=== PATIENT | female | born 1970 | race Caucasian/White ===

== ENCOUNTER 2016-12-03 19:06 | Emergency (ER) | payer OTHER ==
[~2016-12-03] VITALS: Ht 152.4 cm; Wt 83.5 kg
[~2016-12-03 19:06] MED LIST: ASPI-664 PO; CIPR750T3 PO; FAMO-18 PO; FER325 PO; FURO-109 PO; IBUP800T25 PO; KEN1O TOP; LANT3I SC; LEVO137T3 PO; METO-448 PO; MICO1KIT18 VAGINAL; NITR-58 PO; ONDA4TAB8 PO; SITA1TAB7 PO; UDMOM PO
[2016-12-03 19:21] VITALS: Ht 152.4 cm; Wt 83.5 kg
--- NOTE | 2016-12-03 19:51 | ERA ---
ER Documentation Chief Complaint Date/Time DATE: 12/03/16 TIME: 19:51 Chief Complaint left arm pain x 1 month, denies injury HPI The patient is a 46-year-old female, presenting to the ER because of right arm pain for more than a month, 5-10, worse with movement. She denies any trauma, denies fever, neck pain, chest pain, dyspnea, abdominal pain, vomiting. He does not smoke or drink; she has been cleaning the house a lot Past medical history: Diabetes mellitus, hypothyroidism, gastritis Past surgical history: ROS All systems reviewed and are negative except as per history of present illness. Medications Home Meds Active Scripts Ibuprofen* (Motrin*) 600 Mg Tab, 600 MG PO Q6H Y for PAIN AND OR ELEVATED TEMP, #20 TAB Prov:NEFTALY RUSSELL MD 12/03/16 Nitrofurantoin Monohyd Macrocr* (Macrobid*) 100 Mg Capsr, 100 MG PO BID for 7 Days, CAP Prov:SALVADOR GARCIA NP 08/29/16 Miconazole/Skin Cleanser No.17 (Monistat 7 Combination Pack) 1 Each Kit, 1 EACH VAGINAL QPM, #1 KIT Prov:SALVADOR GARCIA. WASH OIL COOLER OPERATOR 08/29/16 Ondansetron Hcl* (Zofran*) 4 Mg Tablet, 4 MG PO Q6H for NAUSEA AND/OR VOMITING, #30 TAB Prov:MONTY TENA 04/12/16 Famotidine* (Pepcid*) 20 Mg Tablet, 20 MG PO BID for 14 Days, TAB Prov:MONTY TENA 04/12/16 Ciprofloxacin Hcl* (Ciprofloxacin Hcl*) 750 Mg Tablet, 750 MG PO BID for 10 Days , #20 TAB Prov:ALPA JEAN-BAPTISTE S. 03/26/16 Furosemide* (Lasix*) 40 Mg Tablet, 40 MG PO DAILY for 30 Days, TAB 1 Refill Prov:ALPA JEAN-BAPTISTE S. 03/26/16 Triamcinolone Acetonide* (Kenalog*) 0.1%-15GM Oint, 1 APPLIC TOP BID for 30 Days , #45 GM Prov:LAUREN GUNN MD 03/25/16 Metoprolol Tartrate* (Lopressor*) 25 Mg Tab, 25 MG PO BID for 30 Days, #60 TAB Prov:LAUREN GUNN MD 03/25/16 Magnesium Hydroxide* (Acosta' MOM*) 30 Ml Susp, 30 ML PO DAILY Y for CONSTIPATION for 30 Days, #1 BOTTLE Prov:LAUREN GUNN MD 03/25/16 Ferrous Sulfate* (Ferrous Sulfate*) 325 Mg Tabec, 325 MG PO TID for 30 Days, # 90 TAB Prov:LAUREN GUNN MD 03/25/16 Aspirin* (Aspirin* EC) 81 Mg Tablet.dr, 81 MG PO DAILY for 30 Days, TAB Prov:LAUREN GUNN MD 03/25/16 Insulin Glargine* (Lantus*) 100 Unit/Ml Soln, 50 UNIT SC QHS for 30 Days, #1 VIAL Prov:LAUREN GUNN MD 03/25/16 Reported Medications Sitagliptin Phos-Metformin Hcl (Janumet) 50-1,000 Mg Tablet, 1 TAB PO WITH BREAKFAST DINNE, #60 TAB 03/22/16 Ibuprofen* (Motrin*) 800 Mg Tab, 800 MG PO TID Y for PAIN, TAB 03/22/16 Levothyroxine Sodium* (Levothyroxine Sodium*) 137 Mcg Tablet, 137 MCG PO BEFORE BREAKFAST, #30 TAB 03/22/16 Allergies Allergies: Coded Allergies: No Known Allergies (Verified Allergy, Mild, 04/12/16) PMhx/Soc History of Surgery: Yes ( X1 ) Anesthesia Reaction: No Hx Neurological Disorder: No Hx Respiratory Disorders: No Hx Cardiac Disorders: No Hx Psychiatric Problems: No Hx Miscellaneous Medical Probl: Yes (GASTRITIS) Hx Alcohol Use: No Hx Substance Use: No Hx Tobacco Use: No Physical Exam Vitals Vital Signs Date Time Temp Pulse Resp B/P Pulse Ox O2 Delivery O2 Flow Rate FiO2 12/03/16 19:21 97.8 93 20 135/61 100 Physical Exam Const: No acute distress. Head: Atraumatic. Eyes: Normal Conjunctiva. ENT: Normal External Ears, Nose and Mouth. Neck: Full range of motion. No meningismus. Resp: Clear to auscultation bilaterally. Cardio: Regular rate and rhythm, no murmurs. Abd: Soft, non distended, normal bowel sounds, non tender. Skin: No petechiae or rashes. Back: No midline or flank tenderness. Ext: No cyanosis, or edema. Left arm is without any erythema, edema, crepitus, vague tenderness Neur: Awake and alert. No focal deficit Psych: Normal Mood and Affect. Results 24 hrs Current Medications Medications (Trade) Dose Ordered Sig/Charley Route PRN Reason Start Time Stop Time Status Last Admin Dose Admin Ibuprofen (Motrin) 600 mg ONCE ONCE PO 12/03/16 20:00 12/03/16 20:01 DC 12/03/16 20:14 Procedures/MDM MEDICAL MAKING DECISION: The patient is a 46-year-old female, presenting with acute left arm myalgia of unclear etiology. The differential diagnoses considered include but are not limited to contusion, sprain, strain, fracture, cellulitis Departure Diagnosis: Primary Impression: Pain of left arm Condition: Good Comments She was discharged with Motrin I discussed the findings with the patient. I advised the patient to follow-up with the primary physician in about 1-2 days, sooner if needed and return if any concern. The patient's blood pressure was elevated (>120/80) but appears stable without evidence of hypertension emergency or urgency. The patient was counseled about the risks of hypertension and urged to pursue outpatient monitoring and therapy within a week with their primary care physician. NEFTALY RUSSELL MD Dec 03, 2016 19:51
[2016-12-03] MEDS ORDERED: IBUP-1542 PO (19:53)
[2016-12-03] MEDS ORDERED: IBUPROFEN 600 MG TAB PO ONE (20:00)
== END 2016-12-03 20:16 | disposition home or self-care (01) ==
LOC: FTE 19:06
DX: M79.602 Pain in left arm (principal); E03.9 Hypothyroidism, unspecified; E11.9 Type 2 diabetes mellitus without complications; Z79.4 Long term (current) use of insulin; Z79.84 Long term (current) use of oral hypoglycemic drugs; Z79.82 Long term (current) use of aspirin
CPT/HCPCS: 99283

== ENCOUNTER 2016-12-19 17:57 | Inpatient (IN) | payer OTHER ==
[~2016-12-19] VITALS: Ht 157.5 cm; Wt 80.8 kg
[~2016-12-19 17:57] MED LIST changes: +IBUP-1542 PO
[2016-12-19] MEDS ORDERED: ACETAMINOPHEN 500 MG TAB PO STA (18:57)
[2016-12-19 19:29] LABS: ADD UMIC YES; URINE BILIRUBIN (Dip) NEGATIVE (NEGATIVE); URINE BLOOD (Dip) TRACE (NEGATIVE); URINE COLOR LT. YELLOW (YELLOW); URINE GLUCOSE (Dip) >=1000 % (NEGATIVE); URINE KETONES (Dip) 15 (NEGATIVE); URINE LEUKOCYTE ESTERASE (Dip) NEGATIVE (NEGATIVE); URINE NITRITE (Dip) NEGATIVE (NEGATIVE); URINE TOTAL PROTEIN (Dip) 1+ (NEGATIVE); URINE UROBILINOGEN (Dip) 0.2 E.U./dL (0.1-1.0)
[2016-12-19] MEDS ORDERED: SOD CHLORIDE 0.9% 1,000 ML IV ONE (19:30)
[2016-12-19 19:49] LABS: BACTERIA,URINE RARE; SQUAMOUS EPITHELIAL CELL,UR MODERATE; URINE RBCS 0-2 /HPF (0)
[2016-12-19 20:05] LABS: ADD SCAN DIFF NO
[2016-12-19 20:20] LABS: CREATININE 0.74 mg/dl (0.44-1.00); POTASSIUM 4.6 mmol/L (3.5-5.1)
[2016-12-19 20:34] LABS: TROPONIN-I 13.3 ng/ml (0.00-0.12)
[2016-12-19] MEDS ORDERED: NITROGLYCERIN 2% 1 GM OINT PKT TD STA (20:37)
[2016-12-19] MEDS ORDERED: ASPIRIN 81 MG TAB PO STA (20:37)
[2016-12-19] MEDS ORDERED: NITROGLYCERIN (SL) 0.4 MG TAB SL PRN ×2 (21:00→23:30)
[2016-12-19 21:02] LABS: BASOPHILS % 0.2 % (0.0-2.0); EOSINOPHILS % 0.2 % (0.0-7.0); HEMATOCRIT 37.1 % (37.0-47.0); HEMOGLOBIN 12.3 g/dl (12.0-16.0); LYMPHOCYTES # 3.4 10^3/ul (0.8-2.9); LYMPHOCYTES % 28.2 % (15.0-51.0); MEAN CORPUSCULAR HEMOGLOBIN 27.1 pg (29.0-33.0); MEAN CORPUSCULAR HGB CONC 33.2 g/dl (32.0-37.0); MEAN CORPUSCULAR VOLUME 81.7 fl (82.0-101.0); MEAN PLATELET VOLUME 10.6 fl (7.4-10.4); MONOCYTES % 8.1 % (0.0-11.0); NEUTROPHIL # 7.6 10^3/ul (1.6-7.5); NEUTROPHILS % 62.6 % (39.0-77.0); PLATELET COUNT 402 10^3/UL (140-415); RED BLOOD COUNT 4.54 10^6/ul (4.20-5.40); RED CELL DISTRIBUTION WIDTH 12.9 % (11.5-14.5); WHITE BLOOD COUNT 12.2 10^3/ul (4.8-10.8)
[2016-12-19] MEDS ORDERED: LANT3I SC (21:07)
[2016-12-19] MEDS ORDERED: LISI1TAB8 PO (21:08)
[2016-12-19] MEDS ORDERED: METF1000 PO (21:11)
[2016-12-19] MEDS ORDERED: ATOR20TA38 PO (21:12)
[2016-12-19] MEDS ORDERED: CALC60OI3 TOP (21:13)
[2016-12-19] MEDS ORDERED: FLUO60OI5 TOP (21:15)
[2016-12-19] MEDS ORDERED: ACETAMINOPHEN 325 MG TAB PO PRN ×2 (21:30→23:30)
[2016-12-19] MEDS ORDERED: ONDANSETRON 4 MG INJ IV PRN ×2 (21:30→23:30)
[2016-12-19 22:00] VITALS: TEMP 98.2
[2016-12-19] MEDS ORDERED: ENOXAPARIN 80 MG/0.8 ML SYG SC SCH (22:00)
[2016-12-19] MEDS ORDERED: INSULIN LISPRO 100 UNIT/ML VIAL SC STA (22:01)
[2016-12-19 22:30] VITALS: BP 121/71; PULSE 86; RESP 20
[2016-12-19 22:41] VITALS: PULSE 82
[2016-12-19 22:53] VITALS: Ht 157.5 cm; Wt 80.8 kg
--- NOTE | 2016-12-19 22:53 | ERA ---
ER Documentation Chief Complaint Date/Time DATE: 12/19/16 TIME: 22:50 Chief Complaint cough, cwp w cough, fatigue, bodyaches, ibrahim, fever HPI Patient is a 46-year-old female with hypertension and diabetes who presents with chest pain. Her symptoms started yesterday. She felt like it started after she was drinking a soda. She tried aspirin yesterday and felt better. She has never had a cardiac catheterization. She is denying any pain currently. Upon review of old medical record she does have multiple visits to the ER for various complaints. ROS All systems reviewed and are negative except as per history of present illness. Medications Home Meds Reported Medications Fluocinonide* (Fluocinonide* Oint) 0.05%-60 Gm Oint..gm., 1 APPLIC TOP BID, EA 12/19/16 Calcipotriene* (Calcipotriene*) 0.005%-60 Gm Oint...g., 1 APPLIC TOP BID, TUB 12/19/16 Atorvastatin Calcium* (Atorvastatin Calcium*) 20 Mg Tablet, 20 MG PO QHS, #30 TAB 12/19/16 Metformin Hcl* (Metformin Hcl*) 1,000 Mg Tablet, 1000 MG PO WITH BREAKFAST DINNE , #60 TAB 12/19/16 Lisinopril/Hydrochlorothiazide (Lisinopril-Hctz 20-25 mg Tab) 1 Each Tablet, 1 EACH PO DAILY, TAB 12/19/16 Insulin Glargine* (Lantus*) 100 Unit/Ml Soln, 50 UNIT SC QHS, #1 VIAL 12/19/16 Discontinued Reported Medications Sitagliptin Phos-Metformin Hcl (Janumet) 50-1,000 Mg Tablet, 1 TAB PO WITH BREAKFAST DINNE, #60 TAB 03/22/16 Ibuprofen* (Motrin*) 800 Mg Tab, 800 MG PO TID Y for PAIN, TAB 03/22/16 Levothyroxine Sodium* (Levothyroxine Sodium*) 137 Mcg Tablet, 137 MCG PO BEFORE BREAKFAST, #30 TAB 03/22/16 Discontinued Scripts Ibuprofen* (Motrin*) 600 Mg Tab, 600 MG PO Q6H Y for PAIN AND OR ELEVATED TEMP, #20 TAB Prov:NEFTALY RUSSELL MD 12/03/16 Nitrofurantoin Monohyd Macrocr* (Macrobid*) 100 Mg Capsr, 100 MG PO BID for 7 Days, CAP Prov:RADHASALVADOR X. FLIPPING MACHINE OPERATOR 08/29/16 Miconazole/Skin Cleanser No.17 (Monistat 7 Combination Pack) 1 Each Kit, 1 EACH VAGINAL QPM, #1 KIT Prov:SALVADOR GARCIA Carmelita. FLIPPING MACHINE OPERATOR 08/29/16 Ondansetron Hcl* (Zofran*) 4 Mg Tablet, 4 MG PO Q6H for NAUSEA AND/OR VOMITING, #30 TAB Prov:SARAY TENANA C 04/12/16 Famotidine* (Pepcid*) 20 Mg Tablet, 20 MG PO BID for 14 Days, TAB Prov:DARINELMONTY C 04/12/16 Ciprofloxacin Hcl* (Ciprofloxacin Hcl*) 750 Mg Tablet, 750 MG PO BID for 10 Days , #20 TAB Prov:ALPA JEAN-BAPTISTE S. 03/26/16 Furosemide* (Lasix*) 40 Mg Tablet, 40 MG PO DAILY for 30 Days, TAB 1 Refill Prov:ALPA JEAN-BAPTISTE S. 03/26/16 Triamcinolone Acetonide* (Kenalog*) 0.1%-15GM Oint, 1 APPLIC TOP BID for 30 Days , #45 GM Prov:LAUREN GUNN MD 03/25/16 Metoprolol Tartrate* (Lopressor*) 25 Mg Tab, 25 MG PO BID for 30 Days, #60 TAB Prov:LAUREN GUNN MD 03/25/16 Magnesium Hydroxide* (Acosta' MOM*) 30 Ml Susp, 30 ML PO DAILY Y for CONSTIPATION for 30 Days, #1 BOTTLE Prov:LAUREN GUNN MD 03/25/16 Ferrous Sulfate* (Ferrous Sulfate*) 325 Mg Tabec, 325 MG PO TID for 30 Days, # 90 TAB Prov:LAUREN GUNN MD 03/25/16 Aspirin* (Aspirin* EC) 81 Mg Tablet.dr, 81 MG PO DAILY for 30 Days, TAB Prov:LAUREN GUNN MD 03/25/16 Insulin Glargine* (Lantus*) 100 Unit/Ml Soln, 50 UNIT SC QHS for 30 Days, #1 VIAL Prov:LAUREN GUNN MD 03/25/16 Allergies Allergies: Coded Allergies: No Known Allergies (Verified Allergy, Mild, 04/12/16) PMhx/Soc History of Surgery: Yes ( X1, appendectomy) Anesthesia Reaction: No Hx Neurological Disorder: No Hx Respiratory Disorders: No Hx Cardiac Disorders: Yes (HTN, DYSLIPIDEMIA) Hx Psychiatric Problems: No Hx Miscellaneous Medical Probl: Yes (GASTRITIS, DM, KIDNEY STONES) Hx Alcohol Use: No Hx Substance Use: No Hx Tobacco Use: No Smoking Status: Never smoker FmHx Family History: coronary disease Physical Exam Vitals Vital Signs Date Time Temp Pulse Resp B/P Pulse Ox O2 Delivery O2 Flow Rate FiO2 12/19/16 21:00 87 18 136/82 98 Room Air 12/19/16 18:10 99.1 101 20 138/88 98 Physical Exam Const: Mild distress Head: Atraumatic Eyes: Normal Conjunctiva ENT: Normal External Ears, Nose and Mouth. Neck: Full range of motion..~ No meningismus. Resp: Clear to auscultation bilaterally Cardio: Regular rate and rhythm, no murmurs Abd: Soft, non tender, non distended. Normal bowel sounds Skin: No petechiae or rashes Back: No midline or flank tenderness Ext: No cyanosis, or edema Neur: Awake and alert Psych: Normal Mood and Affect Result Diagram: 12/19/16192912/19/161929 Results 24 hrs Laboratory Tests Test 12/19/16 19:18 12/19/16 19:30 Urine Color LT. YELLOW Urine Clarity CLEAR Urine pH 6.0 Urine Specific [place] 1.010 Urine Ketones 15 Urine Nitrite NEGATIVE Urine Bilirubin NEGATIVE Urine Urobilinogen 0.2 E.U./dL Urine Leukocyte Esterase NEGATIVE Urine Microscopic RBC 0-2/HPF Urine Microscopic WBC 0-2/HPF Urine Squamous Epithelial Cells MODERATE Urine Bacteria RARE Urine Hemoglobin TRACE Urine Glucose >=1000% Urine Total Protein 1+ White Blood Count 12.210^3/ul Red Blood Count 4.5410^6/ul Hemoglobin 12.3g/dl Hematocrit 37.1% Mean Corpuscular Volume 81.7fl Mean Corpuscular Hemoglobin 27.1pg Mean Corpuscular Hemoglobin Concent 33.2g/dl Red Cell Distribution Width 12.9% Platelet Count 65590^3/UL Mean Platelet Volume 10.6fl Neutrophils % 62.6% Lymphocytes % 28.2% Monocytes % 8.1% Eosinophils % 0.2% Basophils % 0.2% Nucleated Red Blood Cells % 0.0/100WBC Neutrophils # 7.610^3/ul Lymphocytes # 3.410^3/ul Monocytes # 1.010^3/ul Eosinophils # 0.010^3/ul Basophils # 0.010^3/ul Nucleated Red Blood Cells # 0.010^3/ul Sodium Level 130mmol/L Potassium Level 4.6mmol/L Chloride Level 96mmol/L Carbon Dioxide Level 25mmol/L Anion Gap 14 Blood Urea Nitrogen 16mg/dl Creatinine 0.74mg/dl Glucose Level 407mg/dl Calcium Level 9.0mg/dl Troponin I 13.300ng/ml Current Medications Medications (Trade) Dose Ordered Sig/Charley Route PRN Reason Start Time Stop Time Status Last Admin Dose Admin Acetaminophen 1000 mg 1,000 mg ONCE STAT PO 12/19/16 18:57 12/19/16 19:00 DC 12/19/16 19:26 Sodium Chloride (NS) 1,000 ml @ 1,000 mls/hr Q1H ONCE IV 12/19/16 19:30 12/19/16 20:29 DC 12/19/16 19:27 Aspirin (Aspirin) 162 mg ONCE STAT PO 12/19/16 20:37 12/19/16 20:39 DC 12/19/16 21:04 Nitroglycerin (Nitroglycerin 2% Oint) 1 inch ONCE STAT TD 12/19/16 20:37 12/19/16 20:39 DC 12/19/16 21:04 Nitroglycerin (Nitroglycerin (Sl Tab) 0.4 Mg) 1 tab Q5M UP TO 3 DOSES PRN SL CHEST PAIN 12/19/16 21:00 Ondansetron HCl (Zofran Inj) 4 mg ER BRIDGE PRN IV NAUSEA AND/OR VOMITING 12/19/16 21:30 12/20/16 21:29 Acetaminophen (Tylenol Tab) 650 mg ER BRIDGE PRN PO MILD PAIN/FEVER 12/19/16 21:30 12/20/16 21:29 Procedures/MDM EKG #1 read by me: Rate/Rhythm: Regular rate and rhythm at a normal rate Intervals: Normal Impression: No evidence of ischemia or arrhythmia EKG #2 read by me: Rate/Rhythm: Regular rate and rhythm at a normal rate Intervals: Normal Impression: No evidence of ischemia or arrhythmia Chest x-ray pending radiology read at this time. Patient is a 46-year-old female with cardiac risk factors who presents with chest pain. She was found to have a significantly elevated troponin of 13 concerning for NSTEMI. It is also possible the patient has a myocarditis or pericarditis. The patient will need admission to the telemetry floor. I spoke with Dr. Bocanegra from the panel team for admission. I also spoke with Dr. Allison who is covering for Dr. Maxwell. The patient was given aspirin, nitroglycerin, and Lovenox. There is no sign of STEMI at this time. The patient denies chest pain at this time. Critical Care: Time: 35 minutes exlcuding all billable procedures. Treatments/Evaluations: Close monitoring and treatment of unstable vital signs, cardiorespiratory, and neurologic status, while maintaining tight balance of fluid, respiratory, and cardiac interventions. Departure Diagnosis: Primary Impression: NSTEMI (non-ST elevated myocardial infarction) Condition: Serious ZIYAD HIGUERA MD Dec 19, 2016 22:52
--- NOTE | 2016-12-19 23:23 | RADRPT ---
PROCEDURE: XR Chest. CLINICAL INDICATION: Chest pain TECHNIQUE: AP Portable chest. COMPARISON: No pertinent prior examinations were submitted for comparison. FINDINGS: The cardiomediastinal silhouette is normal. The lungs are clear. The osseous structures are unrema rkable. IMPRESSION: No acute findings. RPTAT: HIKT .Kennedy Gold MD, MD Date Time Electronically viewed and signed by .Kennedy Gold MD, MD on 12/19/2016 23:22 .T/
[2016-12-19] MEDS ORDERED: INSULIN ASPART [NOVOLOG] 3 ML PEN SC ONE (23:30)
[2016-12-19] MEDS ORDERED: INSULIN GLARGINE [LANtus] 3 ML PEN SC SCH (23:30)
[2016-12-19] MEDS ORDERED: ATORVASTATIN 40 MG TAB PO SCH (23:30)
[2016-12-19] MEDS ORDERED: morphine 4 MG/ML VIAL IV PRN (23:30)
[2016-12-19] MEDS ORDERED: GLUCOSE GEL 15 GRAM TUBE PO PRN ×2 (23:45)
[2016-12-19] MEDS ORDERED: DEXTROSE 50% 50 ML SYRINGE IV PRN ×2 (23:45)
[2016-12-19] MEDS ORDERED: GLUCOSE GEL 15 GRAM TUBE BUCCAL PRN (23:45)
[2016-12-19] MEDS ORDERED: GLUCAGON 1 MG INJ IM PRN (23:45)
[2016-12-20] VITALS (24 sets, daily range): BP systolic 103–136; BP diastolic 58–114; PULSE 70–98; RESP 15–32
[2016-12-20] MEDS: METOPROLOL 25 MG TAB PO SCH ×2 (00:01→08:37)
[2016-12-20] MEDS: ACCU-CHEK XX SCH (02:00)
[2016-12-20 03:06] LABS: CK-MB 5.14 ng/ml (0.0-2.4)
[2016-12-20 03:09] LABS: TROPONIN-I 12.2 ng/ml (0.00-0.12)
--- NOTE | 2016-12-20 07:16 | HP ---
Date/Time of Note Date/Time of Note DATE: 12/20/16 TIME: 07:07 Assessment/Plan VTE Prophylaxis VTE Prophylaxis Intervention: heparin Lines/Catheters IV Catheter Type (from Nrs): Saline Lock Urinary Cath still in place: No Assessment/Plan Assessment/Plan 1. NSTEMI - Heparin gtt, oxygen, BB, statin and as needed Nitro and morphine - 2D-echo - Dr. Novoa, microsoft dynamics manager architect was consulted by ER 2. HTN - cont meds 3. Diabetes with Hypergycemia - Insulin with adjustment as needed - will check A1c 4. Dyslipidemia - statin - check fasting lipids 5.Psoriasis - cont home med HPI/ROS Admit Date/Time Admit Date/Time Dec 19, 2016 at 21:32 Hx of Present Illness Patient is a 46-year-old female with hypertension, diabetes, decreased systolic dysfunction with EF of 45-50% who presents with chest pain since yesterday. Described as sharp with no radiation. Took aspirin yesterday, which helped pain. In ER, first trop was 13, EKG no ischemic changes. She was given treatment dose Lovenox. She was admitted here in March of last year for sepsis/pyelo. At that time trop was mildly elevated around 0.5, thought to be 2/2 sepsis. . PMH/Family/Social Social History Smoking Status: Never smoker Exam/Review of Systems Vital Signs Vitals Vital Signs Date Time Temp Pulse Resp B/P Pulse Ox O2 Delivery O2 Flow Rate FiO2 12/20/16 04:39 90 12/20/16 03:54 97.9 20 105/58 99 12/19/16 22:42 Nasal Cannula 2.0 Intake and Output 12/19/16 12/19/16 12/20/16 15:00 23:00 07:00 Intake Total 300 ml Balance 300 ml Exam Constitutional: other (no acute distreaa. Over weight) Head: atraumatic, normocephalic Respiratory: clear to auscultation, normal air movement Cardiovascular: nl pulses, regular rate and rhythm Gastrointestinal: non-tender, soft Extremities: normal pulses Labs Result Diagram: 12/19/16192912/19/161929 Medications Medications Current Medications Enoxaparin Sodium (Lovenox) 80 mg ONCE SC Last administered on 12/19/16t 22:06 ; Admin Dose 80 MG; Start 12/19/16 at 22:00 Metoprolol Tartrate (Lopressor) 25 mg BID PO Last administered on 12/20/16 00: 01; Admin Dose 25 MG; Start 12/19/16 at 23:30 Atorvastatin Calcium (Lipitor) 40 mg HS PO Last administered on 12/19/16 23:59 ; Admin Dose 40 MG; Start 12/19/16 at 23:30 Aspirin (Halfprin) 81 mg DAILY PO ; Start 12/20/16 at 09:00 Nitroglycerin (Nitroglycerin (Sl Tab) 0.4 Mg) 1 tab Q5M PRN SL ANGINA; Start at 23:30 Morphine Sulfate (morphine) 3 mg Q4H PRN IV PAIN LEVEL 7-10; Start 12/19/16 at 23:30 Ondansetron HCl (Zofran Inj) 4 mg Q6H PRN IV NAUSEA AND/OR VOMITING; Start 08/25 at 23:30 Acetaminophen (Tylenol Tab) 650 mg Q6H PRN PO PAIN AND OR ELEVATED TEMP; Start 12/19/16 at 23:30 Diagnostic Test (Pha) (Accu-Chek) 1 ea 02 XX ; Start 12/20/16 at 02:00 Miscellaneous Information 1 ea NOTE XX ; Start 12/19/16 at 23:45 Glucose (Glutose) 15 gm Q15M PRN PO DECREASED GLUCOSE; Start 12/19/16 at 23:45 Glucose (Glutose) 22.5 gm Q15M PRN PO DECREASED GLUCOSE; Start 12/19/16 at 23: 45 Dextrose (D50w Syringe) 25 ml Q15M PRN IV DECREASED GLUCOSE; Start 12/19/16 at 23:45 Dextrose (D50w Syringe) 50 ml Q15M PRN IV DECREASED GLUCOSE; Start 12/19/16 at 23:45 Glucagon (Glucagen) 1 mg Q15M PRN IM DECREASED GLUCOSE; Start 12/19/16 at 23:45 Glucose (Glutose) 15 gm Q15M PRN BUCCAL DECREASED GLUCOSE; Start 12/19/16 at 23 :45 Insulin Glargine (Lantus) 50 unit DAILY@20 SC ; Start 12/20/16 at 20:00; Status VIVI COE MD Dec 20, 2016 07:15
[2016-12-20] MEDS ORDERED: HEPARIN 1000 UNITS/ML 10 ML INJ IV PRN ×2 (07:30→10:30)
[2016-12-20] MEDS ORDERED: DEXTROSE 5%-0.45% NACL 1,000 ML IV SCH (08:30)
--- NOTE | 2016-12-20 08:35 | CONS ---
Date/Time of Note Date/Time of Note DATE: 12/20/16 TIME: 08:25 Assessment/Plan Assessment/Plan Chief Complaint/Hosp Course NSTEMI: Trop 13 and downtrending. No further symptoms. Cardiac cath to evaluate coronaries. Cardiomyopathy: EF previously ~45-50%, likely ischemic. Euvolemic by exam DM: uncontrolled HTN HL -cardiac cath at noon -continue ASA, heparin drip -lipitor -metoprolol -echo Problems: Consultation Date/Type/Reason Admit Date/Time Dec 19, 2016 at 21:32 Date of Consultation: Dec 20, 2016 Type of Consultation: Cardiology Reason for Consultation NSTEMI Referring Provider: VIVI CISNEROS MD Hx of Present Illness 46 yo F with a h/o DM (uncontrolled, 15+ yrs), HTN, HL, who presented with chest pain and was found to have an NSTMI (trop 13 and downtrended). Per the daughter, the pt had chest pain 2 nights ago which she describes as pressure like (gas like) which she thinks occurred after drinking soda. She took ASA and eventually felt better. She had recurrence of her pain last night while in the shower and decided to come in for evaluation. Currently asymptomatic. Of note she was hospitalized last year for UTI and was found to have trop of 0.5 at that time with EF 45-50% thought to be type II MO, medically treated. She is agreeable to cardiac cath for evaluation. per HPI Past Medical History per hPI Social History Smoking Status: Never smoker Exam/Review of Systems Vital Signs Vitals Vital Signs Date Time Temp Pulse Resp B/P Pulse Ox O2 Delivery O2 Flow Rate FiO2 12/20/16 08:08 85 12/20/16 07:49 99.5 18 107/67 100 12/19/16 22:42 Nasal Cannula 2.0 Intake and Output 12/19/16 12/19/16 12/20/16 15:00 23:00 07:00 Intake Total 300 ml Balance 300 ml Exam Constitutional: alert, oriented Psych: no complaints Head: atraumatic, normocephalic Neck: No jvd Respiratory: clear to auscultation, No crackles/rales Cardiovascular: regular rate and rhythm, No edema, No systolic murmur Gastrointestinal: non-tender, soft Extremities: normal pulses Neurological: nl mental status, nl speech Results EKGs: sinus, anterolateral q waves, inferior q waves Result Diagram: 12/19/16192912/19/161929 Results 24 hrs Laboratory Tests Test 12/19/16 19:18 12/19/16 19:30 12/19/16 22:04 12/19/16 22:37 Urine Color LT. YELLOW Urine Clarity CLEAR Urine pH 6.0 Urine Specific [place] 1.010 Urine Ketones 15 Urine Nitrite NEGATIVE Urine Bilirubin NEGATIVE Urine Urobilinogen 0.2 E.U./dL Urine Leukocyte Esterase NEGATIVE Urine Microscopic RBC 0-2 Urine Microscopic WBC 0-2 Urine Squamous Epithelial Cells MODERATE Urine Bacteria RARE Urine Hemoglobin TRACE Urine Glucose >=1000 Urine Total Protein 1+ H White Blood Count 12.2 #H Red Blood Count 4.54 Hemoglobin 12.3 Hematocrit 37.1 Mean Corpuscular Volume 81.7 L Mean Corpuscular Hemoglobin 27.1 L Mean Corpuscular Hemoglobin Concent 33.2 Red Cell Distribution Width 12.9 Platelet Count 402 Mean Platelet Volume 10.6 #H Neutrophils % 62.6 Lymphocytes % 28.2 Monocytes % 8.1 Eosinophils % 0.2 Basophils % 0.2 Nucleated Red Blood Cells % 0.0 Neutrophils # 7.6 H Lymphocytes # 3.4 H Monocytes # 1.0 H Eosinophils # 0.0 Basophils # 0.0 Nucleated Red Blood Cells # 0.0 Sodium Level 130 L Potassium Level 4.6 Chloride Level 96 L Carbon Dioxide Level 25 Anion Gap 14 Blood Urea Nitrogen 16 Creatinine 0.74 Glucose Level 407 *H Calcium Level 9.0 Troponin I 13.300 *H Bedside Glucose 308 H 322 H Test 12/20/16 02:20 12/20/16 03:12 12/20/16 08:06 Creatine Kinase 284 H Creatine Kinase Index 1.8 Creatinine Kinase MB (Mass) 5.14 H Troponin I 12.200 *H Bedside Glucose 282 H 304 H Medications Medications Current Medications Metoprolol Tartrate (Lopressor) 25 mg BID PO Last administered on 12/20/16 00: 01; Admin Dose 25 MG; Start 12/19/16 at 23:30 Atorvastatin Calcium (Lipitor) 40 mg HS PO Last administered on 12/19/16 23:59 ; Admin Dose 40 MG; Start 12/19/16 at 23:30 Aspirin (Halfprin) 81 mg DAILY PO ; Start 12/20/16 at 09:00 Nitroglycerin (Nitroglycerin (Sl Tab) 0.4 Mg) 1 tab Q5M PRN SL ANGINA; Start at 23:30 Morphine Sulfate (morphine) 3 mg Q4H PRN IV PAIN LEVEL 7-10; Start 12/19/16 at 23:30 Ondansetron HCl (Zofran Inj) 4 mg Q6H PRN IV NAUSEA AND/OR VOMITING; Start 08/25 at 23:30 Acetaminophen (Tylenol Tab) 650 mg Q6H PRN PO PAIN AND OR ELEVATED TEMP; Start 12/19/16 at 23:30 Diagnostic Test (Pha) (Accu-Chek) 1 ea 02 XX ; Start 12/20/16 at 02:00 Miscellaneous Information 1 ea NOTE XX ; Start 12/19/16 at 23:45 Glucose (Glutose) 15 gm Q15M PRN PO DECREASED GLUCOSE; Start 12/19/16 at 23:45 Glucose (Glutose) 22.5 gm Q15M PRN PO DECREASED GLUCOSE; Start 12/19/16 at 23: 45 Dextrose (D50w Syringe) 25 ml Q15M PRN IV DECREASED GLUCOSE; Start 12/19/16 at 23:45 Dextrose (D50w Syringe) 50 ml Q15M PRN IV DECREASED GLUCOSE; Start 12/19/16 at 23:45 Glucagon (Glucagen) 1 mg Q15M PRN IM DECREASED GLUCOSE; Start 12/19/16 at 23:45 Glucose (Glutose) 15 gm Q15M PRN BUCCAL DECREASED GLUCOSE; Start 12/19/16 at 23 :45 Insulin Glargine 50 unit 50 unit DAILY@20 SC ; Start 12/20/16 at 20:00 Dextrose/Sodium Chloride (D5-1/2ns) 1,000 ml @ 75 mls/hr [id number] IV ; Start at 08:30; Status JAKOB YUNG Dec 20, 2016 08:35
[2016-12-20] MEDS: ASPIRIN (EC) 81 MG TAB PO SCH (08:37)
[2016-12-20] MEDS: INSULIN ASPART [NOVOLOG] 3 ML PEN SC SCH ×4 (08:37→21:24)
[2016-12-20 09:51] LABS: INR 0.94; PROTIME 12.6 Sec (12.2-14.2)
[2016-12-20 09:52] LABS: PARTIAL THROMBOPLASTIN TIME 35.8 Sec (25.0-35.0)
[2016-12-20 10:01] LABS: CK-MB 3.32 ng/ml (0.0-2.4)
[2016-12-20 10:10] LABS: TROPONIN-I 11.1 ng/ml (0.00-0.12)
[2016-12-20 10:11] LABS: ADD SCAN DIFF NO
[2016-12-20 10:16] LABS: BASOPHILS % 0.2 % (0.0-2.0); EOSINOPHILS % 0.2 % (0.0-7.0); HEMATOCRIT 30.9 % (37.0-47.0); HEMOGLOBIN 10.2 g/dl (12.0-16.0); LYMPHOCYTES # 3.8 10^3/ul (0.8-2.9); LYMPHOCYTES % 31.6 % (15.0-51.0); MEAN CORPUSCULAR HEMOGLOBIN 27.1 pg (29.0-33.0); MEAN CORPUSCULAR VOLUME 82.2 fl (82.0-101.0); MEAN PLATELET VOLUME 10.6 fl (7.4-10.4); MONOCYTE # 1.1 10^3/ul (0.3-0.9); MONOCYTES % 8.9 % (0.0-11.0); NEUTROPHIL # 7.2 10^3/ul (1.6-7.5); NEUTROPHILS % 58.6 % (39.0-77.0); PLATELET COUNT 342 10^3/UL (140-415); RED BLOOD COUNT 3.76 10^6/ul (4.20-5.40); WHITE BLOOD COUNT 12.2 10^3/ul (4.8-10.8)
[2016-12-20] MEDS ORDERED: LIDOCAINE 1% (MDV) 20 ML INJ ONE (10:26)
[2016-12-20] MEDS ORDERED: HEPARIN 1000 UNITS/NS (A-LINE) 1,000 ML ONE (10:26)
[2016-12-20] MEDS ORDERED: HEPARIN 1000 UNITS/ML 10 ML INJ ONE (10:26)
[2016-12-20] MEDS ORDERED: HEPARIN 25000 UNITS/250 ML 250 ML IV SCH (10:30)
[2016-12-20] MEDS ORDERED: BIVALIRUDIN 250MG /NS 50 ML 50 ML IVPB ONE (11:25)
[2016-12-20] MEDS ORDERED: TICAGRELOR 90 MG TABLET ONE (11:30)
[2016-12-20] MEDS ORDERED: ASPIRIN 81 MG TAB ONE (11:31)
[2016-12-20] MEDS ORDERED: IODIXANOL LOCM 100 ML BTL ONE (11:49)
[2016-12-20] MEDS ORDERED: SOD CHLORIDE 0.9% 500 ML ONE (11:49)
[2016-12-20] MEDS ORDERED: IOHEXOL 350MG/ML 50 ML BTL ONE (11:49)
[2016-12-20] MEDS ORDERED: FENTAnyl 50 MCG/ML VIAL ONE (12:06)
[2016-12-20] MEDS ORDERED: NITROGLYCERIN (IC) 100 MCG/ML INJ ONE (12:10)
[2016-12-20] MEDS ORDERED: VERAPAMIL 5 MG INJ ONE (12:10)
[2016-12-20] MEDS ORDERED: SOD CHLORIDE 0.9% 1,000 ML IV SCH (12:19)
[2016-12-20] MEDS ORDERED: morphine 2 MG INJ IV PRN (12:30)
--- NOTE | 2016-12-20 12:36 | OPR ---
Date/Time of Note Date/Time of Note DATE: 12/20/16 TIME: 12:24 Operative Report Free Text/Dictation Procedure Date: 12/20/2016 Procedures Performed: 1)Left heart catheterization with selective left and right coronary angiography. 2)Balloon angioplasty and stenting of the mid LAD with a overlapping Synergy 2.25 x 16 and 2.25 x 8 stents. Pre-operative Diagnosis:NSTEMI Post-operative Diagnosis: NSTEMI s/p PCI of mid LAD Indications: 46 yo F with a h/o DM, HTN, HL, who was admitted for CP and was found to have an NSTEMI (trop 13). Cardiac cath was discussed with the pt and she was agreeable. She understood the importance of medical compliance and understood the risks including NV/ associated with non-compliance Description of Procedure: After informed consent, the patient was brought to the cardiac catheterization lab. The procedure site was prepped and draped in usual manner. The patient was premedicated with versed 1.5 mg and fentanyl 100 mcg. 2 mL lidocaine was injected into the right wrist. Next using the posterior wall technique, the 6/ 5 vincentian sheath was inserted into the right radial artery. Next using the JL3.0 and JR4, selective angiography of the left and right coronary arteries were obtained. Left ventricle angiography was not obtained. The decision was made to proceed with PCI of the mid LAD. A EBU 3.0 guide was advanced and engaged into the left coronary artery. After appropriate anticoagulation and antiplatelets were given, the PT2 LS angioplasty wire was advanced past the lesion. A BMW wire was placed in the diag. Next the 2.0 X 12 balloon was used to dilate the lesion times 2 at a maximum of 8 diana. There was a small non flow limiting dissection seen. Subsequently, the Synergy 2.25 x 16 stent was advanced to the lesion and deployed at 11 diana. The BMW wire was then removed from the diag (flow remained CANDICE 3). Next a Synergy 2.25 x 8 stent was placed overlapping with the previous stent to cover the proximal plaque and deployed at 11 diana . The stent balloon was used to post dilate the overlapping segment x 1 at 11 diana. Final angiography revealed CANDICE 3 flow, no edge dissection, and appropriate stent expansion. Next all equipment was removed and hemostasis was achieved by TR band. Of note there was significant radial artery spasm and NTG was used through the sheath and a BP cuff was inflated proximally to eventually allow safe removal of the arterial sheath. Findings: Anatomy/Hemodynamics: Left main:normal LAD: mid 99% at diag 2 Diagonal1 normal Diagonal 2 small artery with ostial-prox 50% Circumflex:luminal irregularities Obtuse marginal:small <2 mm vessel with prox to distal diffuse 80% disease RCA: luminal irregularities PDA:small vessel with prox 40% PLV:luminal irregularities LV angiography:not done LV-Ao no pullback gradient LVEDP: 20 mmHg. Contrast used:105 mL Fluoroscopy time: 13.9 min Medications used: Versed 1.5mg Fentanyl 100mcg ASA 81mg ticagrelor 180mg Angiomax bolus/drip Radial cocktail (heparin 5000 units, NTG 200, verapamil 2.5) NTG IC 200 x 2, through sheath 100 x 2 Equipment used: 6 vincentian EBU 3.0guide PT2 LS and BMW angioplasty wires 2 x 12 balloon Synergy 2.25 x 16 SONIDO Synergy 2.25 x 8 SONIDO Assessment: NSTEMI s/p PCI of mid LAD CAD: residual small vessel disease not amenable to PCI DM HTN Plan: -to PACU then ICU for overnight observation -ASA 81mg -ticgrelor 90mg BID -lipitor 80mg -coreg 6.25mg BID -if recurrent symptoms, add JAKOB Manning Dec 20, 2016 12:36
--- NOTE | 2016-12-20 13:26 | RADRPT ---
Echocardiogram Report Patient Name: LEXIE TONY Gender: Female Date: 1970 Study Date: 20-Dec-2016 Wrapper Stemmer Hand: WANDA Ahuja [facility] Location: [id number] Ref. Physician: VIVI CISNEROS Quality: Adequate Procedures: Transthoracic echocardiogram with complete 2D, M-Mode, and doppler examination. Indications: NSTEMI. 2D/M Mode Doppler Measurement Value Normal Ranges Measurement Value Normal Ranges LVIDd 2D 4.5 3.5 - 5.6 cm EROS Vmax 0.9 cm2 LVIDs 2D 3.2 2.1 - 4.1 cm AV Peak Kosta 1.9 m/sec FS 2D 28.4 % AV Peak PG 14.0 mmHg LVPWd 2D 0.9 0.6 - 1.1 cm LVOT Peak Kosta 0.8 m/sec IVSd 2D 0.8 0.6 - 1.1 cm LVOT Peak PG 3.0 mmHg IVS/LVPW 2D 0.9 MV E Peak Kosta 0.9 m/sec AoR Diam 2D 2.2 2.0 - 3.7 cm MV A Peak Kosta 1.0 m/sec LA/Ao 2D 1 0 - 1 MV E/A 0.9 EDV 2D 91.7 cm3 MV Decel Time 148 msec ESV 2D 33.7 cm3 MV E/A 0.9 LA Dimen 2D 2.8 2.3 - 4.0 cm TR Peak Kosta 2.5 m/sec LVOT Diam 1.6 cm TR Peak PG 25.0 mmHg LVOT Area 2.0 cm2 RVSP 33.0 mmHg Findings Left Ventricle: Normal left ventricular cavity size. Normal left ventricular wall thickness. Ejection fraction is visually estimated at 4550 %. Tissue Doppler/Mitral Doppler indices are consistent with impaired relaxation (Stage I diastolic dysfunction). Resting Segmental Wall Motion Analysis: Hypokinesis of the mid-distal septum, anterior wall and apex. Right Ventricle: Normal right ventricular size. Normal right ventricular systolic function. Left Atrium: There is mild enlargement of left atrium. Right Atrium: The right atrium is normal in size. Mitral Valve: Normal appearance and function of the mitral valve with trace physiologic regurgitation. Aortic Valve: Normal appearance of the aortic valve. No significant aortic stenosis or insufficiency. Tricuspid Valve: Normal appearance of the tricuspid valve. Estimated peak PA systolic pressure 33 mmHg. There is trace tricuspid regurgitation. Pulmonic Valve: Pulmonic valve not well visualized. Pericardium: Normal pericardium with no significant pericardial effusion. Aorta: Normal aortic root. IVC: Normal size and no respiratory collapse consistent with elevated right atrial pressure. Conclusions 1.Normal left ventricular cavity size. Normal left ventricular wall thickness. Ejection fraction is visually estimated at 45-50 %. Tissue Doppler/Mitral Doppler indices are consistent with impaired relaxation (Stage I diastolic dysfunction). 2.Hypokinesis of the mid-distal septum, anterior wall and apex. 3.No significant valvular stenosis or regurgitation seen. 4.Estimated peak PA systolic pressure 33 mmHg based on RA pressure of 8 mmHg. Electronically Signed By: Donell Maxwell 20-Dec-2016 13:25:37 -0700 Patient Name: LEXIE TONY Study Date: 20-Dec-2016 [id number]
[2016-12-20] MEDS ORDERED: ZOLPIDEM 5 MG TAB PO PRN (16:00)
[2016-12-20] MEDS ORDERED: INSULIN GLARGINE [LANtus] 3 ML PEN SC SCH (20:00)
[2016-12-20] MEDS ORDERED: ATORVASTATIN 80 MG TAB PO SCH (21:00)
[2016-12-20] MEDS: TICAGRELOR 90 MG TABLET PO SCH (21:23)
[2016-12-21] VITALS (15 sets, daily range): BP systolic 93–128; BP diastolic 64–86; PULSE 76–91; RESP 16–23
[2016-12-21] MEDS: ACCU-CHEK XX SCH (02:00)
[2016-12-21 05:01] LABS: ADD SCAN DIFF NO
[2016-12-21 05:12] LABS: BASOPHILS % 0.2 % (0.0-2.0); EOSINOPHILS # 0.1 10^3/ul (0.0-0.5); EOSINOPHILS % 0.5 % (0.0-7.0); HEMATOCRIT 29.5 % (37.0-47.0); HEMOGLOBIN 9.8 g/dl (12.0-16.0); LYMPHOCYTES # 3.6 10^3/ul (0.8-2.9); LYMPHOCYTES % 33.4 % (15.0-51.0); MEAN CORPUSCULAR HEMOGLOBIN 27.6 pg (29.0-33.0); MEAN CORPUSCULAR HGB CONC 33.2 g/dl (32.0-37.0); MEAN CORPUSCULAR VOLUME 83.1 fl (82.0-101.0); MONOCYTE # 0.9 10^3/ul (0.3-0.9); MONOCYTES % 8.8 % (0.0-11.0); NEUTROPHILS % 56.2 % (39.0-77.0); PLATELET COUNT 347 10^3/UL (140-415); RED BLOOD COUNT 3.55 10^6/ul (4.20-5.40); WHITE BLOOD COUNT 10.7 10^3/ul (4.8-10.8)
[2016-12-21 05:21] LABS: POTASSIUM 3.6 mmol/L (3.5-5.1)
[2016-12-21 05:24] LABS: CREATININE 0.61 mg/dl (0.44-1.00)
[2016-12-21 05:25] LABS: CALCIUM 8.3 mg/dl (8.4-10.2)
[2016-12-21] MEDS: ASPIRIN (EC) 81 MG TAB PO SCH (08:52)
[2016-12-21] MEDS: TICAGRELOR 90 MG TABLET PO SCH (08:57)
[2016-12-21] MEDS: INSULIN ASPART [NOVOLOG] 3 ML PEN SC SCH ×4 (08:57→11:30)
--- NOTE | 2016-12-21 09:47 | CONS ---
Date/Time of Note Date/Time of Note DATE: 12/21/16 TIME: 09:43 Assessment/Plan Assessment/Plan Chief Complaint/Hosp Course NSTEMI: Trop 13. S/p cath with 99% mid LAD s/p PCI with drug eluting stent. H CAD: has residual small vessel disease not amenable to PCI. Will be treated medically Cardiomyopathy: EF previously ~45-50%, ischemic. Same EF currently. Euvolemic by exam DM: uncontrolled HTN HL -ASA 81mg -ticgrelor 90mg BID -lipitor 80mg -coreg 6.25mg BID -add lisinopril 2.5mg for now, uptitrate as outpt -ok for d/c from my perspective Problems: Consultation Date/Type/Reason Admit Date/Time Dec 19, 2016 at 21:32 Initial Consult Date 12/20/16 Type of Consultation: Cardiology Referring Provider: VIVI CISNEROS MD 24 HR Interval Summary Free Text/Dictation No o/n events. No further chest pain. art educator at bedside. Exam/Review of Systems Vital Signs Vitals Vital Signs Date Time Temp Pulse Resp B/P Pulse Ox O2 Delivery O2 Flow Rate FiO2 12/21/16 09:00 85 17 128/86 98 Room Air 12/21/16 08:00 98.4 12/19/16 22:42 2.0 Intake and Output 12/20/16 12/20/16 12/21/16 15:00 23:00 07:00 Intake Total 200 ml 1420 ml 120 ml Output Total 250 ml 1350 ml 500 ml Balance -50 ml 70 ml -380 ml Exam Constitutional: alert, oriented Psych: no complaints Head: atraumatic, normocephalic Neck: No jvd Respiratory: clear to auscultation, No crackles/rales Cardiovascular: regular rate and rhythm, No edema Gastrointestinal: non-tender, soft Extremities: other (right wrist without hematoma, mild tenderness ) Results Result Diagram: 12/21/16 0445 12/21/16 0452 Results 24 hrs Laboratory Tests Test 12/20/16 17:23 12/20/16 19:57 12/20/16 21:17 12/21/16 03:25 Bedside Glucose 250 H 305 H 295 H 233 H Test 12/21/16 04:45 12/21/16 04:52 12/21/16 07:06 12/21/16 07:49 White Blood Count 10.7 Red Blood Count 3.55 L Hemoglobin 9.8 L Hematocrit 29.5 L Mean Corpuscular Volume 83.1 Mean Corpuscular Hemoglobin 27.6 L Mean Corpuscular Hemoglobin Concent 33.2 Red Cell Distribution Width 13.0 Platelet Count 347 Mean Platelet Volume 10.0 Neutrophils % 56.2 Lymphocytes % 33.4 Monocytes % 8.8 Eosinophils % 0.5 Basophils % 0.2 Nucleated Red Blood Cells % 0.0 Neutrophils # 6.0 Lymphocytes # 3.6 H Monocytes # 0.9 Eosinophils # 0.1 Basophils # 0.0 Nucleated Red Blood Cells # 0.0 Sodium Level 135 Potassium Level 3.6 Chloride Level 103 Carbon Dioxide Level 26 Anion Gap 10 Blood Urea Nitrogen 12 Creatinine 0.61 Glucose Level 227 #H Calcium Level 8.3 L Phosphorus Level 4.0 Magnesium Level 2.0 Bedside Glucose 233 H 208 Test 12/21/16 08:51 Bedside Glucose 197 Medications Medications Current Medications Aspirin (Halfprin) 81 mg DAILY PO Last administered on 12/21/16t 08:52; Admin Dose 81 MG; Start 12/20/16 at 09:00 Nitroglycerin (Nitroglycerin (Sl Tab) 0.4 Mg) 1 tab Q5M PRN SL ANGINA; Start at 23:30 Morphine Sulfate (morphine) 3 mg Q4H PRN IV PAIN LEVEL 7-10; Start 12/19/16 at 23:30 Ondansetron HCl (Zofran Inj) 4 mg Q6H PRN IV NAUSEA AND/OR VOMITING; Start 08/25 at 23:30 Acetaminophen (Tylenol Tab) 650 mg Q6H PRN PO PAIN AND OR ELEVATED TEMP; Start 12/19/16 at 23:30 Diagnostic Test (Pha) (Accu-Chek) 1 ea 02 XX ; Start 12/20/16 at 02:00 Miscellaneous Information 1 ea NOTE XX ; Start 12/19/16 at 23:45 Glucose (Glutose) 15 gm Q15M PRN PO DECREASED GLUCOSE; Start 12/19/16 at 23:45 Glucose (Glutose) 22.5 gm Q15M PRN PO DECREASED GLUCOSE; Start 12/19/16 at 23: 45 Dextrose (D50w Syringe) 25 ml Q15M PRN IV DECREASED GLUCOSE; Start 12/19/16 at 23:45 Dextrose (D50w Syringe) 50 ml Q15M PRN IV DECREASED GLUCOSE; Start 12/19/16 at 23:45 Glucagon (Glucagen) 1 mg Q15M PRN IM DECREASED GLUCOSE; Start 12/19/16 at 23:45 Glucose (Glutose) 15 gm Q15M PRN BUCCAL DECREASED GLUCOSE; Start 12/19/16 at 23 :45 Insulin Glargine (Lantus) 50 unit DAILY@20 SC Last administered on 12/20/16 19 :55; Admin Dose 50 UNIT; Start 12/20/16 at 20:00 Atorvastatin Calcium (Lipitor) 80 mg HS PO Last administered on 12/20/16 21:22 ; Admin Dose 80 MG; Start 12/20/16 at 21:00 Miscellaneous Information (* Miscellaneous Pharmacy Order) HOLD all METFORMIN ... ONCE XX Last administered on 12/20/16 15:21; Admin Dose 1 EA; Start at 12:30; Stop 12/22/16 at 12:29 Morphine Sulfate (morphine) 2 mg Q2H PRN IV FOR NON CARDIAC PAIN (4-10); Start 12/20/16 at 12:30 Ticagrelor (Brilinta) 90 mg BID PO Last administered on 12/21/16 08:57; Admin Dose 90 MG; Start 12/20/16 at 21:00 Carvedilol (Coreg) 6.25 mg BID PO Last administered on 12/21/16 08:54; Admin Dose 6.25 MG; Start 12/20/16 at 21:00 Zolpidem Tartrate (Ambien) 5 mg HS PRN PO INSOMNIA; Start 12/20/16 at 16:00 JAKOB WRIGHT Dec 21, 2016 09:47
[2016-12-21] MEDS ORDERED: LISINOPRIL 5 MG TAB PO SCH (10:00)
[2016-12-21] MEDS ORDERED: INSULIN ASPART [NOVOLOG] 3 ML PEN SC SCH ×2 (11:30→13:30)
[2016-12-21] MEDS ORDERED: ATOR80TA75 PO (14:04)
[2016-12-21] MEDS ORDERED: CARV6.2579 PO (14:04)
[2016-12-21] MEDS ORDERED: NIT4 SL (14:04)
[2016-12-21] MEDS ORDERED: NOVO3I SC (14:04)
[2016-12-21] MEDS ORDERED: ASPI-664 PO (14:04)
[2016-12-21] MEDS ORDERED: TICA90TA PO (14:04)
--- NOTE | 2016-12-21 14:05 | PDOCDIS ---
Discharge Instructions CONDITION Patient Condition: Good HOME CARE INSTRUCTIONS: Special Diet: Diabetic ACTIVITY: Activity Restrictions: No Restrictions FOLLOW UP/APPOINTMENTS Appointments F/U WITH YOUR PCP IN 1-2 WEEKS JARROD VELASCO Dec 21, 2016 14:05
--- NOTE | 2016-12-21 18:20 | DS ---
DATE OF ADMISSION: 12/19/2016 DATE OF DISCHARGE: 12/21/2016 DISCHARGE DIAGNOSES: 1. Non-STEMI with elevated troponins, status post cast, 99% mid LAD blockage, status post PCI drug- eluting stent. The patient does have residual small vessel disease, not amenable to PCI. We will t reat medically. 2. Cardiomyopathy with EF previously of 45% to 50%, this is ischemic cardiomyopathy. The patient h as the same ejection fraction currently. She is euvolemic. 3. Diabetes, uncontrolled. The patient was seen by conservation educator and regimen was changed. 4. Hypertension. Continue home regimen. 5. Dyslipidemia. Continue statin but dose increased. HOSPITAL COURSE: The patient is a 46-year-old female with history of morbid obesity, diabetes uncon trolled, hypertension, dyslipidemia, psoriasis. The patient presents with a non-STEMI. She did hav e chest pain on arrival. Troponins were elevated. She was taken to the bean sprout laborer where she was found to have significant disease in the LAD with 99% stenosis, she was status post percutaneous coronary intervention with drug-eluting stent placed. She did have some residual small vessel disease that was not amenable to PCI and was recommended to be treated medically. She did have a known EF of 45% to 50% and she has the same EF at this time, cardiomyopathy is ischemic in nature. She is euvolemi c. Her diabetes was uncontrolled and her A1c was 14. She was seen by conservation educator. The earlene elena was not taking any mealtime insulin. She was started on this and was told that she will be given NovoLog with meals upon discharge in addition to what she got here in the hospital. The patient was cleared for discharge by cardiology. Once again, she was also seen by conservation educator. On the d ay of discharge the patient's vitals and labs and physical exam were stable. She had no acute compl aints and questions were answered. CONDITION ON DISCHARGE: Stable. DISPOSITION: To home. MEDICATIONS: The patient was given prescriptions for: 1. Aspirin. 2. Atorvastatin. 3. Coreg. 4. NovoLog taken with meals. 5 . Nitroglycerin p.r.n. 6. Brilinta. 7. She was to continue with her home medications. 8. She should stop taking her Lipitor 20. FOLLOWUP: The patient is to follow up with PCP in 1 to 2 weeks and the residential plumber. Greater than 30 minutes was spent coordinating discharge of patient. Dictated By: JARROD VELASCO MD BS/NTS Conf#: [id number] DID#: [id number]
== END 2016-12-21 15:30 | disposition home or self-care (01) | DRG 247 ==
LOC: FTE 17:57 → TEL 21:32 → ICU 12-20 15:03
PROVIDERS: ADMIT Internal Medicine; ATTEND Internal Medicine
PROC: 027035Z Dilation of Coronary Artery, One Artery with Two Drug-eluting Intraluminal Devices, Percutaneous Approach (ICD-10-PCS; principal; 2016-12-20)
PROC: 4A023N7 Measurement of Cardiac Sampling and Pressure, Left Heart, Percutaneous Approach (ICD-10-PCS; 2016-12-20)
DX: I21.4 Non-ST elevation (NSTEMI) myocardial infarction (principal); I42.9 Cardiomyopathy, unspecified; I25.10 Atherosclerotic heart disease of native coronary artery without angina pectoris; I10 Essential (primary) hypertension; E78.5 Hyperlipidemia, unspecified; E11.9 Type 2 diabetes mellitus without complications; L40.9 Psoriasis, unspecified
CPT/HCPCS: 36415; 71010; 80048; 81001; 81003; 82550; 82553; 82962; 83036; 83735; 84100; 84484; 85025; 85610; 85730; 87400; 93005; 93306; 93458; 96372; C1725; C1769; C1874; C1887; C9600; J0583; J1644; J1815; J3010; J7030; J7040; Q9967

== ENCOUNTER 2017-02-16 06:57 | Emergency (ER) | payer OTHER ==
[~2017-02-16] VITALS: Ht 154.9 cm; Wt 88.5 kg
[~2017-02-16 06:57] MED LIST changes: +ATOR80TA75 PO; +CALC60OI3 TOP; +CARV6.2579 PO; -CIPR750T3 PO; -FAMO-18 PO; -FER325 PO; +FLUO60OI5 TOP; -FURO-109 PO; -IBUP-1542 PO; -IBUP800T25 PO; -KEN1O TOP; -LEVO137T3 PO; +LISI1TAB8 PO; +METF1000 PO; -METO-448 PO; -MICO1KIT18 VAGINAL; +NIT4 SL; -NITR-58 PO; +NOVO3I SC; -ONDA4TAB8 PO; -SITA1TAB7 PO; +TICA90TA PO; -UDMOM PO
[2017-02-16 06:58] VITALS: Ht 154.9 cm; Wt 88.5 kg
[2017-02-16 07:52] LABS: ADD SCAN DIFF NO
[2017-02-16 07:55] LABS: BASOPHILS % 0.2 % (0.0-2.0); EOSINOPHILS # 0.2 10^3/ul (0.0-0.5); EOSINOPHILS % 1.8 % (0.0-7.0); HEMATOCRIT 30.5 % (37.0-47.0); LYMPHOCYTES # 3.4 10^3/ul (0.8-2.9); LYMPHOCYTES % 34.2 % (15.0-51.0); MEAN CORPUSCULAR HEMOGLOBIN 28.2 pg (29.0-33.0); MEAN CORPUSCULAR HGB CONC 32.8 g/dl (32.0-37.0); MEAN CORPUSCULAR VOLUME 85.9 fl (82.0-101.0); MEAN PLATELET VOLUME 9.7 fl (7.4-10.4); MONOCYTE # 0.7 10^3/ul (0.3-0.9); MONOCYTES % 6.9 % (0.0-11.0); NEUTROPHIL # 5.5 10^3/ul (1.6-7.5); NEUTROPHILS % 56.4 % (39.0-77.0); PLATELET COUNT 327 10^3/UL (140-415); RED BLOOD COUNT 3.55 10^6/ul (4.20-5.40); RED CELL DISTRIBUTION WIDTH 14.3 % (11.5-14.5); WHITE BLOOD COUNT 9.8 10^3/ul (4.8-10.8)
[2017-02-16 08:13] LABS: ALANINE AMINOTRANSFERASE 28 IU/L (13-69); ALBUMIN 4.2 g/dl (3.3-4.9); ALKALINE PHOSPHATASE 65 IU/L (42-121); ANION GAP 13 (8-16); ASPARTATE AMINO TRANSFERASE 18 IU/L (15-46); BILIRUBIN,INDIRECT 0.2 mg/dl (0-1.1); BILIRUBIN,TOTAL 0.2 mg/dl (0.2-1.3); BLOOD UREA NITROGEN 27 mg/dl (7-20); CALCIUM 8.9 mg/dl (8.4-10.2); CARBON DIOXIDE 23 mmol/L (21-31); CHLORIDE 109 mmol/L (97-110); CREATININE 0.84 mg/dl (0.44-1.00); GLUCOSE 134 mg/dl (70-220); POTASSIUM 5.5 mmol/L (3.5-5.1); SODIUM 139 mmol/L (135-144)
[2017-02-16] MEDS ORDERED: PRED20TA PO (08:17)
[2017-02-16] MEDS ORDERED: ALBU8.5H3 INH (08:17)
[2017-02-16] MEDS ORDERED: AZIT250T94 PO (08:18)
[2017-02-16 08:25] LABS: TROPONIN-I < 0.012 ng/ml (0.00-0.12)
--- NOTE | 2017-02-16 08:46 | RADRPT ---
PROCEDURE: XR Chest. CLINICAL INDICATION: Cough TECHNIQUE: Single frontal view of the chest was obtained COMPARISON: 03/26/16 FINDINGS: The heart and mediastinum are within normal limits. The lungs are clear. There is no pleural effusion or pneumothorax. RPTAT: AA IMPRESSION: No acute disease. .Shawn Porter MD, MD Date Time Electronically viewed and signed by .Shawn Porter MD, MD on 02/16/2017 08:46 .S/
[2017-02-16] MEDS ORDERED: BENZ100C70 PO (09:16)
[2017-02-16] MEDS ORDERED: FER325 PO (09:26)
--- NOTE | 2017-02-16 09:26 | ERD ---
ER Documentation Chief Complaint Date/Time DATE: 02/16/17 TIME: 09:18 Chief Complaint cough x 3 days HPI Patient is a 46-year-old female with past medical history of an NSTEMI, DM, hypertension, who presents to the ED for concerns of an ongoing cough x 2 months. Patient states her last 3 days her cough has been worse. Patient states that her cough is dry in nature. Patient also reports throat pain and throat itching.. Patient denies any trismus, drooling or hyperextension of her neck. Patient denies any fevers or chills. Patient denies any chest pain, shortness of breath, nausea, vomiting, left upper extremity pain or loss of consciousness. Patient does report taking all medication as prescribed. ROS All systems reviewed and are negative except as per history of present illness. Medications Home Meds Active Scripts Ferrous Sulfate* (Ferrous Sulfate*) 325 Mg Tabec, 325 MG PO DAILY, #30 TAB Prov:JANICE LEE PA-C 02/16/17 Benzonatate* (Tessalon Perle*) 100 Mg Capsule, 100 MG PO Q8H Y for COUGH, #20 CAP Prov:JANICE LEE PA-C 02/16/17 Azithromycin* (Zithromax*) 250 Mg Tablet, 250 MG PO .ZPACK DIRECTED, #6 TAB TAKE 500 MG (2 TABS) THE FIRST DAY THEN 250 MG (1 TAB) DAYS 2-5 Prov:JANICE LEE PA-C 02/16/17 Insulin Aspart* (Novolog Insulin Pen*) 100 Unit/Ml Soln, 7 UNIT SC WITH MEALS, # 1 VIAL 1 Refill Prov:JARROD VELASCO 12/21/16 Aspirin* (Aspirin* EC) 81 Mg Tablet.dr, 81 MG PO DAILY for 90 Days, 3 Refills Prov:JARROD VELASCO 12/21/16 Nitroglycerin* (Nitrostat*) 0.4 Mg Tab.subl, 1 TAB SL Q5M Y for ANGINA, #90 Prov:JARROD VELASCO 12/21/16 Carvedilol* (Carvedilol*) 6.25 Mg Tablet, 6.25 MG PO BID for 60 Days, TAB 1 Refill Prov:JARROD VELASCO 12/21/16 Atorvastatin* (Atorvastatin*) 80 Mg Tablet, 80 MG PO HS for 60 Days, TAB 3 Refills Prov:JARROD VELASCO 12/21/16 Ticagrelor* (Brilinta*) 90 Mg Tablet, 90 MG PO BID for 60 Days, TAB 3 Refills Prov:JARROD VELASCO 12/21/16 Reported Medications Fluocinonide* (Fluocinonide* Oint) 0.05%-60 Gm Oint..gm., 1 APPLIC TOP BID, EA 12/19/16 Calcipotriene* (Calcipotriene*) 0.005%-60 Gm Oint...g., 1 APPLIC TOP BID, TUB 12/19/16 Metformin Hcl* (Metformin Hcl*) 1,000 Mg Tablet, 1000 MG PO WITH BREAKFAST DINNE , #60 TAB 12/19/16 Lisinopril/Hydrochlorothiazide (Lisinopril-Hctz 20-25 mg Tab) 1 Each Tablet, 1 EACH PO DAILY, TAB 12/19/16 Insulin Glargine* (Lantus*) 100 Unit/Ml Soln, 50 UNIT SC QHS, #1 VIAL 12/19/16 Discontinued Scripts Prednisone* (Prednisone*) 20 Mg Tab, 60 MG PO DAILY for 4 Days, TAB Prov:JANICE LEE PA-C 02/16/17 Albuterol Sulfate* (Proair HFA*) 8.5 Gm Hfa.aer.ad, 2 PUFF INH Q4, #1 INHALER Prov:JANICE LEE PA-C 02/16/17 Allergies Allergies: Coded Allergies: No Known Allergies (Verified Allergy, Mild, 02/16/17) PMhx/Soc History of Surgery: Yes (C SECTION) Anesthesia Reaction: No Hx Neurological Disorder: No Hx Respiratory Disorders: No Hx Cardiac Disorders: Yes (HTN, HYPELIPIDIMIA) Hx Psychiatric Problems: No Hx Miscellaneous Medical Probl: No Hx Alcohol Use: No Hx Substance Use: No Hx Tobacco Use: No Smoking Status: Never smoker Physical Exam Vitals Vital Signs Date Time Temp Pulse Resp B/P Pulse Ox O2 Delivery O2 Flow Rate FiO2 02/16/17 09:38 82 18 149/87 99 High Flow 02/16/17 06:58 97.9 89 18 132/79 99 Physical Exam GENERAL: Well-developed, well-nourished female. Appears in no acute distress. HEAD: Normocephalic, atraumatic. EYES: Pupils are equally reactive bilaterally. EOMs grossly intact. No conjunctival erythema. ENT: Moist mucous membranes. No uvula deviation. Oropharynx is pink. Bilateral tonsillar swelling noted. No tonsillar exudates are noted. No kissing tonsils. Uvula is midline. NECK: Supple. No meningismus. Normal range of motion of the neck. LUNG: Clear to auscultation bilaterally. No rhonchi, wheezing, rales or coarse breath sounds. HEART: Regular rate and rhythm. No murmurs, rubs or gallops. BACK: No midline tenderness. EXTREMITIES: Equal pulses bilaterally. No peripheral clubbing, cyanosis or edema. No unilateral leg swelling. NEUROLOGIC: Alert and oriented. Moving all four extremities without any difficulty. Normal speech. Steady gait. SKIN: Normal color. Warm and dry. No rashes or lesions. Result Diagram: 02/16/17 0735 02/16/17 0735 Results 24 hrs Laboratory Tests Test 02/16/17 07:35 White Blood Count 9.810^3/ul Red Blood Count 3.5510^6/ul Hemoglobin 10.0g/dl Hematocrit 30.5% Mean Corpuscular Volume 85.9fl Mean Corpuscular Hemoglobin 28.2pg Mean Corpuscular Hemoglobin Concent 32.8g/dl Red Cell Distribution Width 14.3% Platelet Count 26050^3/UL Mean Platelet Volume 9.7fl Neutrophils % 56.4% Lymphocytes % 34.2% Monocytes % 6.9% Eosinophils % 1.8% Basophils % 0.2% Nucleated Red Blood Cells % 0.0/100WBC Neutrophils # 5.510^3/ul Lymphocytes # 3.410^3/ul Monocytes # 0.710^3/ul Eosinophils # 0.210^3/ul Basophils # 0.010^3/ul Nucleated Red Blood Cells # 0.010^3/ul Sodium Level 139mmol/L Potassium Level 5.5mmol/L Chloride Level 109mmol/L Carbon Dioxide Level 23mmol/L Anion Gap 13 Blood Urea Nitrogen 27mg/dl Creatinine 0.84mg/dl Glucose Level 134mg/dl Calcium Level 8.9mg/dl Total Bilirubin 0.2mg/dl Direct Bilirubin 0.00mg/dl Indirect Bilirubin 0.2mg/dl Aspartate Amino Transf (AST/SGOT) 18IU/L Alanine Aminotransferase (ALT/SGPT) 28IU/L Alkaline Phosphatase 65IU/L Troponin I < 0.012ng/ml Total Protein 7.0g/dl Albumin 4.2g/dl Globulin 2.80g/dl Albumin/Globulin Ratio 1.50 Procedures/MDM ED COURSE: The patient was stable throughout ED course. I kept the patient and/or family informed of laboratory and diagnostic imaging results throughout the ED course. EKG: Read by Dr. Rudd, attending physician. EKG shows normal sinus rhythm at a rate of 85 bpm. No arrhythmias, acute ST elevations or T wave changes were noted. DIAGNOSTIC IMAGING: Read by radiologist. DIAGNOSTIC IMAGING REPORT Patient: JEFF COURTNEY : 05/07/1992 Age: 24 Sex: M MR #: [id number] DOS: 02/16/17 0615 Ordering MD: JANICE LEE PA-C Location: [facility] Room/Bed: PROCEDURE: XR Chest. CLINICAL INDICATION: chest pain, asthma TECHNIQUE: Single frontal view of the chest was obtained COMPARISON: 02/12/2017 FINDINGS: The heart and mediastinum are within normal limits. The lungs are clear. There is no pleural effusion or pneumothorax. RPTAT: AA IMPRESSION: No acute disease. .Shawn Porter MD, Date Time Electronically viewed and signed by .Shawn Porter MD, MD on 02/16/2017 08: 39 .S/ CC: JANICE LEE PA-C PROCEDURES: None. MEDICATIONS GIVEN: [None.] Patient tolerated medication well with no adverse reactions. Patient reported improvement in pain. MEDICAL DECISION MAKING: This is a 46-year-old female who presents with intermittent cough for the last month and a half. Patient also reports throat pain. Vital signs were reviewed. Patient was afebrile. Patient was not hypoxic. EKG was within normal limits. Chest x-ray was within normal limits. Troponin was negative. CBC showed no evidence of systemic infection. Hemoglobin level of 10 noted. Patient will be given a prescription for iron supplements. CMP showed no evidence of electrolyte abnormalities, severe acidosis, alkalosis, renal failure , or liver disease. Given these findings, the patient's presentation is most consistent with iron deficiency and acute bronchitis. I have a much lower clinical concern pleural effusion, pneumothorax, pneumonia, meningitis, sinusitis, otitis externa, acute otitis media, strep pharyngitis, epiglottitis or peritonsillar abscess. Given that patient has had a cough now for 2 months, treated patient with course of antibiotics. PRESCRIPTIONS: Azithromycin, Tessalon Perles, ferrous sulfate supplements DISCHARGE: At this time, patient is stable for discharge and outpatient management. Supportive therapies such as OTC throat lozenges, salt water gurgles, popsicles and jello discussed. I have instructed the patient to follow-up with his/her primary care physician in 1-2 days. I have instructed the patient to promptly return to the ER for any new or worsening symptoms including increased pain, swelling, fever, nausea, vomiting, weakness or difficulty breathing. The patient and/or family expressed understanding of and agreement with this plan. All questions were answered. Home care instructions were provided. Departure Diagnosis: Primary Impression: Acute bronchitis Bronchitis organism: unspecified organism Qualified Code: J20.9 - Acute bronchitis, unspecified organism Condition: Stable Patient Instructions: Bronchitis, Antiobiotic Treatment (Adult) Referrals: [facility] Additional Instructions: Call your primary care doctor TOMORROW for an appointment during the next 1-2 days.See the doctor sooner or return here if your condition worsens before your appointment time. JANICE LEE PA-C Feb 16, 2017 09:26
[2017-02-16 09:38] VITALS: BP 149/87; PULSE 82; RESP 18
== END 2017-02-16 09:40 | disposition home or self-care (01) ==
LOC: FTE 06:57
DX: J20.9 Acute bronchitis, unspecified (principal); I10 Essential (primary) hypertension; E11.9 Type 2 diabetes mellitus without complications; Z79.4 Long term (current) use of insulin; Z79.82 Long term (current) use of aspirin
CPT/HCPCS: 71010; 80053; 84484; 85025; 93005; Z7502

== ENCOUNTER 2017-03-16 21:33 | Emergency (ER) | payer OTHER ==
[~2017-03-16] VITALS: Wt 87.5 kg
[~2017-03-16 21:33] MED LIST changes: +AZIT250T94 PO; +BENZ100C70 PO; +FER325 PO
--- NOTE | 2017-03-16 22:54 | ERD ---
ER Documentation Chief Complaint Date/Time DATE: 03/16/17 TIME: 22:49 Chief Complaint NON-PRODUCTIVE COUGH [id number] HPI 41-year-old female presents to emergency department for complaints of cough for 2 months, patient was seen here 1 month ago for the same problem, had a chest x- ray done, was actually given antibiotics and cough medication, patient verbalizes that she did not get the medications and did not take them at home. Patient does not have any fever or chills. Patient does not any wheezing. Patient denies any dyspnea on exertion or dyspnea on lying down. Patient does not have any sick contacts. Patient has history of heart disease. ROS All systems reviewed and are negative except as per history of present illness. Medications Home Meds Active Scripts Ferrous Sulfate* (Ferrous Sulfate*) 325 Mg Tabec, 325 MG PO DAILY, #30 TAB Prov:JANICE LEE PA-C 02/16/17 Benzonatate* (Tessalon Perle*) 100 Mg Capsule, 100 MG PO Q8H Y for COUGH, #20 CAP Prov:JANICE LEE PA-C 02/16/17 Azithromycin* (Zithromax*) 250 Mg Tablet, 250 MG PO .ZPACK DIRECTED, #6 TAB TAKE 500 MG (2 TABS) THE FIRST DAY THEN 250 MG (1 TAB) DAYS 2-5 Prov:JANICE LEE PA-C 02/16/17 Insulin Aspart* (Novolog Insulin Pen*) 100 Unit/Ml Soln, 7 UNIT SC WITH MEALS, # 1 VIAL 1 Refill Prov:JARROD VELASCO 12/21/16 Aspirin* (Aspirin* EC) 81 Mg Tablet.dr, 81 MG PO DAILY for 90 Days, 3 Refills Prov:JARROD VELASCO 12/21/16 Nitroglycerin* (Nitrostat*) 0.4 Mg Tab.subl, 1 TAB SL Q5M Y for ANGINA, #90 Prov:JARROD VELASCO 12/21/16 Carvedilol* (Carvedilol*) 6.25 Mg Tablet, 6.25 MG PO BID for 60 Days, TAB 1 Refill Prov:JARROD VELASCO 12/21/16 Atorvastatin* (Atorvastatin*) 80 Mg Tablet, 80 MG PO HS for 60 Days, TAB 3 Refills Prov:JARROD VELASCO 12/21/16 Ticagrelor* (Brilinta*) 90 Mg Tablet, 90 MG PO BID for 60 Days, TAB 3 Refills Prov:JARROD VELASCO 12/21/16 Reported Medications Fluocinonide* (Fluocinonide* Oint) 0.05%-60 Gm Oint..gm., 1 APPLIC TOP BID, EA 12/19/16 Calcipotriene* (Calcipotriene*) 0.005%-60 Gm Oint...g., 1 APPLIC TOP BID, TUB 12/19/16 Metformin Hcl* (Metformin Hcl*) 1,000 Mg Tablet, 1000 MG PO WITH BREAKFAST DINNE , #60 TAB 12/19/16 Lisinopril/Hydrochlorothiazide (Lisinopril-Hctz 20-25 mg Tab) 1 Each Tablet, 1 EACH PO DAILY, TAB 12/19/16 Insulin Glargine* (Lantus*) 100 Unit/Ml Soln, 50 UNIT SC QHS, #1 VIAL 12/19/16 Allergies Allergies: Coded Allergies: No Known Allergies (Verified Allergy, Mild, 02/16/17) PMhx/Soc History of Surgery: Yes (C SECTION) Anesthesia Reaction: No Hx Neurological Disorder: No Hx Respiratory Disorders: No Hx Cardiac Disorders: Yes (HTN, HYPELIPIDIMIA) Hx Psychiatric Problems: No Hx Miscellaneous Medical Probl: No Hx Alcohol Use: No Hx Substance Use: No Hx Tobacco Use: No Smoking Status: Never smoker FmHx Family History: No coronary disease, No diabetes, No other Physical Exam Vitals Vital Signs Date Time Temp Pulse Resp B/P Pulse Ox O2 Delivery O2 Flow Rate FiO2 03/16/17 21:38 98.8 86 20 141/75 98 Physical Exam GENERAL: The patient is well developed and appropriate for usual state of health, in no apparent distress. CHEST: Clear to auscultation bilaterally. There are no rales, wheezes or rhonchi. HEART: Regular rate and rhythm. No murmurs, clicks, rubs or gallops. No S3 or S4. ABDOMEN: Soft, nontender and nondistended. Good bowel sounds. No rebound or guarding. No gross peritonitis. No gross organomegaly or masses. No Brooks sign or McBurney point tenderness. BACK: No midline or flank tenderness. EXTREMITIES: Equal pulses bilaterally. There is no peripheral clubbing, cyanosis or edema. No focal swelling or erythema. Full range of motion. Grossly neurovascularly intact. NEURO: Alert and oriented. Cranial nerves 2-12 intact. Motor strength in all 4 extremities with 5/5 strength. Sensation grossly intact. Normal speech and gait. SKIN: There is no apparent rash or petechia. The skin is warm and dry. HEMATOLOGIC AND LYMPHATIC: There is no evidence of excessive bruising or lymphedema. No gross cervical, axillary, or inguinal lymphadenopathy. Result Diagram: 03/16/17233403/16/172334 Results 24 hrs Laboratory Tests Test 03/16/17 23:35 White Blood Count 13.810^3/ul Red Blood Count 3.7810^6/ul Hemoglobin 10.7g/dl Hematocrit 31.7% Mean Corpuscular Volume 83.9fl Mean Corpuscular Hemoglobin 28.3pg Mean Corpuscular Hemoglobin Concent 33.8g/dl Red Cell Distribution Width 14.2% Platelet Count 15109^3/UL Mean Platelet Volume 9.7fl Neutrophils % 49.4% Lymphocytes % 42.2% Monocytes % 6.3% Eosinophils % 1.4% Basophils % 0.2% Nucleated Red Blood Cells % 0.0/100WBC Neutrophils # 6.810^3/ul Lymphocytes # 5.810^3/ul Monocytes # 0.910^3/ul Eosinophils # 0.210^3/ul Basophils # 0.010^3/ul Nucleated Red Blood Cells # 0.010^3/ul Sodium Level 138mmol/L Potassium Level 4.4mmol/L Chloride Level 100mmol/L Carbon Dioxide Level 23mmol/L Anion Gap 19 Blood Urea Nitrogen 28mg/dl Creatinine 0.95mg/dl Glucose Level 193mg/dl Calcium Level 9.8mg/dl Total Bilirubin 0.1mg/dl Direct Bilirubin 0.00mg/dl Indirect Bilirubin 0.1mg/dl Aspartate Amino Transf (AST/SGOT) 16IU/L Alanine Aminotransferase (ALT/SGPT) 26IU/L Alkaline Phosphatase 74IU/L Troponin I < 0.012ng/ml Total Protein 7.8g/dl Albumin 4.5g/dl Globulin 3.30g/dl Albumin/Globulin Ratio 1.36 EKG was done, read by me and is normal sinus rhythm at a rate of 85, normal axis , there is no ST changes or changes in the EKG that indicates any cardiac emergencies at this time. Patient's EKG was also reviewed by Dr. Eldridge. Impression: no acute findings on EKG PROCEDURE: XR Chest. CLINICAL INDICATION: Chest pain. TECHNIQUE: Portable AP upright view of the chest was obtained. COMPARISON: 03/26/2016 FINDINGS: The cardiomediastinal silhouette is within normal limits. The lungs are clear. There is no evidence for pleural effusion, pneumothorax or pulmonary vascular congestion. The osseous structures are intact with no evidence for acute abnormality. RPTAT:HJJR IMPRESSION: No evidence for acute intrathoracic pathology. Carlos Cotter Physician Date Time Electronically viewed and signed by Carlos Cotter Physician on 03/17/2017 01:00 JR/ CC: ROME DIA INSTRUCTIONAL SYSTEMS SPECIALIST Procedures/MDM Medical Decision Making: Patient symptoms are most likely consistent with acute bronchitis most every caused by atypical infection. There is low suspicion for Pneumonia at this time since patients lungs sounds are clear, patient O2 saturation is normal and patient doesnt show any respiratory distress. Patients chest xray doesnt show infiltrates or any other cardiopulmonary emergencies at this time. There is low suspicion for other cardiopulmonary emergencies at this time such as CHF, Pulmonary Embolism, Pneumothorax, or any other cardiopulmonary emergencies at this time. There is low suspicion for sepsis. Patient appears well and is hemodynamically stable. Fever is controlled with medicines. Disposition: Home. Condition: Stable Prescriptions: Azithromycin and Tessalon Perles. Albuterol Instructions: Patient is advised to take medications as prescribed. Patient is advised to rest. Patient advised to increase fluid intake, do humidifier at home and if possible, do salt water gargles. Patient is advised that if symptoms are worse, shortness of breath, uncontrolled fever, stridor, vomiting, worst signs and symptoms to return to emergency department immediately. Otherwise, patient is advised to follow up with primary doctor in 5-7 days. Departure Diagnosis: Primary Impression: Acute bronchitis Bronchitis organism: unspecified organism Qualified Code: J20.9 - Acute bronchitis, unspecified organism Condition: Stable Patient Instructions: Bronchitis, Antiobiotic Treatment (Adult) Additional Instructions: Patient is advised to take medications as prescribed. Patient is advised to rest. Patient advised to increase fluid intake, do humidifier at home and if possible, do salt water gargles. Patient is advised that if symptoms are worse, shortness of breath, uncontrolled fever, stridor, vomiting, worst signs and symptoms to return to emergency department immediately. Otherwise, patient is advised to follow up with primary doctor in 5-7 days. ROME DIA NP Mar 16, 2017 22:54
[2017-03-16 23:40] LABS: ADD SCAN DIFF NO
[2017-03-16 23:43] LABS: ABNORMAL IP MESSAGE 1; BASOPHILS % 0.2 % (0.0-2.0); EOSINOPHILS # 0.2 10^3/ul (0.0-0.5); EOSINOPHILS % 1.4 % (0.0-7.0); HEMATOCRIT 31.7 % (37.0-47.0); HEMOGLOBIN 10.7 g/dl (12.0-16.0); LYMPHOCYTES # 5.8 10^3/ul (0.8-2.9); LYMPHOCYTES % 42.2 % (15.0-51.0); MEAN CORPUSCULAR HEMOGLOBIN 28.3 pg (29.0-33.0); MEAN CORPUSCULAR HGB CONC 33.8 g/dl (32.0-37.0); MEAN CORPUSCULAR VOLUME 83.9 fl (82.0-101.0); MEAN PLATELET VOLUME 9.7 fl (7.4-10.4); MONOCYTE # 0.9 10^3/ul (0.3-0.9); MONOCYTES % 6.3 % (0.0-11.0); NEUTROPHIL # 6.8 10^3/ul (1.6-7.5); NEUTROPHILS % 49.4 % (39.0-77.0); PLATELET COUNT 335 10^3/UL (140-415); RED BLOOD COUNT 3.78 10^6/ul (4.20-5.40); RED CELL DISTRIBUTION WIDTH 14.2 % (11.5-14.5); WHITE BLOOD COUNT 13.8 10^3/ul (4.8-10.8)
[2017-03-17 00:11] LABS: ALANINE AMINOTRANSFERASE 26 IU/L (13-69); ALBUMIN 4.5 g/dl (3.3-4.9); ALBUMIN/GLOBULIN RATIO 1.36; ALKALINE PHOSPHATASE 74 IU/L (42-121); ANION GAP 19 (8-16); ASPARTATE AMINO TRANSFERASE 16 IU/L (15-46); BILIRUBIN,INDIRECT 0.1 mg/dl (0-1.1); BILIRUBIN,TOTAL 0.1 mg/dl (0.2-1.3); BLOOD UREA NITROGEN 28 mg/dl (7-20); CALCIUM 9.8 mg/dl (8.4-10.2); CARBON DIOXIDE 23 mmol/L (21-31); CHLORIDE 100 mmol/L (97-110); CREATININE 0.95 mg/dl (0.44-1.00); GLUCOSE 193 mg/dl (70-220); POTASSIUM 4.4 mmol/L (3.5-5.1); SODIUM 138 mmol/L (135-144); TOTAL PROTEIN 7.8 g/dl (6.1-8.1)
[2017-03-17 00:28] LABS: TROPONIN-I < 0.012 ng/ml (0.00-0.12)
--- NOTE | 2017-03-17 01:00 | RADRPT ---
PROCEDURE: XR Chest. CLINICAL INDICATION: Chest pain. TECHNIQUE: Portable AP upright view of the chest was obtained. COMPARISON: 03/26/2016 FINDINGS: The cardiomediastinal silhouette is within normal limits. The lungs are clear. There is no evidenc e for pleural effusion, pneumothorax or pulmonary vascular congestion. The osseous structures are i ntact with no evidence for acute abnormality. RPTAT:HJJR IMPRESSION: No evidence for acute intrathoracic pathology. Physician Ada Date Time Electronically viewed and signed by Carlos Cotter Physician on 03/17/2017 01:00 /
[2017-03-17] MEDS ORDERED: AZIT250T94 PO (01:10)
[2017-03-17] MEDS ORDERED: BENZ100C70 PO (01:10)
[2017-03-17] MEDS ORDERED: ALBU8.5H3 INH (01:10)
[2017-03-17 01:52] VITALS: BP 122/70; PULSE 81; RESP 18; TEMP 97.6
== END 2017-03-17 01:54 | disposition home or self-care (01) ==
LOC: FTE 21:33
DX: J20.9 Acute bronchitis, unspecified (principal); I10 Essential (primary) hypertension; E11.9 Type 2 diabetes mellitus without complications; Z79.4 Long term (current) use of insulin; Z79.82 Long term (current) use of aspirin; Z79.84 Long term (current) use of oral hypoglycemic drugs
CPT/HCPCS: 71010; 80053; 84484; 85025; 93005; Z7502

== ENCOUNTER 2017-04-07 14:49 | Emergency (ER) | payer OTHER ==
[~2017-04-07] VITALS: Ht 157.5 cm; Wt 89.0 kg
[~2017-04-07 14:49] MED LIST changes: +ALBU8.5H3 INH
[2017-04-07 14:58] VITALS: Ht 157.5 cm; Wt 89.0 kg
[2017-04-07] MEDS ORDERED: ONDANSETRON 4 MG INJ IV STA (15:28)
[2017-04-07] MEDS ORDERED: SOD CHLORIDE 0.9% 1,000 ML IV STA (15:28)
[2017-04-07] MEDS ORDERED: FAMOTIDINE 20 MG INJ IV STA (15:28)
[2017-04-07] MEDS ORDERED: morphine 2 MG INJ IV STA (15:28)
[2017-04-07 15:57] LABS: BASOPHILS % 0.3 % (0.0-2.0); EOSINOPHILS # 0.1 10^3/ul (0.0-0.5); EOSINOPHILS % 0.8 % (0.0-7.0); HEMATOCRIT 32.4 % (37.0-47.0); LYMPHOCYTES % 26.5 % (15.0-51.0); MEAN CORPUSCULAR HEMOGLOBIN 28.1 pg (29.0-33.0); MEAN CORPUSCULAR VOLUME 82.9 fl (82.0-101.0); MEAN PLATELET VOLUME 9.7 fl (7.4-10.4); MONOCYTE # 0.8 10^3/ul (0.3-0.9); MONOCYTES % 6.8 % (0.0-11.0); NEUTROPHIL # 7.4 10^3/ul (1.6-7.5); PLATELET COUNT 386 10^3/UL (140-415); RED BLOOD COUNT 3.91 10^6/ul (4.20-5.40); RED CELL DISTRIBUTION WIDTH 13.9 % (11.5-14.5); WHITE BLOOD COUNT 11.4 10^3/ul (4.8-10.8)
--- NOTE | 2017-04-07 16:05 | RADRPT ---
PROCEDURE: XR Chest. CLINICAL INDICATION: Shortness of breath. TECHNIQUE: A single portable view of the chest was obtained. COMPARISON: 03/16/2017 FINDINGS: The cardiomediastinal silhouette is within normal limits. The lungs and pleural spaces are clear. The soft tissues and osseous structures are unremarkable. IMPRESSION: No acute cardiopulmonary disease. RPTAT: HPNM Physician Sarah Date Time Electronically viewed and signed by Bart Lance Physician on 04/07/2017 16:05 /
[2017-04-07 16:07] LABS: ADD UMIC YES; UR ASCORBIC ACID NEGATIVE (NEGATIVE); UR BILIRUBIN (Dip) NEGATIVE (NEGATIVE); UR BLOOD (Dip) NEGATIVE (NEGATIVE); UR CLARITY SLIGHTLY CLOUDY (CLEAR); UR COLOR YELLOW (YELLOW); UR GLUCOSE (Dip) NEGATIVE (NEGATIVE); UR KETONES (Dip) NEGATIVE (NEGATIVE); UR LEUKOCYTE ESTERASE (Dip) NEGATIVE Leu/ul (NEGATIVE); UR MUCUS FEW /HPF (NONE SEEN); UR NITRITE (Dip) NEGATIVE (NEGATIVE); UR RBC 1 /HPF (0-5); UR SPECIFIC GRAVITY (Dip) 1.019 (1.003-1.030); UR SQUAMOUS EPITHELIAL CELL FEW /HPF (FEW); UR TOTAL PROTEIN (Dip) 2+ mg/dl (NEGATIVE); UR UROBILINOGEN (Dip) 1+ mg/dL (NEGATIVE)
[2017-04-07 16:11] LABS: INR 0.86; PROTIME 11.7 Sec (12.2-14.2); PT RATIO 0.9
[2017-04-07 16:12] LABS: PARTIAL THROMBOPLASTIN TIME 29.7 Sec (25.0-35.0)
[2017-04-07 16:16] LABS: ALANINE AMINOTRANSFERASE 22 IU/L (13-69); ALBUMIN 4.4 g/dl (3.3-4.9); ALBUMIN/GLOBULIN RATIO 1.29; ALKALINE PHOSPHATASE 76 IU/L (42-121); ANION GAP 22 (8-16); ASPARTATE AMINO TRANSFERASE 15 IU/L (15-46); BLOOD UREA NITROGEN 20 mg/dl (7-20); CALCIUM 9.4 mg/dl (8.4-10.2); CARBON DIOXIDE 22 mmol/L (21-31); CHLORIDE 102 mmol/L (97-110); CREATININE 1.39 mg/dl (0.44-1.00); GLUCOSE 141 mg/dl (70-220); POTASSIUM 5.6 mmol/L (3.5-5.1); SODIUM 140 mmol/L (135-144); TOTAL PROTEIN 7.8 g/dl (6.1-8.1)
[2017-04-07 16:31] LABS: TROPONIN-I < 0.012 ng/ml (0.00-0.12)
[2017-04-07] MEDS ORDERED: LEVO50TA74 PO (17:29)
[2017-04-07] MEDS ORDERED: CLOP75TA4 PO (17:29)
[2017-04-07] MEDS ORDERED: ERGO500037 PO (17:29)
[2017-04-07] MEDS ORDERED: SULF1TAB31 PO (17:30)
[2017-04-07] MEDS ORDERED: HYDR12.58 PO (17:30)
--- NOTE | 2017-04-07 18:59 | RADRPT ---
PROCEDURE: CT Abdomen and Pelvis without contrast. CLINICAL INDICATION: Epigastric abdominal pain. TECHNIQUE: CT scan of the abdomen and pelvis without contrast was performed on a multidetector hig h-resolution CT scanner. The patient was scanned without intravenous contrast. Coronal and sagittal reformatted images were obtained from the axial source images. Images were reviewed on a high-resol [employer] PACS workstation. One or more of the following dose reduction techniques were used: Automated exposure control, adjustment of the mA and/or kV according to patient size, use of iterative recon struction technique. The total exam CTDI equals 22.26 mGy and the total exam DLP equals 1255.09 mGy -cm. COMPARISON: CT from 03/22/2016. FINDINGS: CT abdomen: Minimal bilateral lower lobe dependent atelectatic changes are present. Otherwise, the lung bases are clear. The heart size is normal, without pericardial thickening or effusion. The liver is enlarged measuring 18.7 cm but demonstrates normal density without focal mass or intrah epatic biliary dilatation. The spleen is normal in size and homogeneous in density. The stomach is grossly unremarkable. The pancreas as visualized is normal. The gallbladder and biliary tree are unremarkable and there is no evidence for biliary dilatation. The adrenal glands are symmetric and normal. Calcifications are present within the bilateral renal nicolasa, likely vascular in nature. The re is no definite evidence of hydronephrosis or obstructing ureteral calculi. The aorta is of normal caliber. Heavy iliac and femoral artery atherosclerotic calcifications are p resent. There is no retroperitoneal lymphadenopathy. The jeanette hepatis region is clear. The small bowel and mesentery, as visualized, are unremarkable. There is a small fat-containing umbilical her malia. CT pelvis: The small bowel loops situated within the pelvis are unremarkable. The pelvic organs are normal. T he pelvic sidewalls and inguinal regions are clear. The sigmoid colon and rectum are unremarkable. No mass, lymphadenopathy, or free fluid is seen. No acute inflammation is seen. The surrounding osseous structures are unremarkable. No osteolytic or osteoblastic lesion is detec jean marie. IMPRESSION: 1. No abdominal or pelvic acute inflammatory process, mass, or lymphadenopathy. 2. Heavy iliac and femoral artery atherosclerosis. 3. Small fat-containing umbilical hernia. 4. Hepatomegaly. RPTAT: QQ .Bulmaro Rader MD, MD Date Time Electronically viewed and signed by .Bulmaro Rader MD, MD on 04/07/2017 18:58 .A/
--- NOTE | 2017-04-07 19:05 | ERD ---
ER Documentation Chief Complaint Date/Time DATE: 04/07/17 TIME: 19:02 Chief Complaint vomiting since yesterday, cough x 7 mos, chest pain when coughing HPI This is a 46-year-old female who presents to the emergency room for evaluation of 1 episode of vomiting, abdominal cramping, and a cough for 7 months. The patient states that she was diagnosed with bronchitis and has tried albuterol inhaler without relief. She came to the ER today for evaluation of her symptoms and is denying any aggravating or relieving factors for her symptoms at this time. Patient localizes abdominal cramping to the epigastric region and denies any radiation of the pain. ROS All systems reviewed and are negative except as per history of present illness. Medications Home Meds Active Scripts Benzonatate* (Tessalon Perle*) 100 Mg Capsule, 100 MG PO Q8H Y for COUGH, #20 CAP Prov:ROME DIA EDDY CURRENT INSPECTOR 03/17/17 Aspirin* (Aspirin* EC) 81 Mg Tablet.dr, 81 MG PO DAILY for 90 Days, 3 Refills Prov:JARROD VELASCO 12/21/16 Carvedilol* (Carvedilol*) 6.25 Mg Tablet, 6.25 MG PO BID for 60 Days, TAB 1 Refill Prov:JARROD VELASCO 12/21/16 Atorvastatin* (Atorvastatin*) 80 Mg Tablet, 80 MG PO HS for 60 Days, TAB 3 Refills Prov:JARROD VELASCO 12/21/16 Reported Medications Sulfamethoxazole/Trimethoprim* (Bactrim Ds* Tablet) 1 Each Tablet, 1 TAB PO BID , TAB 04/07/17 Hydrochlorothiazide* (Hydrochlorothiazide*) 12.5 Mg Tablet, 12.5 MG PO DAILY, # 30 TAB 04/07/17 Clopidogrel Bisulfate* (Clopidogrel Bisulfate*) 75 Mg Tablet, 75 MG PO DAILY, # 30 TAB 04/07/17 Ergocalciferol (Vitamin D2) (VITAMIN D2) 50,000 Unit Capsule, 08672 UNIT PO Q7D , CAP 04/07/17 Levothyroxine Sodium* (Levothyroxine Sodium*) 50 Mcg Tablet, 50 MCG PO BEFORE BREAKFAST, #30 TAB 04/07/17 Metformin Hcl* (Metformin Hcl*) 1,000 Mg Tablet, 1000 MG PO WITH BREAKFAST DINNE , #60 TAB 12/19/16 Lisinopril/Hydrochlorothiazide (Lisinopril-Hctz 20-25 mg Tab) 1 Each Tablet, 1 EACH PO DAILY, TAB 12/19/16 Insulin Glargine* (Lantus*) 100 Unit/Ml Soln, 30 UNIT SC QHS, #1 VIAL 12/19/16 Discontinued Reported Medications Fluocinonide* (Fluocinonide* Oint) 0.05%-60 Gm Oint..gm., 1 APPLIC TOP BID, EA 12/19/16 Calcipotriene* (Calcipotriene*) 0.005%-60 Gm Oint...g., 1 APPLIC TOP BID, TUB 12/19/16 Discontinued Scripts Albuterol Sulfate* (Proair HFA*) 8.5 Gm Hfa.aer.ad, 2 PUFF INH Q4H Y for WHEEZING AND SOB, #1 INHALER Prov:ROME DIA EDDY CURRENT INSPECTOR 03/17/17 Azithromycin* (Zithromax*) 250 Mg Tablet, 250 MG PO .ZPACK DIRECTED, #6 TAB TAKE 500 MG (2 TABS) THE FIRST DAY THEN 250 MG (1 TAB) DAYS 2-5 Prov:ROME DIA EDDY CURRENT INSPECTOR 03/17/17 Ferrous Sulfate* (Ferrous Sulfate*) 325 Mg Tabec, 325 MG PO DAILY, #30 TAB Prov:JANICE LEE PA-C 02/16/17 Benzonatate* (Tessalon Perle*) 100 Mg Capsule, 100 MG PO Q8H Y for COUGH, #20 CAP Prov:JANICE LEE PA-C 02/16/17 Azithromycin* (Zithromax*) 250 Mg Tablet, 250 MG PO .ZPACK DIRECTED, #6 TAB TAKE 500 MG (2 TABS) THE FIRST DAY THEN 250 MG (1 TAB) DAYS 2-5 Prov:JANICE LEE PA-C 02/16/17 Insulin Aspart* (Novolog Insulin Pen*) 100 Unit/Ml Soln, 7 UNIT SC WITH MEALS, # 1 VIAL 1 Refill Prov:JARROD VELASCO 12/21/16 Nitroglycerin* (Nitrostat*) 0.4 Mg Tab.subl, 1 TAB SL Q5M Y for ANGINA, #90 Prov:JARROD VELASCO 12/21/16 Ticagrelor* (Brilinta*) 90 Mg Tablet, 90 MG PO BID for 60 Days, TAB 3 Refills Prov:JARROD VELASCO 12/21/16 Allergies Allergies: Coded Allergies: No Known Allergies (Verified Allergy, Mild, 04/07/17) PMhx/Soc History of Surgery: Yes (C SECTION) Anesthesia Reaction: No Hx Neurological Disorder: No Hx Respiratory Disorders: No Hx Cardiac Disorders: Yes (HTN, HYPELIPIDIMIA) Hx Psychiatric Problems: No Hx Miscellaneous Medical Probl: No Hx Alcohol Use: No Hx Substance Use: No Hx Tobacco Use: No Smoking Status: Never smoker Physical Exam Vitals Vital Signs Date Time Temp Pulse Resp B/P Pulse Ox O2 Delivery O2 Flow Rate FiO2 04/07/17 18:10 76 17 126/84 100 Room Air 04/07/17 14:58 98.1 85 18 99 Physical Exam INITIAL VITAL SIGNS: Reviewed by me GENERAL: The patient is well developed and appropriate for usual state of health in no apparent distress HEENT: Pupils equal, round, and reactive to light. EOMI. There is no scleral icterus. NECK: C-spine is soft and supple, there is no meningismus. There is no cervical lymphadenopathy. LUNGS: Clear to auscultation bilaterally. There are no rales, wheezes or rhonchi. HEART: Regular rate and rhythm, no murmurs, clicks, rubs or gallops. ABDOMEN: Epigastric tenderness to palpation, otherwise soft, non-tender, non- distended. There are bowel sounds in all four quadrants. No rebound or guarding. EXTREMITIES: There is no peripheral cyanosis or edema. No focal swelling or erythema. NEUROLOGICAL: The patient moves all four extremities with 5/5 strength. Cranial nerves II - XII are intact. Normal gait. Alert and oriented SKIN: There is no apparent rash or petechiae. HEME/LYMPHATIC: There is no evidence of excessive bruising or lymphedema. PSYCHIATRIC: The patient does not appear anxious or depressed. Result Diagram: 04/07/17 1545 04/07/17 1545 Results 24 hrs Laboratory Tests Test 04/07/17 15:31 04/07/17 15:45 Urine Color YELLOW Urine Clarity SLIGHTLY CLOUDY Urine pH 5.0 Urine Specific Waite 1.019 Urine Ketones NEGATIVEmg/dL Urine Nitrite NEGATIVEmg/dL Urine Bilirubin NEGATIVEmg/dL Urine Urobilinogen 1+mg/dL Urine Leukocyte Esterase NEGATIVELeu/ul Urine Microscopic RBC 1/HPF Urine Microscopic WBC 1/HPF Urine Squamous Epithelial Cells FEW/HPF Urine Mucus FEW/HPF Urine Hemoglobin NEGATIVEmg/dL Urine Glucose NEGATIVEmg/dL Urine Total Protein 2+mg/dl White Blood Count 11.410^3/ul Red Blood Count 3.9110^6/ul Hemoglobin 11.0g/dl Hematocrit 32.4% Mean Corpuscular Volume 82.9fl Mean Corpuscular Hemoglobin 28.1pg Mean Corpuscular Hemoglobin Concent 34.0g/dl Red Cell Distribution Width 13.9% Platelet Count 65014^3/UL Mean Platelet Volume 9.7fl Neutrophils % 65.0% Lymphocytes % 26.5% Monocytes % 6.8% Eosinophils % 0.8% Basophils % 0.3% Nucleated Red Blood Cells % 0.0/100WBC Neutrophils # 7.410^3/ul Lymphocytes # 3.010^3/ul Monocytes # 0.810^3/ul Eosinophils # 0.110^3/ul Basophils # 0.010^3/ul Nucleated Red Blood Cells # 0.010^3/ul Prothrombin Time 11.7Sec Prothrombin Time Ratio 0.9 INR International Normalized Ratio 0.86 Activated Partial Thromboplast Time 29.7Sec Sodium Level 140mmol/L Potassium Level 5.6mmol/L Chloride Level 102mmol/L Carbon Dioxide Level 22mmol/L Anion Gap 22 Blood Urea Nitrogen 20mg/dl Creatinine 1.39mg/dl Glucose Level 141mg/dl Calcium Level 9.4mg/dl Total Bilirubin 0.0mg/dl Direct Bilirubin 0.00mg/dl Indirect Bilirubin 0.0mg/dl Aspartate Amino Transf (AST/SGOT) 15IU/L Alanine Aminotransferase (ALT/SGPT) 22IU/L Alkaline Phosphatase 76IU/L Troponin I < 0.012ng/ml Total Protein 7.8g/dl Albumin 4.4g/dl Globulin 3.40g/dl Albumin/Globulin Ratio 1.29 Lipase 139U/L Current Medications Medications (Trade) Dose Ordered Sig/Charley Route PRN Reason Start Time Stop Time Status Last Admin Dose Admin Sodium Chloride (NS) 1,000 ml @ 1,000 mls/hr Q1H STAT IV 04/07/17 15:28 04/07/17 16:27 DC 04/07/17 15:35 Morphine Sulfate (morphine) 2 mg ONCE STAT IV 04/07/17 15:28 04/07/17 15:30 DC 04/07/17 15:36 Ondansetron HCl (Zofran Inj) 4 mg ONCE STAT IV 04/07/17 15:28 04/07/17 15:30 DC 04/07/17 15:35 Famotidine (Pepcid Iv) 20 mg ONCE STAT IV 04/07/17 15:28 04/07/17 15:30 DC 04/07/17 15:35 Procedures/MDM EKG: Rate/Rhythm: [Normal Sinus Rhythm] QRS, ST, T-waves: [No changes consistent w/ acute ischemia] Impression: [No evidence of ischemia or arrhythmia] Chest X-ray 1V Interpreted by me: Soft Tissue: No acute abnormalities Bones: No acute abnormalities Mediastinum/Cardiac Silhouette/Lungs: [No acute abnormalities] CT abdomen pelvis without: 1. No abdominal or pelvic acute inflammatory process , mass, or lymphadenopathy. 2. Heavy iliac and femoral artery atherosclerosis. 3. Small fat-containing umbilical hernia. 4. Hepatomegaly. This is a 46-year-old female who presents to the emergency room for evaluation of abdominal cramping, one episode of vomiting, and chronic bronchitis. When I evaluated her she was not hypoxic, she was nontoxic-appearing and was hemodynamically stable. The patient did have tenderness to palpation in the epigastric region. I did obtain a CT of the abdomen pelvis to rule out any obstruction and a CT of the abdomen pelvis does not show any acute processes. The patient was given Pepcid and Zofran with mild relief. She will be discharged home at this time with a prescription for Zantac, and prednisone for chronic bronchitis. Differential diagnoses entertained was broad with potential high acuity. Patient has been evaluated for appendicitis, cholecystitis, and other high risk medical and surgical causes of abdominal pain. Ultimately the patient's evaluation is nondiagnostic. Based on the patient's lack of risk factors, as well as the patient's clinical, laboratory, and imaging data, the patient appears to be low risk for these high risk causes of abdominal pain. Departure Diagnosis: Primary Impression: Vomiting Additional Impression: Normocytic anemia Condition: Stable LACEY VILLANUEVA DO Apr 07, 2017 19:05
[2017-04-07] MEDS ORDERED: PRED20TA PO (19:06)
[2017-04-07] MEDS ORDERED: RANI150T9 PO (19:06)
[2017-04-07] MEDS ORDERED: UDROBDM PO (19:44)
[2017-04-07 19:46] VITALS: BP 132/84; PULSE 75; RESP 17
== END 2017-04-07 19:47 | disposition home or self-care (01) ==
LOC: E/R 14:49
DX: R11.10 Vomiting, unspecified (principal); D64.9 Anemia, unspecified; I10 Essential (primary) hypertension; E11.9 Type 2 diabetes mellitus without complications; Z79.4 Long term (current) use of insulin; Z79.01 Long term (current) use of anticoagulants; Z79.84 Long term (current) use of oral hypoglycemic drugs; Z79.82 Long term (current) use of aspirin
CPT/HCPCS: 36415; 71010; 74176; 80053; 81001; 83690; 84484; 85025; 85610; 85730; 93005; 96361; 96374; 96375; J2270; J2405; J7030; Z7502; Z7610

== ENCOUNTER 2017-04-08 21:38 | Emergency (ER) | payer OTHER ==
[~2017-04-08] VITALS: Ht 160 cm; Wt 86.5 kg
[~2017-04-08 21:38] MED LIST changes: -ALBU8.5H3 INH; -AZIT250T94 PO; -CALC60OI3 TOP; +CLOP75TA4 PO; +ERGO500037 PO; -FER325 PO; -FLUO60OI5 TOP; +HYDR12.58 PO; +LEVO50TA74 PO; -NIT4 SL; -NOVO3I SC; +PRED20TA PO; +RANI150T9 PO; +SULF1TAB31 PO; -TICA90TA PO; +UDROBDM PO
[2017-04-08 21:43] VITALS: Ht 160 cm; Wt 86.5 kg
[2017-04-09] MEDS ORDERED: IPRATROPIUM (NEB) 0.5 MG/2.5 ML AMP NEB STA (00:25)
[2017-04-09] MEDS ORDERED: ALBUTEROL 0.083% (NEB) 2.5 MG/3 ML AMP NEB STA (00:25)
[2017-04-09] MEDS ORDERED: GUAIFENESIN/CODEINE 5ML CUP PO ONE (00:30)
--- NOTE | 2017-04-09 01:27 | ERD ---
ER Documentation Chief Complaint Date/Time DATE: 04/09/17 TIME: 01:22 Chief Complaint Continuous cough, wants change of medication HPI 46-year-old female sent to emergency department for complains of cough for 7 months now, patient was seen here in emergency department yesterday, had radiology exams done and thorough laboratory testing done, patient was given cough medication at home, guaifenesin DM and prednisone, patient claims that her blood pressure has been elevated because of this, and wants change of her medications. Patient has been having dry cough, does not cough up any phlegm or blood. Patient complains also fatigability. Patient has been having wheezing at times. Patient has been using inhaler with mild relief. She does not have any fever or chills. ROS All systems reviewed and are negative except as per history of present illness. Medications Home Meds Active Scripts Guaifenesin-Codeine Phosphate* (Guaifenesin* AC Cough Syrup) 473 Ml Liquid, 10 ML PO Q4H Y for COUGH, #120 ML sugar-free Prov:ROME DIA NP 04/09/17 Guaifenesin-Dextromethorphan* (Robitussin* DM) 100MG/10MG/5ML Syrup, 10 ML PO Q4H Y for COUGH for 7 Days, ML Prov:LACEY VILLANUEVA DO 04/07/17 Prednisone* (Prednisone*) 20 Mg Tab, 20 MG PO DAILY for 5 Days, TAB Prov:LACEY VILLANUEVA DO 04/07/17 Ranitidine Hcl* (Zantac*) 150 Mg Tablet, 150 MG PO BID Y for EPIGASTRIC PAIN, # 30 TAB Prov:LACEY VILLANUEVA DO 04/07/17 Benzonatate* (Tessalon Perle*) 100 Mg Capsule, 100 MG PO Q8H Y for COUGH, #20 CAP Prov:ROME DIA NP 03/17/17 Aspirin* (Aspirin* EC) 81 Mg Tablet., 81 MG PO DAILY for 90 Days, 3 Refills Prov:JARROD VELASCO 12/21/16 Carvedilol* (Carvedilol*) 6.25 Mg Tablet, 6.25 MG PO BID for 60 Days, TAB 1 Refill Prov:JARROD VELASCO 12/21/16 Atorvastatin* (Atorvastatin*) 80 Mg Tablet, 80 MG PO HS for 60 Days, TAB 3 Refills Prov:JARROD VELASCO 12/21/16 Reported Medications Sulfamethoxazole/Trimethoprim* (Bactrim Ds* Tablet) 1 Each Tablet, 1 TAB PO BID , TAB 04/07/17 Hydrochlorothiazide* (Hydrochlorothiazide*) 12.5 Mg Tablet, 12.5 MG PO DAILY, # 30 TAB 04/07/17 Clopidogrel Bisulfate* (Clopidogrel Bisulfate*) 75 Mg Tablet, 75 MG PO DAILY, # 30 TAB 04/07/17 Ergocalciferol (Vitamin D2) (VITAMIN D2) 50,000 Unit Capsule, 53715 UNIT PO Q7D , CAP 04/07/17 Levothyroxine Sodium* (Levothyroxine Sodium*) 50 Mcg Tablet, 50 MCG PO BEFORE BREAKFAST, #30 TAB 04/07/17 Metformin Hcl* (Metformin Hcl*) 1,000 Mg Tablet, 1000 MG PO WITH BREAKFAST DINNE , #60 TAB 12/19/16 Lisinopril/Hydrochlorothiazide (Lisinopril-Hctz 20-25 mg Tab) 1 Each Tablet, 1 EACH PO DAILY, TAB 12/19/16 Insulin Glargine* (Lantus*) 100 Unit/Ml Soln, 30 UNIT SC QHS, #1 VIAL 12/19/16 Discontinued Reported Medications Fluocinonide* (Fluocinonide* Oint) 0.05%-60 Gm Oint..gm., 1 APPLIC TOP BID, EA 12/19/16 Calcipotriene* (Calcipotriene*) 0.005%-60 Gm Oint...g., 1 APPLIC TOP BID, TUB 12/19/16 Discontinued Scripts Albuterol Sulfate* (Proair HFA*) 8.5 Gm Hfa.aer.ad, 2 PUFF INH Q4H Y for WHEEZING AND SOB, #1 INHALER Prov:ROME DIA NP 03/17/17 Azithromycin* (Zithromax*) 250 Mg Tablet, 250 MG PO .FATOU DIRECTED, #6 TAB TAKE 500 MG (2 TABS) THE FIRST DAY THEN 250 MG (1 TAB) DAYS 2-5 Prov:ROME DIA NP 03/17/17 Ferrous Sulfate* (Ferrous Sulfate*) 325 Mg Tabec, 325 MG PO DAILY, #30 TAB Prov:YECENIA LEEHARVINDER WRIGHT 02/16/17 Benzonatate* (Tessalon Perle*) 100 Mg Capsule, 100 MG PO Q8H Y for COUGH, #20 CAP Prov:YECENIA LEEHARVINDER WRIGHT 02/16/17 Azithromycin* (Zithromax*) 250 Mg Tablet, 250 MG PO .ZPACK DIRECTED, #6 TAB TAKE 500 MG (2 TABS) THE FIRST DAY THEN 250 MG (1 TAB) DAYS 2-5 Prov:YECENIA LEEHARVINDER WRIGHT 02/16/17 Insulin Aspart* (Novolog Insulin Pen*) 100 Unit/Ml Soln, 7 UNIT SC WITH MEALS, # 1 VIAL 1 Refill Prov:KRISTAJARROD 12/21/16 Nitroglycerin* (Nitrostat*) 0.4 Mg Tab.subl, 1 TAB SL Q5M Y for ANGINA, #90 Prov:KRISTAJARROD 12/21/16 Ticagrelor* (Brilinta*) 90 Mg Tablet, 90 MG PO BID for 60 Days, TAB 3 Refills Prov:KRISTAJARROD 12/21/16 Allergies Allergies: Coded Allergies: No Known Allergies (Verified Allergy, Mild, 04/07/17) PMhx/Soc History of Surgery: Yes (C SECTION) Anesthesia Reaction: No Hx Neurological Disorder: No Hx Respiratory Disorders: No Hx Cardiac Disorders: Yes (HTN, HYPELIPIDIMIA) Hx Psychiatric Problems: No Hx Miscellaneous Medical Probl: Yes (diabetes) Hx Alcohol Use: No Hx Substance Use: No Hx Tobacco Use: No Smoking Status: Never smoker FmHx Family History: No coronary disease, No diabetes, No other Physical Exam Vitals Vital Signs Date Time Temp Pulse Resp B/P Pulse Ox O2 Delivery O2 Flow Rate FiO2 04/09/17 00:47 75 16 98 21 04/08/17 21:43 98.3 89 20 137/74 99 Physical Exam GENERAL: The patient is well developed and appropriate for usual state of health, in no apparent distress. CHEST: Diffuse wheezing bilaterally. There are no rales, crackles or rhonchi. HEART: Regular rate and rhythm. No murmurs, clicks, rubs or gallops. No S3 or S4. ABDOMEN: Soft, nontender and nondistended. Good bowel sounds. No rebound or guarding. No gross peritonitis. No gross organomegaly or masses. No Brooks sign or McBurney point tenderness. BACK: No midline or flank tenderness. EXTREMITIES: Equal pulses bilaterally. There is no peripheral clubbing, cyanosis or edema. No focal swelling or erythema. Full range of motion. Grossly neurovascularly intact. NEURO: Alert and oriented. Cranial nerves 2-12 intact. Motor strength in all 4 extremities with 5/5 strength. Sensation grossly intact. Normal speech and gait. SKIN: There is no apparent rash or petechia. The skin is warm and dry. HEMATOLOGIC AND LYMPHATIC: There is no evidence of excessive bruising or lymphedema. No gross cervical, axillary, or inguinal lymphadenopathy. Results 24 hrs Laboratory Tests Test 04/09/17 01:50 Bedside Glucose 240mg/dL Current Medications Medications (Trade) Dose Ordered Sig/Charley Route PRN Reason Start Time Stop Time Status Last Admin Dose Admin Guaifenesin/ Codeine Phosphate (Robitussin Ac Liquid Cup) 10 ml ONCE ONCE PO 04/09/17 00:30 04/09/17 00:31 DC 04/09/17 00:42 Albuterol (Proventil 0.083% (Neb)) 5 mg ONCE STAT NEB 04/09/17 00:25 04/09/17 00:28 DC 04/09/17 00:44 Ipratropium [place] (Atrovent 0.02% (Neb)) 0.5 mg ONCE STAT NEB 04/09/17 00:25 04/09/17 00:28 DC 04/09/17 00:44 Breathing treatment of albuterol and Atrovent was given here in emergency department, after treatment, patient's lungs sounds are clear and patient's oxygenation is better. Patient verbalized feeling much better. Guaifenasin w/ codeine was given here in emergency department. Verbalized feeling much better afterwards. PROCEDURE: XR Chest. CLINICAL INDICATION: Shortness of breath. TECHNIQUE: A single portable view of the chest was obtained. COMPARISON: 03/16/2017 FINDINGS: The cardiomediastinal silhouette is within normal limits. The lungs and pleural spaces are clear. The soft tissues and osseous structures are unremarkable. IMPRESSION: No acute cardiopulmonary disease. RPTAT: HPNM Bart Lance Physician Date Time Electronically viewed and signed by Bart Lance Physician on 04/07/2017 16 :05 / CC: LACEY VILLANUEVA DO Procedures/MDM Medical Decision Making: Patient symptoms are most likely consistent with chronic cough, unknown origin at this time, possible chronic bronchitis. There is low suspicion for Pneumonia at this time since patients lungs sounds are clear, patient O2 saturation is normal and patient doesnt show any respiratory distress. Patients chest xray doesnt show infiltrates or any other cardiopulmonary emergencies at this time. There is low suspicion for other cardiopulmonary emergencies at this time such as CHF, Pulmonary Embolism, Pneumothorax, Aortic Aneurysm or any other cardiopulmonary emergencies at this time. There is low suspicion for sepsis. Patient appears well and is hemodynamically stable. She does not have any fever. Disposition: Home. Condition: Stable Prescriptions: Continue albuterol, guaifenesin with codeine sugar-free, stop prednisone Instructions: Patient is advised to take medications as prescribed. Patient is advised to rest. Patient advised to increase fluid intake, do humidifier at home and if possible, do salt water gargles. Patient is advised that if symptoms are worse, shortness of breath, uncontrolled fever, stridor, vomiting, worst signs and symptoms to return to emergency department immediately. Otherwise, patient is advised to follow up with primary doctor in 5-7 days. Patient was advised to see system specialist or GI specialist for further evaluation of chronic cough Departure Diagnosis: Primary Impression: Chronic cough Condition: Stable Patient Instructions: Cough, Chronic, Uncertain Cause, (Adult) Additional Instructions: Patient is advised to take medications as prescribed. Patient is advised to rest. Patient advised to increase fluid intake, do humidifier at home and if possible, do salt water gargles. Patient is advised that if symptoms are worse, shortness of breath, uncontrolled fever, stridor, vomiting, worst signs and symptoms to return to emergency department immediately. Otherwise, patient is advised to follow up with primary doctor in 5-7 days. Patient was advised to see system specialist or GI specialist for further evaluation of chronic cough ROME DIA NP Apr 09, 2017 01:27
[2017-04-09] MEDS ORDERED: GUAI473L22 PO (01:28)
== END 2017-04-09 02:22 | disposition home or self-care (01) ==
LOC: FTE 21:38
DX: R05 Cough (principal); I10 Essential (primary) hypertension; E11.9 Type 2 diabetes mellitus without complications; Z79.4 Long term (current) use of insulin; Z79.82 Long term (current) use of aspirin; Z79.84 Long term (current) use of oral hypoglycemic drugs
CPT/HCPCS: 82962; 94664; Z7502; Z7610

== ENCOUNTER 2017-04-20 18:35 | Emergency (ER) | payer OTHER ==
[~2017-04-20] VITALS: Ht 162.6 cm; Wt 89.0 kg
[~2017-04-20 18:35] MED LIST changes: +GUAI473L22 PO
[2017-04-20 18:38] VITALS: Ht 162.6 cm; Wt 89.0 kg
[2017-04-20] MEDS ORDERED: HYD25 PO (19:26)
[2017-04-20 19:42] VITALS: BP 137/98; PULSE 91; RESP 19; TEMP 98.4
--- NOTE | 2017-04-20 20:37 | ERD ---
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 Daughter who is at the bedside states she has been to this ED about 7-8 times for this exact complaint. She has been variously diagnosed as bronchitis, asthma, gastritis and has been treated him as an outpatient without improvement. Patient states she has been trying to see her PMD but has been unsuccessful and is requesting a new primary care physician. Patient denies fevers or chills, no vomiting or diarrhea, no calf or leg swelling, no headache or blurry vision. Patient denies chest pain or shortness of breath. Patient has no history of asthma, COPD, or gastritis. ROS All systems reviewed and are negative except as per history of present illness. Medications Home Meds Active Scripts Hydrochlorothiazide* (Hydrochlorothiazide*) 25 Mg Tab, 50 MG PO BID, #60 TAB Prov:GUY RAMOS MD 04/20/17 Guaifenesin-Codeine Phosphate* (Guaifenesin* AC Cough Syrup) 473 Ml Liquid, 10 ML PO Q4H Y for COUGH, #120 ML sugar-free Prov:ROME DIA NP 04/09/17 Guaifenesin-Dextromethorphan* (Robitussin* DM) 100MG/10MG/5ML Syrup, 10 ML PO Q4H Y for COUGH for 7 Days, ML Prov:LACEY VILLANUEVA DO 04/07/17 Prednisone* (Prednisone*) 20 Mg Tab, 20 MG PO DAILY for 5 Days, TAB Prov:LACEY VILLANUEVA DO 04/07/17 Ranitidine Hcl* (Zantac*) 150 Mg Tablet, 150 MG PO BID Y for EPIGASTRIC PAIN, # 30 TAB Prov:LACEY VILLANUEVA DO 04/07/17 Benzonatate* (Tessalon Perle*) 100 Mg Capsule, 100 MG PO Q8H Y for COUGH, #20 CAP Prov:ROME DIA NP 03/17/17 Aspirin* (Aspirin* EC) 81 Mg Tablet.dr, 81 MG PO DAILY for 90 Days, 3 Refills Prov:JARROD VELASCO 12/21/16 Carvedilol* (Carvedilol*) 6.25 Mg Tablet, 6.25 MG PO BID for 60 Days, TAB 1 Refill Prov:JARROD VELASCO 12/21/16 Atorvastatin* (Atorvastatin*) 80 Mg Tablet, 80 MG PO HS for 60 Days, TAB 3 Refills Prov:JARROD VELASCO 12/21/16 Reported Medications Sulfamethoxazole/Trimethoprim* (Bactrim Ds* Tablet) 1 Each Tablet, 1 TAB PO BID , TAB 04/07/17 Hydrochlorothiazide* (Hydrochlorothiazide*) 12.5 Mg Tablet, 12.5 MG PO DAILY, # 30 TAB 04/07/17 Clopidogrel Bisulfate* (Clopidogrel Bisulfate*) 75 Mg Tablet, 75 MG PO DAILY, # 30 TAB 04/07/17 Ergocalciferol (Vitamin D2) (VITAMIN D2) 50,000 Unit Capsule, 99611 UNIT PO Q7D , CAP 04/07/17 Levothyroxine Sodium* (Levothyroxine Sodium*) 50 Mcg Tablet, 50 MCG PO BEFORE BREAKFAST, #30 TAB 04/07/17 Metformin Hcl* (Metformin Hcl*) 1,000 Mg Tablet, 1000 MG PO WITH BREAKFAST DINNE , #60 TAB 12/19/16 Lisinopril/Hydrochlorothiazide (Lisinopril-Hctz 20-25 mg Tab) 1 Each Tablet, 1 EACH PO DAILY, TAB 12/19/16 Insulin Glargine* (Lantus*) 100 Unit/Ml Soln, 30 UNIT SC QHS, #1 VIAL 12/19/16 Allergies Allergies: Coded Allergies: No Known Allergies (Verified Allergy, Mild, 04/07/17) PMhx/Soc Coronary artery disease status post LAD stent placement, hypertension, diabetes mellitus, hypothyroidism, obesity, anxiety, depression History of Surgery: Yes (C SECTION) Anesthesia Reaction: No Hx Neurological Disorder: No Hx Respiratory Disorders: No Hx Cardiac Disorders: Yes (HTN, HYPELIPIDIMIA) Hx Psychiatric Problems: No Hx Miscellaneous Medical Probl: Yes (diabetes) Hx Alcohol Use: No Hx Substance Use: No Hx Tobacco Use: No Smoking Status: Never smoker FmHx Family History: No diabetes Physical Exam Vitals Vital Signs Date Time Temp Pulse Resp B/P Pulse Ox O2 Delivery O2 Flow Rate FiO2 8/12/17 19:42 98.4 91 19 137/98 98 Room Air 04/20/17 18:38 99.6 95 18 172/79 99 Physical Exam GENERAL: Well-developed, well-nourished, well-hydrated, in no apparent distress , looks nontoxic in appearance HEENT: Moist mucous membranes, pink conjunctiva, no cervical spine tenderness or step-off deformities, no goiter, no jaundice or icterus, extraocular movements intact without pain. No submandibular induration, and no pharyngeal erythema NEURO: Alert and oriented 3, cranial nerves II through XII intact bilaterally, pupils equal round reactive to light, no focal deficits or facial asymmetry, sensation intact distally Strength 5/5 in upper and lower extremities bilaterally CARDIAC: Regular rate and rhythm, no murmurs rubs or gallops LUNGS: Clear bilaterally no wheezing crackles or stridor ABDOMEN: Soft nontender, no guarding, no rigidity, no rebound, no psoas sign no obturator sign. Normoactive bowel sounds SKIN: Warm and dry to touch, no abrasions, contusions, or hematomas, no lacerations, no ecchymosis, no target lesions, and without ulcers EXTREMITIES: No clubbing cyanosis or edema, calves are bilaterally symmetrical, no Homans sign, no popliteal cord sign. Distal pulses equal and bilateral PSYCH: Normal affect without agitation or irritability Procedures/MDM I reviewed patient's previous medical records and previous extensive workup and imaging studies. After reviewing her medication list it seems she is using lisinopril daily, this YANET inhibitor is well known to cause chronic unrelenting dry cough, which the patient has. Recommendation is to discontinue lisinopril and increase the dose of hydrochlorothiazide, which I prescribed. I also gave the patient the address and phone number to another physician to follow-up. I have no indication at this time for any further intervention, imaging, or admission. Differential diagnoses considered, included but not limited to acute coronary syndrome, pulmonary embolism, aortic dissection, abdominal aortic aneurysm, sepsis, stroke, meningitis, encephalitis, pneumonia, appendicitis, cholecystitis , bowel obstruction, pyelonephritis, nephrolithiasis, cystitis, as well as metabolic, hematologic, and electrolyte abnormalities. As well as abscess, cellulitis, fractures, and dislocations.\ Patient feels much better at this time, and vital signs are normal, symptoms have improved. I did give strict instructions to return to the ED if symptoms continue or worsen, patient will otherwise follow-up with primary care physician. Patient understood instructions and agreed to plan. Disclaimer: Inadvertent spelling and grammatical errors are likely due to EHR/ dictation software use and do not reflect on the overall quality of patient care. Also, please note that the electronic time recorded on this note does not necessarily reflect the actual time of the patient encounter. Departure Diagnosis: Primary Impression: Cough Additional Impression: Adverse reaction to YANET inhibitor drug Encounter type: initial encounter Qualified Code: T46.4X5A - Adverse reaction to YANET inhibitor drug, initial encounter Condition: Good Patient Instructions: Cough, Chronic, Uncertain Cause, (Adult) Referrals: PETER CORBIN MD (PCP) NIRMALA WALLS MD, DAVID MD Apr 20, 2017 20:37
== END 2017-04-20 19:42 | disposition home or self-care (01) ==
LOC: FTE 18:35
DX: R05 Cough (principal); T46.4X5A Adverse effect of angiotensin-converting-enzyme inhibitors, initial encounter; I25.10 Atherosclerotic heart disease of native coronary artery without angina pectoris; I10 Essential (primary) hypertension; E11.9 Type 2 diabetes mellitus without complications; E03.9 Hypothyroidism, unspecified; E66.9 Obesity, unspecified; Z79.4 Long term (current) use of insulin; Z79.82 Long term (current) use of aspirin; Z79.84 Long term (current) use of oral hypoglycemic drugs; Z98.61 Coronary angioplasty status
CPT/HCPCS: 99283

== ENCOUNTER 2017-05-09 08:32 | Emergency (ER) | payer OTHER ==
[~2017-05-09] VITALS: Ht 157.5 cm; Wt 86.5 kg
[~2017-05-09 08:32] MED LIST changes: +HYD25 PO
[2017-05-09 08:36] VITALS: Ht 157.5 cm; Wt 86.5 kg
[2017-05-09] MEDS ORDERED: HYDROCODONE/APAP (5/325) TAB PO ONE (09:30)
--- NOTE | 2017-05-09 09:35 | ERD ---
ER Documentation Chief Complaint Date/Time DATE: 05/09/17 TIME: 09:33 Chief Complaint Complains of abdominal and flank pain x 4 days Hx of kidney problems HPI 47-year-old female, history of diabetes, history of kidney stones presents with lower abdominal pain for the past 3 days with hematuria. Patient states that she has sharp pain in the suprapubic region that radiates diffusely to her lower abdomen. She also has been having a dry cough with, tickle in her throat , for 4 months. She denies fevers chills, nausea, vomiting. ROS All systems reviewed and are negative except as per history of present illness. Medications Home Meds Active Scripts Hydrochlorothiazide* (Hydrochlorothiazide*) 25 Mg Tab, 50 MG PO BID, #60 TAB Prov:GUY RAMOS MD 04/20/17 Guaifenesin-Codeine Phosphate* (Guaifenesin* AC Cough Syrup) 473 Ml Liquid, 10 ML PO Q4H Y for COUGH, #120 ML sugar-free Prov:ROME DIA NP 04/09/17 Guaifenesin-Dextromethorphan* (Robitussin* DM) 100MG/10MG/5ML Syrup, 10 ML PO Q4H Y for COUGH for 7 Days, ML Prov:LACEY VILLANUEVA DO 04/07/17 Prednisone* (Prednisone*) 20 Mg Tab, 20 MG PO DAILY for 5 Days, TAB Prov:LACEY VILLANUEVA DO 04/07/17 Ranitidine Hcl* (Zantac*) 150 Mg Tablet, 150 MG PO BID Y for EPIGASTRIC PAIN, # 30 TAB Prov:LACEY VILLANUEVA DO 04/07/17 Benzonatate* (Tessalon Perle*) 100 Mg Capsule, 100 MG PO Q8H Y for COUGH, #20 CAP Prov:ROME DIA NP 03/17/17 Aspirin* (Aspirin* EC) 81 Mg Tablet.dr, 81 MG PO DAILY for 90 Days, 3 Refills Prov:JARROD VELASCO 12/21/16 Carvedilol* (Carvedilol*) 6.25 Mg Tablet, 6.25 MG PO BID for 60 Days, TAB 1 Refill Prov:JARROD VELASCO 12/21/16 Atorvastatin* (Atorvastatin*) 80 Mg Tablet, 80 MG PO HS for 60 Days, TAB 3 Refills Prov:JARROD VELASCO 12/21/16 Reported Medications Sulfamethoxazole/Trimethoprim* (Bactrim Ds* Tablet) 1 Each Tablet, 1 TAB PO BID , TAB 04/07/17 Hydrochlorothiazide* (Hydrochlorothiazide*) 12.5 Mg Tablet, 12.5 MG PO DAILY, # 30 TAB 04/07/17 Clopidogrel Bisulfate* (Clopidogrel Bisulfate*) 75 Mg Tablet, 75 MG PO DAILY, # 30 TAB 04/07/17 Ergocalciferol (Vitamin D2) (VITAMIN D2) 50,000 Unit Capsule, 08605 UNIT PO Q7D , CAP 04/07/17 Levothyroxine Sodium* (Levothyroxine Sodium*) 50 Mcg Tablet, 50 MCG PO BEFORE BREAKFAST, #30 TAB 04/07/17 Metformin Hcl* (Metformin Hcl*) 1,000 Mg Tablet, 1000 MG PO WITH BREAKFAST DINNE , #60 TAB 12/19/16 Lisinopril/Hydrochlorothiazide (Lisinopril-Hctz 20-25 mg Tab) 1 Each Tablet, 1 EACH PO DAILY, TAB 12/19/16 Insulin Glargine* (Lantus*) 100 Unit/Ml Soln, 30 UNIT SC QHS, #1 VIAL 12/19/16 Allergies Allergies: Coded Allergies: No Known Allergies (Verified Allergy, Mild, 04/07/17) PMhx/Soc History of Surgery: Yes (C SECTION) Anesthesia Reaction: No Hx Neurological Disorder: No Hx Respiratory Disorders: No Hx Cardiac Disorders: Yes (HTN, HYPELIPIDIMIA) Hx Psychiatric Problems: No Hx Miscellaneous Medical Probl: Yes (diabetes) Hx Alcohol Use: No Hx Substance Use: No Hx Tobacco Use: No Smoking Status: Never smoker Physical Exam Vitals Vital Signs Date Time Temp Pulse Resp B/P Pulse Ox O2 Delivery O2 Flow Rate FiO2 05/09/17 08:36 98.1 100 20 148/86 96 Physical Exam General: Well-developed, well-nourished. The patient appears in no acute distress. HEENT: Head is normocephalic, atraumatic. No scleral icterus. Pupils are equal , round, and reactive. Oral mucous membranes are moist. No pharyngeal erythema. Neck: Supple. Nontender. Lungs: Clear to auscultation. Normal air movement. Heart: Regular rate and rhythm. S1 and S2 are normal. No murmurs, gallops, or rubs. Abdomen: Soft, suprapubic tenderness, nondistended. Bowel sounds are normoactive. Extremities: No clubbing or cyanosis. Normal pulses. Moving extremities x 4. No weakness. Neurologic: Alert and oriented 3. No focal deficits. Skin: Normal turgor. No rash or lesions. MDM: 47 yo female comes in with suprapubic pain and cough for 4 months Result Diagram: 05/09/1740 05/09/17 0918 Results 24 hrs Laboratory Tests Test 05/09/17 09:18 05/09/17 09:40 Sodium Level 138mmol/L Potassium Level 5.0mmol/L Chloride Level 103mmol/L Carbon Dioxide Level 21mmol/L Anion Gap 19 Blood Urea Nitrogen 19mg/dl Creatinine 0.78mg/dl Glucose Level 281mg/dl Calcium Level 9.0mg/dl Total Bilirubin 0.0mg/dl Direct Bilirubin 0.00mg/dl Indirect Bilirubin 0.0mg/dl Aspartate Amino Transf (AST/SGOT) 35IU/L Alanine Aminotransferase (ALT/SGPT) 33IU/L Alkaline Phosphatase 91IU/L Total Protein 7.5g/dl Albumin 3.8g/dl Globulin 3.70g/dl Albumin/Globulin Ratio 1.02 Lipase 109U/L White Blood Count 12.010^3/ul Red Blood Count 3.8910^6/ul Hemoglobin 11.0g/dl Hematocrit 32.4% Mean Corpuscular Volume 83.3fl Mean Corpuscular Hemoglobin 28.3pg Mean Corpuscular Hemoglobin Concent 34.0g/dl Red Cell Distribution Width 13.2% Platelet Count 11766^3/UL Mean Platelet Volume 10.0fl Neutrophils % 57.4% Lymphocytes % 34.1% Monocytes % 6.2% Eosinophils % 1.3% Basophils % 0.3% Nucleated Red Blood Cells % 0.0/100WBC Neutrophils # (Manual) 6.910^3/ul Lymphocytes # 4.110^3/ul Monocytes # 0.710^3/ul Eosinophils # 0.210^3/ul Basophils # 0.010^3/ul Nucleated Red Blood Cells # 0.010^3/ul Urine Color YELLOW Urine Clarity SLIGHTLY CLOUDY Urine pH 6.0 Urine Specific [place] 1.015 Urine Ketones NEGATIVEmg/dL Urine Nitrite NEGATIVEmg/dL Urine Bilirubin NEGATIVEmg/dL Urine Urobilinogen NEGATIVEmg/dL Urine Leukocyte Esterase NEGATIVELeu/ul Urine Microscopic RBC 1/HPF Urine Microscopic WBC 1/HPF Urine Squamous Epithelial Cells FEW/HPF Urine Bacteria FEW/HPF Urine Hemoglobin NEGATIVEmg/dL Urine Glucose 3+mg/dL Urine Total Protein 2+mg/dl Current Medications Medications (Trade) Dose Ordered Sig/Charley Route PRN Reason Start Time Stop Time Status Last Admin Dose Admin Acetaminophen/ Hydrocodone Bitart ([place] (5/325)) 1 tab ONCE ONCE PO 05/09/17 09:30 05/09/17 09:31 DC 05/09/17 09:35 Ceftriaxone Sodium (Rocephin) 1 gm ONCE ONCE IM 05/09/17 12:30 05/09/17 12:31 DC 05/09/17 12:44 Lidocaine (Xylocaine 1% (Mdv) 20 ml) 20 ml ONCE ONCE SC 05/09/17 12:30 05/09/17 12:31 DC 05/09/17 12:44 DIAGNOSTIC IMAGING REPORT Patient: LEXIE TONY : 1970 Age: 47 Sex: F MR #: [id number] DOS: 05/09/17917 Ordering MD: SUZI LEO PA-C Location: [facility] Room/Bed: PROCEDURE: CT Abdomen and Pelvis without contrast. CLINICAL INDICATION: Abdominal pain. TECHNIQUE: Routine tomographic images of the abdomen and pelvis were obtained from the domes of the diaphragm to the symphysis pubis. The patient was scanned withoutoral or intravenous contrast. Coronal and sagittal reformatted images were obtained from the axial source images. Images were reviewed on a high-resolution PACS workstation. The total exam CTDI equals 22.76 mGy and the total exam DLP equals 1368.53 mGy-cm. One or more of the following dose reduction techniques were used: Automated exposure control, adjustment of the mA and / or kV according to patient size, or use of iterative reconstruction technique. COMPARISON: CT abdomen and pelvis dated 04/07/2017 FINDINGS: The visualized portions of the lung bases are clear. Evaluation of the intra -abdominal solid organs is limited on this noncontrast examination. The liver appears normal in size. There is no intra or extrahepatic biliary dilatation. The gallbladder is unremarkable by CT criteria. The spleen, pancreas, and adrenal glands are unremarkable. The kidneys are symmetric in size. No renal, ureteral, or bladder calculi are identified. Mild nonspecific bilateral perinephric fat stranding is identified. The urinary bladder is grossly unremarkable. The bowel demonstrates normal course and caliber. There is no evidence of bowel obstruction. The appendix is normal in appearance. No intraperitoneal free fluid, free air or abscess is identified. The uterus and adnexa are unremarkable. The aorta is normal in caliber. The aorta and branching vessels demonstrate vascular calcifications. No retroperitoneal, mesenteric, or inguinal lymphadenopathy is identified. There is a small fat-containing umbilical hernia. The osseous structures are unremarkable. No significant subcutaneous soft tissue abnormalities are seen. IMPRESSION: 1. Limited, noncontrast CT the abdomen and pelvis. No acute intra-abdominal abnormality is appreciated. No significant interval change. 2. Arterial atherosclerosis. RPTAT: HH .Krista Galeana MD, Date Time Electronically viewed and signed by .Krista Galeana MD, on 05/09/2017 10 :34 .G/ CC: SUZI LEO PA-C DIAGNOSTIC IMAGING REPORT Patient: LEXIE TONY : 1970 Age: 47 Sex: F MR #: [id number] DOS: 05/09/17 0918 Ordering MD: SUZI LEO PA-C Location: [facility] Room/Bed: PROCEDURE: XR Chest. CLINICAL INDICATION: Cough TECHNIQUE: AP Portable chest. COMPARISON: 04/07/2017 FINDINGS: The cardiomediastinal silhouette is normal. The aortic arch is tortuous. Focal micronodular interstitial densities are seen in the right mid lung. No focal consolidation, pleural effusion or pneumothorax is seen. The osseous structures are intact. IMPRESSION: Probable mild interstitial infiltrate in the right lung. RPTAT: HCNS Estefani Russell Physician Date Time Electronically viewed and signed by Estefani Russell Physician on 05/09/2017 10: 13 CS/ CC: SUZI LEO PA-C Procedures/MDM patient was given rocephin 1gm IM. MDM: 47 year old female comes in with a cough for 1 4 months, abdominal pain for 1 week, Patient has an infiltrate in her right lung, will treat for pneumonia since she was coughing for [address] abdomen and pelvis is unremarkable for an acute intraabdominal process. Labs are normal, patient will be treated as outpatient community acquired pneumonia. She is nontoxic, well appearing, without signs of respiratory distress and stable for discharge. Departure Diagnosis: Primary Impression: Multiple complaints Additional Impressions: Pneumonia Abdominal pain Condition: Good SUZI LEO PA-C May 09, 2017 09:35
--- NOTE | 2017-05-09 10:13 | RADRPT ---
PROCEDURE: XR Chest. CLINICAL INDICATION: Cough TECHNIQUE: AP Portable chest. COMPARISON: 04/07/2017 FINDINGS: The cardiomediastinal silhouette is normal. The aortic arch is tortuous. Focal micronodular intersti tial densities are seen in the right mid lung. No focal consolidation, pleural effusion or pneumotho rax is seen. The osseous structures are intact. IMPRESSION: Probable mild interstitial infiltrate in the right lung. RPTAT: HCNS Physician Benedicto Date Time Electronically viewed and signed by Estefani Russlel Physician on 05/09/2017 10:13 CS/
--- NOTE | 2017-05-09 10:35 | RADRPT ---
PROCEDURE: CT Abdomen and Pelvis without contrast. CLINICAL INDICATION: Abdominal pain. TECHNIQUE: Routine tomographic images of the abdomen and pelvis were obtained from the domes of th e diaphragm to the symphysis pubis. The patient was scanned withoutoral or intravenous contrast. C oronal and sagittal reformatted images were obtained from the axial source images. Images were revie wed on a high-resolution PACS workstation. The total exam CTDI equals 22.76 mGy and the total exam D LP equals 1368.53 mGy-cm. One or more of the following dose reduction techniques were used: Automa jean marie exposure control, adjustment of the mA and / or kV according to patient size, or use of iterativ e reconstruction technique. COMPARISON: CT abdomen and pelvis dated 04/07/2017 FINDINGS: The visualized portions of the lung bases are clear. Evaluation of the intra-abdominal solid org ans is limited on this noncontrast examination. The liver appears normal in size. There is no intr a or extrahepatic biliary dilatation. The gallbladder is unremarkable by CT criteria. The spleen, pancreas, and adrenal glands are unremarkable. The kidneys are symmetric in size. No renal, ureteral, or bladder calculi are identified. Mild nons pecific bilateral perinephric fat stranding is identified. The urinary bladder is grossly unremarka ble. The bowel demonstrates normal course and caliber. There is no evidence of bowel obstruction. The appendix is normal in appearance. No intraperitoneal free fluid, free air or abscess is identified. The uterus and adnexa are unremarkable. The aorta is normal in caliber. The aorta and branching v essels demonstrate vascular calcifications. No retroperitoneal, mesenteric, or inguinal lymphadenop athy is identified. There is a small fat-containing umbilical hernia. The osseous structures are unremarkable. No significant subcutaneous soft tissue abnormalities are seen. IMPRESSION: 1. Limited, noncontrast CT the abdomen and pelvis. No acute intra-abdominal abnormality is appreci ated. No significant interval change. 2. Arterial atherosclerosis. RPTAT: HH .Krista Galeana MD, Date Time Electronically viewed and signed by .Krista Galeana MD, on 05/09/2017 10:34 .G/
[2017-05-09 10:52] LABS: ALBUMIN 3.8 g/dl (3.3-4.9); ALBUMIN/GLOBULIN RATIO 1.02; CREATININE 0.78 mg/dl (0.44-1.00); TOTAL PROTEIN 7.5 g/dl (6.1-8.1)
[2017-05-09 11:02] LABS: BASOPHILS % 0.3 % (0.0-2.0); EOSINOPHILS # 0.2 10^3/ul (0.0-0.5); EOSINOPHILS % 1.3 % (0.0-7.0); HEMATOCRIT 32.4 % (37.0-47.0); LYMPHOCYTES # 4.1 10^3/ul (0.8-2.9); LYMPHOCYTES % 34.1 % (15.0-51.0); MEAN CORPUSCULAR HEMOGLOBIN 28.3 pg (29.0-33.0); MEAN CORPUSCULAR VOLUME 83.3 fl (82.0-101.0); MONOCYTE # 0.7 10^3/ul (0.3-0.9); MONOCYTES % 6.2 % (0.0-11.0); NEUTROPHILS % 57.4 % (39.0-77.0); PLATELET COUNT 387 10^3/UL (140-415); RED BLOOD COUNT 3.89 10^6/ul (4.20-5.40); RED CELL DISTRIBUTION WIDTH 13.2 % (11.5-14.5)
[2017-05-09 11:59] LABS: ADD UMIC YES; UR ASCORBIC ACID NEGATIVE (NEGATIVE); UR BACTERIA FEW /HPF (NONE SEEN); UR BILIRUBIN (Dip) NEGATIVE (NEGATIVE); UR BLOOD (Dip) NEGATIVE (NEGATIVE); UR CLARITY SLIGHTLY CLOUDY (CLEAR); UR COLOR YELLOW (YELLOW); UR GLUCOSE (Dip) 3+ mg/dL (NEGATIVE); UR KETONES (Dip) NEGATIVE (NEGATIVE); UR LEUKOCYTE ESTERASE (Dip) NEGATIVE Leu/ul (NEGATIVE); UR NITRITE (Dip) NEGATIVE (NEGATIVE); UR RBC 1 /HPF (0-5); UR SPECIFIC GRAVITY (Dip) 1.015 (1.003-1.030); UR SQUAMOUS EPITHELIAL CELL FEW /HPF (FEW); UR TOTAL PROTEIN (Dip) 2+ mg/dl (NEGATIVE); UR UROBILINOGEN (Dip) NEGATIVE (NEGATIVE)
[2017-05-09] MEDS ORDERED: CEFTRIAXONE 1 GM INJ IM ONE (12:30)
[2017-05-09] MEDS ORDERED: LIDOCAINE 1% (MDV) 20 ML INJ SC ONE (12:30)
== END 2017-05-09 12:57 | disposition home or self-care (01) ==
LOC: FTE 08:32
DX: J18.9 Pneumonia, unspecified organism (principal); R31.9 Hematuria, unspecified; E11.9 Type 2 diabetes mellitus without complications; I10 Essential (primary) hypertension; Z79.4 Long term (current) use of insulin; Z79.82 Long term (current) use of aspirin; Z79.84 Long term (current) use of oral hypoglycemic drugs
CPT/HCPCS: 36415; 71010; 74176; 80053; 81001; 83690; 85025; 96372; J0696; Z7502; Z7610

== ENCOUNTER 2017-09-10 15:18 | Emergency (ER) | END 2017-09-10 18:15 | disposition home or self-care (01) ==

== ENCOUNTER 2017-12-16 12:21 | Inpatient (IN) | END 2017-12-20 19:35 | disposition home or self-care (01) | DRG 871 ==

== ENCOUNTER 2018-01-01 20:24 | Emergency (ER) | END 2018-01-01 21:45 | disposition home or self-care (01) ==

== ENCOUNTER 2018-01-08 12:22 | Emergency (ER) | END 2018-01-08 14:56 | disposition home or self-care (01) ==

== ENCOUNTER 2018-01-15 20:51 | Emergency (ER) | END 2018-01-15 22:30 | disposition left against medical advice (07) ==

== ENCOUNTER 2018-02-28 08:51 | Emergency (ER) | END 2018-02-28 12:33 | disposition home or self-care (01) ==

== ENCOUNTER 2018-09-19 07:59 | Inpatient (IN) | payer MEDICAID ==
[~2018-09-19] VITALS: Ht 134.6 cm; Wt 82.0 kg
[~2018-09-19 07:59] MED LIST changes: +AMOX1TAB10 PO; -ASPI-664 PO; +ASPI81TA52 PO; +ATOR40TA68 PO; -ATOR80TA75 PO; +BENZ-6 PO; -BENZ100C70 PO; -CARV6.2579 PO; +CLOP75TA19 PO; -CLOP75TA4 PO; -ERGO500037 PO; +FLUO20CA38 PO; +FURO-109 PO; +FURO40TA4 PO; -GUAI473L22 PO; -HYD25 PO; +HYDR-4011 PO; -HYDR12.58 PO; +LEVO50TA7 PO; -LEVO50TA74 PO; +LEVO750T25 PO; +LISI-313 PO; -LISI1TAB8 PO; +LORA10TA3 PO; +LOSA25TA12 PO; -METF1000 PO; +METF100010 PO; +METO-429 PO; +PANT40TA4 PO; -PRED20TA PO; -RANI150T9 PO; -SULF1TAB31 PO; +TRAZ-149 PO; +TRIA15CR55 TOP; -UDROBDM PO; +ZOF8 PO
[2018-09-19] MEDS ORDERED: morphine 4 MG/ML VIAL IV STA (08:08)
[2018-09-19] MEDS ORDERED: SOD CHLORIDE 0.9% 1,000 ML IV STA (08:08)
[2018-09-19] MEDS ORDERED: ONDANSETRON 4 MG INJ IV STA ×2 (08:08→09:35)
--- NOTE | 2018-09-19 08:22 | ERD ---
ER Documentation Chief Complaint Chief Complaint ABD PAIN X 4 DAYS WITH N/V HPI This is a 48-year-old female with a history of insulin-dependent diabetes mellitus and hypertension who presents to the emergency department complaining of 4 days of severe abdominal pain. The patient indicates the pain started in the suprapubic region and began to radiate to her left lower quadrant. She had multiple episodes of nonbloody nonbilious emesis with no diarrhea. She had no recent hospitalizations or travel. She had no fevers or shaking or chills. She indicates she is been unable to tolerate oral intake as this resulted in subsequent emesis. She also complains of frequency urgency and dysuria with no gross hematuria. The patient is currently menstruating. She took Naprosyn at home with no improvement of her symptoms. She indicates she is never had any similar symptoms in the past. Her past surgical history includes section ROS All systems reviewed and are negative except as per history of present illness. Medications Home Meds Active Scripts Hydrocodone/Acetaminophen ([place] 5-325 Tablet) 1 Each Tablet, 1 TAB PO Q12 PRN for PAIN, #10 TAB Prov:LEEANNE RIVERA MD 02/28/18 Furosemide* (Lasix*) 40 Mg Tablet, 40 MG PO DAILY, #30 TAB Prov:ZIYAD HIGUERA MD 01/01/18 Pantoprazole* (Pantoprazole*) 40 Mg Tablet.dr, 40 MG PO DAILY@06 for 30 Days, #30 Prov:PETER CORBIN MD 12/20/17 Trazodone Hcl* (Desyrel*) 50 Mg Tab, 50 MG PO HS for 30 Days, #30 TAB Prov:PETER CORBIN MD 12/20/17 Metoprolol Tartrate* (Lopressor*) 50 Mg Tab, 50 MG PO BID for 30 Days, #30 TAB Prov:PTEER CORBIN MD 12/20/17 Lisinopril* (Lisinopril*) 5 Mg Tablet, 5 MG PO DAILY for 30 Days, #30 TAB Prov:PETER CORBIN MD 12/20/17 Atorvastatin* (Atorvastatin*) 40 Mg Tablet, 40 MG PO HS for 30 Days, #30 TAB Prov:PETER CORBIN MD 12/20/17 Insulin Glargine* (Lantus*) 100 Unit/Ml Soln, 20 UNIT SC BID for 30 Days, #1 VIAL Prov:PETER CORBIN MD 12/20/17 Reported Medications Ondansetron Hcl* (Zofran*) 8 Mg Tab, 8 MG PO Q6H PRN for NAUSEA AND OR VOMITING, TAB 12/16/17 Aspirin (Low Dose Aspirin) 81 Mg Tablet.dr, 81 MG PO DAILY, #30 TAB 12/16/17 Loratadine* (Loratadine*) 10 Mg Tablet, 10 MG PO DAILY, #30 TAB 12/16/17 Fluoxetine Hcl* (Prozac*) 20 Mg Capsule, 20 MG PO DAILY, CAP 12/16/17 Losartan Potassium* (Losartan Potassium*) 25 Mg Tablet, 25 MG PO DAILY, TAB 12/16/17 Clopidogrel Bisulfate* (Clopidogrel Bisulfate*) 75 Mg Tablet, 75 MG PO DAILY, #30 TAB 04/07/17 Levothyroxine Sodium* (Levothyroxine Sodium*) 50 Mcg Tablet, 50 MCG PO BEFORE BREAKFAST, #30 TAB 04/07/17 Metformin Hcl* (Metformin Hcl*) 1,000 Mg Tablet, 1000 MG PO WITH BREAKFAST DINNE, #60 TAB 12/19/16 Discontinued Scripts Amoxicillin/Potassium Clav (Amox-Clav 875-125 mg Tablet) 875-125 mg Tab, 1 TAB PO BID for 10 Days, #20 TAB Prov:LEEANNE RIVERA MD 02/28/18 Benzonatate* (Tessalon Perle*) 100 Mg Capsule, 100 MG PO Q8H PRN for COUGH, #30 CAP Prov:ARPIT LAM MD 01/08/18 Furosemide* (Furosemide*) 40 Mg Tablet, 20 MG PO DAILY for 30 Days, #30 TAB Prov:PETER CORBIN MD 12/20/17 Triamcinolone Acetonide* (Kenalog*) 0.1%-15GM Cr, 1 APPLIC TOP BID for 30 Days, #30 GM Prov:PETER CORBIN MD 12/20/17 Levofloxacin* (Levaquin*) 750 Mg Tablet, 750 MG PO DAILY@06 for 6 Days, #6 TAB Prov:PETER CORBIN MD 12/20/17 Allergies Allergies: Coded Allergies: No Known Allergy (Unverified , 09/19/18) PMhx/Soc History of Surgery: No Anesthesia Reaction: No Hx Neurological Disorder: No Hx Respiratory Disorders: No Hx Cardiac Disorders: No Hx Psychiatric Problems: No Hx Miscellaneous Medical Probl: No Hx Alcohol Use: No Hx Substance Use: No Hx Tobacco Use: No Physical Exam Vitals Vital Signs Date Temp Pulse Resp B/P (MAP) Pulse Ox O2 O2 Flow FiO2 Time Delivery Rate 09/19/18 114 20 198/94 99 Room Air 11:32 (128) 09/19/18 98 20 143/78 99 Room Air 10:23 (99) 09/19/18 60 14 135/71 99 Room Air 09:15 (92) 09/19/18 89 18 137/87 99 Room Air 08:10 (104) 09/19/18 97.7 65 18 120/78 99 08:00 (92) Physical Exam Constitutional:Well-developed. Well-nourished. Patient was tearful and appeared to be in a significant amount of discomfort secondary to pain HEENT:Normocephalic. Atraumatic.Pupils were equal round reactive to light. Very dry mucous membranes.No tonsillar exudates. Neck: No nuchal rigidity. No lymphadenopathy. No posterior cervical spine tenderness or step-offs. Respiratory: Not using accessory muscles of respiration.Lungs were clear to auscultation bilaterally. No rhonchi. No rales. No wheezing. Cardiovascular: Regular rate regular rhythm.No murmurs. No rubs were appreciated.S1, S2 normal. Distal pulses are palpable 2+ bilaterally. GI: Abdomen was soft. Suprapubic tenderness and tenderness in the left lower quadrant. Non Distended. No pulsatile abdominal masses or bruits. No rebound. No guarding. Bowel sounds were present and normal. Muscle skeletal: Full range of motion of both the upper and lower extremities bilaterally.Normal muscle tone.No assymetrical calf tenderness or swelling. Skin: No petechia, no purpura. No lesions on the palms or the soles of the feet. No maculopapular rash. NEURO: Patient was alert, awake, orientated x3.No facial droop. Gait observed and normal with no ataxia.Speech had regular rate and rhythm. No focal neurological deficits. Result Diagram: 09/19/18 0830 09/19/18 0830 Results 24 hrs Laboratory Tests Test 09/19/18 08:30 09/19/18 08:35 09/19/18 09:50 09/19/18 09:55 White Blood Count 19.0 10^3/ul Red Blood Count 3.85 10^6/ul Hemoglobin 10.5 g/dl Hematocrit 31.8 % Mean Corpuscular 82.6 fl Volume Mean Corpuscular 27.3 pg Hemoglobin Mean Corpuscular 33.0 g/dl Hemoglobin Concent Red Cell 13.0 % Distribution Width Platelet Count 329 10^3/UL Mean Platelet 10.9 fl Volume Immature 0.800 % Granulocytes % Neutrophils % 83.7 % Lymphocytes % 7.5 % Monocytes % 7.6 % Eosinophils % 0.2 % Basophils % 0.2 % Nucleated Red 0.0 /100WBC Blood Cells % Immature 0.150 10^3/ul Granulocytes # Neutrophils # 15.9 10^3/ul Lymphocytes # 1.4 10^3/ul Monocytes # 1.4 10^3/ul Eosinophils # 0.0 10^3/ul Basophils # 0.0 10^3/ul Nucleated Red 0.0 10^3/ul Blood Cells # Prothrombin Time 12.0 Sec Prothrombin Time 0.9 Ratio INR International 0.88 Normalized Ratio Activated 31.[address] Time Urine Color YELLOW Urine Clarity TURBID Urine pH 5.0 Urine Specific 1.025 [place] Urine Ketones NEGATIVE mg/dL Urine Nitrite NEGATIVE mg/dL Urine Bilirubin NEGATIVE mg/dL Urine Urobilinogen 1+ mg/dL Urine Leukocyte 3+ Lucía/ul Esterase Urine Microscopic 32 /HPF RBC Urine Microscopic > 182 /HPF WBC Urine Squamous FEW /HPF Epithelial Cells Urine Bacteria MODERATE /HPF Urine Hemoglobin 3+ mg/dL Urine Glucose 3+ mg/dL Urine Total 3+ mg/dl Protein Sodium Level 131 mmol/L Potassium Level 5.2 mmol/L Chloride Level 98 mmol/L Carbon Dioxide 21 mmol/L Level Anion Gap 12 Blood Urea 25 mg/dl Nitrogen Creatinine 1.14 mg/dl Est Glomerular 51 mL/min Filtrat Rate mL/min Glucose Level 507 mg/dl Calcium Level 8.7 mg/dl Total Bilirubin 0.1 mg/dl Direct Bilirubin 0.00 mg/dl Indirect Bilirubin 0.1 mg/dl Aspartate Amino 13 IU/L Transf (AST/SGOT) Alanine < 6 IU/L Aminotransferase ( ALT/SGPT) Alkaline 105 IU/L Phosphatase Troponin I < 0.012 ng/ml Total Protein 7.0 g/dl Albumin 3.3 g/dl Globulin 3.70 g/dl Albumin/Globulin 0.89 Ratio Amylase Level 44 U/L Lipase 83 U/L Bedside Glucose 487 mg/dL Serum HCG, NEGATIVE Qualitative POC Venous Lactate 1.4 mmol/L Test 09/19/18 10:17 Bedside Glucose 422 mg/dL Current Medications Medications Dose Sig/Charley Start Time Status Last (Trade) Ordered Route PRN Stop Time Admin Dose Reason Admin Sodium 1,000 ml @ Q1H STAT 09/19/18 DC 09/19/18 Chloride 1,000 mls/hr IV 08:08 08:28 09/19/18 09:07 Morphine 4 mg ONCE STAT 09/19/18 DC 09/19/18 Sulfate IV 08:08 08:28 (morphine) 09/19/18 08:11 Ondansetron 4 mg ONCE STAT 09/19/18 DC 09/19/18 HCl (Zofran IV 08:08 08:27 Inj) 09/19/18 08:11 IV Flush 10 ml STK-MED 09/19/18 DC (NS 10 ml) ONCE .ROUTE 09:21 09/19/18 09:22 Sodium 100 ml @ ud STK-MED 09/19/18 DC Chloride ONCE .ROUTE 09:21 09/19/18 09:22 Iohexol 150 ml STK-MED 09/19/18 DC (Omnipaque ONCE .ROUTE 09:21 300mg/ ml) 09/19/18 09:22 Sodium 2,420 ml BOLUS OVER 2 09/19/18 DC 09/19/18 Chloride HOURS STAT 09:35 10:07 (NS) IV* 09/19/18 09:41 1 mg ONCE STAT 09/19/18 Cancel Hydromorphone IV 09:35 HCl 09/19/18 09:36 (Dilaudid) Ondansetron 4 mg ONCE STAT 09/19/18 DC 09/19/18 HCl (Zofran IV 09:35 10:07 Inj) 09/19/18 09:41 Ceftriaxone 50 ml @ ONCE STAT 09/19/18 DC 09/19/18 Sodium 100 mls/hr IVPB 09:35 10:08 09/19/18 10:05 Insulin 10 unit ONCE STAT 09/19/18 DC 09/19/18 Human SC 09:39 10:19 Lispro 09/19/18 10:03 (Humalog) Sodium 50 ml ONCE STAT 09/19/18 DC 09/19/18 Bicarbonate IV 09:39 10:08 (Na Bicarb 09/19/18 10:01 8.4% Syg) Calcium 1,000 mg ONCE STAT 09/19/18 DC 09/19/18 Chloride IV 09:39 10:09 (Ca Chloride 09/19/18 10:05 10% Syg) Morphine 4 mg ONCE STAT 09/19/18 DC 09/19/18 Sulfate IV 10:09 10:37 (morphine) 09/19/18 10:10 10 mg ONCE ONCE 09/19/18 09/19/18 Metoclopramid IV 12:30 12:08 e HCl 09/19/18 12:31 (Reglan) Procedures/MDM This patient presented to the emergency department with abdominal pain and was seen and evaluated by myself. My differential diagnosis included but was not limited to abdominal aortic aneurysm, appendicitis, pancreatitis, perforated peptic ulcer, perforated viscus, Boerhaaves syndrome or visceral pain such as diverticulitis, DKA, esophagitis, hepatitis or bowel obstruction. The patient was placed on a cardiac rehabilitation specialist, continuous pulse oximetry, and IV access was established by nursing staff. The patient was given intravenous morphine and Zofran. I obtained a 12-lead EKG tracing to rule out for atypical myocardial ischemia. 12 Lead EKG tracing ordered and reviewed by myself showed: Normal sinus rhythm of 87 bpm and no arrhythmia. [place] interval normal. QRS duration normal. No ST segment elevation No ST segment depression. No changes consistent with acute ischemia. The patient was hyperglycemic without ketosis. The patient states she had not taken her medications for several days due to the severity of pain. Therefore she received subcutaneous insulin in the emergency department and IV fluids. The patient had leukocytosis and therefore at this time met Sirs criteria. I obtained a lactic acid. Also obtain blood cultures and urine culture she had a significant urinary tract infection with pyuria. Due to the severity of the patient's symptoms and that her pain did not improve despite opiate analgesic medication intravenously I did feel she required admission for IV antibiotics. She was given a dose of IV ceftriaxone. The patient had an elevated BUN and creatinine of 25 and 1.14 respectively. I did feel this was more likely prerenal azotemia. The patient's potassium was 5.2. There is no evidence of peaked T waves seen on the EKG or signs of severe hyperkalemia. She was given an amp of bicarbonate amp of calcium chloride prophylactically to treat the hyperkalemia. She was also given IV fluids to treat the prerenal azotemia. I obtained a CT scan of the abdomen on reviewed by myself and indicated the followin. No evidence of bowel obstruction. Several fluid-filled loops of small bowel suggestive of gastroenteritis and mild ileus. Small hiatal hernia. 2. Nonspecific bilateral perinephric fat stranding and mild pounds of the renal collecting system. No gross renal/ureteric calculi. The bladder is distended. Findings may be secondary to underlying bladder outlet obstruction or neurogenic bladder. Recommend decompression of the bladder. 3. Diffuse atherosclerotic disease of the aorta. 4. No evidence of free fluid or free air. No gross focal fluid collections 5. Fat-containing umbilical hernia. 6. Distended gallbladder. If there is concern for gallstones, recommend follow- up ultrasound. Patient will be admitted to the hospitalist in serious condition to the telemetry service due to the hyperkalemia. Departure Diagnosis: Primary Impression: Hyperglycemia without ketosis Additional Impressions: Pyelonephritis Hyperkalemia Condition: Serious RED ANSARI MD Sep 19, 2018 08:22
[2018-09-19] MEDS ORDERED: IOHEXOL 300MG/ML 150 ML BTL ONE (09:21)
[2018-09-19] MEDS ORDERED: SOD CHLORIDE 0.9% 100 ML ONE (09:21)
[2018-09-19] MEDS ORDERED: SODIUM CHLORIDE 0.9% 1L BAG IV* STA (09:35)
[2018-09-19] MEDS ORDERED: CEFTRIAXONE 1 GM/50 ML (PMX) 50 ML IVPB STA (09:35)
[2018-09-19] MEDS ORDERED: HYDROmorphONE 1 MG/ML SYG IV STA (09:35)
[2018-09-19] MEDS ORDERED: CA CHLORIDE 10% 10 ML SYRINGE IV STA (09:39)
[2018-09-19] MEDS ORDERED: INSULIN LISPRO 100 UNIT/ML VIAL SC STA (09:39)
[2018-09-19] MEDS ORDERED: NA BICARBONATE 8.4% 50 ML SYG IV STA (09:39)
[2018-09-19] MEDS: morphine 4 MG/ML VIAL IV STA ×2 (10:31→10:37)
--- NOTE | 2018-09-19 10:36 | NUR ---
Procedure Ordered: CT ABD/PELV WITH IV CON Reason for Exam Today: ABD PAIN, LLQ PAIN Previous Exams: Allergies: NKA Current Medications Taken: Glucophage ( ) Metformin ( ) Previous reaction to contrast media: Yes ( ) No ( ) : Yes ( ) No ( ?) HCG NOT ORDERED. NOTIFIED ED. 09:32AM Asthma: Yes ( ) No ( X) Diabetes: Yes (X ) No ( ) Myeloma: Yes ( ) No ( X) Heart Disease: Yes ( X) No ( ) Cardiac Disease: Yes ( X) No ( ) Kidney Disease: Yes ( ) No (X ) Vascular Disease: Yes ( X) No ( ) Patient Teaching done: Yes ( ) No ( ) Legal Compliance Officer Used: Yes ( ) No ( ) Name of Legal Compliance Officer: Language Used: As part of the test requested by your doctor, contrast media may be injected into your vein while the x-rays are being taken. Occasionally, reactions from IV contrast may occur. The physician and staff of this hospital are trained to treat these reactions. Select the type of Contrast that will be given to patient: Isovue 300 ( ) Isovue 370 ( ) Visipaque ( ) Cystografin ( ) Gastrographin ( ) Redi-cat ( ) Volumen ( ) Amount of contrast to be given: [id number]: 100CC IV IV ( ) PO ( ) Date given: 09.19.18 Lab Values: BUN: 25 Creatinine: 1.14 Reason why contrast cannot be given: Location of patient pre-procedure: ED Location of patient post procedure: ED Addendum: 09/19/18 at 1101 by FADI MONTANEZ C/S PT REFUSED IV ELIA. MD CASTANEDA.
[2018-09-19] MEDS ORDERED: ACETAMINOPHEN 325 MG TAB PO PRN (12:30)
[2018-09-19] MEDS ORDERED: ONDANSETRON 4 MG INJ IV PRN ×2 (12:30→16:30)
[2018-09-19] MEDS ORDERED: METOCLOPRAMIDE 10 MG INJ IV ONE (12:30)
[2018-09-19] MEDS ORDERED: LABETALOL HCL 20MG INJ IV ONE (13:00)
[2018-09-19] MEDS ORDERED: VANCOMYCIN 1 GM (PMX) 250 ML IVPB ONE (14:30)
--- NOTE | 2018-09-19 15:57 | HP ---
Date/Time of Note Date/Time of Note DATE: 09/19/18 TIME: 15:57 Assessment/Plan VTE Prophylaxis Pharmacological prophylaxis: LMWH Lines/Catheters IV [facility]from [facility] Saline Lock Assessment/Plan Hospital Course 48-year-old female with comorbidities including diabetes mellitus type 2, essential hypertension, pulmonary hypertension, dyslipidemia, gastritis, hypothyroidism,CAD status post coronary artery stenting, and obesity who came to the emergency room with chief complaint of left lower quadrant abdominal pain that has been going on for the past 4 days. The patient was found to have evidence of sepsis with leukocytosis, lactic acidosis, and tachycardia, secondary to underlying complicated urinary tract infection and will be admitted to inpatient setting for further treatment and evaluation. 1. Sepsis with underlying leukocytosis, lactic acidosis, and tachycardia, present on admission secondary to underlying complicated urinary tract infection. -Obtain thomas cultures. -Continue empiric antimicrobials. -Judicious use of IV fluids provided the patient's history of CAD and elevated BNP. -Waller decompression of the urinary bladder. 2. Bilateral prominence of renal collecting systems with distended urinary bladder. -Waller decompression of urinary bladder. -Urology consult. 3. Diabetes mellitus type 2. Uncontrolled. -Continue sliding scale insulin along with pre-meal insulin and basal insulin. -Hold oral hypoglycemics. -Obtain hemoglobin A1c to evaluate the blood glucose control over the past few months. 4. Hypertension. -Continue antihypertensives. 5. CAD status post stent to mid LAD. -Continue aspirin. Discontinue Plavix (confirmed with the blending kettle tender who did the procedure). -Continue statins. 6. Hyperkalemia. -Most probably secondary to underlying MARIBEL. -Status post treatment. 7. Acute nonoliguric kidney injury. -Most probably secondary to underlying sepsis. -Use nephrotoxic drugs with caution. -Judicious use of IV fluids. 8. Normocytic anemia. -Most probably anemia of chronic disease. -Monitor H&H closely. 9. Hypothyroidism. -Resume Synthroid. 10. Dyslipidemia. -Continue statins. 11. Obesity. BMI 45 kg/m. -Advised weight reduction. Plan: The patient will be admitted to inpatient telemetry floor. The patient will be started on a carbohydrate controlled diet. The patient will be started on DVT prophylaxis and gastrointestinal prophylaxis. The patient will remain a full code. Activities will be as tolerated. The rest of the patient's management will be based on the clinical course, inputs from consultants, and the results of diagnostic studies. Based on the patient's clinical presentation, she most probably requires at least 2 midnights' stay for further management and evaluation of her clinical presentation. The patient was seen in collaboration with Dr. Patel. Result Diagram: 09/19/18 0830 09/19/18 0830 Results 24hrs Laboratory Tests Test 09/19/18 08:30 09/19/18 08:35 09/19/18 09:50 09/19/18 09:55 White Blood Count 19.0 H Red Blood Count 3.85 L Hemoglobin 10.5 L Hematocrit 31.8 L Mean Corpuscular 82.6 Volume Mean Corpuscular 27.3 L Hemoglobin Mean Corpuscular 33.0 Hemoglobin Concent Red Cell 13.0 Distribution Width Platelet Count 329 # Mean Platelet Volume 10.9 H Immature 0.800 H Granulocytes % Neutrophils % 83.7 H Lymphocytes % 7.5 L Monocytes % 7.6 Eosinophils % 0.2 Basophils % 0.2 Nucleated Red Blood 0.0 Cells % Immature 0.150 H Granulocytes # Neutrophils # 15.9 H Lymphocytes # 1.4 Monocytes # 1.4 H Eosinophils # 0.0 Basophils # 0.0 Nucleated Red Blood 0.0 Cells # Prothrombin Time 12.0 Prothrombin Time 0.9 Ratio INR International 0.88 Normalized Ratio Activated 31.8 Partial Thromboplast Time Urine Color YELLOW Urine Clarity TURBID A Urine pH 5.0 Urine Specific 1.025 [place] Urine Ketones NEGATIVE Urine Nitrite NEGATIVE Urine Bilirubin NEGATIVE Urine Urobilinogen 1+ H Urine Leukocyte 3+ H Esterase Urine Microscopic 32 H RBC Urine Microscopic > 182 H WBC Urine Squamous FEW Epithelial Cells Urine Bacteria MODERATE Urine Hemoglobin 3+ H Urine Glucose 3+ H Urine Total Protein 3+ H Sodium Level 131 L Potassium Level 5.2 H Chloride Level 98 Carbon Dioxide Level 21 Anion Gap 12 Blood Urea Nitrogen 25 H Creatinine 1.14 H Est Glomerular 51 L Filtrat Rate mL/min Glucose Level 507 *H Calcium Level 8.7 Total Bilirubin 0.1 L Direct Bilirubin 0.00 Indirect Bilirubin 0.1 Aspartate Amino 13 L Transf (AST/SGOT) Alanine < 6 L Aminotransferase (AL T/SGPT) Alkaline Phosphatase 105 Troponin I < 0.012 Total Protein 7.0 Albumin 3.3 Globulin 3.70 H Albumin/Globulin 0.89 Ratio Amylase Level 44 Lipase 83 Bedside Glucose 487 *H Serum HCG, NEGATIVE Qualitative POC Venous Lactate 1.4 Test 09/19/18 10:17 09/19/18 12:17 09/19/18 13:55 09/19/18 14:30 Bedside Glucose 422 *H 318 H 258 H POC Venous Lactate 2.2 *H HPI/ROS Admit Date/Time Admit Date/Time Hx of Present Illness Reason for admission: Abdominal pain times 4 days with nausea and vomiting. This is a 48-year-old female with comorbidities including diabetes mellitus type 2, essential hypertension, pulmonary hypertension, dyslipidemia, gastritis, hypothyroidism,CAD status post coronary artery stenting, and obesity who came to the emergency room with chief complaint of left lower quadrant abdominal pain that has been going on for the past 4 days. The patient tried taking Protonix with minimal improvement. The patient had multiple episodes of nonbloody, nonbilious vomiting. The patient denied any diarrhea. The patient denied any fevers although she verbalized shaking chills. She has been unable to tolerate adequate oral intake because of emesis. In the emergency room, the patient was noticed to be septic with a WBC of 19, along with lactic acidosis, and tachycardia. She was treated with IV Zosyn and Rocephin in the emergency room. The patient was also noticed to be hyperglycemic with a glucose of 507 and hyperkalemic with a potassium of 5.2. The patient was treated with glucose, calcium chloride, and sodium bicarbonate in the emergency room. The patient's urinalysis was showing positive leukocyte esterase 3+ with urine microscopic WBC more than 182. The patient underwent a CT scan of the abdomen and pelvis that was showing bilateral perinephric fat stranding and prominence of bilateral renal collecting systems with no gross renal/ureteral calculi along with a distended urinary bladder. ROS Constitutional: chills, nausea, poor po Eyes: no complaints ENT: no complaints Respiratory: no complaints Cardiovascular: no complaints Gastrointestinal: pain, nausea, vomiting Genitourinary: no complaints Musculoskeletal: no complaints Skin: no complaints Neurologic: headache Endocrine: no complaints Lymphatic: no complaints Psychological: no complaints Immunologic: no complaints PMH/Family/Social Past Medical History 1. Hypertension. 2. Diabetes mellitus type 2. 3. Hyperlipidemia. 4. CAD status post PCI to mid LAD on 12/20/2016. 5. Pulmonary hypertension. 6. Obesity. 7. Hypothyroidism. Medications Current Medications Ondansetron HCl (Zofran Inj) 4 mg ER BRIDGE PRN IV NAUSEA AND/OR VOMITING; Start 09/19/18 at 12:30; Stop 09/20/18 at 12:29 Acetaminophen (Tylenol Tab) 650 mg ER BRIDGE PRN PO MILD PAIN(1-3)OR ELEVATED TEMP; Start 09/19/18 at 12:30; Stop 09/20/18 at 12:29 Vancomycin HCl 250 ml @ 125 mls/hr ONCE ONCE IVPB Last administered on 09/19/18at 14:23; Admin Dose 125 MLS/HR; Start 09/19/18 at 14:30; Stop 09/19/18 at 16:29 Coded Allergies: acetaminophen (Verified Allergy, Intermediate, 09/19/18) hydrocodone (Verified Allergy, Intermediate, 09/19/18) Past Surgical History Tubal ligation. . Past Surgical Hx: angioplasty Family History Significant Family History: heart disease, diabetes Social History The patient lives at home with family. Alcohol Use: none Smoking Status: Never smoker Drug Use: none Exam/Review of Systems Vital Signs Vitals Vital Signs Date Temp Pulse Resp B/P (MAP) Pulse Ox O2 O2 Flow FiO2 Time Delivery Rate 09/19/18 113 20 155/88 99 Nasal 2.0 13:12 (110) Cannula 09/19/18 97.7 08:00 Exam Exam General: Morbidly obese 48 year-old female lying in bed in no apparent distress. HEENT: Normocephalic, atraumatic. Eyes: Anicteric sclerae, conjunctivae clear. E NT: Nasal septum midline, oral mucosa moist. Neck supple. Respiratory: Bilaterally clear breath sounds. No use of accessory muscles of respiration. No adventitious breath sounds. Cardiovascular: S1, S2 heard. Regular rate and rhythm. Abdomen: Soft, nontender, and nondistended. Bowel sounds positive in all 4 quadrants. Genitourinary: Deferred. Extremities: No cyanosis, no clubbing, no edema. Peripheral pulses palpable. Neurologic: Cranial nerves II through XII grossly intact. The patient is awake, alert, and oriented. Skin: Normal skin turgor. No skin rashes. ALISHA ABARCA NP Sep 19, 2018 15:57
[2018-09-19 16:00] VITALS: Ht 134.6 cm; Wt 82.0 kg
[2018-09-19 16:30] VITALS: PULSE 100
[2018-09-19] MEDS ORDERED: GLUCOSE GEL 15 GRAM TUBE BUCCAL PRN (16:30)
[2018-09-19] MEDS ORDERED: HYDROCODONE/APAP (5/325) TAB PO PRN (16:30)
[2018-09-19] MEDS ORDERED: BISACODYL (EC) 5 MG TAB PO PRN (16:30)
[2018-09-19] MEDS ORDERED: NACL 0.9% 3 ML SYG IV SCH (16:30)
[2018-09-19] MEDS ORDERED: GLUCOSE GEL 15 GRAM TUBE PO PRN ×2 (16:30)
[2018-09-19] MEDS ORDERED: GLUCAGON 1 MG INJ IM PRN (16:30)
[2018-09-19] MEDS ORDERED: DEXTROSE 50% 50 ML SYRINGE IV PRN ×2 (16:30)
[2018-09-19] MEDS ORDERED: hydrALAzine 20 MG INJ IV PRN (16:30)
[2018-09-19] MEDS: CEFTRIAXONE 1 GM/50 ML (PMX) 50 ML IVPB SCH (17:42)
[2018-09-19] MEDS: INSULIN ASPART [NOVOLOG] 3 ML PEN SC SCH ×3 (17:47→21:41)
--- NOTE | 2018-09-19 18:46 | NUR ---
SHIFT: Patient received from ER, alert oriented ambulatory. came in for abdominal pain, denies pain at this time. on bloos sugar checks with insulin coverages. On IV atb. Refused vieyra cath insertion since patient has her menstrual period. Informed A Jie MINING TEACHER. Oriented to room set up. Instructed to call for assist. Bed alarm on.
[2018-09-19 20:00] VITALS: PULSE 120
[2018-09-19] MEDS ORDERED: INSULIN GLARGINE [LANTus] (100 UNITS/ML) SYG SC SCH (20:00)
[2018-09-19 21:03] VITALS: BP 135/64; PULSE 114; RESP 19
--- NOTE | 2018-09-19 21:06 | CONS ---
Date/Time of Note Date/Time of Note DATE: 09/19/18 TIME: 20:51 Assessment/Plan Assessment/Plan Assessment/Plan 48-year-old female with comorbidities including diabetes mellitus type 2, essential hypertension, pulmonary hypertension, dyslipidemia, gastritis, hypothyroidism,CAD status post coronary artery stenting, and obesity came to the emergency room with chief complaint of left lower quadrant abdominal pain that has been going on for 4 days. The patient tried taking Protonix with minimal improvement. The patient had multiple episodes of nonbloody, nonbilious vomiting. Upon admission the patient underwent CT scan of the abdomen and pelvis and that showed a distended urinary bladder with bilateral hydronephrosis. Therefore a urological consultation was requested. Since the CT scan was suggesting urinary retention I inserted a Waller catheter for her to drain the bladder and that was done about half hour from her last voiding. The bladder appeared to be empty and only had about 50 mL in it. I did irrigate the catheter to make sure that it is not blocked and it did irrigate well. Since she has no urinary retention I went ahead and remove the Waller catheter. We did send urine for culture and sensitivity. Patient may well have urinary tract infection and bilateral pyelonephritis. Recommend is to continue her antibiotic. Result Diagram: 09/19/18 0830 09/19/18 0830 Results 24hrs Laboratory Tests Test 09/19/18 08:30 09/19/18 08:35 09/19/18 09:50 09/19/18 09:55 White Blood Count 19.0 H Red Blood Count 3.85 L Hemoglobin 10.5 L Hematocrit 31.8 L Mean Corpuscular 82.6 Volume Mean Corpuscular 27.3 L Hemoglobin Mean Corpuscular 33.0 Hemoglobin Concent Red Cell 13.0 Distribution Width Platelet Count 329 # Mean Platelet Volume 10.9 H Immature 0.800 H Granulocytes % Neutrophils % 83.7 H Lymphocytes % 7.5 L Monocytes % 7.6 Eosinophils % 0.2 Basophils % 0.2 Nucleated Red Blood 0.0 Cells % Immature 0.150 H Granulocytes # Neutrophils # 15.9 H Lymphocytes # 1.4 Monocytes # 1.4 H Eosinophils # 0.0 Basophils # 0.0 Nucleated Red Blood 0.0 Cells # Prothrombin Time 12.0 Prothrombin Time 0.9 Ratio INR International 0.88 Normalized Ratio Activated 31.8 Partial Thromboplast Time Urine Color YELLOW Urine Clarity TURBID A Urine pH 5.0 Urine Specific 1.025 Helen Urine Ketones NEGATIVE Urine Nitrite NEGATIVE Urine Bilirubin NEGATIVE Urine Urobilinogen 1+ H Urine Leukocyte 3+ H Esterase Urine Microscopic 32 H RBC Urine Microscopic > 182 H WBC Urine Squamous FEW Epithelial Cells Urine Bacteria MODERATE Urine Hemoglobin 3+ H Urine Glucose 3+ H Urine Total Protein 3+ H Sodium Level 131 L Potassium Level 5.2 H Chloride Level 98 Carbon Dioxide Level 21 Anion Gap 12 Blood Urea Nitrogen 25 H Creatinine 1.14 H Est Glomerular 51 L Filtrat Rate mL/min Glucose Level 507 *H Hemoglobin A1c 13.3 H Calcium Level 8.7 Total Bilirubin 0.1 L Direct Bilirubin 0.00 Indirect Bilirubin 0.1 Aspartate Amino 13 L Transf (AST/SGOT) Alanine < 6 L Aminotransferase (AL T/SGPT) Alkaline Phosphatase 105 Troponin I < 0.012 B-Type Natriuretic 1910 H Peptide Total Protein 7.0 Albumin 3.3 Globulin 3.70 H Albumin/Globulin 0.89 Ratio Amylase Level 44 Lipase 83 Thyroid Stimulating 7.860 H Hormone (TSH) Free Thyroxine 1.60 Bedside Glucose 487 *H Serum HCG, NEGATIVE Qualitative POC Venous Lactate 1.4 Test 09/19/18 10:17 09/19/18 12:17 09/19/18 13:55 09/19/18 14:30 Bedside Glucose 422 *H 318 H 258 H POC Venous Lactate 2.2 *H Test 09/19/18 16:17 09/19/18 17:31 Lactic Acid Level 1.0 Bedside Glucose 239 H Consultation Date/Type/Reason Admit Date/Time September 19, 2018 Date of Consultation: Sep 19, 2018 Type of Consult Urology Reason for Consultation Distended urinary bladder and bilateral hydronephrosis Requesting Provider: YESIKA MORENO MD Hx of Present Illness 48-year-old female with comorbidities including diabetes mellitus type 2, essential hypertension, pulmonary hypertension, dyslipidemia, gastritis, hypothyroidism,CAD status post coronary artery stenting, and obesity came to the emergency room with chief complaint of left lower quadrant abdominal pain that has been going on for 4 days. The patient tried taking Protonix with minimal improvement. The patient had multiple episodes of nonbloody, nonbilious vomiting. Upon admission the patient underwent CT scan of the abdomen and pelvis and that showed a distended urinary bladder with bilateral hydronephrosis. Therefore a urological consultation was requested. Constitutional: chills, poor po Eyes: no complaints ENT: no complaints Respiratory: No shortness of breath Cardiovascular: No chest pain Gastrointestinal: pain Genitourinary: flank pain (Bilateral), other (Urinary frequency, she voids every half hour, urinary stress incontinence. She denies any dysuria); No dysuria Musculoskeletal: back pain Skin: no complaints Neurologic: headache Endocrine: polyuria Lymphatic: no complaints Psychological: no complaints Immunologic: no complaints Past Medical History Medical History: coronary artery disease, diabetes, GERD, high cholesterol, hypertension, hypothyroid Medications Current Medications IV Flush (NS 3 ml) 3 ml PER PROTOCOL IV ; Start 09/19/18 at 16:30 Ondansetron HCl (Zofran Inj) 4 mg Q6H PRN IV NAUSEA AND/OR VOMITING; Start 09/19/18 at 16:30 Acetaminophen (Tylenol Tab) 650 mg Q6H PRN PO PAIN LEVEL 1-3 OR FEVER; Start 09/19/18 at 16:30 Pantoprazole (Protonix Tab) 40 mg DAILY@06 PO ; Start 09/20/18 at 06:00 Enoxaparin Sodium (Lovenox) 40 mg DAILY SC ; Start 09/20/18 at 09:00 Aspirin (Halfprin) 81 mg DAILY PO ; Start 09/20/18 at 09:00 Atorvastatin Calcium (Lipitor) 40 mg HS PO ; Start 09/19/18 at 21:00 Fluoxetine HCl (Prozac) 20 mg DAILY PO ; Start 09/20/18 at 09:00 Furosemide (Lasix) 40 mg DAILY PO ; Start 09/20/18 at 09:00 Levothyroxine Sodium (Synthroid) 50 mcg BEFORE BREAKFAST PO ; Start 09/20/18 at 07:00 Lisinopril (Zestril) 5 mg DAILY PO ; Start 09/20/18 at 09:00 Loratadine (Claritin) 10 mg DAILY PO ; Start 09/20/18 at 09:00 Losartan Potassium (Cozaar) 25 mg DAILY PO ; Start 09/20/18 at 09:00 Metoprolol Tartrate (Lopressor) 50 mg BID PO ; Start 09/19/18 at 21:00 Trazodone HCl (Desyrel) 50 mg HS PO ; Start 09/19/18 at 21:00 Ceftriaxone Sodium 50 ml @ 100 mls/hr Q24H IVPB Last administered on 09/19/18at 17:42; Admin Dose 100 MLS/HR; Start 09/19/18 at 16:30 Insulin Glargine (Lantus) 24 units DAILY@2000 SC ; Start 09/19/18 at 20:00 Insulin Aspart (Novolog Insulin Pen) 8 unit WITH MEALS SC Last administered on 09/19/18at 17:47; Admin Dose 8 UNIT; Start 09/19/18 at 18:00 Insulin Aspart (Novolog Insulin Pen) NOVOLOG *MODERATE* ALGORITHM WITH MEALS BEDTIME SC Last administered on 09/19/18at 17:50; Admin Dose 6 UNIT; Start 09/19/18 at 18:00 Miscellaneous Information 1 ea NOTE XX ; Start 09/19/18 at 16:30 Glucose (Glutose) 15 gm Q15M PRN PO DECREASED GLUCOSE; Start 09/19/18 at 16:30 Glucose (Glutose) 22.5 gm Q15M PRN PO DECREASED GLUCOSE; Start 09/19/18 at 16:30 Dextrose (D50w Syringe) 25 ml Q15M PRN IV DECREASED GLUCOSE; Start 09/19/18 at 16:30 Dextrose (D50w Syringe) 50 ml Q15M PRN IV DECREASED GLUCOSE; Start 09/19/18 at 16:30 Glucagon (Glucagen) 1 mg Q15M PRN IM DECREASED GLUCOSE; Start 09/19/18 at 16:30 Glucose (Glutose) 15 gm Q15M PRN BUCCAL DECREASED GLUCOSE; Start 09/19/18 at 16:30 Hydralazine HCl (Apresoline) 10 mg Q6H PRN IV SBP>160; Start 09/19/18 at 16:30 Polyethylene Glycol (Miralax) 17 gm BID PO ; Start 09/19/18 at 21:00 Bisacodyl (Dulcolax) 10 mg DAILY PRN PO CONSTIPATION; Start 09/19/18 at 16:30 Morphine Sulfate (morphine SULFATE (PF)) 1 mg Q4H PRN IV PAIN; Start 09/19/18 at 20:30 Allergies: Coded Allergies: acetaminophen (Verified Allergy, Intermediate, 09/19/18) hydrocodone (Verified Allergy, Intermediate, 09/19/18) Past Surgical History Past Surgical Hx: angioplasty, other (Tubal ligation and ) Social History Alcohol Use: none Smoking Status: Never smoker Drug Use: none Exam/Review of Systems Vital Signs Vitals Vital Signs Date Temp Pulse Resp B/P (MAP) Pulse Ox O2 O2 Flow FiO2 Time Delivery Rate 09/19/18 120 20:00 09/19/18 Nasal 2.0 16:00 Cannula 09/19/18 20 155/88 99 13:12 (110) 09/19/18 97.7 08:00 Exam Constitutional: alert, obese Psych: no complaints Head: normocephalic, other (Complains of headaches) Eyes: nl conjunctiva ENMT: nl external ears & nose Neck: supple, non-tender Respiratory: normal air movement; No wheezing Cardiovascular: No jugular venous distention (JVD) Gastrointestinal: soft, non-tender Genitourinary - Female: other (She has her periods now. Since that the CT scan showed distended urinary bladder up to the umbilicus and bilateral hydronephrosis she needs a indwelling catheter. She just voided about half hour earlier therefore I went ahead and inserted a 16 [place] Waller catheter and to my surprise she only had about 60 mL in her bladder. I did hand irrigate the catheter and there was no blockage of the catheter and the bladder indeed was empty. Therefore she did not need the Waller catheter and I removed it) Musculoskeletal: nl extremities to inspection Extremities: No calf tenderness Neurological: nl mental status Skin: nl turgor Medications Medications Current Medications IV Flush (NS 3 ml) 3 ml PER PROTOCOL IV ; Start 09/19/18 at 16:30 Ondansetron HCl (Zofran Inj) 4 mg Q6H PRN IV NAUSEA AND/OR VOMITING; Start 09/19/18 at 16:30 Acetaminophen (Tylenol Tab) 650 mg Q6H PRN PO PAIN LEVEL 1-3 OR FEVER; Start 09/19/18 at 16:30 Pantoprazole (Protonix Tab) 40 mg DAILY@06 PO ; Start 09/20/18 at 06:00 Enoxaparin Sodium (Lovenox) 40 mg DAILY SC ; Start 09/20/18 at 09:00 Aspirin (Halfprin) 81 mg DAILY PO ; Start 09/20/18 at 09:00 Atorvastatin Calcium (Lipitor) 40 mg HS PO ; Start 09/19/18 at 21:00 Fluoxetine HCl (Prozac) 20 mg DAILY PO ; Start 09/20/18 at 09:00 Furosemide (Lasix) 40 mg DAILY PO ; Start 09/20/18 at 09:00 Levothyroxine Sodium (Synthroid) 50 mcg BEFORE BREAKFAST PO ; Start 09/20/18 at 07:00 Lisinopril (Zestril) 5 mg DAILY PO ; Start 09/20/18 at 09:00 Loratadine (Claritin) 10 mg DAILY PO ; Start 09/20/18 at 09:00 Losartan Potassium (Cozaar) 25 mg DAILY PO ; Start 09/20/18 at 09:00 Metoprolol Tartrate (Lopressor) 50 mg BID PO ; Start 09/19/18 at 21:00 Trazodone HCl (Desyrel) 50 mg HS PO ; Start 09/19/18 at 21:00 Ceftriaxone Sodium 50 ml @ 100 mls/hr Q24H IVPB Last administered on 09/19/18at 17:42; Admin Dose 100 MLS/HR; Start 09/19/18 at 16:30 Insulin Glargine (Lantus) 24 units DAILY@2000 SC ; Start 09/19/18 at 20:00 Insulin Aspart (Novolog Insulin Pen) 8 unit WITH MEALS SC Last administered on 09/19/18at 17:47; Admin Dose 8 UNIT; Start 09/19/18 at 18:00 Insulin Aspart (Novolog Insulin Pen) NOVOLOG *MODERATE* ALGORITHM WITH MEALS BEDTIME SC Last administered on 09/19/18at 17:50; Admin Dose 6 UNIT; Start 09/19/18 at 18:00 Miscellaneous Information 1 ea NOTE XX ; Start 09/19/18 at 16:30 Glucose (Glutose) 15 gm Q15M PRN PO DECREASED GLUCOSE; Start 09/19/18 at 16:30 Glucose (Glutose) 22.5 gm Q15M PRN PO DECREASED GLUCOSE; Start 09/19/18 at 16:30 Dextrose (D50w Syringe) 25 ml Q15M PRN IV DECREASED GLUCOSE; Start 09/19/18 at 16:30 Dextrose (D50w Syringe) 50 ml Q15M PRN IV DECREASED GLUCOSE; Start 09/19/18 at 16:30 Glucagon (Glucagen) 1 mg Q15M PRN IM DECREASED GLUCOSE; Start 09/19/18 at 16:30 Glucose (Glutose) 15 gm Q15M PRN BUCCAL DECREASED GLUCOSE; Start 09/19/18 at 16:30 Hydralazine HCl (Apresoline) 10 mg Q6H PRN IV SBP>160; Start 09/19/18 at 16:30 Polyethylene Glycol (Miralax) 17 gm BID PO ; Start 09/19/18 at 21:00 Bisacodyl (Dulcolax) 10 mg DAILY PRN PO CONSTIPATION; Start 09/19/18 at 16:30 Morphine Sulfate (morphine SULFATE (PF)) 1 mg Q4H PRN IV PAIN; Start 09/19/18 at 20:[address] scan of the abdomen and pelvis: 1. No evidence of bowel obstruction. Several fluid-filled loops of small bowel suggestive of gastroenteritis and mild ileus. Small hiatal hernia. 2. Nonspecific bilateral perinephric fat stranding and mild pounds of the renal collecting system. No gross renal/ureteric calculi. The bladder is distended. Findings may be secondary to underlying bladder outlet obstruction or neurogenic bladder. Recommend decompression of the bladder. 3. Diffuse atherosclerotic disease of the aorta. 4. No evidence of free fluid or free air. No gross focal fluid collections 5. Fat-containing umbilical hernia. 6. Distended gallbladder. If there is concern for gallstones, recommend follow- up ultrasound. EMMANUEL HARDY MD Sep 19, 2018 21:02
[2018-09-19] MEDS: POLYETHYLENE GLYCOL 17 GM PACKET PO SCH (21:13)
[2018-09-19] MEDS: ACETAMINOPHEN 325 MG TAB PO PRN (21:14)
[2018-09-19] MEDS: traZODone 50 MG TAB PO SCH (21:14)
[2018-09-19] MEDS: ATORVASTATIN 40 MG TAB PO SCH (21:14)
[2018-09-19] MEDS: METOPROLOL 50 MG TAB PO SCH (21:14)
[2018-09-19] MEDS: morphine SULFATE/PF (2 MG/2 ML) SYG IV PRN (21:18)
[2018-09-19 23:39] VITALS: BP 95/54; PULSE 65; RESP 18
[2018-09-20] VITALS (11 sets, daily range): BP systolic 96–115; BP diastolic 52–62; PULSE 57–99; RESP 18–20
[2018-09-20] MEDS: PANTOPRAZOLE (EC) 40 MG TAB PO SCH (05:29)
[2018-09-20] MEDS: ACETAMINOPHEN 325 MG TAB PO PRN ×2 (05:32→14:03)
--- NOTE | 2018-09-20 07:26 | NUR ---
All needs attended and met. Complained if pain twice during the shift. Pain meds given as needed. Vomited a small amount towards end of shift. Zofran x 1 was given. Kept clean and comfortable. Daughter at bedside.
[2018-09-20] MEDS: FLUOXETINE 20 MG CAP PO SCH (08:15)
[2018-09-20] MEDS: LOSARTAN 25 MG TAB PO SCH (08:16)
[2018-09-20] MEDS: LEVOTHYROXINE 50 MCG TAB PO SCH (08:16)
[2018-09-20] MEDS: ASPIRIN (EC) 81 MG TAB PO SCH (08:16)
[2018-09-20] MEDS: LORATADINE 10 MG TAB PO SCH (08:16)
[2018-09-20] MEDS: METOPROLOL 50 MG TAB PO SCH ×2 (08:16→21:10)
[2018-09-20] MEDS: LISINOPRIL 5 MG TAB PO SCH (08:17)
[2018-09-20] MEDS: INSULIN ASPART [NOVOLOG] 3 ML PEN SC SCH ×7 (08:23→21:40)
[2018-09-20] MEDS ORDERED: ENOXAPARIN 40 MG/0.4 ML SYG SC SCH (09:00)
[2018-09-20] MEDS ORDERED: FUROSEMIDE 40 MG TAB PO SCH (09:00)
[2018-09-20] MEDS: POLYETHYLENE GLYCOL 17 GM PACKET PO SCH ×2 (09:03→21:09)
[2018-09-20] MEDS ORDERED: SOD CHLORIDE 0.9% 1,000 ML IV SCH (11:00)
--- NOTE | 2018-09-20 11:06 | PN ---
Date/Time of Note Date/Time of Note DATE: 09/20/18 TIME: 10:59 Assessment/Plan VTE Prophylaxis Risk score (from Ns)>0 risk: 3 SCD applied (from Ns): No SCD contraindicated: other Pharmacological prophylaxis: LMWH (Renal dose) Lines/Catheters IV [facility]from [facility] Saline Lock Urinary Cath still in place: No Assessment/Plan Hospital Course SUBJECTIVE: Denies any abdominal pain. Denies any nausea or vomiting. OBJECTIVE: Physical Exam General: Morbidly obese 48 year-old female lying in bed in no apparent distress. HEENT: Normocephalic, atraumatic. Eyes: Anicteric sclerae, conjunctivae clear. ENT: Nasal septum midline, oral mucosa moist. Neck supple. Respiratory: Bilaterally diminished breath sounds. No use of accessory muscles of respiration. Minimal right basilar rales. Cardiovascular: S1, S2 heard. Regular rate and rhythm. Abdomen: Soft, nontender, and nondistended. Bowel sounds positive in all 4 quadrants. Genitourinary: Deferred. Extremities: No cyanosis, no clubbing, no edema. Peripheral pulses palpable. Neurologic: Cranial nerves II through XII grossly intact. The patient is awake, alert, and oriented. Skin: Normal skin turgor. No skin rashes. Labs & Vitals per chart ASSESSMENT & PLAN 48-year-old female with comorbidities including diabetes mellitus type 2, essential hypertension, pulmonary hypertension, dyslipidemia, gastritis, hypothyroidism,CAD status post coronary artery stenting, and obesity who came to the emergency room with chief complaint of left lower quadrant abdominal pain that has been going on for the past 4 days. The patient was found to have evidence of sepsis with leukocytosis, lactic acidosis, and tachycardia, secondary to underlying complicated urinary tract infection and was admitted to inpatient setting for further treatment and evaluation. 1. Sepsis with underlying leukocytosis, lactic acidosis, and tachycardia, present on admission secondary to underlying complicated urinary tract infection. -Urine culture showing Gram-negative bacteria with colony count greater than 100,000 CFU per mL. -Judicious use of IV fluids provided the patient's history of CAD and elevated BNP. -Waller decompression of the urinary bladder. 2. Bilateral prominence of renal collecting systems with distended urinary bladder. -Status post Waller decompression of urinary bladder that did not suggest any urinary outlet obstruction. -Urology consult. 3. Diabetes mellitus type 2. Uncontrolled. -Continue sliding scale insulin along with pre-meal insulin and basal insulin. -Hemoglobin A1c 13.3. 4. Hypertension. -Continue antihypertensives. 5. CAD status post stent to mid LAD. -Continue aspirin. Discontinue Plavix (confirmed with the interventional car diologist who did the procedure). -Continue statins. 6. Hyperkalemia. -Most probably secondary to underlying MARIBEL. -Resolved, status post treatment. 7. Acute nonoliguric kidney injury. -Most probably secondary to underlying sepsis. -Use nephrotoxic drugs with caution. -Judicious use of IV fluids. 8. Metabolic acidosis. -Probably from underlying sepsis. -Continue judicious use of IVFs. 8. Normocytic anemia. -Most probably anemia of chronic disease. -Monitor H&H closely. 9. Hypothyroidism. -Continue Synthroid. 10. Dyslipidemia. -Continue statins. 11. Obesity. BMI 45 kg/m. -Advised weight reduction. 12. Fluids, electrolytes, and nutrition. -Carbohydrate controlled diet. 13. DVT prophylaxis. -SQ Lovenox (Renal dose). 14. Plan. -Await finalization of cultures. -Await clinical improvement. The patient was seen in collaboration with Dr. Patel. Result Diagram: 09/20/18 0601 09/20/18 0601 Results 24hrs Laboratory Tests Test 09/19/18 12:17 09/19/18 13:55 09/19/18 14:30 09/19/18 16:17 Bedside Glucose 318 H 258 H POC Venous Lactate 2.2 *H Lactic Acid Level 1.0 Test 09/19/18 17:31 09/19/18 21:12 09/20/18 06:01 09/20/18 08:14 Bedside Glucose 239 H 191 249 H White Blood Count 15.7 H Red Blood Count 3.35 L Hemoglobin 9.2 L Hematocrit 27.9 L Mean Corpuscular 83.3 Volume Mean Corpuscular 27.5 L Hemoglobin Mean Corpuscular 33.0 Hemoglobin Concent Red Cell 13.2 Distribution Width Platelet Count 296 Mean Platelet Volume 10.6 H Immature 1.300 H Granulocytes % Neutrophils % 74.7 Lymphocytes % 14.5 L Monocytes % 9.0 Eosinophils % 0.2 Basophils % 0.3 Nucleated Red Blood 0.0 Cells % Immature 0.200 H Granulocytes # Neutrophils # 11.7 H Lymphocytes # 2.3 Monocytes # 1.4 H Eosinophils # 0.0 Basophils # 0.1 Nucleated Red Blood 0.0 Cells # Sodium Level 135 Potassium Level 4.6 Chloride Level 102 Carbon Dioxide Level 19 L Anion Gap 14 H Blood Urea Nitrogen 21 H Creatinine 1.27 H Est Glomerular 45 L Filtrat Rate mL/min Glucose Level 218 # Lactic Acid Level 1.1 Calcium Level 8.2 L Phosphorus Level 3.7 Magnesium Level 1.7 Total Bilirubin 0.0 L Direct Bilirubin 0.00 Indirect Bilirubin 0.0 Aspartate Amino 21 Transf (AST/SGOT) Alanine 14 Aminotransferase (AL T/SGPT) Alkaline Phosphatase 82 Total Protein 5.6 #L Albumin 2.6 L Globulin 3.00 Albumin/Globulin 0.86 Ratio Triglycerides Level 183 H Cholesterol Level 194 LDL Cholesterol, 120 Calculated HDL Cholesterol 37 Cholesterol/HDL 5.2 Ratio Exam/Review of Systems Vital Signs Vitals Vital Signs Date Temp Pulse Resp B/P (MAP) Pulse Ox O2 O2 Flow FiO2 Time Delivery Rate 09/20/18 84 08:01 09/20/18 98.1 18 96/52 (67) 93 07:38 09/20/18 Nasal 2.0 07:30 Cannula Intake and Output 09/19/18 09/19/18 09/20/18 1515:00 23:00 07:00 IntakeIntake Total 2000 ml 240 ml 300 ml BalanceBalance 2000 ml 240 ml 300 ml Medications Medications Current Medications IV Flush (NS 3 ml) 3 ml PER PROTOCOL IV ; Start 09/19/18 at 16:30 Ondansetron HCl (Zofran Inj) 4 mg Q6H PRN IV NAUSEA AND/OR VOMITING Last administered on 09/20/18at 05:43; Admin Dose 4 MG; Start 09/19/18 at 16:30 Acetaminophen (Tylenol Tab) 650 mg Q6H PRN PO PAIN LEVEL 1-3 OR FEVER Last administered on 09/20/18at 05:32; Admin Dose 650 MG; Start 09/19/18 at 16:30 Pantoprazole (Protonix Tab) 40 mg DAILY@06 PO Last administered on 09/20/18at 05:29; Admin Dose 40 MG; Start 09/20/18 at 06:00 Enoxaparin Sodium (Lovenox) 40 mg DAILY SC Last administered on 09/20/18at 08:23; Admin Dose 40 MG; Start 09/20/18 at 09:00 Aspirin (Halfprin) 81 mg DAILY PO Last administered on 09/20/18 08:16; Admin Dose 81 MG; Start 09/20/18 at 09:00 Atorvastatin Calcium (Lipitor) 40 mg HS PO Last administered on 09/19/18 21:14; Admin Dose 40 MG; Start 09/19/18 at 21:00 Fluoxetine HCl (Prozac) 20 mg DAILY PO Last administered on 09/20/18 08:15; Admin Dose 20 MG; Start 09/20/18 at 09:00 Furosemide (Lasix) 40 mg DAILY PO Last administered on 09/20/18 08:16; Admin Dose 40 MG; Start 09/20/18 at 09:00 Levothyroxine Sodium (Synthroid) 50 mcg BEFORE BREAKFAST PO Last administered on 09/20/18 08:16; Admin Dose 50 MCG; Start 09/20/18 at 07:00 Lisinopril (Zestril) 5 mg DAILY PO Last administered on 09/20/18 08:17; Admin Dose 5 MG; Start 09/20/18 at 09:00 Loratadine (Claritin) 10 mg DAILY PO Last administered on 09/20/18 08:16; Admin Dose 10 MG; Start 09/20/18 at 09:00 Losartan Potassium (Cozaar) 25 mg DAILY PO Last administered on 09/20/18 08:16; Admin Dose 25 MG; Start 09/20/18 at 09:00 Metoprolol Tartrate (Lopressor) 50 mg BID PO Last administered on 09/20/18 08:16; Admin Dose 50 MG; Start 09/19/18 at 21:00 Trazodone HCl (Desyrel) 50 mg HS PO Last administered on 09/19/18 21:14; Admin Dose 50 MG; Start 09/19/18 at 21:00 Ceftriaxone Sodium 50 ml @ 100 mls/hr Q24H IVPB Last administered on 09/19/18 17:42; Admin Dose 100 MLS/HR; Start 09/19/18 at 16:30 Insulin Glargine (Lantus) 24 units DAILY@2000 SC Last administered on 09/19/18 21:41; Admin Dose 24 UNITS; Start 09/19/18 at 20:00 Insulin Aspart (Novolog Insulin Pen) 8 unit WITH MEALS SC Last administered on 09/20/18at 08:23; Admin Dose 8 UNIT; Start 09/19/18 at 18:00 Insulin Aspart (Novolog Insulin Pen) NOVOLOG *MODERATE* ALGORITHM WITH MEALS BEDTIME SC Last administered on 09/20/18at 08:23; Admin Dose 6 UNIT; Start 09/19/18 at 18:00 Miscellaneous Information 1 ea NOTE XX ; Start 09/19/18 at 16:30 Glucose (Glutose) 15 gm Q15M PRN PO DECREASED GLUCOSE; Start 09/19/18 at 16:30 Glucose (Glutose) 22.5 gm Q15M PRN PO DECREASED GLUCOSE; Start 09/19/18 at 16:30 Dextrose (D50w Syringe) 25 ml Q15M PRN IV DECREASED GLUCOSE; Start 09/19/18 at 16:30 Dextrose (D50w Syringe) 50 ml Q15M PRN IV DECREASED GLUCOSE; Start 09/19/18 at 16:30 Glucagon (Glucagen) 1 mg Q15M PRN IM DECREASED GLUCOSE; Start 09/19/18 at 16:30 Glucose (Glutose) 15 gm Q15M PRN BUCCAL DECREASED GLUCOSE; Start 09/19/18 at 16:30 Hydralazine HCl (Apresoline) 10 mg Q6H PRN IV SBP>160; Start 09/19/18 at 16:30 Polyethylene Glycol (Miralax) 17 gm BID PO Last administered on 09/20/18at 09:03; Admin Dose 17 GM; Start 09/19/18 at 21:00 Bisacodyl (Dulcolax) 10 mg DAILY PRN PO CONSTIPATION; Start 09/19/18 at 16:30 Morphine Sulfate (morphine SULFATE (PF)) 1 mg Q4H PRN IV PAIN Last administered on 09/19/18at 21:18; Admin Dose 1 MG; Start 09/19/18 at 20:30 ALISHA ABARCA NP Sep 20, 2018 11:06
[2018-09-20] MEDS: morphine SULFATE/PF (2 MG/2 ML) SYG IV PRN ×2 (15:53→21:09)
[2018-09-20] MEDS: CEFTRIAXONE 1 GM/50 ML (PMX) 50 ML IVPB SCH (17:23)
[2018-09-20] MEDS ORDERED: INSULIN GLARGINE [LANTus] (100 UNITS/ML) SYG SC SCH (20:00)
[2018-09-20] MEDS: ATORVASTATIN 40 MG TAB PO SCH (21:09)
[2018-09-20] MEDS: traZODone 50 MG TAB PO SCH (21:10)
[2018-09-21] VITALS (10 sets, daily range): BP systolic 93–130; BP diastolic 55–75; PULSE 75–95; RESP 18
--- NOTE | 2018-09-21 06:06 | NUR ---
All needs attended and met. Complained of headache one time during the shift and was given Morphine IV x1, pain was relived. Will have CT scan of brain today as ordered due to headache complains. Kept safe and comfortable, placed call light within reach.
[2018-09-21] MEDS: LEVOTHYROXINE 50 MCG TAB PO SCH (06:16)
[2018-09-21] MEDS: PANTOPRAZOLE (EC) 40 MG TAB PO SCH (06:16)
[2018-09-21] MEDS: LISINOPRIL 5 MG TAB PO SCH (08:40)
[2018-09-21] MEDS: FLUOXETINE 20 MG CAP PO SCH (08:40)
[2018-09-21] MEDS: ASPIRIN (EC) 81 MG TAB PO SCH (08:40)
[2018-09-21] MEDS: LOSARTAN 25 MG TAB PO SCH (08:40)
[2018-09-21] MEDS: LORATADINE 10 MG TAB PO SCH (08:40)
[2018-09-21] MEDS: POLYETHYLENE GLYCOL 17 GM PACKET PO SCH ×2 (08:42→20:56)
[2018-09-21] MEDS: METOPROLOL 50 MG TAB PO SCH ×2 (08:42→20:56)
[2018-09-21] MEDS: ENOXAPARIN 30 MG/0.3 ML SYG SC SCH (08:47)
[2018-09-21] MEDS: INSULIN ASPART [NOVOLOG] 3 ML PEN SC SCH ×8 (08:57→21:00)
[2018-09-21] MEDS: MEROPENEM 1 GM/50ML(PMX) 50 ML IVPB SCH ×2 (10:30→20:56)
--- NOTE | 2018-09-21 13:11 | CONS ---
Date/Time of Note Date/Time of Note DATE: 09/21/18 TIME: 13:10 Assessment/Plan Assessment/Plan Hospital Course Patient is alert looks comfortable denies pain no hematuria no dysuria. She had been afebrile for the last 48 hours. WBC today 10 no shift no bands BUN 19 creatinine 1 Microbiology: Blood and urine cultures since admission grew E. coli ESBL Antimicrobials: Meropenem Physical examination: This is a morbidly obese well-developed middle-aged woman who is alert in no distress. Head atraumatic normocephalic sclera nonicteric neck is supple chest rise symmetrical breath sounds clear heart S1-S2 abdomen soft bowel sounds present extremities without cyanosis. Assessment: 1. Sepsis 2. E. coli ESBL bacteremia secondary to UTI 3. Morbid obesity 4. Diabetes 5. History of psoriasis Plan: Patient is doing better, we will will repeat blood cultures, change antibiotics to Invanz and anticipate discharge on IV antibiotics to complete 2 weeks. Bladder scan to rule out retention with straight caths as needed Result Diagram: 09/21/18 0543 09/21/18 0543 Results 24hrs Laboratory Tests Test 09/20/18 17:21 09/20/18 21:07 09/21/18 05:43 09/21/18 08:24 Bedside Glucose 250 H 188 268 H White Blood Count 10.0 # Red Blood Count 3.16 L Hemoglobin 8.6 L Hematocrit 26.4 L Mean Corpuscular 83.5 Volume Mean Corpuscular 27.2 L Hemoglobin Mean Corpuscular 32.6 Hemoglobin Concent Red Cell 13.2 Distribution Width Platelet Count 298 Mean Platelet Volume 10.8 H Immature 0.900 H Granulocytes % Neutrophils % 61.0 Lymphocytes % 27.4 Monocytes % 9.2 Eosinophils % 1.3 Basophils % 0.2 Nucleated Red Blood 0.0 Cells % Immature 0.090 H Granulocytes # Neutrophils # 6.1 Lymphocytes # 2.8 Monocytes # 0.9 Eosinophils # 0.1 Basophils # 0.0 Nucleated Red Blood 0.0 Cells # Sodium Level 135 Potassium Level 4.5 Chloride Level 105 Carbon Dioxide Level 19 L Anion Gap 11 Blood Urea Nitrogen 19 Creatinine 1.00 Est Glomerular 59 L Filtrat Rate mL/min Glucose Level 252 H Calcium Level 8.4 Phosphorus Level 3.3 Magnesium Level 1.8 Test 09/21/18 12:07 Bedside Glucose 179 Consultation Date/Type/Reason Admit Date/Time Sep 19, 2018 at 12:18 Initial Consult Date 09/19/18 Type of Consult id Requesting Provider: YESIKA MORENO MD Exam/Review of Systems Vital Signs Vitals Vital Signs Date Temp Pulse Resp B/P (MAP) Pulse Ox O2 O2 Flow FiO2 Time Delivery Rate 09/21/18 97.6 75 18 101/55 94 Room Air 12:07 (70) 09/21/18 2.0 07:37 Intake and Output 09/20/18 09/20/18 09/21/18 1414:59 22:59 06:59 IntakeIntake Total 650 ml 400 ml BalanceBalance 650 ml 400 ml Medications Medications Current Medications IV Flush (NS 3 ml) 3 ml PER PROTOCOL IV ; Start 09/19/18 at 16:30 Ondansetron HCl (Zofran Inj) 4 mg Q6H PRN IV NAUSEA AND/OR VOMITING Last admin istered on 09/20/18at 05:43; Admin Dose 4 MG; Start 09/19/18 at 16:30 Acetaminophen (Tylenol Tab) 650 mg Q6H PRN PO PAIN LEVEL 1-3 OR FEVER Last administered on 09/20/18at 14:03; Admin Dose 650 MG; Start 09/19/18 at 16:30 Pantoprazole (Protonix Tab) 40 mg DAILY@06 PO Last administered on 09/21/18at 0 6:16; Admin Dose 40 MG; Start 09/20/18 at 06:00 Aspirin (Halfprin) 81 mg DAILY PO Last administered on 09/21/18at 08:40; Admin Dose 81 MG; Start 09/20/18 at 09:00 Atorvastatin Calcium (Lipitor) 40 mg HS PO Last administered on 09/20/18at 21:09; Admin Dose 40 MG; Start 09/19/18 at 21:00 Fluoxetine HCl (Prozac) 20 mg DAILY PO Last administered on 09/21/18 08:40; Admin Dose 20 MG; Start 09/20/18 at 09:00 Levothyroxine Sodium (Synthroid) 50 mcg BEFORE BREAKFAST PO Last administered on 09/21/18 06:16; Admin Dose 50 MCG; Start 09/20/18 at 07:00 Lisinopril (Zestril) 5 mg DAILY PO Last administered on 09/21/18at 08:40; Admin Dose 5 MG; Start 09/20/18 at 09:00 Loratadine (Claritin) 10 mg DAILY PO Last administered on 09/21/18at 08:40; Admin Dose 10 MG; Start 09/20/18 at 09:00 Losartan Potassium (Cozaar) 25 mg DAILY PO Last administered on 09/21/18at 08:40; Admin Dose 25 MG; Start 09/20/18 at 09:00 Metoprolol Tartrate (Lopressor) 50 mg BID PO Last administered on 09/21/18at 08:42; Admin Dose 50 MG; Start 09/19/18 at 21:00 Trazodone HCl (Desyrel) 50 mg HS PO Last administered on 09/20/18at 21:10; Admin Dose 50 MG; Start 09/19/18 at 21:00 Insulin Aspart (Novolog Insulin Pen) NOVOLOG *MODERATE* ALGORITHM WITH MEALS BEDTIME SC Last administered on 09/21/18at 12:14; Admin Dose 2 UNIT; Start 09/19/18 at 18:00 Miscellaneous Information 1 ea NOTE XX ; Start 09/19/18 at 16:30 Glucose (Glutose) 15 gm Q15M PRN PO DECREASED GLUCOSE; Start 09/19/18 at 16:30 Glucose (Glutose) 22.5 gm Q15M PRN PO DECREASED GLUCOSE; Start 09/19/18 at 16:30 Dextrose (D50w Syringe) 25 ml Q15M PRN IV DECREASED GLUCOSE; Start 09/19/18 at 16:30 Dextrose (D50w Syringe) 50 ml Q15M PRN IV DECREASED GLUCOSE; Start 09/19/18 at 16:30 Glucagon (Glucagen) 1 mg Q15M PRN IM DECREASED GLUCOSE; Start 09/19/18 at 16:30 Glucose (Glutose) 15 gm Q15M PRN BUCCAL DECREASED GLUCOSE; Start 09/19/18 at 16:30 Hydralazine HCl (Apresoline) 10 mg Q6H PRN IV SBP>160; Start 09/19/18 at 16:30 Polyethylene Glycol (Miralax) 17 gm BID PO Last administered on 09/21/18at 08:42; Admin Dose 17 GM; Start 09/19/18 at 21:00 Bisacodyl (Dulcolax) 10 mg DAILY PRN PO CONSTIPATION; Start 09/19/18 at 16:30 Morphine Sulfate (morphine SULFATE (PF)) 1 mg Q4H PRN IV PAIN Last administered on 09/20/18at 21:09; Admin Dose 1 MG; Start 09/19/18 at 20:30 Enoxaparin Sodium (Lovenox) 30 mg DAILY SC Last administered on 09/21/18at 08:47; Admin Dose 30 MG; Start 09/21/18 at 09:00 Insulin Aspart (Novolog Insulin Pen) 9 unit WITH MEALS SC Last administered on 09/21/18at 12:14; Admin Dose 9 UNIT; Start 09/20/18 at 11:50 Insulin Glargine (Lantus) 27 units DAILY@2000 SC Last administered on 09/20/18at 21:40; Admin Dose 27 UNITS; Start 09/20/18 at 20:00 Tramadol HCl (Ultram) 50 mg Q6H PRN PO MODERATE PAIN LEVEL 4-6; Start 09/20/18 at 22:00 Meropenem/Sodium Chloride 50 ml @ 100 mls/hr Q12 IVPB Last administered on 09/21/18at 10:30; Admin Dose 100 MLS/HR; Start 09/21/18 at 10:30 SAVANNAH JUAREZ NP Sep 21, 2018 13:11
--- NOTE | 2018-09-21 14:00 | NUR ---
Bladder scan - 66ml
--- NOTE | 2018-09-21 14:31 | CONS ---
Date/Time of Note Date/Time of Note DATE: 09/21/18 TIME: 14:05 Assessment/Plan Assessment/Plan Assessment/Plan Assessment: Chronic anemia Epigastric pain Chronic Nausea/Vomiting LLQ abd pain H/o gastritis Urosepsis Morbid obesity ND in 2017 s/p stents - on Plavix - held for 3 days CAD DM Plan: EGD/Colonoscopy on Saturday Needs cardiac clearance Continue holding Plavix Reglan contraindicated with Trazodone that the pt is on. Start Carafate QID Continue PPI daily Monitor H and H Transfuse for Hgb less then 7.5 Patient seen in collaboration with Dr. Ennis Result Diagram: 09/21/18 0543 09/21/18 0543 Results 24hrs Laboratory Tests Test 09/20/18 17:21 09/20/18 21:07 09/21/18 05:43 09/21/18 08:24 Bedside Glucose 250 H 188 268 H White Blood Count 10.0 # Red Blood Count 3.16 L Hemoglobin 8.6 L Hematocrit 26.4 L Mean Corpuscular 83.5 Volume Mean Corpuscular 27.2 L Hemoglobin Mean Corpuscular 32.6 Hemoglobin Concent Red Cell 13.2 Distribution Width Platelet Count 298 Mean Platelet Volume 10.8 H Immature 0.900 H Granulocytes % Neutrophils % 61.0 Lymphocytes % 27.4 Monocytes % 9.2 Eosinophils % 1.3 Basophils % 0.2 Nucleated Red Blood 0.0 Cells % Immature 0.090 H Granulocytes # Neutrophils # 6.1 Lymphocytes # 2.8 Monocytes # 0.9 Eosinophils # 0.1 Basophils # 0.0 Nucleated Red Blood 0.0 Cells # Sodium Level 135 Potassium Level 4.5 Chloride Level 105 Carbon Dioxide Level 19 L Anion Gap 11 Blood Urea Nitrogen 19 Creatinine 1.00 Est Glomerular 59 L Filtrat Rate mL/min Glucose Level 252 H Calcium Level 8.4 Phosphorus Level 3.3 Magnesium Level 1.8 Test 09/21/18 12:07 Bedside Glucose 179 CC: EH ENNIS MD ; Consultation Date/Type/Reason Admit Date/Time Sep 19, 2018 at 12:18 Date of Consultation: Sep 21, 2018 Type of Consult GI Reason for Consultation Nausea/vomiting/ Anemia Hx of Present Illness This is a 48-year-old female with h/o morbid obesity who was admitted for treatment of Sepsis secondary to UTI. GI was consulted for symptoms of nausea and vomiting and for evaluation of chronic anemia. PMH includes diabetes mellitus type 2, essential hypertension, pulmonary hypertension, dyslipidemia, gastritis, hypothyroidism,CAD , ND in 2017 status post coronary artery stenting, and obesity. She is c/o nausea, vomiting and epigastric pain x 4 times a week and left lower quadrant abdominal pain for the past 4 days. Patient denies reyes tochezia, hematemesis, melena, constipation or diarrhea. No hx of EGD or colonoscopy however patient has been diagnosed with gastritis in 2012 and has been treated with Pantoprazole and Ranitidine without relief of her symptoms. The plan is to do an EGD/Colonoscopy on Saturday if cleared by cardiology, continue holding Plavix. Risks and benefits of the procedure reviewed with the patient. She is agreeable to the procedure. Gastrointestinal: no complaints (See HPI) Past Medical History Medical History: coronary artery disease, diabetes, GERD, high cholesterol, hypertension, hypothyroid Medications Current Medications IV Flush (NS 3 ml) 3 ml PER PROTOCOL IV ; Start 09/19/18 at 16:30 Ondansetron HCl (Zofran Inj) 4 mg Q6H PRN IV NAUSEA AND/OR VOMITING Last administered on 09/20/18at 05:43; Admin Dose 4 MG; Start 09/19/18 at 16:30 Acetaminophen (Tylenol Tab) 650 mg Q6H PRN PO PAIN LEVEL 1-3 OR FEVER Last administered on 09/20/18at 14:03; Admin Dose 650 MG; Start 09/19/18 at 16:30 Pantoprazole (Protonix Tab) 40 mg DAILY@06 PO Last administered on 09/21/18at 06:16; Admin Dose 40 MG; Start 09/20/18 at 06:00 Aspirin (Halfprin) 81 mg DAILY PO Last administered on 09/21/18at 08:40; Admin Dose 81 MG; Start 09/20/18 at 09:00 Atorvastatin Calcium (Lipitor) 40 mg HS PO Last administered on 09/20/18at 21:09; Admin Dose 40 MG; Start 09/19/18 at 21:00 Fluoxetine HCl (Prozac) 20 mg DAILY PO Last administered on 09/21/18at 08:40; Admin Dose 20 MG; Start 09/20/18 at 09:00 Levothyroxine Sodium (Synthroid) 50 mcg BEFORE BREAKFAST PO Last administered on 09/21/18at 06:16; Admin Dose 50 MCG; Start 09/20/18 at 07:00 Lisinopril (Zestril) 5 mg DAILY PO Last administered on 09/21/18at 08:40; Admin Dose 5 MG; Start 09/20/18 at 09:00 Loratadine (Claritin) 10 mg DAILY PO Last administered on 09/21/18at 08:40; Admin Dose 10 MG; Start 09/20/18 at 09:00 Losartan Potassium (Cozaar) 25 mg DAILY PO Last administered on 09/21/18at 08:40; Admin Dose 25 MG; Start 09/20/18 at 09:00 Metoprolol Tartrate (Lopressor) 50 mg BID PO Last administered on 09/21/18at 08:42; Admin Dose 50 MG; Start 09/19/18 at 21:00 Trazodone HCl (Desyrel) 50 mg HS PO Last administered on 09/20/18at 21:10; Admin Dose 50 MG; Start 09/19/18 at 21:00 Insulin Aspart (Novolog Insulin Pen) NOVOLOG *MODERATE* ALGORITHM WITH MEALS BEDTIME SC Last administered on 09/21/18at 12:14; Admin Dose 2 UNIT; Start 09/19/18 at 18:00 Miscellaneous Information 1 ea NOTE XX ; Start 09/19/18 at 16:30 Glucose (Glutose) 15 gm Q15M PRN PO DECREASED GLUCOSE; Start 09/19/18 at 16:30 Glucose (Glutose) 22.5 gm Q15M PRN PO DECREASED GLUCOSE; Start 09/19/18 at 16:30 Dextrose (D50w Syringe) 25 ml Q15M PRN IV DECREASED GLUCOSE; Start 09/19/18 at 16:30 Dextrose (D50w Syringe) 50 ml Q15M PRN IV DECREASED GLUCOSE; Start 09/19/18 at 16:30 Glucagon (Glucagen) 1 mg Q15M PRN IM DECREASED GLUCOSE; Start 09/19/18 at 16:30 Glucose (Glutose) 15 gm Q15M PRN BUCCAL DECREASED GLUCOSE; Start 09/19/18 at 16:30 Hydralazine HCl (Apresoline) 10 mg Q6H PRN IV SBP>160; Start 09/19/18 at 16:30 Polyethylene Glycol (Miralax) 17 gm BID PO Last administered on 09/21/18at 08:42; Admin Dose 17 GM; Start 09/19/18 at 21:00 Bisacodyl (Dulcolax) 10 mg DAILY PRN PO CONSTIPATION; Start 09/19/18 at 16:30 Morphine Sulfate (morphine SULFATE (PF)) 1 mg Q4H PRN IV PAIN Last administered on 09/20/18at 21:09; Admin Dose 1 MG; Start 09/19/18 at 20:30 Enoxaparin Sodium (Lovenox) 30 mg DAILY SC Last administered on 09/21/18at 08:47; Admin Dose 30 MG; Start 09/21/18 at 09:00 Insulin Aspart (Novolog Insulin Pen) 9 unit WITH MEALS SC Last administered on 09/21/18at 12:14; Admin Dose 9 UNIT; Start 09/20/18 at 11:50 Insulin Glargine (Lantus) 27 units DAILY@2000 SC Last administered on 09/20/18at 21:40; Admin Dose 27 UNITS; Start 09/20/18 at 20:00 Tramadol HCl (Ultram) 50 mg Q6H PRN PO MODERATE PAIN LEVEL 4-6; Start 09/20/18 at 22:00 Meropenem/Sodium Chloride 50 ml @ 100 mls/hr Q12 IVPB Last administered on 09/21/18at 10:30; Admin Dose 100 MLS/HR; Start 09/21/18 at 10:30 Allergies: Coded Allergies: acetaminophen (Verified Allergy, Intermediate, 09/19/18) hydrocodone (Verified Allergy, Intermediate, 09/19/18) Past Surgical History Past Surgical Hx: angioplasty, other (Tubal ligation and ) Social History Alcohol Use: none Smoking Status: Never smoker Drug Use: none Exam/Review of Systems Vital Signs Vitals Vital Signs Date Temp Pulse Resp B/P (MAP) Pulse Ox O2 O2 Flow FiO2 Time Delivery Rate 09/21/18 97.6 75 18 101/55 94 Room Air 12:07 (70) 09/21/18 2.0 07:37 Intake and Output 09/20/18 09/20/18 09/21/18 1515:00 23:00 07:00 IntakeIntake Total 650 ml 400 ml BalanceBalance 650 ml 400 ml Exam General: Morbidly obese, Awake and oriented x3, in no apparent distress. HEENT: Normocephalic, atraumatic. Eyes: Anicteric sclerae, conjunctivae clear. ENT: Nasal septum midline, oral mucosa moist. Neck supple. Respiratory: Bilaterally clear breath sounds. No use of accessory muscles of respiration. No adventitious breath sounds. Cardiovascular: S1, S2 heard. Regular rate and rhythm. Abdomen: Soft, obese, epigastric and LLQ pain, and nondistended. Bowel sounds positive in all 4 quadrants. Genitourinary: Deferred. Extremities: No cyanosis, no clubbing, no edema. Peripheral pulses palpable. Skin: Normal skin turgor. No skin rashes. Medications Medications Current Medications IV Flush (NS 3 ml) 3 ml PER PROTOCOL IV ; Start 09/19/18 at 16:30 Ondansetron HCl (Zofran Inj) 4 mg Q6H PRN IV NAUSEA AND/OR VOMITING Last administered on 09/20/18 05:43; Admin Dose 4 MG; Start 09/19/18 at 16:30 Acetaminophen (Tylenol Tab) 650 mg Q6H PRN PO PAIN LEVEL 1-3 OR FEVER Last administered on 09/20/18 14:03; Admin Dose 650 MG; Start 09/19/18 at 16:30 Pantoprazole (Protonix Tab) 40 mg DAILY@06 PO Last administered on 09/21/18 06:16; Admin Dose 40 MG; Start 09/20/18 at 06:00 Aspirin (Halfprin) 81 mg DAILY PO Last administered on 09/21/18 08:40; Admin Dose 81 MG; Start 09/20/18 at 09:00 Atorvastatin Calcium (Lipitor) 40 mg HS PO Last administered on 09/20/18 21:09; Admin Dose 40 MG; Start 09/19/18 at 21:00 Fluoxetine HCl (Prozac) 20 mg DAILY PO Last administered on 09/21/18 08:40; Admin Dose 20 MG; Start 09/20/18 at 09:00 Levothyroxine Sodium (Synthroid) 50 mcg BEFORE BREAKFAST PO Last administered on 09/21/18 06:16; Admin Dose 50 MCG; Start 09/20/18 at 07:00 Lisinopril (Zestril) 5 mg DAILY PO Last administered on 09/21/18 08:40; Admin Dose 5 MG; Start 09/20/18 at 09:00 Loratadine (Claritin) 10 mg DAILY PO Last administered on 09/21/18at 08:40; Admin Dose 10 MG; Start 09/20/18 at 09:00 Losartan Potassium (Cozaar) 25 mg DAILY PO Last administered on 09/21/18at 08:40; Admin Dose 25 MG; Start 09/20/18 at 09:00 Metoprolol Tartrate (Lopressor) 50 mg BID PO Last administered on 09/21/18at 08:42; Admin Dose 50 MG; Start 09/19/18 at 21:00 Trazodone HCl (Desyrel) 50 mg HS PO Last administered on 09/20/18at 21:10; Admin Dose 50 MG; Start 09/19/18 at 21:00 Insulin Aspart (Novolog Insulin Pen) NOVOLOG *MODERATE* ALGORITHM WITH MEALS BEDTIME SC Last administered on 09/21/18at 12:14; Admin Dose 2 UNIT; Start 09/19/18 at 18:00 Miscellaneous Information 1 ea NOTE XX ; Start 09/19/18 at 16:30 Glucose (Glutose) 15 gm Q15M PRN PO DECREASED GLUCOSE; Start 09/19/18 at 16:30 Glucose (Glutose) 22.5 gm Q15M PRN PO DECREASED GLUCOSE; Start 09/19/18 at 16:30 Dextrose (D50w Syringe) 25 ml Q15M PRN IV DECREASED GLUCOSE; Start 09/19/18 at 16:30 Dextrose (D50w Syringe) 50 ml Q15M PRN IV DECREASED GLUCOSE; Start 09/19/18 at 16:30 Glucagon (Glucagen) 1 mg Q15M PRN IM DECREASED GLUCOSE; Start 09/19/18 at 16:30 Glucose (Glutose) 15 gm Q15M PRN BUCCAL DECREASED GLUCOSE; Start 09/19/18 at 16:30 Hydralazine HCl (Apresoline) 10 mg Q6H PRN IV SBP>160; Start 09/19/18 at 16:30 Polyethylene Glycol (Miralax) 17 gm BID PO Last administered on 09/21/18at 08:42; Admin Dose 17 GM; Start 09/19/18 at 21:00 Bisacodyl (Dulcolax) 10 mg DAILY PRN PO CONSTIPATION; Start 09/19/18 at 16:30 Morphine Sulfate (morphine SULFATE (PF)) 1 mg Q4H PRN IV PAIN Last administered on 09/20/18at 21:09; Admin Dose 1 MG; Start 09/19/18 at 20:30 Enoxaparin Sodium (Lovenox) 30 mg DAILY SC Last administered on 09/21/18at 08:47; Admin Dose 30 MG; Start 09/21/18 at 09:00 Insulin Aspart (Novolog Insulin Pen) 9 unit WITH MEALS SC Last administered on 09/21/18at 12:14; Admin Dose 9 UNIT; Start 09/20/18 at 11:50 Insulin Glargine (Lantus) 27 units DAILY@2000 SC Last administered on 09/20/18at 21:40; Admin Dose 27 UNITS; Start 09/20/18 at 20:00 Tramadol HCl (Ultram) 50 mg Q6H PRN PO MODERATE PAIN LEVEL 4-6; Start 09/20/18 at 22:00 Meropenem/Sodium Chloride 50 ml @ 100 mls/hr Q12 IVPB Last administered on 09/21/18at 10:30; Admin Dose 100 MLS/HR; Start 09/21/18 at 10:30 RITA LEUNG NP Sep 21, 2018 14:24
--- NOTE | 2018-09-21 14:36 | PN ---
Date/Time of Note Date/Time of Note DATE: 09/21/18 TIME: 14:36 Assessment/Plan VTE Prophylaxis Risk score (from Ns)>0 risk: 3 SCD applied (from Ns): No SCD contraindicated: other Pharmacological prophylaxis: LMWH Lines/Catheters IV Catheter Type ([facility]): Peripheral IV Urinary Cath still in place: No Assessment/Plan Hospital Course SUBJECTIVE: Denies any abdominal pain. Denies any nausea or vomiting. OBJECTIVE: Physical Exam General: Morbidly obese 48 year-old female lying in bed in no apparent distress. HEENT: Normocephalic, atraumatic. Eyes: Anicteric sclerae, conjunctivae clear. ENT: Nasal septum midline, oral mucosa moist. Neck supple. Respiratory: Bilaterally diminished breath sounds. No use of accessory muscles of respiration. Minimal right basilar rales. Cardiovascular: S1, S2 heard. Regular rate and rhythm. Abdomen: Soft, nontender, and nondistended. Bowel sounds positive in all 4 quadrants. Genitourinary: Deferred. Extremities: No cyanosis, no clubbing, no edema. Peripheral pulses palpable. Neurologic: Cranial nerves II through XII grossly intact. The patient is awake, alert, and oriented. Skin: Normal skin turgor. No skin rashes. Labs & Vitals per chart ASSESSMENT & PLAN 48-year-old female with comorbidities including diabetes mellitus type 2, essential hypertension, pulmonary hypertension, dyslipidemia, gastritis, hypothyroidism,CAD status post coronary artery stenting, and obesity who came to the emergency room with chief complaint of left lower quadrant abdominal pain that has been going on for the past 4 days. The patient was found to have evidence of sepsis with leukocytosis, lactic acidosis, and tachycardia, secondary to underlying complicated urinary tract infection and was admitted to inpatient setting for further treatment and evaluation. 1. Sepsis with underlying leukocytosis, lactic acidosis, and tachycardia, present on admission secondary to underlying complicated urinary tract infection and E.coli ESBL bacteremia. -Urine culture showing E.coli ESBL with colony count greater than 100,000 CFU per mL. -Continue antimicrobials as per ID. 2. Bilateral prominence of renal collecting systems with distended urinary bladder. -Status post Waller decompression of urinary bladder that did not suggest any urinary outlet obstruction. -Urology following. 3. Diabetes mellitus type 2. Uncontrolled. -Continue sliding scale insulin along with pre-meal insulin and basal insulin. -Hemoglobin A1c 13.3. 4. Hypertension. -Continue antihypertensives. 5. CAD status post stent to mid LAD. -Continue aspirin. Discontinued Plavix (confirmed with the tire vulcanizer who did the procedure). -Continue statins. 6. Hyperkalemia. -Most probably secondary to underlying MARIBEL. -Resolved, status post treatment. 7. Acute nonoliguric kidney injury. -Most probably secondary to underlying sepsis. -Use nephrotoxic drugs with caution. -Judicious use of IV fluids. -Resolved. 8. Normocytic anemia. -Most probably anemia of chronic disease. -Monitor H&H closely. -H&H dropping. -May need to hold Lovenox. -Gastroenterology consult obtained, provided the patient's long standing history of abdominal pain. -Stool for OB ordered. 9. Hypothyroidism. -Continue Synthroid. 10. Dyslipidemia. -Continue statins. 11. Obesity. BMI 45 kg/m. -Advised weight reduction. 12. Fluids, electrolytes, and nutrition. -Carbohydrate controlled diet. 13. DVT prophylaxis. -SQ Lovenox (Renal dose). May need to hold it if worsening H&H. 14. Plan. -Changed antimicrobials to carbapenems. -Stool for OB ordered. -Obtained gastroenterology consult. -Obtain cardiology consult for cardiac clearance for any gastroenterology procedure, given the patient's prior history of CAD status post coronary artery stenting. -Move the patient to Medr floor. The plan of care was explained to the patient's family, who was at the bedside The patient was seen in collaboration with Dr. Patel. Result Diagram: 09/21/18 0543 09/21/18 0543 Results 24hrs Laboratory Tests Test 09/20/18 17:21 09/20/18 21:07 09/21/18 05:43 09/21/18 08:24 Bedside Glucose 250 H 188 268 H White Blood Count 10.0 # Red Blood Count 3.16 L Hemoglobin 8.6 L Hematocrit 26.4 L Mean Corpuscular 83.5 Volume Mean Corpuscular 27.2 L Hemoglobin Mean Corpuscular 32.6 Hemoglobin Concent Red Cell 13.2 Distribution Width Platelet Count 298 Mean Platelet Volume 10.8 H Immature 0.900 H Granulocytes % Neutrophils % 61.0 Lymphocytes % 27.4 Monocytes % 9.2 Eosinophils % 1.3 Basophils % 0.2 Nucleated Red Blood 0.0 Cells % Immature 0.090 H Granulocytes # Neutrophils # 6.1 Lymphocytes # 2.8 Monocytes # 0.9 Eosinophils # 0.1 Basophils # 0.0 Nucleated Red Blood 0.0 Cells # Sodium Level 135 Potassium Level 4.5 Chloride Level 105 Carbon Dioxide Level 19 L Anion Gap 11 Blood Urea Nitrogen 19 Creatinine 1.00 Est Glomerular 59 L Filtrat Rate mL/min Glucose Level 252 H Calcium Level 8.4 Phosphorus Level 3.3 Magnesium Level 1.8 Test 09/21/18 12:07 Bedside Glucose 179 Exam/Review of Systems Vital Signs Vitals Vital Signs Date Temp Pulse Resp B/P (MAP) Pulse Ox O2 O2 Flow FiO2 Time Delivery Rate 09/21/18 97.6 75 18 101/55 94 Room Air 12:07 (70) 09/21/18 2.0 07:37 Intake and Output 09/20/18 09/20/18 09/21/18 1515:00 23:00 07:00 IntakeIntake Total 650 ml 400 ml BalanceBalance 650 ml 400 ml Medications Medications Current Medications IV Flush (NS 3 ml) 3 ml PER PROTOCOL IV ; Start 09/19/18 at 16:30 Ondansetron HCl (Zofran Inj) 4 mg Q6H PRN IV NAUSEA AND/OR VOMITING Last administered on 09/20/18at 05:43; Admin Dose 4 MG; Start 09/19/18 at 16:30 Acetaminophen (Tylenol Tab) 650 mg Q6H PRN PO PAIN LEVEL 1-3 OR FEVER Last administered on 09/20/18at 14:03; Admin Dose 650 MG; Start 09/19/18 at 16:30 Pantoprazole (Protonix Tab) 40 mg DAILY@06 PO Last administered on 09/21/18at 06:16; Admin Dose 40 MG; Start 09/20/18 at 06:00 Aspirin (Halfprin) 81 mg DAILY PO Last administered on 09/21/18at 08:40; Admin Dose 81 MG; Start 09/20/18 at 09:00 Atorvastatin Calcium (Lipitor) 40 mg HS PO Last administered on 09/20/18at 21: 09; Admin Dose 40 MG; Start 09/19/18 at 21:00 Fluoxetine HCl (Prozac) 20 mg DAILY PO Last administered on 09/21/18at 08:40; Admin Dose 20 MG; Start 09/20/18 at 09:00 Levothyroxine Sodium (Synthroid) 50 mcg BEFORE BREAKFAST PO Last administered on 09/21/18at 06:16; Admin Dose 50 MCG; Start 09/20/18 at 07:00 Lisinopril (Zestril) 5 mg DAILY PO Last administered on 09/21/18at 08:40; Admin Dose 5 MG; Start 09/20/18 at 09:00 Loratadine (Claritin) 10 mg DAILY PO Last administered on 09/21/18at 08:40; Admin Dose 10 MG; Start 09/20/18 at 09:00 Losartan Potassium (Cozaar) 25 mg DAILY PO Last administered on 09/21/18at 08:40; Admin Dose 25 MG; Start 09/20/18 at 09:00 Metoprolol Tartrate (Lopressor) 50 mg BID PO Last administered on 09/21/18at 08:42; Admin Dose 50 MG; Start 09/19/18 at 21:00 Trazodone HCl (Desyrel) 50 mg HS PO Last administered on 09/20/18at 21:10; Admin Dose 50 MG; Start 09/19/18 at 21:00 Insulin Aspart (Novolog Insulin Pen) NOVOLOG *MODERATE* ALGORITHM WITH MEALS BEDTIME SC Last administered on 09/21/18at 12:14; Admin Dose 2 UNIT; Start 09/19/18 at 18:00 Miscellaneous Information 1 ea NOTE XX ; Start 09/19/18 at 16:30 Glucose (Glutose) 15 gm Q15M PRN PO DECREASED GLUCOSE; Start 09/19/18 at 16:30 Glucose (Glutose) 22.5 gm Q15M PRN PO DECREASED GLUCOSE; Start 09/19/18 at 16:30 Dextrose (D50w Syringe) 25 ml Q15M PRN IV DECREASED GLUCOSE; Start 09/19/18 at 16:30 Dextrose (D50w Syringe) 50 ml Q15M PRN IV DECREASED GLUCOSE; Start 09/19/18 at 16:30 Glucagon (Glucagen) 1 mg Q15M PRN IM DECREASED GLUCOSE; Start 09/19/18 at 16:30 Glucose (Glutose) 15 gm Q15M PRN BUCCAL DECREASED GLUCOSE; Start 09/19/18 at 16:30 Hydralazine HCl (Apresoline) 10 mg Q6H PRN IV SBP>160; Start 09/19/18 at 16:30 Polyethylene Glycol (Miralax) 17 gm BID PO Last administered on 09/21/18at 0 8:42; Admin Dose 17 GM; Start 09/19/18 at 21:00 Bisacodyl (Dulcolax) 10 mg DAILY PRN PO CONSTIPATION; Start 09/19/18 at 16:30 Morphine Sulfate (morphine SULFATE (PF)) 1 mg Q4H PRN IV PAIN Last administered on 09/20/18at 21:09; Admin Dose 1 MG; Start 09/19/18 at 20:30 Enoxaparin Sodium (Lovenox) 30 mg DAILY SC Last administered on 09/21/18 08:47; Admin Dose 30 MG; Start 09/21/18 at 09:00 Insulin Aspart (Novolog Insulin Pen) 9 unit WITH MEALS SC Last administered on 09/21/18at 12:14; Admin Dose 9 UNIT; Start 09/20/18 at 11:50 Insulin Glargine (Lantus) 27 units DAILY@2000 SC Last administered on 09/20/18at 21:40; Admin Dose 27 UNITS; Start 09/20/18 at 20:00 Tramadol HCl (Ultram) 50 mg Q6H PRN PO MODERATE PAIN LEVEL 4-6; Start 09/20/18 at 22:00 Meropenem/Sodium Chloride 50 ml @ 100 mls/hr Q12 IVPB Last administered on 09/21/18at 10:30; Admin Dose 100 MLS/HR; Start 09/21/18 at 10:30 ALISHA ABARCA NP Sep 21, 2018 14:36
[2018-09-21] MEDS: SUCRALFATE (100 MG/ML) 10ML CUP PO SCH ×2 (17:17→20:56)
--- NOTE | 2018-09-21 17:30 | NUR ---
TRANSFER- Called and gave report to Pennie DOYLE. Pt going from room 510B to 2255. Pt on RA, no respiratory distress. Daughter bedside, awaiting transport to take pt to new room.
--- NOTE | 2018-09-21 17:45 | NUR ---
Received patient from [facility] via wheelchair able to transfer from chair to bed with one person assist. Daughter at bedside. Pt. is alert, awake and verbally responsive. Respiration are even and non labored. No acute distress or discomfort noted. Call light within reach. Will continue to monitor.
--- NOTE | 2018-09-21 18:22 | CONS ---
DATE OF ADMISSION: 09/19/2018 DATE OF CONSULTATION: 09/21/2018 TYPE OF CONSULTATION: Infectious disease. REASON FOR CONSULTATION: Antibiotic management. HISTORY OF PRESENT ILLNESS: Debbie Bustos is a 48-year-old female who comes in with abdom inal pain for 4 days associated with nausea and vomiting. Her past problems include: 1. Insulin-dependent diabetes mellitus. 2. Hypertension. She presents to the emergency room with 4 days of severe abdominal pain which started in the suprapub ic region, began to radiate to her left lower quadrant. She had multiple episodes of nausea and vomi ting without diarrhea. She has no recent hospitalization. She had no fevers or shaking chills, but has been unable to eat or drink for the last few days. She also has frequency and urgency and dysuri a with no gross hematuria. She is currently menstruating. She has never had similar symptoms in the past. PAST MEDICAL HISTORY: As outlined. PAST SURGICAL HISTORY: Status post . FAMILY HISTORY: Noncontributory. SOCIAL HISTORY: She does not smoke, drink or abuse drugs. ALLERGIES: NONE TO PENICILLIN, SULFA OR FOODS. MEDICATIONS: Per chart. REVIEW OF SYSTEMS: As per HPI. ANCILLARY LABORATORY DATA: Her white count is 19,000, H and H of 10.5 and 31.8, platelet count of 32 9,000. BUN and creatinine is 25/1.14. Her glucose was 507, so she is severely hyperglycemic. As no jean marie, her white count was 19,000 with 84% neutrophils. MICROBIOLOGY: Her urine culture grew out ESBL and her blood culture grew out Escherichia coli EBSL. The patient was initially on ceftriaxone and now is on meropenem [address] scan of the abdome n and pelvis showed no evidence for small-bowel obstruction, several fluid-filled loops of small amanda l suggestive of gastroenteritis and mild ileus, small hiatal hernia, nonspecific bilateral perinephri c fat stranding and mild involvement of the renal collecting system. No renal or ureteral calculi, d iffuse atherosclerotic disease of the aorta, no evidence of free fluid or free air, fat containing um bilical hernia, distended gallbladder DIAGNOSTIC DATA: CT scan of the brain showed no acute hemorrhage, transcortical infarction or mass e ffect, moderate foci of white matter hypoattenuation which are nonspecific, may reflect ischemia of v asculopathy, demyelinating disease or sequelae from prior trauma or inflammatory insults, mild intrac ranial atherosclerosis, mild generalized cerebral volume loss. PHYSICAL EXAMINATION: GENERAL: She is morbidly obese, well-developed, female who is in no acute distress. HEENT: Within normal limits. NECK: Supple. LYMPH NODES: None palpable. CHEST: Decreased breath sounds at the bases. HEART: Without murmur or gallop. ABDOMEN: Soft, nontender. She has some suprapubic tenderness and tenderness in the left lower quadr ant. EXTREMITIES: Without cyanosis, clubbing or edema. RECTAL AND GENITAL: Deferred. NEUROLOGIC: No focal neurological abnormality. IMPRESSION AND PLAN: The patient is a 48-year-old female with significant diabetes mellitus who come s in with urinary tract infection with sepsis with count and also evidence of pyelonephritis. The pardeep hughes also has a history of psoriasis. We will at this point continue her on meropenem though we coul d switch her to Invanz or ertapenem. Her white count today is down to 10.0, so we will continue her for the time being on meropenem. I will dictate my findings to the hospitalist. Dictated By: HONG BRADLEY MD, JD/JASON Conf#: [id number] DID#: [id number] CC: YESIKA MORENO MD;*EndCC*
--- NOTE | 2018-09-21 20:00 | NUR ---
CHARGE NURSE NOTE: Spoke with daughter regarding contact isolation precautions, daughter refuses to wear PPE in contact isolation room. Provided education about contact isolation, yet daughter refuses to wear gown, and gloves. Daughter demanded for the doctor to be called for discharge, and she will take her mother home. Advised daughter if doctor does not provide discharge order, then explained AMA. Daughter states on the other unit the was no isolation, and she will go to another hospital. Attempt to explain hospital policy, yet daughter refuses to listen.
--- NOTE | 2018-09-21 20:45 | NUR ---
CHARGE NURSE NOTE: Patient states she will stay in the hospital. Will follow chain of command, and notify Casing Wringer Operator Miko daughter refuses to wear PPE in contact isolation room. Contact isolation for ESBL/MDRO of blood, and urine.
[2018-09-21] MEDS: ATORVASTATIN 40 MG TAB PO SCH (20:56)
[2018-09-21] MEDS: traZODone 50 MG TAB PO SCH (20:56)
[2018-09-21] MEDS: INSULIN GLARGINE [LANTus] (100 UNITS/ML) SYG SC SCH (21:05)
--- NOTE | 2018-09-21 23:30 | NUR ---
CHARGE NURSE NOTE: Lithographic Platemaker Miko spoke to the daughter regarding donning PPE in contact isolation room. Daughter put on gown while in room.
[2018-09-22] MEDS: morphine SULFATE/PF (2 MG/2 ML) SYG IV PRN (01:57)
[2018-09-22 02:45] VITALS: BP 131/79; PULSE 78; RESP 20
[2018-09-22] MEDS ORDERED: ZOLPIDEM 5 MG TAB PO ONE ×2 (04:19→12:30)
--- NOTE | 2018-09-22 05:21 | NUR ---
End of Shift RN Note. No acute changes noted during my shift. Pts daughter was upset in beginning of shift, per pottery decorator, stating she was going to take mother AMA if mother was not discharged. Spoke with mother, mother was calm and stated she was to stay in the hospital for treatment. Pt requested sleeping medication, MD notified and received orders for ambien 5mg PO once. Vital signs for this pt remained stable through the night. Pt complained of pain x1 during my shift, administered medication with adequate relief. Will endosre plan of care to next shift for continuity of care.
[2018-09-22] MEDS: PANTOPRAZOLE (EC) 40 MG TAB PO SCH (06:51)
[2018-09-22] MEDS: LEVOTHYROXINE 50 MCG TAB PO SCH (06:51)
--- NOTE | 2018-09-22 08:00 | NUR ---
Assumed care of patient. Daughter at bedside, not wearing PPE. RN reinforced importance of wearing PPE and daughter explained that she wasn't forced to wear PPE in previous room. RN explained that results of cultures could take several days and that could have been reason for delay in initiating isolation precautions. Daughter still upset and wishes we stop talking about "infection" as it upsets her mother who has depression. Daughter also voicing upset that we are not allowing the patient to take a shower as the previous unit said she could when she arrived to her new room and it's now been several days since she has had a proper shower. RN again reinforced isolation precautions policy.
[2018-09-22] MEDS: INSULIN ASPART [NOVOLOG] 3 ML PEN SC SCH ×7 (08:31→21:00)
[2018-09-22 08:36] VITALS: BP 141/90; PULSE 75; RESP 18
[2018-09-22] MEDS: LISINOPRIL 5 MG TAB PO SCH (09:22)
[2018-09-22] MEDS: METOPROLOL 50 MG TAB PO SCH (09:23)
[2018-09-22] MEDS: ASPIRIN (EC) 81 MG TAB PO SCH (09:23)
[2018-09-22] MEDS: SUCRALFATE (100 MG/ML) 10ML CUP PO SCH ×4 (09:23→21:00)
[2018-09-22] MEDS: FLUOXETINE 20 MG CAP PO SCH (09:23)
[2018-09-22] MEDS: LORATADINE 10 MG TAB PO SCH (09:23)
[2018-09-22] MEDS: POLYETHYLENE GLYCOL 17 GM PACKET PO SCH ×2 (09:23→22:22)
[2018-09-22] MEDS: LOSARTAN 25 MG TAB PO SCH (09:23)
[2018-09-22] MEDS: MEROPENEM 1 GM/50ML(PMX) 50 ML IVPB SCH (09:24)
[2018-09-22] MEDS: ENOXAPARIN 30 MG/0.3 ML SYG SC SCH (09:24)
--- NOTE | 2018-09-22 10:52 | CONS ---
Date/Time of Note Date/Time of Note DATE: 09/22/18 TIME: 10:42 Assessment/Plan Assessment/Plan Hospital Course Pre-procedural evaluation: She is to undergo low risk procedures. She has very mild CHF on exam which can easily be controlled prior to procedures tomorrow. No active ischemia or chest pain. She is at intermediate risk. No further testing is necessary Acute on chronic CHF: mild and likely due to IVF for sepsis. No symptoms but mild crackles and elevated JVP h/o CAD/NSTEMI: s/p PCI of mid LAD 12/2016. No chest pain Ischemic cardiomyopathy: EF previously ~45-50% Sepsis due to ESBL UTI Anemia DM HTN HL -ok to proceed with EGD/colo tomorrow -lasix 20mg IV x 1 today -ASA 81mg -plavix d/c-ed appropriately. No need to restart -lipitor 40mg -switch MTP to coreg 6.25mg BID -d/c lisinopril as already on losartan Result Diagram: 09/22/18 0515 09/22/18 0515 Results 24hrs Laboratory Tests Test 09/21/18 12:07 09/21/18 17:15 09/21/18 21:02 09/22/18 02:00 Bedside Glucose 179 169 154 Stool Occult Blood NEGATIVE Test 09/22/18 05:15 09/22/18 08:11 White Blood Count 10.0 Red Blood Count 3.02 L Hemoglobin 8.2 L Hematocrit 24.9 L Mean Corpuscular 82.5 Volume Mean Corpuscular 27.2 L Hemoglobin Mean Corpuscular 32.9 Hemoglobin Concent Red Cell 13.4 Distribution Width Platelet Count 306 Mean Platelet Volume 10.9 H Immature 0.700 H Granulocytes % Neutrophils % 48.6 Lymphocytes % 39.2 Monocytes % 9.7 Eosinophils % 1.6 Basophils % 0.2 Nucleated Red Blood 0.0 Cells % Immature 0.070 H Granulocytes # Neutrophils # 4.9 Lymphocytes # 3.9 H Monocytes # 1.0 H Eosinophils # 0.2 Basophils # 0.0 Nucleated Red Blood 0.0 Cells # Sodium Level 137 Potassium Level 4.5 Chloride Level 106 Carbon Dioxide Level 21 Anion Gap 10 Blood Urea Nitrogen 18 Creatinine 0.96 Est Glomerular > 60 Filtrat Rate mL/min Glucose Level 153 Calcium Level 8.4 Phosphorus Level 3.9 Magnesium Level 2.0 Bedside Glucose 152 Consultation Date/Type/Reason Admit Date/Time Sep 19, 2018 at 12:18 Date of Consultation: Sep 22, 2018 Type of Consult Cardiology Reason for Consultation Pre procedural eval Requesting Provider: ALISHA ABARCA NP Hx of Present Illness 48 yo F with a h/o CAD s/p NSTEMI and PCI of mid LAD with me 12/2016, ischemic cardiomyopathy with EF 45%, chronic systolic CHF, DM, HTN, HL, who presented with abdominal pain. She was found to have ESBL E coli UTI with sepsis and bacte remia. This has all been treated. She was noted to have chronic anemia without overt bleeding and has had gastritis in the past. She is planned to have EGD/colo tomorrow. Daughter assisted with interpretation. She denies chest pain. Sometimes she has mild dyspnea when she lays flat but none at this time. She actually wants to leave today and not have the EGD/colo done but she is still deciding. per HPI Past Medical History per hPI Medical History: coronary artery disease, diabetes, GERD, high cholesterol, hypertension, hypothyroid Medications Current Medications IV Flush (NS 3 ml) 3 ml PER PROTOCOL IV ; Start 09/19/18 at 16:30 Ondansetron HCl (Zofran Inj) 4 mg Q6H PRN IV NAUSEA AND/OR VOMITING Last ad ministered on 09/20/18at 05:43; Admin Dose 4 MG; Start 09/19/18 at 16:30 Acetaminophen (Tylenol Tab) 650 mg Q6H PRN PO PAIN LEVEL 1-3 OR FEVER Last administered on 09/20/18at 14:03; Admin Dose 650 MG; Start 09/19/18 at 16:30 Pantoprazole (Protonix Tab) 40 mg DAILY@06 PO Last administered on 09/22/18at 06:51; Admin Dose 40 MG; Start 09/20/18 at 06:00 Aspirin (Halfprin) 81 mg DAILY PO Last administered on 09/22/18 09:23; Admin Dose 81 MG; Start 09/20/18 at 09:00 Atorvastatin Calcium (Lipitor) 40 mg HS PO Last administered on 09/21/18at 20:56; Admin Dose 40 MG; Start 09/19/18 at 21:00 Fluoxetine HCl (Prozac) 20 mg DAILY PO Last administered on 1/14/19at 09:23; Admin Dose 20 MG; Start 09/20/18 at 09:00 Levothyroxine Sodium (Synthroid) 50 mcg BEFORE BREAKFAST PO Last administered on 09/22/18 06:51; Admin Dose 50 MCG; Start 09/20/18 at 07:00 Lisinopril (Zestril) 5 mg DAILY PO Last administered on 09/22/18 09:22; Admin Dose 5 MG; Start 09/20/18 at 09:00 Loratadine (Claritin) 10 mg DAILY PO Last administered on 09/22/18 09:23; Admin Dose 10 MG; Start 09/20/18 at 09:00 Losartan Potassium (Cozaar) 25 mg DAILY PO Last administered on 09/22/18 09:23; Admin Dose 25 MG; Start 09/20/18 at 09:00 Metoprolol Tartrate (Lopressor) 50 mg BID PO Last administered on 09/22/18 09:23; Admin Dose 50 MG; Start 09/19/18 at 21:00 Trazodone HCl (Desyrel) 50 mg HS PO Last administered on 09/21/18at 20:56; Admin Dose 50 MG; Start 09/19/18 at 21:00 Insulin Aspart (Novolog Insulin Pen) NOVOLOG *MODERATE* ALGORITHM WITH MEALS BEDTIME SC Last administered on 09/22/18 08:32; Admin Dose 2 UNIT; Start 09/19/18 at 18:00 Miscellaneous Information 1 ea NOTE XX ; Start 09/19/18 at 16:30 Glucose (Glutose) 15 gm Q15M PRN PO DECREASED GLUCOSE; Start 09/19/18 at 16:30 Glucose (Glutose) 22.5 gm Q15M PRN PO DECREASED GLUCOSE; Start 09/19/18 at 16:30 Dextrose (D50w Syringe) 25 ml Q15M PRN IV DECREASED GLUCOSE; Start 09/19/18 at 16:30 Dextrose (D50w Syringe) 50 ml Q15M PRN IV DECREASED GLUCOSE; Start 09/19/18 at 16:30 Glucagon (Glucagen) 1 mg Q15M PRN IM DECREASED GLUCOSE; Start 09/19/18 at 16:30 Glucose (Glutose) 15 gm Q15M PRN BUCCAL DECREASED GLUCOSE; Start 09/19/18 at 16:30 Hydralazine HCl (Apresoline) 10 mg Q6H PRN IV SBP>160; Start 09/19/18 at 16:30 Polyethylene Glycol (Miralax) 17 gm BID PO Last administered on 09/22/18 09:23; Admin Dose 17 GM; Start 09/19/18 at 21:00 Bisacodyl (Dulcolax) 10 mg DAILY PRN PO CONSTIPATION; Start 09/19/18 at 16:30 Morphine Sulfate (morphine SULFATE (PF)) 1 mg Q4H PRN IV PAIN Last administered on 09/22/18 01:57; Admin Dose 1 MG; Start 09/19/18 at 20:30 Enoxaparin Sodium (Lovenox) 30 mg DAILY SC Last administered on 09/22/18 09:24; Admin Dose 30 MG; Start 09/21/18 at 09:00 Tramadol HCl (Ultram) 50 mg Q6H PRN PO MODERATE PAIN LEVEL 4-6; Start 09/20/18 at 22:00 Meropenem/Sodium Chloride 50 ml @ 100 mls/hr Q12 IVPB Last administered on 09/22/18 09:24; Admin Dose 100 MLS/HR; Start 09/21/18 at 10:30 Insulin Aspart (Novolog Insulin Pen) 10 unit WITH MEALS SC Last administered on 09/22/18 08:31; Admin Dose 10 UNIT; Start 09/21/18 at 17:47 Insulin Glargine (Lantus) 28 units DAILY@2000 SC Last administered on 09/21/18 21:05; Admin Dose 28 UNITS; Start 09/21/18 at 20:00 Sucralfate (Carafate Susp) 1 gm QID PO Last administered on 09/22/18 09:23; Admin Dose 1 GM; Start 09/21/18 at 17:00 Allergies: Coded Allergies: acetaminophen (Verified Allergy, Intermediate, 09/19/18) hydrocodone (Verified Allergy, Intermediate, 09/19/18) Past Surgical History Past Surgical Hx: angioplasty, other (Tubal ligation and ) Social History Alcohol Use: none Smoking Status: Never smoker Drug Use: none Exam/Review of Systems Vital Signs Vitals Vital Signs Date Temp Pulse Resp B/P (MAP) Pulse Ox O2 O2 Flow FiO2 Time Delivery Rate 09/22/18 98.0 75 18 141/90 94 08:36 (107) 09/21/18 Room Air 20:00 09/21/18 07:37 Intake and Output 09/21/18 09/21/18 09/22/18 1515:00 23:00 07:00 IntakeIntake Total 100 ml 300 ml BalanceBalance 100 ml 300 ml Exam Constitutional: alert, oriented Psych: no complaints, nl mood/affect Head: normocephalic, atraumatic Neck: supple, jvd (8-9cm) Respiratory: crackles/rales (bibasilar ); No clear to auscultation Cardiovascular: regular rate and rhythm; No edema, No systolic murmur Gastrointestinal: soft, non-tender; No distended Extremities: normal pulses Neurological: nl mental status, nl speech Medications Medications Current Medications IV Flush (NS 3 ml) 3 ml PER PROTOCOL IV ; Start 09/19/18 at 16:30 Ondansetron HCl (Zofran Inj) 4 mg Q6H PRN IV NAUSEA AND/OR VOMITING Last administered on 09/20/18at 05:43; Admin Dose 4 MG; Start 09/19/18 at 16:30 Acetaminophen (Tylenol Tab) 650 mg Q6H PRN PO PAIN LEVEL 1-3 OR FEVER Last administered on 09/20/18 14:03; Admin Dose 650 MG; Start 09/19/18 at 16:30 Pantoprazole (Protonix Tab) 40 mg DAILY@06 PO Last administered on 09/22/18 06:51; Admin Dose 40 MG; Start 09/20/18 at 06:00 Aspirin (Halfprin) 81 mg DAILY PO Last administered on 09/22/18 09:23; Admin Dose 81 MG; Start 09/20/18 at 09:00 Atorvastatin Calcium (Lipitor) 40 mg HS PO Last administered on 09/21/18at 20:56; Admin Dose 40 MG; Start 09/19/18 at 21:00 Fluoxetine HCl (Prozac) 20 mg DAILY PO Last administered on 09/22/18 09:23; Admin Dose 20 MG; Start 09/20/18 at 09:00 Levothyroxine Sodium (Synthroid) 50 mcg BEFORE BREAKFAST PO Last administered on 09/22/18 06:51; Admin Dose 50 MCG; Start 09/20/18 at 07:00 Lisinopril (Zestril) 5 mg DAILY PO Last administered on 09/22/18 09:22; Admin Dose 5 MG; Start 09/20/18 at 09:00 Loratadine (Claritin) 10 mg DAILY PO Last administered on 09/22/18 09:23; Admin Dose 10 MG; Start 09/20/18 at 09:00 Losartan Potassium (Cozaar) 25 mg DAILY PO Last administered on 09/22/18 09:23; Admin Dose 25 MG; Start 09/20/18 at 09:00 Metoprolol Tartrate (Lopressor) 50 mg BID PO Last administered on 09/22/18 09:23; Admin Dose 50 MG; Start 09/19/18 at 21:00 Trazodone HCl (Desyrel) 50 mg HS PO Last administered on 09/21/18 20:56; Admin Dose 50 MG; Start 09/19/18 at 21:00 Insulin Aspart (Novolog Insulin Pen) NOVOLOG *MODERATE* ALGORITHM WITH MEALS BEDTIME SC Last administered on 09/22/18 08:32; Admin Dose 2 UNIT; Start 09/19/18 at 18:00 Miscellaneous Information 1 ea NOTE XX ; Start 09/19/18 at 16:30 Glucose (Glutose) 15 gm Q15M PRN PO DECREASED GLUCOSE; Start 09/19/18 at 16:30 Glucose (Glutose) 22.5 gm Q15M PRN PO DECREASED GLUCOSE; Start 09/19/18 at 16:30 Dextrose (D50w Syringe) 25 ml Q15M PRN IV DECREASED GLUCOSE; Start 09/19/18 at 16:30 Dextrose (D50w Syringe) 50 ml Q15M PRN IV DECREASED GLUCOSE; Start 09/19/18 at 16:30 Glucagon (Glucagen) 1 mg Q15M PRN IM DECREASED GLUCOSE; Start 09/19/18 at 16:30 Glucose (Glutose) 15 gm Q15M PRN BUCCAL DECREASED GLUCOSE; Start 09/19/18 at 16:30 Hydralazine HCl (Apresoline) 10 mg Q6H PRN IV SBP>160; Start 09/19/18 at 16:30 Polyethylene Glycol (Miralax) 17 gm BID PO Last administered on 09/22/18 09:23; Admin Dose 17 GM; Start 09/19/18 at 21:00 Bisacodyl (Dulcolax) 10 mg DAILY PRN PO CONSTIPATION; Start 09/19/18 at 16:30 Morphine Sulfate (morphine SULFATE (PF)) 1 mg Q4H PRN IV PAIN Last administered on 09/22/18at 01:57; Admin Dose 1 MG; Start 09/19/18 at 20:30 Enoxaparin Sodium (Lovenox) 30 mg DAILY SC Last administered on 09/22/18 09:24; Admin Dose 30 MG; Start 09/21/18 at 09:00 Tramadol HCl (Ultram) 50 mg Q6H PRN PO MODERATE PAIN LEVEL 4-6; Start 09/20/18 at 22:00 Meropenem/Sodium Chloride 50 ml @ 100 mls/hr Q12 IVPB Last administered on 09/22/18 09:24; Admin Dose 100 MLS/HR; Start 09/21/18 at 10:30 Insulin Aspart (Novolog Insulin Pen) 10 unit WITH MEALS SC Last administered on 09/22/18 08:31; Admin Dose 10 UNIT; Start 09/21/18 at 17:47 Insulin Glargine (Lantus) 28 units DAILY@2000 SC Last administered on 09/21/18 21:05; Admin Dose 28 UNITS; Start 09/21/18 at 20:00 Sucralfate (Carafate Susp) 1 gm QID PO Last administered on 09/22/18 09:23; Admin Dose 1 GM; Start 09/21/18 at 17:00 JAKOB WRIGHT Sep 22, 2018 10:52
[2018-09-22] MEDS ORDERED: FUROSEMIDE 20 MG INJ IV ONE (11:00)
--- NOTE | 2018-09-22 14:00 | NUR ---
Patient and daughter still sharing displeasure with being in hospital and wanting to leave either by D/C or AMA and mostly due to not being able to shower. RN and meteorologist in charge spoke with pt and family and told them that usually do to isolation status we cannot have pt using shower but will make exception. Family seemed pleased. RN made [employer] aware of need for pt to have shower before end of shift.
--- NOTE | 2018-09-22 14:10 | PN ---
Date/Time of Note Date/Time of Note DATE: 09/22/18 TIME: 14:06 Assessment/Plan VTE Prophylaxis Risk score (from Ns)>0 risk: 5 SCD applied (from Ns): No SCD contraindicated: other (scds) Pharmacological prophylaxis: other (scds) Lines/Catheters IV Catheter Type (from [facility]): Peripheral IV Urinary Cath still in place: No Assessment/Plan Hospital Course Assessment/Plan Assessment: Chronic anemia Epigastric pain- improved Chronic Nausea/Vomiting- improved LLQ abd pain H/o gastritis Urosepsis Obesity GA in 2017 s/p stents - previously on Plavix CAD DM Plan: EGD/Colonoscopy tomorrow Hold lovenox in am Cardiac cleared patient for procedures tomorrow 'ok to proceed with EGD/colo tomorrow" Plavix- d/c'd no need to restart per cardio Carafate/PPI Monitor labs Transfuse for Hgb less then 7.5 Patient seen in collaboration with Dr. Ennis/Vijaya Subjective: Course reviewed with nursing staff Patient interviewed and examined All labs, imaging and other results reviewed The patient resting in bed, agrees to stay and agrees to proceed with EGD/colonoscopy Discussed procedures risk/benefits/alternatives with both patient and patient's daughter who helped translate both verbalized understanding are agreeable to procedure tomorrow Currently no complaints of abdominal pain nausea or vomiting. She denies overt signs of GI bleed General: obese, Awake and oriented x3, in no apparent distress. HEENT: Normocephalic, atraumatic. Respiratory: Bilaterally clear breath sounds. Cardiovascular: S1, S2 heard. Regular rate and rhythm. Abdomen: Soft, obese, epigastric and LLQ pain- improved, and nondistended. Bowel sounds positive in all 4 quadrants. Genitourinary: Deferred. Extremities: No cyanosis, no clubbing, no edema. Peripheral pulses palpable. Skin: Normal skin turgor. No skin rashes. Result Diagram: 09/22/18 0515 09/22/18 0515 Results 24hrs Laboratory Tests Test 09/21/18 17:15 09/21/18 21:02 09/22/18 02:00 09/22/18 05:15 Bedside Glucose 169 154 Stool Occult Blood NEGATIVE White Blood Count 10.0 Red Blood Count 3.02 L Hemoglobin 8.2 L Hematocrit 24.9 L Mean Corpuscular 82.5 Volume Mean Corpuscular 27.2 L Hemoglobin Mean Corpuscular 32.9 Hemoglobin Concent Red Cell 13.4 Distribution Width Platelet Count 306 Mean Platelet Volume 10.9 H Immature 0.700 H Granulocytes % Neutrophils % 48.6 Lymphocytes % 39.2 Monocytes % 9.7 Eosinophils % 1.6 Basophils % 0.2 Nucleated Red Blood 0.0 Cells % Immature 0.070 H Granulocytes # Neutrophils # 4.9 Lymphocytes # 3.9 H Monocytes # 1.0 H Eosinophils # 0.2 Basophils # 0.0 Nucleated Red Blood 0.0 Cells # Sodium Level 137 Potassium Level 4.5 Chloride Level 106 Carbon Dioxide Level 21 Anion Gap 10 Blood Urea Nitrogen 18 Creatinine 0.96 Est Glomerular > 60 Filtrat Rate mL/min Glucose Level 153 Calcium Level 8.4 Phosphorus Level 3.9 Magnesium Level 2.0 Test 09/22/18 08:11 09/22/18 12:40 Bedside Glucose 152 194 Exam/Review of Systems Vital Signs Vitals Vital Signs Date Temp Pulse Resp B/P (MAP) Pulse Ox O2 O2 Flow FiO2 Time Delivery Rate 09/22/18 98.0 75 18 141/90 94 08:36 (107) 09/21/18 Room Air 20:00 09/21/18 07:37 Intake and Output 09/21/18 09/21/18 09/22/18 1414:59 22:59 06:59 IntakeIntake Total 100 ml 300 ml BalanceBalance 100 ml 300 ml Medications Medications Current Medications IV Flush (NS 3 ml) 3 ml PER PROTOCOL IV ; Start 09/19/18 at 16:30 Ondansetron HCl (Zofran Inj) 4 mg Q6H PRN IV NAUSEA AND/OR VOMITING Last administered on 09/20/18at 05:43; Admin Dose 4 MG; Start 09/19/18 at 16:30 Acetaminophen (Tylenol Tab) 650 mg Q6H PRN PO PAIN LEVEL 1-3 OR FEVER Last administered on 09/20/18at 14:03; Admin Dose 650 MG; Start 09/19/18 at 16:30 Pantoprazole (Protonix Tab) 40 mg DAILY@06 PO Last administered on 09/22/18at 06:51; Admin Dose 40 MG; Start 09/20/18 at 06:00 Aspirin (Halfprin) 81 mg DAILY PO Last administered on 09/22/18 09:23; Admin Dose 81 MG; Start 09/20/18 at 09:00 Atorvastatin Calcium (Lipitor) 40 mg HS PO Last administered on 09/21/18 20:56; Admin Dose 40 MG; Start 09/19/18 at 21:00 Fluoxetine HCl (Prozac) 20 mg DAILY PO Last administered on 09/22/18 09:23; A dmin Dose 20 MG; Start 09/20/18 at 09:00 Levothyroxine Sodium (Synthroid) 50 mcg BEFORE BREAKFAST PO Last administered on 09/22/18 06:51; Admin Dose 50 MCG; Start 09/20/18 at 07:00 Loratadine (Claritin) 10 mg DAILY PO Last administered on 09/22/18 09:23; Admin Dose 10 MG; Start 09/20/18 at 09:00 Losartan Potassium (Cozaar) 25 mg DAILY PO Last administered on 09/22/18 09:23; Admin Dose 25 MG; Start 09/20/18 at 09:00 Trazodone HCl (Desyrel) 50 mg HS PO Last administered on 09/21/18 20:56; Admin Dose 50 MG; Start 09/19/18 at 21:00 Insulin Aspart (Novolog Insulin Pen) NOVOLOG *MODERATE* ALGORITHM WITH MEALS BEDTIME SC Last administered on 09/22/18 12:48; Admin Dose 4 UNIT; Start 09/09 09/27 at 18:00 Miscellaneous Information 1 ea NOTE XX ; Start 09/19/18 at 16:30 Glucose (Glutose) 15 gm Q15M PRN PO DECREASED GLUCOSE; Start 09/19/18 at 16:30 Glucose (Glutose) 22.5 gm Q15M PRN PO DECREASED GLUCOSE; Start 09/19/18 at 16:30 Dextrose (D50w Syringe) 25 ml Q15M PRN IV DECREASED GLUCOSE; Start 09/19/18 at 16:30 Dextrose (D50w Syringe) 50 ml Q15M PRN IV DECREASED GLUCOSE; Start 09/19/18 at 16:30 Glucagon (Glucagen) 1 mg Q15M PRN IM DECREASED GLUCOSE; Start 09/19/18 at 16:30 Glucose (Glutose) 15 gm Q15M PRN BUCCAL DECREASED GLUCOSE; Start 09/19/18 at 16:30 Hydralazine HCl (Apresoline) 10 mg Q6H PRN IV SBP>160; Start 09/19/18 at 16:30 Polyethylene Glycol (Miralax) 17 gm BID PO Last administered on 09/22/18at 09:23; Admin Dose 17 GM; Start 09/19/18 at 21:00 Bisacodyl (Dulcolax) 10 mg DAILY PRN PO CONSTIPATION; Start 09/19/18 at 16:30 Morphine Sulfate (morphine SULFATE (PF)) 1 mg Q4H PRN IV PAIN Last administered on 09/22/18at 01:57; Admin Dose 1 MG; Start 09/19/18 at 20:30 Enoxaparin Sodium (Lovenox) 30 mg DAILY SC Last administered on 09/22/18at 09:24; Admin Dose 30 MG; Start 09/21/18 at 09:00 Tramadol HCl (Ultram) 50 mg Q6H PRN PO MODERATE PAIN LEVEL 4-6; Start 09/20/18 at 22:00 Insulin Aspart (Novolog Insulin Pen) 10 unit WITH MEALS SC Last administered on 09/22/18at 12:41; Admin Dose 10 UNIT; Start 09/21/18 at 17:47 Insulin Glargine (Lantus) 28 units DAILY@2000 SC Last administered on 09/21/18at 21:05; Admin Dose 28 UNITS; Start 09/21/18 at 20:00 Sucralfate (Carafate Susp) 1 gm QID PO Last administered on 09/22/18 09:23; Admin Dose 1 GM; Start 09/21/18 at 17:00 Carvedilol (Coreg) 6.25 mg BID PO ; Start 09/22/18 at 21:00 Ertapenem 1 gm/ Sodium Chloride 100 ml @ 200 mls/hr Q24H IVPB ; Start 09/22/18 at 13:00 HARSHA OKEEFE Sep 22, 2018 14:10
[2018-09-22] MEDS ORDERED: BISACODYL (EC) 5 MG TAB PO ONE (14:30)
--- NOTE | 2018-09-22 14:47 | CONS ---
Date/Time of Note Date/Time of Note DATE: 09/22/18 TIME: 14:46 Assessment/Plan Assessment/Plan Hospital Course All noted, no acute events, patient looks comfortable Microbiology: Blood and urine cultures since admission grew E. coli ESBL, repeat blood cultures negative Antimicrobials: Invanz Physical examination: This is a morbidly obese well-developed middle-aged woman who is alert in no distress. Head atraumatic normocephalic sclera nonicteric neck is supple chest rise symmetrical breath sounds clear heart S1-S2 abdomen soft bowel sounds present extremities without cyanosis. Assessment: 1. Sepsis, resolving 2. E. coli ESBL bacteremia secondary to UTI 3. Morbid obesity 4. Diabetes 5. History of psoriasis Plan: Remains stable, repeat blood cultures negative, continue present care, anticipate complete 2 weeks of Invanz Result Diagram: 09/22/18 0515 09/22/18 0515 Results 24hrs Laboratory Tests Test 09/21/18 17:15 09/21/18 21:02 09/22/18 02:00 09/22/18 05:15 Bedside Glucose 169 154 Stool Occult Blood NEGATIVE White Blood Count 10.0 Red Blood Count 3.02 L Hemoglobin 8.2 L Hematocrit 24.9 L Mean Corpuscular 82.5 Volume Mean Corpuscular 27.2 L Hemoglobin Mean Corpuscular 32.9 Hemoglobin Concent Red Cell 13.4 Distribution Width Platelet Count 306 Mean Platelet Volume 10.9 H Immature 0.700 H Granulocytes % Neutrophils % 48.6 Lymphocytes % 39.2 Monocytes % 9.7 Eosinophils % 1.6 Basophils % 0.2 Nucleated Red Blood 0.0 Cells % Immature 0.070 H Granulocytes # Neutrophils # 4.9 Lymphocytes # 3.9 H Monocytes # 1.0 H Eosinophils # 0.2 Basophils # 0.0 Nucleated Red Blood 0.0 Cells # Sodium Level 137 Potassium Level 4.5 Chloride Level 106 Carbon Dioxide Level 21 Anion Gap 10 Blood Urea Nitrogen 18 Creatinine 0.96 Est Glomerular > 60 Filtrat Rate mL/min Glucose Level 153 Calcium Level 8.4 Phosphorus Level 3.9 Magnesium Level 2.0 Test 09/22/18 08:11 09/22/18 12:40 Bedside Glucose 152 194 Consultation Date/Type/Reason Admit Date/Time Sep 19, 2018 at 12:18 Initial Consult Date 09/19/18 Type of Consult id Requesting Provider: MACIDO,ALISHA MOVE COORDINATOR Exam/Review of Systems Vital Signs Vitals Vital Signs Date Temp Pulse Resp B/P (MAP) Pulse Ox O2 O2 Flow FiO2 Time Delivery Rate 09/22/18 98.0 75 18 141/90 94 08:36 (107) 09/21/18 Room Air 20:00 09/21/18 07:37 Intake and Output 09/21/18 09/21/18 09/22/18 1515:00 23:00 07:00 IntakeIntake Total 100 ml 300 ml BalanceBalance 100 ml 300 ml Medications Medications Current Medications IV Flush (NS 3 ml) 3 ml PER PROTOCOL IV ; Start 09/19/18 at 16:30 Ondansetron HCl (Zofran Inj) 4 mg Q6H PRN IV NAUSEA AND/OR VOMITING Last administered on 09/20/18 05:43; Admin Dose 4 MG; Start 09/19/18 at 16:30 Acetaminophen (Tylenol Tab) 650 mg Q6H PRN PO PAIN LEVEL 1-3 OR FEVER Last administered on 09/20/18 14:03; Admin Dose 650 MG; Start 09/19/18 at 16:30 Pantoprazole (Protonix Tab) 40 mg DAILY@06 PO Last administered on 09/22/18 06:51; Admin Dose 40 MG; Start 09/20/18 at 06:00 Aspirin (Halfprin) 81 mg DAILY PO Last administered on 09/22/18 09:23; Admin Dose 81 MG; Start 09/20/18 at 09:00 Atorvastatin Calcium (Lipitor) 40 mg HS PO Last administered on 09/21/18 20:56; Admin Dose 40 MG; Start 09/19/18 at 21:00 Fluoxetine HCl (Prozac) 20 mg DAILY PO Last administered on 09/22/18 09:23; Admin Dose 20 MG; Start 09/20/18 at 09:00 Levothyroxine Sodium (Synthroid) 50 mcg BEFORE BREAKFAST PO Last administered on 09/22/18 06:51; Admin Dose 50 MCG; Start 09/20/18 at 07:00 Loratadine (Claritin) 10 mg DAILY PO Last administered on 09/22/18 09:23; Admin Dose 10 MG; Start 09/20/18 at 09:00 Losartan Potassium (Cozaar) 25 mg DAILY PO Last administered on 1/14/19at 09:23; Admin Dose 25 MG; Start 09/20/18 at 09:00 Trazodone HCl (Desyrel) 50 mg HS PO Last administered on 09/21/18at 20:56; Admin Dose 50 MG; Start 09/19/18 at 21:00 Insulin Aspart (Novolog Insulin Pen) NOVOLOG *MODERATE* ALGORITHM WITH MEALS BEDTIME SC Last administered on 09/22/18at 12:48; Admin Dose 4 UNIT; Start 09/19/18 at 18:00 Miscellaneous Information 1 ea NOTE XX ; Start 09/19/18 at 16:30 Glucose (Glutose) 15 gm Q15M PRN PO DECREASED GLUCOSE; Start 09/19/18 at 16:30 Glucose (Glutose) 22.5 gm Q15M PRN PO DECREASED GLUCOSE; Start 09/19/18 at 16:30 Dextrose (D50w Syringe) 25 ml Q15M PRN IV DECREASED GLUCOSE; Start 09/19/18 at 16:30 Dextrose (D50w Syringe) 50 ml Q15M PRN IV DECREASED GLUCOSE; Start 09/19/18 at 16:30 Glucagon (Glucagen) 1 mg Q15M PRN IM DECREASED GLUCOSE; Start 09/19/18 at 16:30 Glucose (Glutose) 15 gm Q15M PRN BUCCAL DECREASED GLUCOSE; Start 09/19/18 at 16:30 Hydralazine HCl (Apresoline) 10 mg Q6H PRN IV SBP>160; Start 09/19/18 at 16:30 Polyethylene Glycol (Miralax) 17 gm BID PO Last administered on 09/22/18at 09:23; Admin Dose 17 GM; Start 09/19/18 at 21:00 Bisacodyl (Dulcolax) 10 mg DAILY PRN PO CONSTIPATION; Start 09/19/18 at 16:30 Morphine Sulfate (morphine SULFATE (PF)) 1 mg Q4H PRN IV PAIN Last administered on 09/22/18at 01:57; Admin Dose 1 MG; Start 09/19/18 at 20:30 Enoxaparin Sodium (Lovenox) 30 mg DAILY SC Last administered on 09/22/18at 09:24; Admin Dose 30 MG; Start 09/21/18 at 09:00; Status Future hold Tramadol HCl (Ultram) 50 mg Q6H PRN PO MODERATE PAIN LEVEL 4-6; Start 09/20/18 at 22:00 Insulin Aspart (Novolog Insulin Pen) 10 unit WITH MEALS SC Last administered on 09/22/18at 12:41; Admin Dose 10 UNIT; Start 09/21/18 at 17:47 Insulin Glargine (Lantus) 28 units DAILY@2000 SC Last administered on 09/21/18at 21:05; Admin Dose 28 UNITS; Start 09/21/18 at 20:00 Sucralfate (Carafate Susp) 1 gm QID PO Last administered on 09/22/18at 09:23; Admin Dose 1 GM; Start 09/21/18 at 17:00 Carvedilol (Coreg) 6.25 mg BID PO ; Start 09/22/18 at 21:00 Ertapenem 1 gm/ Sodium Chloride 100 ml @ 200 mls/hr Q24H IVPB ; Start 09/22/18 at 13:00 Bisacodyl (Dulcolax) 10 mg ONCE ONCE PO ; Start 09/22/18 at 14:30; Stop 09/22/18 at 14:31; Status UNV Magnesium Citrate (Citroma) 300 ml ONCE ONCE PO ; Start 09/22/18 at 17:30; Stop 09/22/18 at 17:31; Status UNV Polyethylene Glycol (Miralax) 119 gm ONCE ONCE PO ; Start 09/22/18 at 18:30; Stop 09/22/18 at 18:31; Status UNV Polyethylene Glycol (Miralax) 119 gm 2ND DOSE (GI PREP) ONCE PO ; Start 09/23/18 at 06:00; Stop 09/23/18 at 06:01; Status UNV Bisacodyl (Dulcolax) 10 mg 2ND DOSE (GI PREP) ONCE PO ; Start 09/23/18 at 08:00; Stop 09/23/18 at 08:01; Status UNV SAVANNAH JUAREZ NP Sep 22, 2018 14:47
[2018-09-22] MEDS: ERTAPENEM SODIUM 1 GM in SOD CHLORIDE 0.9% 100 ML IVPB SCH (14:50)
--- NOTE | 2018-09-22 14:55 | RADRPT ---
Echocardiogram Report Patient Name: LEXIE TONY Gender: Female Date: 1970 Study Date: 22-Sep-2018 [employer]: Quyen Longoria [facility] Location: 2255 Ref. Physician: ALISHA ABARCA Quality: Good Procedures: Transthoracic echocardiogram with complete 2D, M-Mode, and doppler examination. Indications: Evaluate Left Ventricular function. 2D/M Mode Doppler Measurement Value Normal Ranges Measurement Value Normal Ranges LVIDd 2D 4.7 3.5 - 5.6 cm AV Peak Kosta 1.4 m/sec LVIDs 2D 3.1 2.1 - 4.1 cm AV Peak PG 8.0 mmHg FS 2D 34.3 % LVOT Peak Kosta 1.1 m/sec LVPWd 2D 1.2 0.6 - 1.1 cm LVOT Peak PG 5.0 mmHg IVSd 2D 1.0 0.6 - 1.1 cm MV E Peak Kosta 0.7 m/sec IVS/LVPW 2D 0.9 MV A Peak Kosta 0.8 m/sec AoR Diam 2D 2.5 2.0 - 3.7 cm MV E/A 0.9 LA/Ao 2D 1 0 - 1 MV Decel Time 173 msec EDV 2D 101.0 cm3 MV E/A 0.9 ESV 2D 28.7 cm3 TR Peak Kosta 3.1 m/sec LA Dimen 2D 3.3 2.3 - 4.0 cm TR Peak PG 38.0 mmHg RVSP 53.0 mmHg RA Pressure 15.0 Findings Left Ventricle: Lower limits of normal systolic function. Normal left ventricular cavity size. Mild concentric left ventricular hypertrophy. Ejection fraction is visually estimated at 50 %. Tissue Doppler/Mitral Doppler indices are consistent with impaired relaxation (Stage I diastolic dysfunction). Right Ventricle: Normal right ventricular size. Normal right ventricular systolic function. Left Atrium: There is mild enlargement of left atrium. Right Atrium: The right atrium is normal in size. Mitral Valve: Mild mitral annular calcification. Trace mitral regurgitation. Aortic Valve: Normal appearance of the aortic valve. No significant aortic stenosis or insufficiency. Tricuspid Valve: Normal appearance of the tricuspid valve. Estimated peak PA systolic pressure 46 mmHg. There is mild to moderate tricuspid regurgitation. Pulmonic Valve: Normal pulmonic valve appearance. Pericardium: Normal pericardium with no significant pericardial effusion. Aorta: Normal aortic root. IVC: Normal size and no respiratory collapse consistent with elevated right atrial pressure. Conclusions Lower limits of normal systolic function. Normal left ventricular cavity size. Mild concentric left ventricular hypertrophy. Ejection fraction is visually estimated at 50 %. Tissue Doppler/Mitral Doppler indices are consistent with impaired relaxation (Stage I diastolic dysfunction). Mild to moderate tricuspid regurgitation. Estimated peak PA systolic pressure 46 mmHg based on RA pressure of 8 mmHg. Electronically Signed By: Donell Maxwell 22-Sep-2018 14:54:41 -0800 Patient Name: LEXIE TONY Study Date: 22-Sep-2018 [id number]
[2018-09-22 15:31] VITALS: BP 126/75; PULSE 75; RESP 18
--- NOTE | 2018-09-22 16:16 | NUR ---
Diabetes Education Referral: Thank you for the referral. HbA1c 13.3%; 82kg; BMI 45; Admitting serum glucose 507 mg/dl; Cr 0.96 Pt stated she has had T2DM for about 20 years. Pt stated she takes Lantus 20 unit BID and Humalog. Before further discussion could be had, pt requested I come at a later time. Spoke with pt's daughter Deysi ([phone]) regarding a meeting. She will be at the bedside tomorrow morning. Will follow up with pt and daughter tomorrow morning.
--- NOTE | 2018-09-22 17:28 | PN ---
Date/Time of Note Date/Time of Note DATE: 09/22/18 TIME: 17:20 Assessment/Plan VTE Prophylaxis Risk score (from Ns)>0 risk: 5 SCD applied (from Ns): Yes Pharmacological prophylaxis: LMWH Lines/Catheters IV Catheter Type (from Nrs): Peripheral IV Urinary Cath still in place: No Assessment/Plan Assessment/Plan 1. ESBL UTI, on invanz 2. E. coli ESBL bacteremia secondary to UTI, on invanz 3. Sepsis, resolved 4. Anemia, EGD/colonoscopy tomorrow 5. CAD status post stent to mid LAD, stable 6. Hyperkalemia, renal failure related, resolved 7. Acute nonoliguric kidney injury, sepsis related, resolved 8. Hypothyroidism.Continue Synthroid. 9. Dyslipidemia. Continue statins. 10. Obesity. BMI 45 kg/m.Advised weight reduction. 12. DVT prophylaxis.-SQ Lovenox Result Diagram: 09/22/18 0515 09/22/18 0515 Results 24hrs Laboratory Tests Test 09/21/18 21:02 09/22/18 02:00 09/22/18 05:15 09/22/18 08:11 Bedside Glucose 154 152 Stool Occult Blood NEGATIVE White Blood Count 10.0 Red Blood Count 3.02 L Hemoglobin 8.2 L Hematocrit 24.9 L Mean Corpuscular 82.5 Volume Mean Corpuscular 27.2 L Hemoglobin Mean Corpuscular 32.9 Hemoglobin Concent Red Cell 13.4 Distribution Width Platelet Count 306 Mean Platelet Volume 10.9 H Immature 0.700 H Granulocytes % Neutrophils % 48.6 Lymphocytes % 39.2 Monocytes % 9.7 Eosinophils % 1.6 Basophils % 0.2 Nucleated Red Blood 0.0 Cells % Immature 0.070 H Granulocytes # Neutrophils # 4.9 Lymphocytes # 3.9 H Monocytes # 1.0 H Eosinophils # 0.2 Basophils # 0.0 Nucleated Red Blood 0.0 Cells # Sodium Level 137 Potassium Level 4.5 Chloride Level 106 Carbon Dioxide Level 21 Anion Gap 10 Blood Urea Nitrogen 18 Creatinine 0.96 Est Glomerular > 60 Filtrat Rate mL/min Glucose Level 153 Calcium Level 8.4 Phosphorus Level 3.9 Magnesium Level 2.0 Test 09/22/18 12:40 Bedside Glucose 194 Subjective 24 Hr Interval Summary Free Text/Dictation no chest pain, no abdominal pain. afebrile Exam/Review of Systems Vital Signs Vitals Vital Signs Date Temp Pulse Resp B/P (MAP) Pulse Ox O2 O2 Flow FiO2 Time Delivery Rate 09/22/18 97.8 75 18 126/75 98 15:31 (92) 09/21/18 Room Air 20:00 09/21/18 07:37 Intake and Output 09/21/18 09/21/18 09/22/18 1515:00 23:00 07:00 IntakeIntake Total 100 ml 300 ml BalanceBalance 100 ml 300 ml Exam Constitutional: alert, oriented, well developed Psych: no complaints, nl mood/affect Head: normocephalic, atraumatic Eyes: nl conjunctiva, EOMI, nl lids, PERRL ENMT: nl external ears & nose, nl lips & teeth, nl nasal mucosa & septum Neck: supple, non-tender Respiratory: clear to auscultation, normal air movement; No congested cough, No crackles/rales, No diminished breath sounds, No intercostal retraction, No labored breathing, No respirations, No tactile fremitus, No wheezing, No other Cardiovascular: regular rate and rhythm, nl pulses; No bruits, No diastolic murmur, No edema, No gallop, No irregular rhythm, No jugular venous distention (JVD), No murmurs/extra sounds, No rub, No systolic murmur, No S3, No S4, No other Gastrointestinal: soft, nl liver, spleen, non-tender Musculoskeletal: nl extremities to inspection Extremities: normal pulses; No calf tenderness, No cyanosis, No clubbing, No edema, No pitting pedal edema, No palpable cord, No tenderness, No other Neurological: FEEDER CATCHER TOBACCO II-XII intact, nl mental status, nl speech, nl strength Medications Medications Current Medications IV Flush (NS 3 ml) 3 ml PER PROTOCOL IV ; Start 09/19/18 at 16:30 Ondansetron HCl (Zofran Inj) 4 mg Q6H PRN IV NAUSEA AND/OR VOMITING Last administered on 09/20/18at 05:43; Admin Dose 4 MG; Start 09/19/18 at 16:30 Acetaminophen (Tylenol Tab) 650 mg Q6H PRN PO PAIN LEVEL 1-3 OR FEVER Last administered on 09/20/18at 14:03; Admin Dose 650 MG; Start 09/19/18 at 16:30 Pantoprazole (Protonix Tab) 40 mg DAILY@06 PO Last administered on 09/22/18 06:51; Admin Dose 40 MG; Start 09/20/18 at 06:00 Aspirin (Halfprin) 81 mg DAILY PO Last administered on 09/22/18 09:23; Admin Dose 81 MG; Start 09/20/18 at 09:00 Atorvastatin Calcium (Lipitor) 40 mg HS PO Last administered on 09/21/18 20:56; Admin Dose 40 MG; Start 09/19/18 at 21:00 Fluoxetine HCl (Prozac) 20 mg DAILY PO Last administered on 09/22/18 09:23; Admin Dose 20 MG; Start 09/20/18 at 09:00 Levothyroxine Sodium (Synthroid) 50 mcg BEFORE BREAKFAST PO Last administered on 09/22/18 06:51; Admin Dose 50 MCG; Start 09/20/18 at 07:00 Loratadine (Claritin) 10 mg DAILY PO Last administered on 09/22/18 09:23; Admin Dose 10 MG; Start 09/20/18 at 09:00 Losartan Potassium (Cozaar) 25 mg DAILY PO Last administered on 09/22/18 09:23; Admin Dose 25 MG; Start 09/20/18 at 09:00 Trazodone HCl (Desyrel) 50 mg HS PO Last administered on 09/21/18 20:56; Admin Dose 50 MG; Start 09/19/18 at 21:00 Insulin Aspart (Novolog Insulin Pen) NOVOLOG *MODERATE* ALGORITHM WITH MEALS BEDTIME SC Last administered on 09/22/18 12:48; Admin Dose 4 UNIT; Start 09/19/18 at 18:00 Miscellaneous Information 1 ea NOTE XX ; Start 09/19/18 at 16:30 Glucose (Glutose) 15 gm Q15M PRN PO DECREASED GLUCOSE; Start 09/19/18 at 16:30 Glucose (Glutose) 22.5 gm Q15M PRN PO DECREASED GLUCOSE; Start 09/19/18 at 16:30 Dextrose (D50w Syringe) 25 ml Q15M PRN IV DECREASED GLUCOSE; Start 09/19/18 at 16:30 Dextrose (D50w Syringe) 50 ml Q15M PRN IV DECREASED GLUCOSE; Start 09/19/18 at 16:30 Glucagon (Glucagen) 1 mg Q15M PRN IM DECREASED GLUCOSE; Start 09/19/18 at 16:30 Glucose (Glutose) 15 gm Q15M PRN BUCCAL DECREASED GLUCOSE; Start 09/19/18 at 16:30 Hydralazine HCl (Apresoline) 10 mg Q6H PRN IV SBP>160; Start 09/19/18 at 16:30 Polyethylene Glycol (Miralax) 17 gm BID PO Last administered on 09/22/18at 09:23; Admin Dose 17 GM; Start 09/19/18 at 21:00 Bisacodyl (Dulcolax) 10 mg DAILY PRN PO CONSTIPATION; Start 09/19/18 at 16:30 Morphine Sulfate (morphine SULFATE (PF)) 1 mg Q4H PRN IV PAIN Last administered on 09/22/18at 01:57; Admin Dose 1 MG; Start 09/19/18 at 20:30 Enoxaparin Sodium (Lovenox) 30 mg DAILY SC Last administered on 09/22/18at 09:24; Admin Dose 30 MG; Start 09/21/18 at 09:00; Status Future hold Tramadol HCl (Ultram) 50 mg Q6H PRN PO MODERATE PAIN LEVEL 4-6; Start 09/20/18 at 22:00 Insulin Aspart (Novolog Insulin Pen) 10 unit WITH MEALS SC Last administered on 09/22/18at 12:41; Admin Dose 10 UNIT; Start 09/21/18 at 17:47 Insulin Glargine (Lantus) 28 units DAILY@2000 SC Last administered on 09/21/18at 21:05; Admin Dose 28 UNITS; Start 09/21/18 at 20:00 Sucralfate (Carafate Susp) 1 gm QID PO Last administered on 09/22/18at 09:23; Admin Dose 1 GM; Start 09/21/18 at 17:00 Carvedilol (Coreg) 6.25 mg BID PO ; Start 09/22/18 at 21:00 Ertapenem 1 gm/ Sodium Chloride 100 ml @ 200 mls/hr Q24H IVPB ; Start 09/22/18 at 13:00 Magnesium Citrate (Citroma) 300 ml ONCE ONCE PO ; Start 09/22/18 at 17:30; Stop 09/22/18 at 17:31 Polyethylene Glycol (Miralax) 119 gm ONCE ONCE PO ; Start 09/22/18 at 18:30; Stop 09/22/18 at 18:31 Polyethylene Glycol (Miralax) 119 gm 2ND DOSE (GI PREP) ONCE PO ; Start 09/23/18 at 06:00; Stop 09/23/18 at 06:01 Bisacodyl (Dulcolax) 10 mg 2ND DOSE (GI PREP) ONCE PO ; Start 09/23/18 at 08:00; Stop 09/23/18 at 08:01 ROB HOLCOMB MD Sep 22, 2018 17:28
[2018-09-22] MEDS ORDERED: MAGNESIUM CITRATE 300 ML BTL PO ONE (17:30)
[2018-09-22] MEDS: ACETAMINOPHEN 325 MG TAB PO PRN (18:03)
--- NOTE | 2018-09-22 18:27 | NUR ---
Patient with stable vitals throughout shift. Tolerating current treatment regimen. To have colonoscopy tomorrow. Started on clear liquids and bowel prep. Will continue to monitor and endorse to next shift.
[2018-09-22] MEDS ORDERED: POLYETHYLENE GLYCOL 3350 119 GM POWDER PO ONE (18:30)
[2018-09-22 19:35] VITALS: BP 145/76; PULSE 75; RESP 18
[2018-09-22] MEDS: ATORVASTATIN 40 MG TAB PO SCH (22:22)
[2018-09-22] MEDS: traZODone 50 MG TAB PO SCH (22:23)
[2018-09-22] MEDS: INSULIN GLARGINE [LANTus] (100 UNITS/ML) SYG SC SCH (22:31)
[2018-09-23] VITALS (16 sets, daily range): BP systolic 131–192; BP diastolic 69–92; PULSE 67–89; RESP 18–25
[2018-09-23] MEDS ORDERED: POLYETHYLENE GLYCOL 3350 119 GM POWDER PO ONE (06:00)
[2018-09-23] MEDS: LEVOTHYROXINE 50 MCG TAB PO SCH (07:00)
[2018-09-23] MEDS: PANTOPRAZOLE (EC) 40 MG TAB PO SCH (07:02)
[2018-09-23] MEDS: INSULIN ASPART [NOVOLOG] 3 ML PEN SC SCH ×5 (07:35→21:24)
--- NOTE | 2018-09-23 07:46 | NUR ---
Pt is alert and oriented x4. Pt has been ambulation to the restroom. She is scheduled for colonoscopy today. Bowel prep still going on. IV site changed. Family educated about isolation, but still refusing to be compliant with it bc according to them pt did not have isolation on previous floor. Pt had a shower last night as well, and she denied any pain. Will continue monitoring pt.
[2018-09-23] MEDS ORDERED: BISACODYL (EC) 5 MG TAB PO ONE (08:00)
[2018-09-23] MEDS: ASPIRIN (EC) 81 MG TAB PO SCH (08:42)
[2018-09-23] MEDS: SUCRALFATE (100 MG/ML) 10ML CUP PO SCH ×4 (08:42→20:16)
[2018-09-23] MEDS: LOSARTAN 25 MG TAB PO SCH (08:42)
[2018-09-23] MEDS: POLYETHYLENE GLYCOL 17 GM PACKET PO SCH ×2 (08:42→20:16)
[2018-09-23] MEDS: LORATADINE 10 MG TAB PO SCH (08:42)
[2018-09-23] MEDS: FLUOXETINE 20 MG CAP PO SCH (08:42)
--- NOTE | 2018-09-23 09:15 | NUR ---
Diabetes Education: Attempted to follow up with pt and daughter Deysi at bedside as previously planned. Pt stated she did not want to see me at this time. Will attempt to follow up later. Outpatient follow up was also offered.
[2018-09-23] MEDS ORDERED: DEXTROSE 5%-0.45% NACL 1,000 ML IV SCH (11:30)
[2018-09-23] MEDS: Insulin NOVOLOG SS MODERATE Algorithm(NPO/TPN/ENTERAL FEEDS) SC SCH ×2 (12:48→17:00)
[2018-09-23] MEDS: ERTAPENEM SODIUM 1 GM in SOD CHLORIDE 0.9% 100 ML IVPB SCH (12:48)
[2018-09-23] MEDS ORDERED: INSULIN ASPART [NOVOLOG] 3 ML PEN SC SCH (13:00)
--- NOTE | 2018-09-23 13:38 | PN ---
Date/Time of Note Date/Time of Note DATE: 09/23/18 TIME: 13:37 Assessment/Plan VTE Prophylaxis Risk score (from Ns)>0 risk: 3 SCD applied (from Ns): Yes Pharmacological prophylaxis: LMWH Lines/Catheters IV Catheter Type (from Nrs): Saline Lock Urinary Cath still in place: No Assessment/Plan Assessment/Plan 1. ESBL UTI, on invanz 2. E. coli ESBL bacteremia secondary to UTI, on invanz 3. Sepsis, resolved 4. Anemia, EGD/colonoscopy today 5. CAD status post stent to mid LAD, stable 6. Hyperkalemia, renal failure related, resolved 7. Acute nonoliguric kidney injury, sepsis related, resolved 8. Hypothyroidism.Continue Synthroid. 9. Dyslipidemia. Continue statins. 10. Obesity. BMI 45 kg/m.Advised weight reduction. 12. DVT prophylaxis.-SQ Lovenox Result Diagram: 09/23/18 0446 09/23/18 0446 Results 24hrs Laboratory Tests Test 09/22/18 18:00 09/23/18 01:16 09/23/18 04:46 09/23/18 08:30 Bedside Glucose 107 126 104 White Blood Count 9.0 Red Blood Count 3.48 L Hemoglobin 9.5 L Hematocrit 28.9 L Mean Corpuscular 83.0 Volume Mean Corpuscular 27.3 L Hemoglobin Mean Corpuscular 32.9 Hemoglobin Concent Red Cell 13.2 Distribution Width Platelet Count 398 # Mean Platelet Volume 10.7 H Immature 1.300 H Granulocytes % Neutrophils % 44.7 Lymphocytes % 43.1 Monocytes % 8.7 Eosinophils % 1.9 Basophils % 0.3 Nucleated Red Blood 0.0 Cells % Immature 0.120 H Granulocytes # Neutrophils # 4.0 Lymphocytes # 3.9 H Monocytes # 0.8 Eosinophils # 0.2 Basophils # 0.0 Nucleated Red Blood 0.0 Cells # Sodium Level 138 Potassium Level 4.0 Chloride Level 109 Carbon Dioxide Level 22 Anion Gap 7 Blood Urea Nitrogen 16 Creatinine 0.84 Est Glomerular > 60 Filtrat Rate mL/min Glucose Level 121 Calcium Level 8.8 Test 09/23/18 12:47 Bedside Glucose 120 Subjective 24 Hr Interval Summary Free Text/Dictation no abdominal pain, afebrile Exam/Review of Systems Vital Signs Vitals Vital Signs Date Temp Pulse Resp B/P (MAP) Pulse Ox O2 O2 Flow FiO2 Time Delivery Rate 09/23/18 97.5 75 18 155/77 98 Room Air 08:02 (103) 09/21/18 07:37 Intake and Output 09/22/18 09/22/18 09/23/18 1515:00 23:00 07:00 IntakeIntake Total 290 ml 220 ml BalanceBalance 290 ml 220 ml Exam Constitutional: alert, oriented, well developed Psych: no complaints, nl mood/affect Head: normocephalic, atraumatic Eyes: nl conjunctiva, EOMI, nl lids, nl sclera, PERRL ENMT: nl external ears & nose, nl lips & teeth, nl nasal mucosa & septum Neck: supple, non-tender Respiratory: clear to auscultation, normal air movement; No congested cough, No crackles/rales, No diminished breath sounds, No intercostal retraction, No labored breathing, No respirations, No tactile fremitus, No wheezing, No other Cardiovascular: regular rate and rhythm, nl pulses; No bruits, No diastolic murmur, No edema, No gallop, No irregular rhythm, No jugular venous distention (JVD), No murmurs/extra sounds, No rub, No systolic murmur, No S3, No S4, No other Gastrointestinal: soft, nl liver, spleen, non-tender Musculoskeletal: nl extremities to inspection Extremities: normal pulses; No calf tenderness, No cyanosis, No clubbing, No edema, No pitting pedal edema, No palpable cord, No tenderness, No other Neurological: COMPUTER TYPESETTER KEYLINER II-XII intact, nl mental status, nl speech, nl strength Medications Medications Current Medications IV Flush (NS 3 ml) 3 ml PER PROTOCOL IV ; Start 09/19/18 at 16:30 Ondansetron HCl (Zofran Inj) 4 mg Q6H PRN IV NAUSEA AND/OR VOMITING Last administered on 09/20/18at 05:43; Admin Dose 4 MG; Start 09/19/18 at 16:30 Acetaminophen (Tylenol Tab) 650 mg Q6H PRN PO PAIN LEVEL 1-3 OR FEVER Last administered on 09/22/18at 18:03; Admin Dose 650 MG; Start 09/19/18 at 16:30 Pantoprazole (Protonix Tab) 40 mg DAILY@06 PO Last administered on 09/23/18at 07:02; Admin Dose 40 MG; Start 09/20/18 at 06:00 Aspirin (Halfprin) 81 mg DAILY PO Last administered on 09/22/18 09:23; Admin Dose 81 MG; Start 09/20/18 at 09:00 Atorvastatin Calcium (Lipitor) 40 mg HS PO Last administered on 09/22/18 22:22; Admin Dose 40 MG; Start 09/19/18 at 21:00 Fluoxetine HCl (Prozac) 20 mg DAILY PO Last administered on 09/22/18 09:23; Admin Dose 20 MG; Start 09/20/18 at 09:00 Levothyroxine Sodium (Synthroid) 50 mcg BEFORE BREAKFAST PO Last administered on 09/22/18 06:51; Admin Dose 50 MCG; Start 09/20/18 at 07:00 Loratadine (Claritin) 10 mg DAILY PO Last administered on 09/22/18 09:23; Admin Dose 10 MG; Start 09/20/18 at 09:00 Losartan Potassium (Cozaar) 25 mg DAILY PO Last administered on 09/22/18 09:23; Admin Dose 25 MG; Start 09/20/18 at 09:00 Trazodone HCl (Desyrel) 50 mg HS PO Last administered on 09/22/18 22:23; Admin Dose 50 MG; Start 09/19/18 at 21:00 Miscellaneous Information 1 ea NOTE XX ; Start 09/19/18 at 16:30 Glucose (Glutose) 15 gm Q15M PRN PO DECREASED GLUCOSE; Start 09/19/18 at 16:30 Glucose (Glutose) 22.5 gm Q15M PRN PO DECREASED GLUCOSE; Start 09/19/18 at 16:30 Dextrose (D50w Syringe) 25 ml Q15M PRN IV DECREASED GLUCOSE; Start 09/19/18 at 16:30 Dextrose (D50w Syringe) 50 ml Q15M PRN IV DECREASED GLUCOSE; Start 09/19/18 at 16:30 Glucagon (Glucagen) 1 mg Q15M PRN IM DECREASED GLUCOSE; Start 09/19/18 at 16:30 Glucose (Glutose) 15 gm Q15M PRN BUCCAL DECREASED GLUCOSE; Start 09/19/18 at 16:30 Hydralazine HCl (Apresoline) 10 mg Q6H PRN IV SBP>160; Start 09/19/18 at 16:30 Polyethylene Glycol (Miralax) 17 gm BID PO Last administered on 09/22/18at 22:22; Admin Dose 17 GM; Start 09/19/18 at 21:00 Bisacodyl (Dulcolax) 10 mg DAILY PRN PO CONSTIPATION; Start 09/19/18 at 16:30 Morphine Sulfate (morphine SULFATE (PF)) 1 mg Q4H PRN IV PAIN Last administered on 09/22/18at 01:57; Admin Dose 1 MG; Start 09/19/18 at 20:30 Enoxaparin Sodium (Lovenox) 30 mg DAILY SC Last administered on 09/22/18at 09 :24; Admin Dose 30 MG; Start 09/21/18 at 09:00; Status Hold Tramadol HCl (Ultram) 50 mg Q6H PRN PO MODERATE PAIN LEVEL 4-6; Start 09/20/18 at 22:00 Insulin Aspart (Novolog Insulin Pen) 10 unit WITH MEALS SC Last administered on 09/22/18at 18:01; Admin Dose 10 UNIT; Start 09/21/18 at 17:47 Insulin Glargine (Lantus) 28 units DAILY@2000 SC Last administered on 09/22/18at 22:31; Admin Dose 28 UNITS; Start 09/21/18 at 20:00 Sucralfate (Carafate Susp) 1 gm QID PO Last administered on 09/22/18at 09:23; Admin Dose 1 GM; Start 09/21/18 at 17:00 Carvedilol (Coreg) 6.25 mg BID PO Last administered on 09/23/18at 08:37; Admin Dose 6.25 MG; Start 09/22/18 at 21:00 Ertapenem 1 gm/ Sodium Chloride 100 ml @ 200 mls/hr Q24H IVPB Last administered on 09/23/18at 12:48; Admin Dose 200 MLS/HR; Start 09/22/18 at 13:00 Dextrose/Sodium Chloride 1,000 ml @ 50 mls/hr Q20H IV Last administered on 09/23/18at 11:26; Admin Dose 50 MLS/HR; Start 09/23/18 at 11:30 Insulin Aspart (Novolog Insulin Pen) (Adult SC Insulin - Moder... Q4 SC ; Start 1/15/19 at 13:00 ROB HOLCOMB MD Sep 23, 2018 13:38
--- NOTE | 2018-09-23 16:21 | CONS ---
Date/Time of Note Date/Time of Note DATE: 09/23/18 TIME: 16:21 Assessment/Plan Assessment/Plan Hospital Course Patient is alert feels good denies dysuria no hematuria, family at bedside she is afebrile and scheduled for colonoscopy today. Repeat blood cultures being negative Microbiology: Blood and urine cultures since admission grew E. coli ESBL, repeat blood cultures negative Antimicrobials: Invanz Physical examination: This is a morbidly obese well-developed middle-aged woman who is alert in no distress. Head atraumatic normocephalic sclera nonicteric neck is supple chest rise symmetrical breath sounds clear heart S1-S2 abdomen soft bowel sounds present extremities without cyanosis. Assessment: 1. Sepsis, resolving 2. E. coli ESBL bacteremia secondary to UTI 3. Morbid obesity 4. Diabetes 5. History of psoriasis Plan: Remains stable, anticipate complete 2 weeks of Invanz Discussed with patient and family at bedside Result Diagram: 09/23/18 0446 09/23/18 0446 Results 24hrs Laboratory Tests Test 09/22/18 18:00 09/23/18 01:16 09/23/18 04:46 09/23/18 08:30 Bedside Glucose 107 126 104 White Blood Count 9.0 Red Blood Count 3.48 L Hemoglobin 9.5 L Hematocrit 28.9 L Mean Corpuscular 83.0 Volume Mean Corpuscular 27.3 L Hemoglobin Mean Corpuscular 32.9 Hemoglobin Concent Red Cell 13.2 Distribution Width Platelet Count 398 # Mean Platelet Volume 10.7 H Immature 1.300 H Granulocytes % Neutrophils % 44.7 Lymphocytes % 43.1 Monocytes % 8.7 Eosinophils % 1.9 Basophils % 0.3 Nucleated Red Blood 0.0 Cells % Immature 0.120 H Granulocytes # Neutrophils # 4.0 Lymphocytes # 3.9 H Monocytes # 0.8 Eosinophils # 0.2 Basophils # 0.0 Nucleated Red Blood 0.0 Cells # Sodium Level 138 Potassium Level 4.0 Chloride Level 109 Carbon Dioxide Level 22 Anion Gap 7 Blood Urea Nitrogen 16 Creatinine 0.84 Est Glomerular > 60 Filtrat Rate mL/min Glucose Level 121 Calcium Level 8.8 Test 09/23/18 12:47 Bedside Glucose 120 Consultation Date/Type/Reason Admit Date/Time Sep 19, 2018 at 12:18 Initial Consult Date 09/19/18 Type of Consult id Requesting Provider: ALISHA ABARCA SNUFF CONTAINER INSPECTOR Exam/Review of Systems Vital Signs Vitals Vital Signs Date Temp Pulse Resp B/P (MAP) Pulse Ox O2 O2 Flow FiO2 Time Delivery Rate 09/23/18 98.8 72 20 166/78 98 Room Air 14:00 (107) 09/21/18 07:37 Intake and Output 09/22/18 09/22/18 09/23/18 1515:00 23:00 07:00 IntakeIntake Total 290 ml 220 ml BalanceBalance 290 ml 220 ml Medications Medications Current Medications IV Flush (NS 3 ml) 3 ml PER PROTOCOL IV ; Start 09/19/18 at 16:30 Ondansetron HCl (Zofran Inj) 4 mg Q6H PRN IV NAUSEA AND/OR VOMITING Last administered on 09/20/18 05:43; Admin Dose 4 MG; Start 09/19/18 at 16:30 Acetaminophen (Tylenol Tab) 650 mg Q6H PRN PO PAIN LEVEL 1-3 OR FEVER Last administered on 09/22/18 18:03; Admin Dose 650 MG; Start 09/19/18 at 16:30 Pantoprazole (Protonix Tab) 40 mg DAILY@06 PO Last administered on 09/23/18 07:02; Admin Dose 40 MG; Start 09/20/18 at 06:00 Aspirin (Halfprin) 81 mg DAILY PO Last administered on 09/22/18 09:23; Admin Dose 81 MG; Start 09/20/18 at 09:00 Atorvastatin Calcium (Lipitor) 40 mg HS PO Last administered on 09/22/18 22:22 ; Admin Dose 40 MG; Start 09/19/18 at 21:00 Fluoxetine HCl (Prozac) 20 mg DAILY PO Last administered on 09/22/18 09:23; Admin Dose 20 MG; Start 09/20/18 at 09:00 Levothyroxine Sodium (Synthroid) 50 mcg BEFORE BREAKFAST PO Last administered on 09/22/18 06:51; Admin Dose 50 MCG; Start 09/20/18 at 07:00 Loratadine (Claritin) 10 mg DAILY PO Last administered on 09/22/18 09:23; Admin Dose 10 MG; Start 09/20/18 at 09:00 Losartan Potassium (Cozaar) 25 mg DAILY PO Last administered on 09/22/18 09:23; Admin Dose 25 MG; Start 09/20/18 at 09:00 Trazodone HCl (Desyrel) 50 mg HS PO Last administered on 09/22/18at 22:23; Admin Dose 50 MG; Start 09/19/18 at 21:00 Miscellaneous Information 1 ea NOTE XX ; Start 09/19/18 at 16:30 Glucose (Glutose) 15 gm Q15M PRN PO DECREASED GLUCOSE; Start 09/19/18 at 16:30 Glucose (Glutose) 22.5 gm Q15M PRN PO DECREASED GLUCOSE; Start 09/19/18 at 16:30 Dextrose (D50w Syringe) 25 ml Q15M PRN IV DECREASED GLUCOSE; Start 09/19/18 at 16:30 Dextrose (D50w Syringe) 50 ml Q15M PRN IV DECREASED GLUCOSE; Start 09/19/18 at 16:30 Glucagon (Glucagen) 1 mg Q15M PRN IM DECREASED GLUCOSE; Start 09/19/18 at 16:30 Glucose (Glutose) 15 gm Q15M PRN BUCCAL DECREASED GLUCOSE; Start 09/19/18 at 16:30 Hydralazine HCl (Apresoline) 10 mg Q6H PRN IV SBP>160; Start 09/19/18 at 16:30 Polyethylene Glycol (Miralax) 17 gm BID PO Last administered on 09/22/18at 22:22; Admin Dose 17 GM; Start 09/19/18 at 21:00 Bisacodyl (Dulcolax) 10 mg DAILY PRN PO CONSTIPATION; Start 09/19/18 at 16:30 Morphine Sulfate (morphine SULFATE (PF)) 1 mg Q4H PRN IV PAIN Last administered on 09/22/18at 01:57; Admin Dose 1 MG; Start 09/19/18 at 20:30 Enoxaparin Sodium (Lovenox) 30 mg DAILY SC Last administered on 09/22/18at 09:24; Admin Dose 30 MG; Start 09/21/18 at 09:00; Status Hold Tramadol HCl (Ultram) 50 mg Q6H PRN PO MODERATE PAIN LEVEL 4-6; Start 09/20/18 at 22:00 Insulin Aspart (Novolog Insulin Pen) 10 unit WITH MEALS SC Last administered on 09/22/18at 18:01; Admin Dose 10 UNIT; Start 09/21/18 at 17:47 Insulin Glargine (Lantus) 28 units DAILY@2000 SC Last administered on 09/22/18at 22:31; Admin Dose 28 UNITS; Start 09/21/18 at 20:00 Sucralfate (Carafate Susp) 1 gm QID PO Last administered on 09/22/18at 09:23; Admin Dose 1 GM; Start 09/21/18 at 17:00 Carvedilol (Coreg) 6.25 mg BID PO Last administered on 09/23/18at 08:37; Admin Dose 6.25 MG; Start 09/22/18 at 21:00 Ertapenem 1 gm/ Sodium Chloride 100 ml @ 200 mls/hr Q24H IVPB Last administered on 09/23/18at 12:48; Admin Dose 200 MLS/HR; Start 09/22/18 at 13:00 Dextrose/Sodium Chloride 1,000 ml @ 50 mls/hr Q20H IV Last administered on 09/23/18at 11:26; Admin Dose 50 MLS/HR; Start 09/23/18 at 11:30 Insulin Aspart (Novolog Insulin Pen) (Adult SC Insulin - Moder... Q4 SC ; Start 09/23/18 at 13:00 SAVANNAH JUAREZ NP Sep 23, 2018 16:21
--- NOTE | 2018-09-23 16:53 | PREAC ---
Date/Time of Note Date/Time of Note DATE: 09/23/18 TIME: 16:51 Anesthesia Eval and Record Evaluation Time Pre-Procedure Interview DATE: 09/23/18 TIME: 16:51 Age 48 Sex female NPO: 8 hrs Preoperative diagnosis abd apin N/V, chronic anemia Planned procedure colonoscopy Past Medical History Past Medical History: Includes Cardio: HTN, CAD, PTCA/Stent, Other (pul HTN, EF 50%) Endo: Diabetes, Hypothyroid Surgery & Anesthesia Issues No known issue Meds Anticoagulation: No Beta David within 24 hr: No Reason Beta David not given: Pt. not on B-David Active Scripts Hydrocodone/Acetaminophen ([place] 5-325 Tablet) 1 Each Tablet, 1 TAB PO Q12 PRN for PAIN, #10 TAB Prov:LEEANNE RIVERA MD 02/28/18 Furosemide* (Lasix*) 40 Mg Tablet, 40 MG PO DAILY, #30 TAB Prov:ZIYAD HIGUERA MD 01/01/18 Pantoprazole* (Pantoprazole*) 40 Mg Tablet.dr, 40 MG PO DAILY@06 for 30 Days, #30 Prov:PETER CORBIN MD 12/20/17 Trazodone Hcl* (Desyrel*) 50 Mg Tab, 50 MG PO HS for 30 Days, #30 TAB Prov:PETER CORBIN MD 12/20/17 Metoprolol Tartrate* (Lopressor*) 50 Mg Tab, 50 MG PO BID for 30 Days, #30 TAB Prov:PETER CORBIN MD 12/20/17 Lisinopril* (Lisinopril*) 5 Mg Tablet, 5 MG PO DAILY for 30 Days, #30 TAB Prov:PETER CORBIN MD 12/20/17 Atorvastatin* (Atorvastatin*) 40 Mg Tablet, 40 MG PO HS for 30 Days, #30 TAB Prov:PETER CORBIN MD 12/20/17 Insulin Glargine* (Lantus*) 100 Unit/Ml Soln, 20 UNIT SC BID for 30 Days, #1 VIAL Prov:PETER CORBIN MD 12/20/17 Reported Medications Ondansetron Hcl* (Zofran*) 8 Mg Tab, 8 MG PO Q6H PRN for NAUSEA AND OR VOMITING, TAB 12/16/17 Aspirin (Low Dose Aspirin) 81 Mg Tablet.dr, 81 MG PO DAILY, #30 TAB 12/16/17 Loratadine* (Loratadine*) 10 Mg Tablet, 10 MG PO DAILY, #30 TAB 12/16/17 Fluoxetine Hcl* (Prozac*) 20 Mg Capsule, 20 MG PO DAILY, CAP 12/16/17 Losartan Potassium* (Losartan Potassium*) 25 Mg Tablet, 25 MG PO DAILY, TAB 12/16/17 Clopidogrel Bisulfate* (Clopidogrel Bisulfate*) 75 Mg Tablet, 75 MG PO DAILY, #30 TAB 04/07/17 Levothyroxine Sodium* (Levothyroxine Sodium*) 50 Mcg Tablet, 50 MCG PO BEFORE BREAKFAST, #30 TAB 04/07/17 Metformin Hcl* (Metformin Hcl*) 1,000 Mg Tablet, 1000 MG PO WITH BREAKFAST DINNE, #60 TAB 12/19/16 Discontinued Scripts Amoxicillin/Potassium Clav (Amox-Clav 875-125 mg Tablet) 875-125 mg Tab, 1 TAB PO BID for 10 Days, #20 TAB Prov:LEEANNE RIVERA MD 02/28/18 Benzonatate* (Tessalon Perle*) 100 Mg Capsule, 100 MG PO Q8H PRN for COUGH, #30 CAP Prov:ARPIT LAM MD 01/08/18 Furosemide* (Furosemide*) 40 Mg Tablet, 20 MG PO DAILY for 30 Days, #30 TAB Prov:PETER CORBIN MD 12/20/17 Triamcinolone Acetonide* (Kenalog*) 0.1%-15GM Cr, 1 APPLIC TOP BID for 30 Days, #30 GM Prov:PETER CORBIN MD 12/20/17 Levofloxacin* (Levaquin*) 750 Mg Tablet, 750 MG PO DAILY@06 for 6 Days, #6 TAB Prov:PETER CORBIN MD 12/20/17 Current Medications IV Flush (NS 3 ml) 3 ml PER PROTOCOL IV ; Start 09/19/18 at 16:30 Ondansetron HCl (Zofran Inj) 4 mg Q6H PRN IV NAUSEA AND/OR VOMITING Last admi nistered on 09/20/18at 05:43; Admin Dose 4 MG; Start 09/19/18 at 16:30 Acetaminophen (Tylenol Tab) 650 mg Q6H PRN PO PAIN LEVEL 1-3 OR FEVER Last administered on 09/22/18 18:03; Admin Dose 650 MG; Start 09/19/18 at 16:30 Pantoprazole (Protonix Tab) 40 mg DAILY@06 PO Last administered on 09/23/18 07:02; Admin Dose 40 MG; Start 09/20/18 at 06:00 Aspirin (Halfprin) 81 mg DAILY PO Last administered on 09/22/18 09:23; Admin Dose 81 MG; Start 09/20/18 at 09:00 Atorvastatin Calcium (Lipitor) 40 mg HS PO Last administered on 09/22/18 22:22; Admin Dose 40 MG; Start 09/19/18 at 21:00 Fluoxetine HCl (Prozac) 20 mg DAILY PO Last administered on 09/22/18 09:23; Admin Dose 20 MG; Start 09/20/18 at 09:00 Levothyroxine Sodium (Synthroid) 50 mcg BEFORE BREAKFAST PO Last administered on 09/22/18 06:51; Admin Dose 50 MCG; Start 09/20/18 at 07:00 Loratadine (Claritin) 10 mg DAILY PO Last administered on 09/22/18 09:23; Admin Dose 10 MG; Start 09/20/18 at 09:00 Losartan Potassium (Cozaar) 25 mg DAILY PO Last administered on 09/22/18 09:23; Admin Dose 25 MG; Start 09/20/18 at 09:00 Trazodone HCl (Desyrel) 50 mg HS PO Last administered on 09/22/18 22:23; Admin Dose 50 MG; Start 09/19/18 at 21:00 Miscellaneous Information 1 ea NOTE XX ; Start 09/19/18 at 16:30 Glucose (Glutose) 15 gm Q15M PRN PO DECREASED GLUCOSE; Start 09/19/18 at 16:30 Glucose (Glutose) 22.5 gm Q15M PRN PO DECREASED GLUCOSE; Start 09/19/18 at 16:30 Dextrose (D50w Syringe) 25 ml Q15M PRN IV DECREASED GLUCOSE; Start 09/19/18 at 16:30 Dextrose (D50w Syringe) 50 ml Q15M PRN IV DECREASED GLUCOSE; Start 09/19/18 at 16:30 Glucagon (Glucagen) 1 mg Q15M PRN IM DECREASED GLUCOSE; Start 09/19/18 at 16:30 Glucose (Glutose) 15 gm Q15M PRN BUCCAL DECREASED GLUCOSE; Start 09/19/18 at 16:30 Hydralazine HCl (Apresoline) 10 mg Q6H PRN IV SBP>160; Start 09/19/18 at 16:30 Polyethylene Glycol (Miralax) 17 gm BID PO Last administered on 09/22/18 22:22; Admin Dose 17 GM; Start 09/19/18 at 21:00 Bisacodyl (Dulcolax) 10 mg DAILY PRN PO CONSTIPATION; Start 09/19/18 at 16:30 Morphine Sulfate (morphine SULFATE (PF)) 1 mg Q4H PRN IV PAIN Last administered on 09/22/18 01:57; Admin Dose 1 MG; Start 09/19/18 at 20:30 Enoxaparin Sodium (Lovenox) 30 mg DAILY SC Last administered on 09/22/18 09:24; Admin Dose 30 MG; Start 09/21/18 at 09:00; Status Hold Tramadol HCl (Ultram) 50 mg Q6H PRN PO MODERATE PAIN LEVEL 4-6; Start 09/20/18 at 22:00 Insulin Aspart (Novolog Insulin Pen) 10 unit WITH MEALS SC Last administered on 09/22/18 18:01; Admin Dose 10 UNIT; Start 09/21/18 at 17:47 Insulin Glargine (Lantus) 28 units DAILY@2000 SC Last administered on 09/22/18 22:31; Admin Dose 28 UNITS; Start 09/21/18 at 20:00 Sucralfate (Carafate Susp) 1 gm QID PO Last administered on 09/22/18 09:23; Admin Dose 1 GM; Start 09/21/18 at 17:00 Carvedilol (Coreg) 6.25 mg BID PO Last administered on 09/23/18 08:37; Admin Dose 6.25 MG; Start 09/22/18 at 21:00 Ertapenem 1 gm/ Sodium Chloride 100 ml @ 200 mls/hr Q24H IVPB Last administered on 09/23/18 12:48; Admin Dose 200 MLS/HR; Start 09/22/18 at 13:00 Dextrose/Sodium Chloride 1,000 ml @ 50 mls/hr Q20H IV Last administered on 1/15/19at 11:26; Admin Dose 50 MLS/HR; Start 09/23/18 at 11:30 Insulin Aspart (Novolog Insulin Pen) (Adult SC Insulin - Moder... Q4 SC ; Start 09/23/18 at 13:00 Meds reviewed: Yes Allergies Coded Allergies: acetaminophen (Verified Allergy, Intermediate, 09/19/18) hydrocodone (Verified Allergy, Intermediate, 09/19/18) Allergies Reviewed: Yes Labs/Studies Labs Reviewed: Reviewed by anesthesiologist Result Diagram: 09/23/186 09/23/18445 Laboratory Tests 09/23/18 04:46 test: Negative Studies: ECG (sr), CXR (n/a) Pre-procedure Exam Last vitals Vital Signs Date Temp Pulse Resp B/P (MAP) Pulse Ox O2 O2 Flow FiO2 Time Delivery Rate 09/23/18 98.5 78 19 192/92 99 Room Air 16:45 (125) 09/21/18 07:37 Airway: Adequate mouth opening Mallampati: Mallampati I Teeth: Normal Lung: Normal Heart: Normal ASA Physical Status ASA physical status: 3 Emergency: None Planned Anesthetic General/MAC: MAC Planned Pain Management Parenteral pain med Pre-operative Attestations Prior to commencing anesthesia and surgery, the patient was re-evaluated, there was verification of: *The patient's identity *The results of appropriate recent lab work and preoperative vital signs *The above evaluation not changing prior to induction *Anesthetic plan, risk benefits, alternative and complications discussed with patient/family; questions answered; patient/family understands, accepts and wishes to proceed. GABRIEL HAYES MD Sep 23, 2018 16:53
[2018-09-23] MEDS ORDERED: FENTAnyl 50 MCG/ML VIAL ONE (16:54)
[2018-09-23] MEDS ORDERED: PROPOFOL 20 ML ONE (16:54)
[2018-09-23] MEDS ORDERED: ONDANSETRON 4 MG INJ IV PRN (17:00)
[2018-09-23] MEDS ORDERED: morphine LIQ (10 MG/5 ML) CUP PO PRN (17:30)
--- NOTE | 2018-09-23 17:35 | HPN ---
Date/Time of Note Date/Time of Note DATE: 09/23/18 TIME: 17:35 Interval H&P Admission Note Pt. seen H&P reviewed: No system changes STEVEN BARROW Sep 23, 2018 17:35
--- NOTE | 2018-09-23 17:47 | NUR ---
PACU PT ALERT AWAKE ROOM AIR NO C/O PAIN LT HAND 22 WANDA IV SITE CLEAR BLOOD PRESSURE 173/87 WAS MEDICATED WITH HYDRALAZINE PER ORDER
--- NOTE | 2018-09-23 18:00 | NUR ---
rn notes patient remains afebrile through out the day and currently in GI lab for EGD Colonoscopy. no s/s of pain and discomfort noted. no acute distress noted. blood sugar checked as scheduled. call light placed within reach, no falls and injury noted. will endorse next shift accordingly.
--- NOTE | 2018-09-23 18:23 | NUR ---
PACU PT AWAKE ALERT ORIENTED ROOM AIR NO RESP DISTRESS NO C/O PAIN FAMILY WAS NOTIFIED REPORT GIVEN TO YRN RN RT HAND 22 WANDA IV SITE CLEAR
--- NOTE | 2018-09-23 18:48 | NUR ---
rn notes patient came back from GI Lab. colonoscopy is normal. EGD with gastritis and gastric ulcer. pre-op diet resumed. will endorse night nurse to give meal time dose for insulin.
[2018-09-23] MEDS: INSULIN GLARGINE [LANTus] (100 UNITS/ML) SYG SC SCH (20:14)
[2018-09-23] MEDS: ATORVASTATIN 40 MG TAB PO SCH (20:15)
[2018-09-23] MEDS: traZODone 50 MG TAB PO SCH (20:16)
--- NOTE | 2018-09-23 21:13 | PAC ---
Date/Time of Note Date/Time of Note DATE: 09/23/18 TIME: 21:13 Post-Anesthesia Notes Post-Anesthesia Note Last documented vital signs Vital Signs Date Temp Pulse Resp B/P (MAP) Pulse Ox O2 O2 Flow FiO2 Time Delivery Rate 09/23/18 98.6 89 18 155/75 99 19:35 (101) 09/23/18 Room Air 18:15 09/21/18 07:37 Activity: WNL Respiratory function: WNL Cardiovascular function: WNL Mental status: Baseline Pain reasonably controlled: Yes Hydration appropriate: Yes Nausea/Vomiting absent: No GABRIEL HAYES MD Sep 23, 2018 21:13
[2018-09-23] MEDS: traMADol 50 MG TAB PO PRN (21:28)
[2018-09-24 02:00] VITALS: BP 116/54; PULSE 85; RESP 17
[2018-09-24] MEDS: LEVOTHYROXINE 50 MCG TAB PO SCH (06:31)
[2018-09-24] MEDS: PANTOPRAZOLE (EC) 40 MG TAB PO SCH (06:31)
--- NOTE | 2018-09-24 07:01 | NUR ---
RN Notes Patient had no change in condition overnight. Patient is post EGD/colonoscopy and complained of two diarrhea episodes along with abdominal cramping. Administered pain medication to patient as ordered and no further complaints. Fall/safety precautions implemented and maintained throughout shift. Hourly rounding provided. Patient's bed kept at lowest position and call light button within reach. Bed alarm activated for safety. Will continue to monitor and endorse to oncoming RN for continuity of care.
[2018-09-24] MEDS: INSULIN ASPART [NOVOLOG] 3 ML PEN SC SCH ×7 (07:30→21:00)
[2018-09-24 08:33] VITALS: BP 128/66; PULSE 74; RESP 18
[2018-09-24] MEDS: SUCRALFATE (100 MG/ML) 10ML CUP PO SCH ×4 (08:36→21:27)
[2018-09-24] MEDS: ASPIRIN (EC) 81 MG TAB PO SCH (08:37)
[2018-09-24] MEDS: LORATADINE 10 MG TAB PO SCH (08:37)
[2018-09-24] MEDS: LOSARTAN 25 MG TAB PO SCH (08:37)
[2018-09-24] MEDS: FLUOXETINE 20 MG CAP PO SCH (08:37)
[2018-09-24] MEDS: POLYETHYLENE GLYCOL 17 GM PACKET PO SCH ×2 (08:38→21:00)
--- NOTE | 2018-09-24 09:41 | CONS ---
Date/Time of Note Date/Time of Note DATE: 09/24/18 TIME: 09:39 Assessment/Plan Assessment/Plan Hospital Course Acute on chronic CHF: mild and likely due to IVF for sepsis.Now euvolemic h/o CAD/NSTEMI: s/p PCI of mid LAD 12/2016. No chest pain Ischemic cardiomyopathy: EF previously ~45-50%. Now closer to normal at 50% Sepsis due to ESBL UTI Anemia: s/p EGD/colo. Per report gastric ulcer and gastritis. DM HTN HL -ok for d/c from my perspective -ASA 81mg -no plavix on discharge -lipitor 40mg -coreg 6.25mg BID -losartan Result Diagram: 09/24/18 0532 09/24/18 0532 Results 24hrs Laboratory Tests Test 09/23/18 12:47 09/23/18 16:53 09/23/18 20:12 09/23/18 21:19 Bedside Glucose 120 102 148 202 Test 09/24/18 05:32 09/24/18 07:53 White Blood Count 9.2 Red Blood Count 3.54 L Hemoglobin 9.6 L Hematocrit 29.1 L Mean Corpuscular 82.2 Volume Mean Corpuscular 27.1 L Hemoglobin Mean Corpuscular 33.0 Hemoglobin Concent Red Cell 13.3 Distribution Width Platelet Count 438 H Mean Platelet Volume 10.2 Immature 1.500 H Granulocytes % Neutrophils % 49.8 Lymphocytes % 37.4 Monocytes % 8.7 Eosinophils % 2.2 Basophils % 0.4 Nucleated Red Blood 0.0 Cells % Immature 0.140 H Granulocytes # Neutrophils # 4.6 Lymphocytes # 3.4 H Monocytes # 0.8 Eosinophils # 0.2 Basophils # 0.0 Nucleated Red Blood 0.0 Cells # Sodium Level 139 Potassium Level 4.1 Chloride Level 104 Carbon Dioxide Level 24 Anion Gap 11 Blood Urea Nitrogen 13 Creatinine 0.92 Est Glomerular > 60 Filtrat Rate mL/min Glucose Level 100 Calcium Level 8.5 Bedside Glucose 105 Consultation Date/Type/Reason Admit Date/Time Sep 19, 2018 at 12:18 Initial Consult Date 09/22/18 Type of Consult Cardiology Requesting Provider: ALISHA ABARCA NP 24 HR Interval Summary Free Text/Dictation s/p EGD/colo. Per report gastric ulcer and gastritis. No SOB or chest pain. Wants to go home today Exam/Review of Systems Vital Signs Vitals Vital Signs Date Temp Pulse Resp B/P (MAP) Pulse Ox O2 O2 Flow FiO2 Time Delivery Rate 09/24/18 97.5 74 18 128/66 95 Room Air 08:33 (86) 09/21/18 07:37 Intake and Output 09/23/18 09/23/18 09/24/18 1515:00 23:00 07:00 IntakeIntake Total 100 ml 150 ml BalanceBalance 100 ml 150 ml Exam Constitutional: alert, oriented Psych: no complaints, nl mood/affect Head: normocephalic, atraumatic Neck: supple; No jvd Respiratory: clear to auscultation; No crackles/rales Cardiovascular: regular rate and rhythm; No edema, No systolic murmur Gastrointestinal: soft, non-tender; No distended Neurological: nl mental status, nl speech Medications Medications Current Medications IV Flush (NS 3 ml) 3 ml PER PROTOCOL IV ; Start 09/19/18 at 16:30 Ondansetron HCl (Zofran Inj) 4 mg Q6H PRN IV NAUSEA AND/OR VOMITING Last administered on 09/20/18 05:43; Admin Dose 4 MG; Start 09/19/18 at 16:30 Acetaminophen (Tylenol Tab) 650 mg Q6H PRN PO PAIN LEVEL 1-3 OR FEVER Last a dministered on 09/22/18 18:03; Admin Dose 650 MG; Start 09/19/18 at 16:30 Pantoprazole (Protonix Tab) 40 mg DAILY@06 PO Last administered on 09/24/18 06:31; Admin Dose 40 MG; Start 09/20/18 at 06:00 Aspirin (Halfprin) 81 mg DAILY PO Last administered on 09/24/18 08:37; Admin Dose 81 MG; Start 09/20/18 at 09:00 Atorvastatin Calcium (Lipitor) 40 mg HS PO Last administered on 09/23/18 20:15; Admin Dose 40 MG; Start 09/19/18 at 21:00 Fluoxetine HCl (Prozac) 20 mg DAILY PO Last administered on 09/24/18 08:37; Admin Dose 20 MG; Start 09/20/18 at 09:00 Levothyroxine Sodium (Synthroid) 50 mcg BEFORE BREAKFAST PO Last administered on 1/16/19at 06:31; Admin Dose 50 MCG; Start 09/20/18 at 07:00 Loratadine (Claritin) 10 mg DAILY PO Last administered on 09/24/18at 08:37; Admin Dose 10 MG; Start 09/20/18 at 09:00 Losartan Potassium (Cozaar) 25 mg DAILY PO Last administered on 09/24/18at 08: 37; Admin Dose 25 MG; Start 09/20/18 at 09:00 Trazodone HCl (Desyrel) 50 mg HS PO Last administered on 09/23/18at 20:16; Admin Dose 50 MG; Start 09/19/18 at 21:00 Miscellaneous Information 1 ea NOTE XX ; Start 09/19/18 at 16:30 Glucose (Glutose) 15 gm Q15M PRN PO DECREASED GLUCOSE; Start 09/19/18 at 16:30 Glucose (Glutose) 22.5 gm Q15M PRN PO DECREASED GLUCOSE; Start 09/19/18 at 16:30 Dextrose (D50w Syringe) 25 ml Q15M PRN IV DECREASED GLUCOSE; Start 09/19/18 at 16:30 Dextrose (D50w Syringe) 50 ml Q15M PRN IV DECREASED GLUCOSE; Start 09/19/18 at 16:30 Glucagon (Glucagen) 1 mg Q15M PRN IM DECREASED GLUCOSE; Start 09/19/18 at 16:30 Glucose (Glutose) 15 gm Q15M PRN BUCCAL DECREASED GLUCOSE; Start 09/19/18 at 16:30 Hydralazine HCl (Apresoline) 10 mg Q6H PRN IV SBP>160 Last administered on 09/23/18at 18:02; Admin Dose 10 MG; Start 09/19/18 at 16:30 Polyethylene Glycol (Miralax) 17 gm BID PO Last administered on 09/23/18at 20:16; Admin Dose 17 GM; Start 09/19/18 at 21:00 Bisacodyl (Dulcolax) 10 mg DAILY PRN PO CONSTIPATION; Start 09/19/18 at 16:30 Enoxaparin Sodium (Lovenox) 30 mg DAILY SC Last administered on 09/22/18at 09:24; Admin Dose 30 MG; Start 09/21/18 at 09:00 Tramadol HCl (Ultram) 50 mg Q6H PRN PO MODERATE PAIN LEVEL 4-6 Last administered on 09/23/18 21:28; Admin Dose 50 MG; Start 09/20/18 at 22:00 Insulin Aspart (Novolog Insulin Pen) 10 unit WITH MEALS SC Last administered on 09/24/18 08:36; Admin Dose 10 UNIT; Start 09/21/18 at 17:47 Insulin Glargine (Lantus) 28 units DAILY@2000 SC Last administered on 09/23/18 20:14; Admin Dose 28 UNITS; Start 09/21/18 at 20:00 Sucralfate (Carafate Susp) 1 gm QID PO Last administered on 09/24/18 08:36; Admin Dose 1 GM; Start 09/21/18 at 17:00 Carvedilol (Coreg) 6.25 mg BID PO Last administered on 09/24/18 08:38; Admin Dose 6.25 MG; Start 09/22/18 at 21:00 Ertapenem 1 gm/ Sodium Chloride 100 ml @ 200 mls/hr Q24H IVPB Last administered on 09/23/18 12:48; Admin Dose 200 MLS/HR; Start 09/22/18 at 13:00 Morphine Sulfate (morphine) 3 mg Q4H PRN PO SEVERE PAIN LEVEL 7-10; Start 09/23/18 at 17:30 Insulin Aspart (Novolog Insulin Pen) (Adult SC Insulin - Moder... AC MEALS AND BEDTIME SC Last administered on 09/23/18 21:24; Admin Dose 4 UNIT; Start 09/23/18 at 21:00 JAKOB WRIGHT Sep 24, 2018 09:41
[2018-09-24] MEDS: ENOXAPARIN 30 MG/0.3 ML SYG SC SCH (09:54)
[2018-09-24] MEDS: ERTAPENEM SODIUM 1 GM in SOD CHLORIDE 0.9% 100 ML IVPB SCH (12:36)
--- NOTE | 2018-09-24 13:38 | CONS ---
Date/Time of Note Date/Time of Note DATE: 09/24/18 TIME: 13:36 Assessment/Plan Assessment/Plan Hospital Course No acute events overnight. Patient is alert feels good denies pain no fevers Microbiology: Blood and urine cultures since admission grew E. coli ESBL, repeat blood cultures negative Antimicrobials: Invanz Physical examination: This is a morbidly obese well-developed middle-aged woman who is alert in no distress. Head atraumatic normocephalic sclera nonicteric neck is supple chest rise symmetrical breath sounds clear heart S1-S2 abdomen soft bowel sounds present extremities without cyanosis. Assessment: 1. Sepsis, resolving 2. E. coli ESBL bacteremia secondary to UTI 3. Morbid obesity 4. Diabetes 5. History of psoriasis Plan: Remains stable, Merrem was started on September 21 then switched to Invanz, patient is cleared by cardiology for discharge, consider PICC line placement and discharge arrangements for IV antibiotics for at least 7 more days Discussed with patient and family at bedside Result Diagram: 09/24/18 0532 09/24/18 0532 Results 24hrs Laboratory Tests Test 09/23/18 16:53 09/23/18 20:12 09/23/18 21:19 09/24/18 05:32 Bedside Glucose 102 148 202 White Blood Count 9.2 Red Blood Count 3.54 L Hemoglobin 9.6 L Hematocrit 29.1 L Mean Corpuscular 82.2 Volume Mean Corpuscular 27.1 L Hemoglobin Mean Corpuscular 33.0 Hemoglobin Concent Red Cell 13.3 Distribution Width Platelet Count 438 H Mean Platelet Volume 10.2 Immature 1.500 H Granulocytes % Neutrophils % 49.8 Lymphocytes % 37.4 Monocytes % 8.7 Eosinophils % 2.2 Basophils % 0.4 Nucleated Red Blood 0.0 Cells % Immature 0.140 H Granulocytes # Neutrophils # 4.6 Lymphocytes # 3.4 H Monocytes # 0.8 Eosinophils # 0.2 Basophils # 0.0 Nucleated Red Blood 0.0 Cells # Sodium Level 139 Potassium Level 4.1 Chloride Level 104 Carbon Dioxide Level 24 Anion Gap 11 Blood Urea Nitrogen 13 Creatinine 0.92 Est Glomerular > 60 Filtrat Rate mL/min Glucose Level 100 Calcium Level 8.5 Test 09/24/18 07:53 09/24/18 12:25 Bedside Glucose 105 82 Consultation Date/Type/Reason Admit Date/Time Sep 19, 2018 at 12:18 Initial Consult Date 09/19/18 Type of Consult id Requesting Provider: ALISHA ABARCA [employer] Exam/Review of Systems Vital Signs Vitals Vital Signs Date Temp Pulse Resp B/P (MAP) Pulse Ox O2 O2 Flow FiO2 Time Delivery Rate 09/24/18 97.5 74 18 128/66 95 Room Air 08:33 (86) 09/21/18 07:37 Intake and Output 09/23/18 09/23/18 09/24/18 1515:00 23:00 07:00 IntakeIntake Total 100 ml 150 ml BalanceBalance 100 ml 150 ml Medications Medications Current Medications IV Flush (NS 3 ml) 3 ml PER PROTOCOL IV ; Start 09/19/18 at 16:30 Ondansetron HCl (Zofran Inj) 4 mg Q6H PRN IV NAUSEA AND/OR VOMITING Last administered on 09/20/18at 05:43; Admin Dose 4 MG; Start 09/19/18 at 16:30 Acetaminophen (Tylenol Tab) 650 mg Q6H PRN PO PAIN LEVEL 1-3 OR FEVER Last a dministered on 09/22/18at 18:03; Admin Dose 650 MG; Start 09/19/18 at 16:30 Pantoprazole (Protonix Tab) 40 mg DAILY@06 PO Last administered on 09/24/18 06:31; Admin Dose 40 MG; Start 09/20/18 at 06:00 Aspirin (Halfprin) 81 mg DAILY PO Last administered on 09/24/18at 08:37; Admin Dose 81 MG; Start 09/20/18 at 09:00 Atorvastatin Calcium (Lipitor) 40 mg HS PO Last administered on 09/23/18at 20:15; Admin Dose 40 MG; Start 09/19/18 at 21:00 Fluoxetine HCl (Prozac) 20 mg DAILY PO Last administered on 09/24/18 08:37; Admin Dose 20 MG; Start 09/20/18 at 09:00 Levothyroxine Sodium (Synthroid) 50 mcg BEFORE BREAKFAST PO Last administered on 09/24/18 06:31; Admin Dose 50 MCG; Start 09/20/18 at 07:00 Loratadine (Claritin) 10 mg DAILY PO Last administered on 09/24/18at 08:37; Admin Dose 10 MG; Start 09/20/18 at 09:00 Losartan Potassium (Cozaar) 25 mg DAILY PO Last administered on 09/24/18at 08: 37; Admin Dose 25 MG; Start 09/20/18 at 09:00 Trazodone HCl (Desyrel) 50 mg HS PO Last administered on 09/23/18at 20:16; Admin Dose 50 MG; Start 09/19/18 at 21:00 Miscellaneous Information 1 ea NOTE XX ; Start 09/19/18 at 16:30 Glucose (Glutose) 15 gm Q15M PRN PO DECREASED GLUCOSE; Start 09/19/18 at 16:30 Glucose (Glutose) 22.5 gm Q15M PRN PO DECREASED GLUCOSE; Start 09/19/18 at 16:30 Dextrose (D50w Syringe) 25 ml Q15M PRN IV DECREASED GLUCOSE; Start 09/19/18 at 16:30 Dextrose (D50w Syringe) 50 ml Q15M PRN IV DECREASED GLUCOSE; Start 09/19/18 at 16:30 Glucagon (Glucagen) 1 mg Q15M PRN IM DECREASED GLUCOSE; Start 09/19/18 at 16:30 Glucose (Glutose) 15 gm Q15M PRN BUCCAL DECREASED GLUCOSE; Start 09/19/18 at 16:30 Hydralazine HCl (Apresoline) 10 mg Q6H PRN IV SBP>160 Last administered on 09/23/18at 18:02; Admin Dose 10 MG; Start 09/19/18 at 16:30 Polyethylene Glycol (Miralax) 17 gm BID PO Last administered on 09/23/18at 20:16; Admin Dose 17 GM; Start 09/19/18 at 21:00 Bisacodyl (Dulcolax) 10 mg DAILY PRN PO CONSTIPATION; Start 09/19/18 at 16:30 Enoxaparin Sodium (Lovenox) 30 mg DAILY SC Last administered on 09/24/18at 09:54; Admin Dose 30 MG; Start 09/21/18 at 09:00 Tramadol HCl (Ultram) 50 mg Q6H PRN PO MODERATE PAIN LEVEL 4-6 Last administered on 09/23/18at 21:28; Admin Dose 50 MG; Start 09/20/18 at 22:00 Insulin Aspart (Novolog Insulin Pen) 10 unit WITH MEALS SC Last administered on 09/24/18at 12:36; Admin Dose 10 UNIT; Start 09/21/18 at 17:47 Insulin Glargine (Lantus) 28 units DAILY@2000 SC Last administered on 09/23/18at 20:14; Admin Dose 28 UNITS; Start 09/21/18 at 20:00 Sucralfate (Carafate Susp) 1 gm QID PO Last administered on 09/24/18at 12:34; Admin Dose 1 GM; Start 09/21/18 at 17:00 Carvedilol (Coreg) 6.25 mg BID PO Last administered on 09/24/18at 08:38; Admin Dose 6.25 MG; Start 09/22/18 at 21:00 Ertapenem 1 gm/ Sodium Chloride 100 ml @ 200 mls/hr Q24H IVPB Last administered on 09/24/18at 12:36; Admin Dose 200 MLS/HR; Start 09/22/18 at 13:00 Morphine Sulfate (morphine) 3 mg Q4H PRN PO SEVERE PAIN LEVEL 7-10; Start 09/23/18 at 17:30 Insulin Aspart (Novolog Insulin Pen) (Adult SC Insulin - Moder... AC MEALS AND BEDTIME SC Last administered on 09/23/18at 21:24; Admin Dose 4 UNIT; Start 09/23/18 at 21:00 SAVANNAH JUAREZ NP Sep 24, 2018 13:38
[2018-09-24] MEDS ORDERED: LIDOCAINE 1% (MPF) 5 ML VIAL SC ONE (14:00)
[2018-09-24] MEDS ORDERED: PANT40TA4 PO (14:05)
[2018-09-24] MEDS ORDERED: FER325 PO (14:05)
[2018-09-24] MEDS ORDERED: ERTA1VIA IV (14:05)
[2018-09-24] MEDS ORDERED: CARAS PO (14:05)
--- NOTE | 2018-09-24 14:17 | DS ---
Date/Time of Note Date/Time of Note DATE: 09/24/18 TIME: 14:09 Discharge Summary Admission/Discharge Info Admit Date/Time Sep 19, 2018 at 12:18 Discharge Date/Time Discharge Diagnosis 1. ESBL UTI, on invanz for 7 days 2. E. coli ESBL bacteremia secondary to UTI, on invanz 3. Sepsis, resolved 4. Anemia, EGD/colonoscopy 09/23/2018, gastric ulcer, protonix/carafate, follow up with GI 5. CAD status post stent to mid LAD, stable 6. Hyperkalemia, renal failure related, resolved 7. Acute nonoliguric kidney injury, sepsis related, resolved 8. Hypothyroidism.Continue Synthroid. 9. Dyslipidemia. Continue statins. 10. Obesity. BMI 45 kg/m.Advised weight reduction. 11. Ischemic cardiomyopathy: EF previously ~45-50%. Now closer to normal at 50%, follow up with cardiology Patient Condition: Stable Hospital Course This is a 48-year-old female with comorbidities including diabetes mellitus type 2, essential hypertension, pulmonary hypertension, dyslipidemia, gastritis, hypothyroidism,CAD status post coronary artery stenting, and obesity who came to the emergency room with chief complaint of left lower quadrant abdominal pain that has been going on for the past 4 days. The patient tried taking Protonix with minimal improvement. The patient had multiple episodes of nonbloody, nonbilious vomiting. The patient denied any diarrhea. The patient denied any fevers although she verbalized shaking chills. She has been unable to tolerate adequate oral intake because of emesis. In the emergency room, the patient was noticed to be septic with a WBC of 19, along with lactic acidosis, and tachycardia. She was treated with IV Zosyn and Rocephin in the emergency room. The patient was also noticed to be hyperglycemic with a glucose of 507 and hyperkalemic with a potassium of 5.2. The patient was treated with glucose, calcium chloride, and sodium bicarbonate in the emergency room. The patient's urinalysis was showing positive leukocyte esterase 3+ with urine microscopic WBC more than 182. The patient underwent a CT scan of the abdomen and pelvis that was showing bilateral perinephric fat stranding and prominence of bilateral renal collecting systems with no gross renal/ureteral calculi along with a distended urinary bladder. Patient is found of having UTI, urine and blood culture positive with ESBL E.Coli that she was on meropenem then invanz. Patient is afebrile. She will be invanz for 7 more days through a midline per home health. Patient has h/o CAD, PCI in 12/2016. Plavix is stopped for anemia that she had EGD/Colonoscopy that revealed gastric ulcer. She will be on protonix and carafate. Follow up with GI in two weeks. Echocardiogram Report Patient Name: LEXIE TONY Gender: Female Date: 1970 Study Date: 22-Sep-2018 Ultrasonic Seaming Machine Operator: Quyen Longoria [facility] Location: 2255 Ref. Physician: ALISHA ABARCA Quality: Good Procedures: Transthoracic echocardiogram with complete 2D, M-Mode, and doppler examination. Indications: Evaluate Left Ventricular function. 2D/M Mode Doppler Measurement Value Normal Ranges Measurement Value Normal Ranges LVIDd 2D 4.7 3.5 - 5.6 cm AV Peak Kosta 1.4 m/sec LVIDs 2D 3.1 2.1 - 4.1 cm AV Peak PG 8.0 mmHg FS 2D 34.3 % LVOT Peak Kosta 1.1 m/sec LVPWd 2D 1.2 0.6 - 1.1 cm LVOT Peak PG 5.0 mmHg IVSd 2D 1.0 0.6 - 1.1 cm MV E Peak Kosta 0.7 m/sec IVS/LVPW 2D 0.9 MV A Peak Kosta 0.8 m/sec AoR Diam 2D 2.5 2.0 - 3.7 cm MV E/A 0.9 LA/Ao 2D 1 0 - 1 MV Decel Time 173 msec EDV 2D 101.0 cm3 MV E/A 0.9 ESV 2D 28.7 cm3 TR Peak Kosta 3.1 m/sec LA Dimen 2D 3.3 2.3 - 4.0 cm TR Peak PG 38.0 mmHg RVSP 53.0 mmHg RA Pressure 15.0 Findings Left Ventricle: Lower limits of normal systolic function. Normal left ventricular cavity size. Mild concentric left ventricular hypertrophy. Ejection fraction is visually estimated at 50 %. Tissue Doppler/Mitral Doppler indices are consistent with impaired relaxation (Stage I diastolic dysfunction). Right Ventricle: Normal right ventricular size. Normal right ventricular systolic function. Left Atrium: There is mild enlargement of left atrium. Right Atrium: The right atrium is normal in size. Mitral Valve: Mild mitral annular calcification. Trace mitral regurgitation. Aortic Valve: Normal appearance of the aortic valve. No significant aortic stenosis or insufficiency. Tricuspid Valve: Normal appearance of the tricuspid valve. Estimated peak PA systolic pressure 46 mmHg. There is mild to moderate tricuspid regurgitation. Pulmonic Valve: Normal pulmonic valve appearance. Pericardium: Normal pericardium with no significant pericardial effusion. Aorta: Normal aortic root. IVC: Normal size and no respiratory collapse consistent with elevated right atrial pressure. Conclusions Lower limits of normal systolic function. Normal left ventricular cavity size. Mild concentric left ventricular hypertrophy. Ejection fraction is visually estimated at 50 %. Tissue Doppler/Mitral Doppler indices are consistent with impaired relaxation (Stage I diastolic dysfunction). Mild to moderate tricuspid regurgitation. Estimated peak PA systolic pressure 46 mmHg based on RA pressure of 8 mmHg. Electronically Signed By: Donell Maxwell 22-Sep-2018 14:54:41 -0800 Home Meds Active Scripts Ferrous Sulfate* (Ferrous Sulfate*) 325 Mg Tabec, 325 MG PO BID for 30 Days, TAB Prov:ROB HOLCOMB MD 09/24/18 Ertapenem Sodium (Invanz) 1 Gm Vial.port, 1 GM IV DAILY for 7 Days Prov:ROB HOLCOMB MD 09/24/18 Sucralfate* (Carafate*) 1 Gm/10 Ml Susp, 1 GM PO QID for 30 Days Prov:ROB HOLCOMB MD 09/24/18 Pantoprazole* (Pantoprazole*) 40 Mg Tablet.dr, 40 MG PO BID for 30 Days Prov:ROB HOLCOMB MD 09/24/18 Hydrocodone/Acetaminophen (Redby 5-325 Tablet) 1 Each Tablet, 1 TAB PO Q12 PRN for PAIN, #10 TAB Prov:LEEANNE RIVERA MD 02/28/18 Trazodone Hcl* (Desyrel*) 50 Mg Tab, 50 MG PO HS for 30 Days, #30 TAB Prov:CYNDIE CORBIN MD 12/20/17 Metoprolol Tartrate* (Lopressor*) 50 Mg Tab, 50 MG PO BID for 30 Days, #30 TAB Prov:CYNDIE CORBIN MD 12/20/17 Atorvastatin* (Atorvastatin*) 40 Mg Tablet, 40 MG PO HS for 30 Days, #30 TAB Prov:CYNDIE CORBIN MD 12/20/17 Insulin Glargine* (Lantus*) 100 Unit/Ml Soln, 20 UNIT SC BID for 30 Days, #1 VIAL Prov:CYNDIE CORBIN MD 12/20/17 Reported Medications Ondansetron Hcl* (Zofran*) 8 Mg Tab, 8 MG PO Q6H PRN for NAUSEA AND OR VOMITING, TAB 12/16/17 Aspirin (Low Dose Aspirin) 81 Mg Tablet.dr, 81 MG PO DAILY, #30 TAB 12/16/17 Loratadine* (Loratadine*) 10 Mg Tablet, 10 MG PO DAILY, #30 TAB 12/16/17 Fluoxetine Hcl* (Prozac*) 20 Mg Capsule, 20 MG PO DAILY, CAP 12/16/17 Losartan Potassium* (Losartan Potassium*) 25 Mg Tablet, 25 MG PO DAILY, TAB 12/16/17 Levothyroxine Sodium* (Levothyroxine Sodium*) 50 Mcg Tablet, 50 MCG PO BEFORE BREAKFAST, #30 TAB 04/07/17 Metformin Hcl* (Metformin Hcl*) 1,000 Mg Tablet, 1000 MG PO WITH BREAKFAST DINNE, #60 TAB 12/19/16 Discontinued Reported Medications Clopidogrel Bisulfate* (Clopidogrel Bisulfate*) 75 Mg Tablet, 75 MG PO DAILY, #30 TAB 04/07/17 Discontinued Scripts Furosemide* (Lasix*) 40 Mg Tablet, 40 MG PO DAILY, #30 TAB Prov:ZIYAD HIGUERA MD 01/01/18 Pantoprazole* (Pantoprazole*) 40 Mg Tablet.dr, 40 MG PO DAILY@06 for 30 Days, #30 Prov:CYNDIE CORBIN MD 12/20/17 Lisinopril* (Lisinopril*) 5 Mg Tablet, 5 MG PO DAILY for 30 Days, #30 TAB Prov:CYNDIE CORBIN MD 12/20/17 Amoxicillin/Potassium Clav (Amox-Clav 875-125 mg Tablet) 875-125 mg Tab, 1 TAB PO BID for 10 Days, #20 TAB Prov:LEEANNE RIVERA MD 02/28/18 Benzonatate* (Tessalon Perle*) 100 Mg Capsule, 100 MG PO Q8H PRN for COUGH, #30 CAP Prov:ARPIT LAM MD 01/08/18 Furosemide* (Furosemide*) 40 Mg Tablet, 20 MG PO DAILY for 30 Days, #30 TAB Prov:CYNDIE CORBIN MD 12/20/17 Triamcinolone Acetonide* (Kenalog*) 0.1%-15GM Cr, 1 APPLIC TOP BID for 30 Days, #30 GM Prov:CYNDIE CORBIN MD 12/20/17 Levofloxacin* (Levaquin*) 750 Mg Tablet, 750 MG PO DAILY@06 for 6 Days, #6 TAB Prov:CYNDIE CORBIN MD 12/20/17 Follow-up Plan PCP in one week Cardiology in two weeks GI in two weeks Primary Care Provider Cyndie Corbin MD Pending Labs Laboratory Tests Test 09/23/18 16:53 09/23/18 20:12 09/23/18 21:19 09/24/18 05:32 Bedside 102 148 202 Glucose mg/dL (70-220) mg/dL (70-220) mg/dL (70-220) White Blood 9.2 Count 10^3/ul (4.8-1 0.8) Red Blood 3.54 Count 10^6/ul (4.20- 5.40) Hemoglobin 9.6 g/dl (12.0-16. 0) Hematocrit 29.1 % (37.0-47.0) Mean 82.2 Corpuscular fl (82.0-101.0 Volume ) Mean 27.1 Corpuscular pg (29.0-33.0) Hemoglobin Mean 33.0 Corpuscular g/dl (32.0-37. Hemoglobin Conc 0) ent Red Cell 13.3 Distribution % (11.5-14.5) Width Platelet Count 438 10^3/UL (140-4 15) Mean Platelet 10.2 Volume fl (7.4-10.4) Immature 1.500 Granulocytes % % (0.001-0.429 ) Neutrophils % 49.8 % (39.0-77.0) Lymphocytes % 37.4 % (15.0-51.0) Monocytes % 8.7 % (0.0-11.0) Eosinophils % 2.2 % (0.0-7.0) Basophils % 0.4 % (0.0-2.0) Nucleated Red 0.0 Blood Cells % /100WBC (0.0-0 .0) Immature 0.140 Granulocytes # 10^3/ul (0.0-0 .031) Neutrophils # 4.6 10^3/ul (1.6-7 .5) Lymphocytes # 3.4 10^3/ul (0.8-2 .9) Monocytes # 0.8 10^3/ul (0.3-0 .9) Eosinophils # 0.2 10^3/ul (0.0-0 .5) Basophils # 0.0 10^3/ul (0.0-0 .1) Nucleated Red 0.0 Blood Cells # 10^3/ul (0.0-0 .0) Sodium Level 139 mmol/L (135-14 4) Potassium 4.1 Level mmol/L (3.5-5. 1) Chloride Level 104 mmol/L (97-110 ) Carbon Dioxide 24 Level mmol/L (21-31) Anion Gap 11 (5-13) Blood Urea 13 Nitrogen mg/dl (7-20) Creatinine 0.92 mg/dl (0.44-1. 00) Est Glomerular > 60 Filtrat mL/min (>60) Rate mL/min Glucose Level 100 mg/dl (70-220) Calcium Level 8.5 mg/dl (8.4-10. 2) Test 09/24/18 07:53 09/24/18 12:25 Bedside 105 82 Glucose mg/dL (70-220) mg/dL (70-220) ROB HOLCOMB MD Sep 24, 2018 14:17
[2018-09-24 14:24] VITALS: BP 103/58; PULSE 72; RESP 18
--- NOTE | 2018-09-24 16:00 | NUR ---
MD ORDER FOR IV INVANZ X 7 DAYS; PATIENT'S INSURANCE IS RESTRICTED MEDICAL NO HH OR HOME IV INFUSION BENEFITS . NOTIFIED MD ORDERING DR. HOLCOMB , IV INVANZ SHOULD BE GIVEN HERE FOR 7 DAYS MORE IF PATIENT CANNOT AFFORD TO PAY ON HER OWN. Addendum: 09/24/18 at 1609 by STACY RODRIGUEZ CM Amended: Links added.
--- NOTE | 2018-09-24 18:05 | NUR ---
rn notes patient is alert and oriented X4, verbally responsive and able to make needs known, denies pain and discomfort, no s/s of acute distress noted. all due medicine given and all needs attended to. blood sugar checked as scheduled. patient refused PICC line insertion and MD aware. as per CM patient's insurance is not covering Antibiotics and patient can't pay. okay to hold discharge as per MD. call light placed and fall precautions observed well, remains afebrile and will continue to monitor. patient's family is non-complaint with PPE.
[2018-09-24 20:00] VITALS: BP 120/64; PULSE 76; RESP 18
[2018-09-24] MEDS: INSULIN GLARGINE [LANTus] (100 UNITS/ML) SYG SC SCH (20:30)
[2018-09-24] MEDS: traZODone 50 MG TAB PO SCH (21:27)
[2018-09-24] MEDS: traMADol 50 MG TAB PO PRN (21:27)
[2018-09-24] MEDS: ATORVASTATIN 40 MG TAB PO SCH (21:27)
[2018-09-25 02:00] VITALS: BP 119/55; PULSE 86; RESP 18
[2018-09-25] MEDS: PANTOPRAZOLE (EC) 40 MG TAB PO SCH (06:03)
[2018-09-25] MEDS: LEVOTHYROXINE 50 MCG TAB PO SCH (06:03)
--- NOTE | 2018-09-25 07:37 | NUR ---
RN Notes No changes in patient's condition overnight. Patient complained of pain x 1 during shift. Pain adequately managed with PRN Tramadol. Will endorse to oncoming RN for continuity of care.
[2018-09-25 07:40] VITALS: BP 110/55; PULSE 79; RESP 16
[2018-09-25] MEDS: POLYETHYLENE GLYCOL 17 GM PACKET PO SCH ×2 (08:01→20:24)
[2018-09-25] MEDS: SUCRALFATE (100 MG/ML) 10ML CUP PO SCH ×4 (08:10→20:12)
[2018-09-25] MEDS: INSULIN ASPART [NOVOLOG] 3 ML PEN SC SCH ×7 (08:11→20:15)
[2018-09-25] MEDS: ENOXAPARIN 30 MG/0.3 ML SYG SC SCH (08:12)
[2018-09-25] MEDS: FLUOXETINE 20 MG CAP PO SCH (08:13)
[2018-09-25] MEDS: LOSARTAN 25 MG TAB PO SCH (08:13)
[2018-09-25] MEDS: ASPIRIN (EC) 81 MG TAB PO SCH (08:14)
[2018-09-25] MEDS: LORATADINE 10 MG TAB PO SCH (08:14)
[2018-09-25] MEDS: ERTAPENEM SODIUM 1 GM in SOD CHLORIDE 0.9% 100 ML IVPB SCH (12:24)
--- NOTE | 2018-09-25 13:46 | PN ---
Date/Time of Note Date/Time of Note DATE: 09/25/18 TIME: 13:44 Assessment/Plan VTE Prophylaxis Risk score (from Nsg)>0 risk: 1 SCD applied (from Nsg): Yes Pharmacological prophylaxis: LMWH Lines/Catheters IV Catheter Type (from Nrsg): Peripheral IV Urinary Cath still in place: No Assessment/Plan Hospital Course This is a 48-year-old female with comorbidities including diabetes mellitus type 2, essential hypertension, pulmonary hypertension, dyslipidemia, gastritis, hypothyroidism,CAD status post coronary artery stenting, and obesity who came to the emergency room with chief complaint of left lower quadrant abdominal pain that has been going on for the past 4 days. The patient tried taking Protonix with minimal improvement. The patient had multiple episodes of nonbloody, nonbilious vomiting. The patient denied any diarrhea. The patient denied any fevers although she verbalized shaking chills. She has been unable to tolerate adequate oral intake because of emesis. In the emergency room, the patient was noticed to be septic with a WBC of 19, along with lactic acidosis, and tachycardia. She was treated with IV Zosyn and Rocephin in the emergency room. The patient was also noticed to be hyperglycemic with a glucose of 507 and hyperkalemic with a potassium of 5.2. The patient was treated with glucose, calcium chloride, and sodium bicarbonate in the emergency room. The patient's urinalysis was showing positive leukocyte esterase 3+ with urine microscopic WBC more than 182. The patient underwent a CT scan of the abdomen and pelvis that was showing bilateral perinephric fat stranding and prominence of bilateral renal collecting systems with no gross renal/ureteral calculi along with a distended urinary bladder. Patient is found of having UTI, urine and blood culture positive with ESBL E.Coli that she was on meropenem then invanz. Patient is afebrile. She will be invanz for 7 more days through a midline per home health. Patient has h/o CAD, PCI in 12/2016. Plavix is stopped for anemia that she had EGD/Colonoscopy that revealed gastric ulcer. She will be on protonix and carafate. Follow up with GI in two weeks. Echocardiogram Report Patient Name: LEXIE TONY Gender: Female Date: 1970 Study Date: 22-Sep-2018 Modeling Manager: Quyen Longoria [facility] Location: 2255 Ref. Physician: ALISHA ABARCA Quality: Good Procedures: Transthoracic echocardiogram with complete 2D, M-Mode, and doppler examination. Indications: Evaluate Left Ventricular function. 2D/M Mode Doppler Measurement Value Normal Ranges Measurement Value Normal Ranges LVIDd 2D 4.7 3.5 - 5.6 cm AV Peak Kosta 1.4 m/sec LVIDs 2D 3.1 2.1 - 4.1 cm AV Peak PG 8.0 mmHg FS 2D 34.3 % LVOT Peak Kosta 1.1 m/sec LVPWd 2D 1.2 0.6 - 1.1 cm LVOT Peak PG 5.0 mmHg IVSd 2D 1.0 0.6 - 1.1 cm MV E Peak Kosta 0.7 m/sec IVS/LVPW 2D 0.9 MV A Peak Kosta 0.8 m/sec AoR Diam 2D 2.5 2.0 - 3.7 cm MV E/A 0.9 LA/Ao 2D 1 0 - 1 MV Decel Time 173 msec EDV 2D 101.0 cm3 MV E/A 0.9 ESV 2D 28.7 cm3 TR Peak Kosta 3.1 m/sec LA Dimen 2D 3.3 2.3 - 4.0 cm TR Peak PG 38.0 mmHg RVSP 53.0 mmHg RA Pressure 15.0 Findings Left Ventricle: Lower limits of normal systolic function. Normal left ventricular cavity size. Mild concentric left ventricular hypertrophy. Ejection fraction is visually estimated at 50 %. Tissue Doppler/Mitral Doppler indices are consistent with impaired relaxation (Stage I diastolic dysfunction). Right Ventricle: Normal right ventricular size. Normal right ventricular systolic function. Left Atrium: There is mild enlargement of left atrium. Right Atrium: The right atrium is normal in size. Mitral Valve: Mild mitral annular calcification. Trace mitral regurgitation. Aortic Valve: Normal appearance of the aortic valve. No significant aortic stenosis or insufficiency. Tricuspid Valve: Normal appearance of the tricuspid valve. Estimated peak PA systolic pressure 46 mmHg. There is mild to moderate tricuspid regurgitation. Pulmonic Valve: Normal pulmonic valve appearance. Pericardium: Normal pericardium with no significant pericardial effusion. Aorta: Normal aortic root. IVC: Normal size and no respiratory collapse consistent with elevated right atrial pressure. Conclusions Lower limits of normal systolic function. Normal left ventricular cavity size. Mild concentric left ventricular hypertrophy. Ejection fraction is visually estimated at 50 %. Tissue Doppler/Mitral Doppler indices are consistent with impaired relaxation (Stage I diastolic dysfunction). Mild to moderate tricuspid regurgitation. Estimated peak PA systolic pressure 46 mmHg based on RA pressure of 8 mmHg. Electronically Signed By: Donell Maxwell 22-Sep-2018 14:54:41 -0800 Assessment/Plan 1. ESBL UTI, on invanz for 7 days 2. E. coli ESBL bacteremia secondary to UTI, on invanz 3. Sepsis, resolved 4. Anemia, EGD/colonoscopy 09/23/2018, gastric ulcer, protonix/carafate, follow up with GI 5. CAD status post stent to mid LAD, stable 6. Hyperkalemia, renal failure related, resolved 7. Acute nonoliguric kidney injury, sepsis related, resolved 8. Hypothyroidism.Continue Synthroid. 9. Dyslipidemia. Continue statins. 10. Obesity. BMI 45 kg/m.Advised weight reduction. 11. Ischemic cardiomyopathy: EF previously ~45-50%. Now closer to normal at 50%, follow up with cardiology 12. Patient is staying inpatient since invanz is not covered DVT prophylaxis: lovenox Result Diagram: 09/24/18 0532 09/24/18 0532 Results 24hrs Laboratory Tests Test 09/24/18 17:27 09/24/18 20:24 09/24/18 21:25 09/25/18 08:09 Bedside Glucose 141 72 132 158 Test 09/25/18 12:21 Bedside Glucose 118 Subjective 24 Hr Interval Summary Free Text/Dictation no event. discharge is held since invanz is not covered Exam/Review of Systems Vital Signs Vitals Vital Signs Date Temp Pulse Resp B/P (MAP) Pulse Ox O2 O2 Flow FiO2 Time Delivery Rate 09/25/18 98.2 79 16 110/55 96 Room Air 07:40 (73) 09/21/18 07:37 Intake and Output 09/24/18 09/24/18 09/25/18 1515:00 23:00 07:00 IntakeIntake Total 100 ml 400 ml BalanceBalance 100 ml 400 ml Exam Constitutional: alert, oriented, well developed Psych: no complaints, nl mood/affect Head: normocephalic, atraumatic Eyes: nl conjunctiva, EOMI, nl lids, nl sclera, PERRL ENMT: nl external ears & nose, nl lips & teeth, nl nasal mucosa & septum Neck: supple, non-tender Respiratory: clear to auscultation, normal air movement; No congested cough, No crackles/rales, No diminished breath sounds, No intercostal retraction, No labored breathing, No respirations, No tactile fr emitus, No wheezing, No other Cardiovascular: regular rate and rhythm, nl pulses; No bruits, No diastolic murmur, No edema, No gallop, No irregular rhythm, No jugular venous distention (JVD), No murmurs/extra sounds, No rub, No systolic murmur, No S3, No S4, No other Gastrointestinal: soft, nl liver, spleen, non-tender Musculoskeletal: nl extremities to inspection Extremities: normal pulses; No calf tenderness, No cyanosis, No clubbing, No edema, No pitting pedal edema, No palpable cord, No tenderness, No other Neurological: PLODDING OPERATOR II-XII intact, nl mental status, nl speech, nl strength Skin: nl turgor Medications Medications Current Medications IV Flush (NS 3 ml) 3 ml PER PROTOCOL IV ; Start 09/19/18 at 16:30 Ondansetron HCl (Zofran Inj) 4 mg Q6H PRN IV NAUSEA AND/OR VOMITING Last administered on 09/20/18at 05:43; Admin Dose 4 MG; Start 09/19/18 at 16:30 Acetaminophen (Tylenol Tab) 650 mg Q6H PRN PO PAIN LEVEL 1-3 OR FEVER Last administered on 09/22/18at 18:03; Admin Dose 650 MG; Start 09/19/18 at 16:30 Pantoprazole (Protonix Tab) 40 mg DAILY@06 PO Last administered on 09/25/18at 06:03; Admin Dose 40 MG; Start 09/20/18 at 06:00 Aspirin (Halfprin) 81 mg DAILY PO Last administered on 09/25/18at 08:14; Admin Dose 81 MG; Start 09/20/18 at 09:00 Atorvastatin Calcium (Lipitor) 40 mg HS PO Last administered on 09/24/18at 21:27; Admin Dose 40 MG; Start 09/19/18 at 21:00 Fluoxetine HCl (Prozac) 20 mg DAILY PO Last administered on 09/25/18at 08:13; Admin Dose 20 MG; Start 09/20/18 at 09:00 Levothyroxine Sodium (Synthroid) 50 mcg BEFORE BREAKFAST PO Last administered on 09/25/18at 06:03; Admin Dose 50 MCG; Start 09/20/18 at 07:00 Loratadine (Claritin) 10 mg DAILY PO Last administered on 09/25/18at 08:14; Admin Dose 10 MG; Start 09/20/18 at 09:00 Losartan Potassium (Cozaar) 25 mg DAILY PO Last administered on 09/25/18at 08:13; Admin Dose 25 MG; Start 09/20/18 at 09:00 Trazodone HCl (Desyrel) 50 mg HS PO Last administered on 09/24/18at 21:27; Admin Dose 50 MG; Start 09/19/18 at 21:00 Miscellaneous Information 1 ea NOTE XX ; Start 09/19/18 at 16:30 Glucose (Glutose) 15 gm Q15M PRN PO DECREASED GLUCOSE; Start 09/19/18 at 16:30 Glucose (Glutose) 22.5 gm Q15M PRN PO DECREASED GLUCOSE; Start 09/19/18 at 16:30 Dextrose (D50w Syringe) 25 ml Q15M PRN IV DECREASED GLUCOSE; Start 09/19/18 at 16:30 Dextrose (D50w Syringe) 50 ml Q15M PRN IV DECREASED GLUCOSE; Start 09/19/18 at 16:30 Glucagon (Glucagen) 1 mg Q15M PRN IM DECREASED GLUCOSE; Start 09/19/18 at 16:30 Glucose (Glutose) 15 gm Q15M PRN BUCCAL DECREASED GLUCOSE; Start 09/19/18 at 16:30 Hydralazine HCl (Apresoline) 10 mg Q6H PRN IV SBP>160 Last administered on 09/23/18at 18:02; Admin Dose 10 MG; Start 09/19/18 at 16:30 Polyethylene Glycol (Miralax) 17 gm BID PO Last administered on 09/23/18at 20:16; Admin Dose 17 GM; Start 09/19/18 at 21:00 Bisacodyl (Dulcolax) 10 mg DAILY PRN PO CONSTIPATION; Start 09/19/18 at 16:30 Enoxaparin Sodium (Lovenox) 30 mg DAILY SC Last administered on 09/25/18at 08:12; Admin Dose 30 MG; Start 09/21/18 at 09:00 Tramadol HCl (Ultram) 50 mg Q6H PRN PO MODERATE PAIN LEVEL 4-6 Last administe red on 09/24/18 21:27; Admin Dose 50 MG; Start 09/20/18 at 22:00 Insulin Aspart (Novolog Insulin Pen) 10 unit WITH MEALS SC Last administered on 09/25/18 12:23; Admin Dose 10 UNIT; Start 09/21/18 at 17:47 Insulin Glargine (Lantus) 28 units DAILY@2000 SC Last administered on 09/24/18 20:30; Admin Dose 28 UNITS; Start 09/21/18 at 20:00 Sucralfate (Carafate Susp) 1 gm QID PO Last administered on 09/25/18 12:23; Admin Dose 1 GM; Start 09/21/18 at 17:00 Carvedilol (Coreg) 6.25 mg BID PO Last administered on 09/25/18 08:14; Admin Dose 6.25 MG; Start 09/22/18 at 21:00 Ertapenem 1 gm/ Sodium Chloride 100 ml @ 200 mls/hr Q24H IVPB Last administered on 09/25/18 12:24; Admin Dose 200 MLS/HR; Start 09/22/18 at 13:00 Morphine Sulfate (morphine) 3 mg Q4H PRN PO SEVERE PAIN LEVEL 7-10; Start 09/23/18 at 17:30 Insulin Aspart (Novolog Insulin Pen) (Adult SC Insulin - Moder... AC MEALS AND BEDTIME SC Last administered on 09/25/18 08:11; Admin Dose 2 UNIT; Start 09/23/18 at 21:00 ROB HOLCOMB MD Sep 25, 2018 13:46
--- NOTE | 2018-09-25 14:14 | CONS ---
Date/Time of Note Date/Time of Note DATE: 09/25/18 TIME: 14:13 Assessment/Plan Assessment/Plan Hospital Course No acute events overnight. Patient is alert feels good denies pain no fevers Microbiology: Blood and urine cultures since admission grew E. coli ESBL, repeat blood cultures negative Antimicrobials: Invanz Physical examination: This is a morbidly obese well-developed middle-aged woman who is alert in no distress. Head atraumatic normocephalic sclera nonicteric neck is supple chest rise symmetrical breath sounds clear heart S1-S2 abdomen soft bowel sounds present extremities without cyanosis. Assessment: 1. Sepsis, resolving 2. E. coli ESBL bacteremia secondary to UTI 3. Morbid obesity 4. Diabetes 5. History of psoriasis Plan: Remains stable, continue abx, for 6 more days Discussed with patient and family at bedside Result Diagram: 09/24/18 0532 09/24/18 0532 Results 24hrs Laboratory Tests Test 09/24/18 17:27 09/24/18 20:24 09/24/18 21:25 09/25/18 08:09 Bedside Glucose 141 72 132 158 Test 09/25/18 12:21 Bedside Glucose 118 Consultation Date/Type/Reason Admit Date/Time Sep 19, 2018 at 12:18 Initial Consult Date 09/19/18 Type of Consult id Requesting Provider: ALISHA ABARCA D[employer]ITAL [employer] BUYER Exam/Review of Systems Vital Signs Vitals Vital Signs Date Temp Pulse Resp B/P (MAP) Pulse Ox O2 O2 Flow FiO2 Time Delivery Rate 09/25/18 98.2 79 16 110/55 96 Room Air 07:40 (73) 09/21/18 07:37 Intake and Output 09/24/18 09/24/18 09/25/18 1515:00 23:00 07:00 IntakeIntake Total 100 ml 400 ml BalanceBalance 100 ml 400 ml Medications Medications Current Medications IV Flush (NS 3 ml) 3 ml PER PROTOCOL IV ; Start 09/19/18 at 16:30 Ondansetron HCl (Zofran Inj) 4 mg Q6H PRN IV NAUSEA AND/OR VOMITING Last administered on 09/20/18at 05:43; Admin Dose 4 MG; Start 09/19/18 at 16:30 Acetaminophen (Tylenol Tab) 650 mg Q6H PRN PO PAIN LEVEL 1-3 OR FEVER Last admi nistered on 09/22/18 18:03; Admin Dose 650 MG; Start 09/19/18 at 16:30 Pantoprazole (Protonix Tab) 40 mg DAILY@06 PO Last administered on 09/25/18at 06:03; Admin Dose 40 MG; Start 09/20/18 at 06:00 Aspirin (Halfprin) 81 mg DAILY PO Last administered on 09/25/18at 08:14; Admin Dose 81 MG; Start 09/20/18 at 09:00 Atorvastatin Calcium (Lipitor) 40 mg HS PO Last administered on 09/24/18at 21:27; Admin Dose 40 MG; Start 09/19/18 at 21:00 Fluoxetine HCl (Prozac) 20 mg DAILY PO Last administered on 09/25/18 08:13; Admin Dose 20 MG; Start 09/20/18 at 09:00 Levothyroxine Sodium (Synthroid) 50 mcg BEFORE BREAKFAST PO Last administered on 09/25/18at 06:03; Admin Dose 50 MCG; Start 09/20/18 at 07:00 Loratadine (Claritin) 10 mg DAILY PO Last administered on 09/25/18at 08:14; Admin Dose 10 MG; Start 09/20/18 at 09:00 Losartan Potassium (Cozaar) 25 mg DAILY PO Last administered on 09/25/18 08:13; Admin Dose 25 MG; Start 09/20/18 at 09:00 Trazodone HCl (Desyrel) 50 mg HS PO Last administered on 09/24/18at 21:27; Admin Dose 50 MG; Start 09/19/18 at 21:00 Miscellaneous Information 1 ea NOTE XX ; Start 09/19/18 at 16:30 Glucose (Glutose) 15 gm Q15M PRN PO DECREASED GLUCOSE; Start 09/19/18 at 16:30 Glucose (Glutose) 22.5 gm Q15M PRN PO DECREASED GLUCOSE; Start 09/19/18 at 16:30 Dextrose (D50w Syringe) 25 ml Q15M PRN IV DECREASED GLUCOSE; Start 09/19/18 at 16:30 Dextrose (D50w Syringe) 50 ml Q15M PRN IV DECREASED GLUCOSE; Start 09/19/18 at 16:30 Glucagon (Glucagen) 1 mg Q15M PRN IM DECREASED GLUCOSE; Start 09/19/18 at 16:30 Glucose (Glutose) 15 gm Q15M PRN BUCCAL DECREASED GLUCOSE; Start 09/19/18 at 16:30 Hydralazine HCl (Apresoline) 10 mg Q6H PRN IV SBP>160 Last administered on 09/23/18at 18:02; Admin Dose 10 MG; Start 09/19/18 at 16:30 Polyethylene Glycol (Miralax) 17 gm BID PO Last administered on 09/23/18at 20:16; Admin Dose 17 GM; Start 09/19/18 at 21:00 Bisacodyl (Dulcolax) 10 mg DAILY PRN PO CONSTIPATION; Start 09/19/18 at 16:30 Enoxaparin Sodium (Lovenox) 30 mg DAILY SC Last administered on 09/25/18at 08:12; Admin Dose 30 MG; Start 09/21/18 at 09:00 Tramadol HCl (Ultram) 50 mg Q6H PRN PO MODERATE PAIN LEVEL 4-6 Last administered on 09/24/18at 21:27; Admin Dose 50 MG; Start 09/20/18 at 22:00 Insulin Aspart (Novolog Insulin Pen) 10 unit WITH MEALS SC Last administered on 09/25/18at 12:23; Admin Dose 10 UNIT; Start 09/21/18 at 17:47 Insulin Glargine (Lantus) 28 units DAILY@2000 SC Last administered on 09/24/18at 20:30; Admin Dose 28 UNITS; Start 09/21/18 at 20:00 Sucralfate (Carafate Susp) 1 gm QID PO Last administered on 09/25/18at 12:23; Admin Dose 1 GM; Start 09/21/18 at 17:00 Carvedilol (Coreg) 6.25 mg BID PO Last administered on 09/25/18at 08:14; Admin Dose 6.25 MG; Start 09/22/18 at 21:00 Ertapenem 1 gm/ Sodium Chloride 100 ml @ 200 mls/hr Q24H IVPB Last administered on 09/25/18at 12:24; Admin Dose 200 MLS/HR; Start 09/22/18 at 13:00 Morphine Sulfate (morphine) 3 mg Q4H PRN PO SEVERE PAIN LEVEL 7-10; Start 09/23/18 at 17:30 Insulin Aspart (Novolog Insulin Pen) (Adult SC Insulin - Moder... AC MEALS AND BEDTIME SC Last administered on 09/25/18at 08:11; Admin Dose 2 UNIT; Start 09/23/18 at 21:00 SAVANNAH JUAREZ NP Sep 25, 2018 14:14
[2018-09-25 14:23] VITALS: BP 105/61; PULSE 74; RESP 16
--- NOTE | 2018-09-25 18:32 | NUR ---
NURSE NOTE: No acute changes. Pt is AXOX4. No signs of distress. No complaints of discomfort. Ambulates around the unit. Bed alam on. call light within reach.
[2018-09-25 20:00] VITALS: BP 144/81; PULSE 79; RESP 18
[2018-09-25] MEDS: traZODone 50 MG TAB PO SCH (20:11)
[2018-09-25] MEDS: ATORVASTATIN 40 MG TAB PO SCH (20:12)
[2018-09-25] MEDS: INSULIN GLARGINE [LANTus] (100 UNITS/ML) SYG SC SCH (20:14)
--- NOTE | 2018-09-25 23:00 | NUR ---
CHARGE NURSE NOTE: Spoke with Typing Teacher Miko, daughter is noncompliant with donning PPE for contact isolation precautions.
[2018-09-26 02:00] VITALS: BP 117/57; PULSE 86; RESP 18
--- NOTE | 2018-09-26 04:37 | NUR ---
pt alert, oriented x4, no sob, denies pain. no nausea and vomiting noted. pt's daughter at bedside , informed importance of donning gown ,use of gloves to observe contact precaution , verbalized understanding but still noted not using gown. charge nurse made aware.
[2018-09-26] MEDS: PANTOPRAZOLE (EC) 40 MG TAB PO SCH (06:01)
[2018-09-26] MEDS: LEVOTHYROXINE 50 MCG TAB PO SCH (06:01)
[2018-09-26] MEDS: FLUOXETINE 20 MG CAP PO SCH (08:02)
[2018-09-26] MEDS: LORATADINE 10 MG TAB PO SCH (08:02)
[2018-09-26] MEDS: ASPIRIN (EC) 81 MG TAB PO SCH (08:02)
[2018-09-26] MEDS: INSULIN ASPART [NOVOLOG] 3 ML PEN SC SCH ×7 (08:03→21:00)
[2018-09-26] MEDS: ENOXAPARIN 30 MG/0.3 ML SYG SC SCH (08:05)
[2018-09-26] MEDS: POLYETHYLENE GLYCOL 17 GM PACKET PO SCH ×2 (08:05→21:00)
[2018-09-26] MEDS: SUCRALFATE (100 MG/ML) 10ML CUP PO SCH ×4 (08:06→21:15)
[2018-09-26] MEDS: LOSARTAN 25 MG TAB PO SCH (08:06)
[2018-09-26 08:16] VITALS: BP 114/56; PULSE 82; RESP 18
--- NOTE | 2018-09-26 12:31 | PN ---
Date/Time of Note Date/Time of Note DATE: 09/26/18 TIME: 12:30 Assessment/Plan VTE Prophylaxis Risk score (from Nsg)>0 risk: 1 SCD applied (from Nsg): Yes Pharmacological prophylaxis: LMWH Lines/Catheters IV Catheter Type (from Nrsg): Peripheral IV Urinary Cath still in place: No Assessment/Plan Hospital Course This is a 48-year-old female with comorbidities including diabetes mellitus type 2, essential hypertension, pulmonary hypertension, dyslipidemia, gastritis, hypothyroidism,CAD status post coronary artery stenting, and obesity who came to the emergency room with chief complaint of left lower quadrant abdominal pain that has been going on for the past 4 days. The patient tried taking Protonix with minimal improvement. The patient had multiple episodes of nonbloody, nonbilious vomiting. The patient denied any diarrhea. The patient denied any fevers although she verbalized shaking chills. She has been unable to tolerate adequate oral intake because of emesis. In the emergency room, the patient was noticed to be septic with a WBC of 19, along with lactic acidosis, and tachycardia. She was treated with IV Zosyn and Rocephin in the emergency room. The patient was also noticed to be hyperglycemic with a glucose of 507 and hyperkalemic with a potassium of 5.2. The patient was treated with glucose, calcium chloride, and sodium bicarbonate in the emergency room. The patient's urinalysis was showing positive leukocyte esterase 3+ with urine microscopic WBC more than 182. The patient underwent a CT scan of the abdomen and pelvis that was showing bilateral perinephric fat stranding and prominence of bilateral renal collecting systems with no gross renal/ureteral calculi along with a distended urinary bladder. Patient is found of having UTI, urine and blood culture positive with ESBL E.Coli that she was on meropenem then invanz. Patient is afebrile. She will be invanz for 7 more days through a midline per home health. Patient has h/o CAD, PCI in 12/2016. Plavix is stopped for anemia that she had EGD/Colonoscopy that revealed gastric ulcer. She will be on protonix and carafate. Follow up with GI in two weeks. Echocardiogram Report Patient Name: LEXIE TONY Gender: Female Date: 1970 Study Date: 22-Sep-2018 Distillery Laborer: Quyen Longoria [facility] Location: 2255 Ref. Physician: ALISHA ABARCA Quality: Good Procedures: Transthoracic echocardiogram with complete 2D, M-Mode, and doppler examination. Indications: Evaluate Left Ventricular function. 2D/M Mode Doppler Measurement Value Normal Ranges Measurement Value Normal Ranges LVIDd 2D 4.7 3.5 - 5.6 cm AV Peak Kosta 1.4 m/sec LVIDs 2D 3.1 2.1 - 4.1 cm AV Peak PG 8.0 mmHg FS 2D 34.3 % LVOT Peak Kosta 1.1 m/sec LVPWd 2D 1.2 0.6 - 1.1 cm LVOT Peak PG 5.0 mmHg IVSd 2D 1.0 0.6 - 1.1 cm MV E Peak Kosta 0.7 m/sec IVS/LVPW 2D 0.9 MV A Peak Kosta 0.8 m/sec AoR Diam 2D 2.5 2.0 - 3.7 cm MV E/A 0.9 LA/Ao 2D 1 0 - 1 MV Decel Time 173 msec EDV 2D 101.0 cm3 MV E/A 0.9 ESV 2D 28.7 cm3 TR Peak Kosta 3.1 m/sec LA Dimen 2D 3.3 2.3 - 4.0 cm TR Peak PG 38.0 mmHg RVSP 53.0 mmHg RA Pressure 15.0 Findings Left Ventricle: Lower limits of normal systolic function. Normal left ventricular cavity size. Mild concentric left ventricular hypertrophy. Ejection fraction is visually estimated at 50 %. Tissue Doppler/Mitral Doppler indices are consistent with impaired relaxation (Stage I diastolic dysfunction). Right Ventricle: Normal right ventricular size. Normal right ventricular systolic function. Left Atrium: There is mild enlargement of left atrium. Right Atrium: The right atrium is normal in size. Mitral Valve: Mild mitral annular calcification. Trace mitral regurgitation. Aortic Valve: Normal appearance of the aortic valve. No significant aortic stenosis or insufficiency. Tricuspid Valve: Normal appearance of the tricuspid valve. Estimated peak PA systolic pressure 46 mmHg. There is mild to moderate tricuspid regurgitation. Pulmonic Valve: Normal pulmonic valve appearance. Pericardium: Normal pericardium with no significant pericardial effusion. Aorta: Normal aortic root. IVC: Normal size and no respiratory collapse consistent with elevated right atrial pressure. Conclusions Lower limits of normal systolic function. Normal left ventricular cavity size. Mild concentric left ventricular hypertrophy. Ejection fraction is visually estimated at 50 %. Tissue Doppler/Mitral Doppler indices are consistent with impaired relaxation (Stage I diastolic dysfunction). Mild to moderate tricuspid regurgitation. Estimated peak PA systolic pressure 46 mmHg based on RA pressure of 8 mmHg. Electronically Signed By: Donell Maxwell 22-Sep-2018 14:54:41 -0800 Assessment/Plan 1. ESBL UTI, on invanz for 5 more days 2. E. coli ESBL bacteremia secondary to UTI, on invanz 3. Sepsis, resolved 4. Anemia, EGD/colonoscopy 09/23/2018, gastric ulcer, protonix/carafate, follow up with GI 5. CAD status post stent to mid LAD, stable 6. Hyperkalemia, renal failure related, resolved 7. Acute nonoliguric kidney injury, sepsis related, resolved 8. Hypothyroidism.Continue Synthroid. 9. Dyslipidemia. Continue statins. 10. Obesity. BMI 45 kg/m.Advised weight reduction. 11. Ischemic cardiomyopathy: EF previously ~45-50%. Now closer to normal at 50%, follow up with cardiology 12. Patient is staying inpatient since invanz is not covered DVT prophylaxis: lovenox Result Diagram: 09/24/18 0532 09/24/18 0532 Results 24hrs Laboratory Tests Test 09/25/18 17:15 09/25/18 20:06 09/26/18 01:54 09/26/18 07:58 Bedside Glucose 138 155 108 166 Test 09/26/18 12:02 Bedside Glucose 220 Subjective 24 Hr Interval Summary Free Text/Dictation no fever or chills Exam/Review of Systems Vital Signs Vitals Vital Signs Date Temp Pulse Resp B/P (MAP) Pulse Ox O2 O2 Flow FiO2 Time Delivery Rate 09/26/18 98.7 82 18 114/56 93 08:16 (75) 09/25/18 Room Air 14:23 Intake and Output 09/25/18 09/25/18 09/26/18 1515:00 23:00 07:00 IntakeIntake Total 600 ml 200 ml BalanceBalance 600 ml 200 ml Exam Constitutional: alert, oriented, well developed Psych: no complaints, nl mood/affect Head: normocephalic, atraumatic Eyes: nl conjunctiva, EOMI, nl lids, nl sclera, PERRL ENMT: nl external ears & nose, nl lips & teeth, nl nasal mucosa & septum Neck: supple, non-tender Respiratory: clear to auscultation, normal air movement; No congested cough, No crackles/rales, No diminished breath sounds, No intercostal retraction, No labored breathing, No respirations, No tactile fremitus, No wheezing, No other Cardiovascular: regular rate and rhythm, nl pulses; No bruits, No diastolic murmur, No edema, No gallop, No irregular rhythm, No jugular venous distention (JVD), No murmurs/extra sounds, No rub, No systolic murmur, No S3, No S4, No other Gastrointestinal: soft, nl liver, spleen, non-tender Musculoskeletal: nl extremities to inspection Extremities: normal pulses; No calf tenderness, No cyanosis, No clubbing, No edema, No pitting pedal edema, No palpable cord, No tenderness, No other Neurological: LANGUAGE TUTOR II-XII intact, nl mental status, nl speech, nl strength Medications Medications Current Medications IV Flush (NS 3 ml) 3 ml PER PROTOCOL IV ; Start 09/19/18 at 16:30 Ondansetron HCl (Zofran Inj) 4 mg Q6H PRN IV NAUSEA AND/OR VOMITING Last administered on 09/20/18at 05:43; Admin Dose 4 MG; Start 09/19/18 at 16:30 Acetaminophen (Tylenol Tab) 650 mg Q6H PRN PO PAIN LEVEL 1-3 OR FEVER Last administered on 09/22/18 18:03; Admin Dose 650 MG; Start 09/19/18 at 16:30 Pantoprazole (Protonix Tab) 40 mg DAILY@06 PO Last administered on 09/26/18at 06:01; Admin Dose 40 MG; Start 09/20/18 at 06:00 Aspirin (Halfprin) 81 mg DAILY PO Last administered on 09/26/18 08:02; Admin Dose 81 MG; Start 09/20/18 at 09:00 Atorvastatin Calcium (Lipitor) 40 mg HS PO Last administered on 09/25/18at 20:12; Admin Dose 40 MG; Start 09/19/18 at 21:00 Fluoxetine HCl (Prozac) 20 mg DAILY PO Last administered on 09/26/18at 08:02; Admin Dose 20 MG; Start 09/20/18 at 09:00 Levothyroxine Sodium (Synthroid) 50 mcg BEFORE BREAKFAST PO Last administered on 09/26/18at 06:01; Admin Dose 50 MCG; Start 09/20/18 at 07:00 Loratadine (Claritin) 10 mg DAILY PO Last administered on 09/26/18at 08:02; Admin Dose 10 MG; Start 09/20/18 at 09:00 Losartan Potassium (Cozaar) 25 mg DAILY PO Last administered on 09/26/18at 08:06; Admin Dose 25 MG; Start 09/20/18 at 09:00 Trazodone HCl (Desyrel) 50 mg HS PO Last administered on 09/25/18at 20:11; Admin Dose 50 MG; Start 09/19/18 at 21:00 Miscellaneous Information 1 ea NOTE XX ; Start 09/19/18 at 16:30 Glucose (Glutose) 15 gm Q15M PRN PO DECREASED GLUCOSE; Start 09/19/18 at 16:30 Glucose (Glutose) 22.5 gm Q15M PRN PO DECREASED GLUCOSE; Start 09/19/18 at 16:30 Dextrose (D50w Syringe) 25 ml Q15M PRN IV DECREASED GLUCOSE; Start 09/19/18 at 16:30 Dextrose (D50w Syringe) 50 ml Q15M PRN IV DECREASED GLUCOSE; Start 09/19/18 at 16:30 Glucagon (Glucagen) 1 mg Q15M PRN IM DECREASED GLUCOSE; Start 09/19/18 at 16:30 Glucose (Glutose) 15 gm Q15M PRN BUCCAL DECREASED GLUCOSE; Start 09/19/18 at 16:30 Hydralazine HCl (Apresoline) 10 mg Q6H PRN IV SBP>160 Last administered on 09/23/18at 18:02; Admin Dose 10 MG; Start 09/19/18 at 16:30 Polyethylene Glycol (Miralax) 17 gm BID PO Last administered on 09/23/18at 20:16; Admin Dose 17 GM; Start 09/19/18 at 21:00 Bisacodyl (Dulcolax) 10 mg DAILY PRN PO CONSTIPATION; Start 09/19/18 at 16:30 Enoxaparin Sodium (Lovenox) 30 mg DAILY SC Last administered on 09/26/18at 08:05; Admin Dose 30 MG; Start 09/21/18 at 09:00 Tramadol HCl (Ultram) 50 mg Q6H PRN PO MODERATE PAIN LEVEL 4-6 Last administered on 09/24/18 21:27; Admin Dose 50 MG; Start 09/20/18 at 22:00 Insulin Aspart (Novolog Insulin Pen) 10 unit WITH MEALS SC Last administered on 09/26/18 12:05; Admin Dose 10 UNIT; Start 09/21/18 at 17:47 Insulin Glargine (Lantus) 28 units DAILY@2000 SC Last administered on 09/25/18 20:14; Admin Dose 28 UNITS; Start 09/21/18 at 20:00 Sucralfate (Carafate Susp) 1 gm QID PO Last administered on 09/26/18 12:04; Admin Dose 1 GM; Start 09/21/18 at 17:00 Carvedilol (Coreg) 6.25 mg BID PO Last administered on 09/26/18 08:05; Admin Dose 6.25 MG; Start 09/22/18 at 21:00 Ertapenem 1 gm/ Sodium Chloride 100 ml @ 200 mls/hr Q24H IVPB Last administered on 09/25/18 12:24; Admin Dose 200 MLS/HR; Start 09/22/18 at 13:00 Morphine Sulfate (morphine) 3 mg Q4H PRN PO SEVERE PAIN LEVEL 7-10; Start 09/23/18 at 17:30 Insulin Aspart (Novolog Insulin Pen) (Adult SC Insulin - Moder... AC MEALS AND BEDTIME SC Last administered on 09/26/18 12:06; Admin Dose 4 UNIT; Start 09/23/18 at 21:00 ROB HOLCOMB MD Sep 26, 2018 12:31
[2018-09-26] MEDS: ERTAPENEM SODIUM 1 GM in SOD CHLORIDE 0.9% 100 ML IVPB SCH (13:22)
[2018-09-26 14:25] VITALS: BP 97/54; PULSE 60; RESP 18
--- NOTE | 2018-09-26 14:57 | CONS ---
Date/Time of Note Date/Time of Note DATE: 09/26/18 TIME: 14:56 Assessment/Plan Assessment/Plan Hospital Course No acute events overnight. Microbiology: Blood and urine cultures since admission grew E. coli ESBL, repeat blood cultures negative Antimicrobials: Invanz Physical examination: This is a morbidly obese well-developed middle-aged woman who is alert in no distress. Head atraumatic normocephalic sclera nonicteric neck is supple chest rise symmetrical breath sounds clear heart S1-S2 abdomen soft bowel sounds present extremities without cyanosis. Assessment: 1. Sepsis, resolving 2. E. coli ESBL bacteremia secondary to UTI 3. Morbid obesity 4. Diabetes 5. History of psoriasis Plan: Remains stable, continue abx for 5 more days Result Diagram: 09/24/18 0532 09/24/18 0532 Results 24hrs Laboratory Tests Test 09/25/18 17:15 09/25/18 20:06 09/26/18 01:54 09/26/18 07:58 Bedside Glucose 138 155 108 166 Test 09/26/18 12:02 Bedside Glucose 220 Consultation Date/Type/Reason Admit Date/Time Sep 19, 2018 at 12:18 Initial Consult Date 09/19/18 Type of Consult id Requesting Provider: ALISHA ABARCA SUPPORT SERVICE TECH Exam/Review of Systems Vital Signs Vitals Vital Signs Date Temp Pulse Resp B/P (MAP) Pulse Ox O2 O2 Flow FiO2 Time Delivery Rate 09/26/18 98.4 60 18 97/54 (68) 95 14:25 09/25/18 Room Air 14:23 Intake and Output 09/25/18 09/25/18 09/26/18 1515:00 23:00 07:00 IntakeIntake Total 600 ml 200 ml BalanceBalance 600 ml 200 ml Medications Medications Current Medications IV Flush (NS 3 ml) 3 ml PER PROTOCOL IV ; Start 09/19/18 at 16:30 Ondansetron HCl (Zofran Inj) 4 mg Q6H PRN IV NAUSEA AND/OR VOMITING Last administered on 09/20/18at 05:43; Admin Dose 4 MG; Start 09/19/18 at 16:30 Acetaminophen (Tylenol Tab) 650 mg Q6H PRN PO PAIN LEVEL 1-3 OR FEVER Last administered on 09/22/18at 18:03; Admin Dose 650 MG; Start 09/19/18 at 16:30 Pantoprazole (Protonix Tab) 40 mg DAILY@06 PO Last administered on 09/26/18at 06:01; Admin Dose 40 MG; Start 09/20/18 at 06:00 Aspirin (Halfprin) 81 mg DAILY PO Last administered on 09/26/18at 08:02; Admin Dose 81 MG; Start 09/20/18 at 09:00 Atorvastatin Calcium (Lipitor) 40 mg HS PO Last administered on 09/25/18at 20:12; Admin Dose 40 MG; Start 09/19/18 at 21:00 Fluoxetine HCl (Prozac) 20 mg DAILY PO Last administered on 09/26/18at 08:02; Admin Dose 20 MG; Start 09/20/18 at 09:00 Levothyroxine Sodium (Synthroid) 50 mcg BEFORE BREAKFAST PO Last administered on 09/26/18at 06:01; Admin Dose 50 MCG; Start 09/20/18 at 07:00 Loratadine (Claritin) 10 mg DAILY PO Last administered on 09/26/18at 08:02; Admin Dose 10 MG; Start 09/20/18 at 09:00 Losartan Potassium (Cozaar) 25 mg DAILY PO Last administered on 09/26/18at 08 :06; Admin Dose 25 MG; Start 09/20/18 at 09:00 Trazodone HCl (Desyrel) 50 mg HS PO Last administered on 09/25/18at 20:11; Admin Dose 50 MG; Start 09/19/18 at 21:00 Miscellaneous Information 1 ea NOTE XX ; Start 09/19/18 at 16:30 Glucose (Glutose) 15 gm Q15M PRN PO DECREASED GLUCOSE; Start 09/19/18 at 16:30 Glucose (Glutose) 22.5 gm Q15M PRN PO DECREASED GLUCOSE; Start 09/19/18 at 16:30 Dextrose (D50w Syringe) 25 ml Q15M PRN IV DECREASED GLUCOSE; Start 09/19/18 at 16:30 Dextrose (D50w Syringe) 50 ml Q15M PRN IV DECREASED GLUCOSE; Start 09/19/18 at 16:30 Glucagon (Glucagen) 1 mg Q15M PRN IM DECREASED GLUCOSE; Start 09/19/18 at 16:30 Glucose (Glutose) 15 gm Q15M PRN BUCCAL DECREASED GLUCOSE; Start 09/19/18 at 16:30 Hydralazine HCl (Apresoline) 10 mg Q6H PRN IV SBP>160 Last administered on 09/23/18 18:02; Admin Dose 10 MG; Start 09/19/18 at 16:30 Polyethylene Glycol (Miralax) 17 gm BID PO Last administered on 09/23/18 20:16; Admin Dose 17 GM; Start 09/19/18 at 21:00 Bisacodyl (Dulcolax) 10 mg DAILY PRN PO CONSTIPATION; Start 09/19/18 at 16:30 Enoxaparin Sodium (Lovenox) 30 mg DAILY SC Last administered on 09/26/18 08:05; Admin Dose 30 MG; Start 09/21/18 at 09:00 Tramadol HCl (Ultram) 50 mg Q6H PRN PO MODERATE PAIN LEVEL 4-6 Last administered on 09/24/18 21:27; Admin Dose 50 MG; Start 09/20/18 at 22:00 Insulin Aspart (Novolog Insulin Pen) 10 unit WITH MEALS SC Last administered on 09/26/18 12:05; Admin Dose 10 UNIT; Start 09/21/18 at 17:47 Insulin Glargine (Lantus) 28 units DAILY@2000 SC Last administered on 09/25/18 20:14; Admin Dose 28 UNITS; Start 09/21/18 at 20:00 Sucralfate (Carafate Susp) 1 gm QID PO Last administered on 09/26/18 12:04; Admin Dose 1 GM; Start 09/21/18 at 17:00 Carvedilol (Coreg) 6.25 mg BID PO Last administered on 09/26/18 08:05; Admin Dose 6.25 MG; Start 09/22/18 at 21:00 Ertapenem 1 gm/ Sodium Chloride 100 ml @ 200 mls/hr Q24H IVPB Last administered on 09/26/18 13:22; Admin Dose 200 MLS/HR; Start 09/22/18 at 13:00 Morphine Sulfate (morphine) 3 mg Q4H PRN PO SEVERE PAIN LEVEL 7-10; Start 09/23/18 at 17:30 Insulin Aspart (Novolog Insulin Pen) (Adult SC Insulin - Moder... AC MEALS AND BEDTIME SC Last administered on 09/26/18 12:06; Admin Dose 4 UNIT; Start 09/23/18 at 21:00 SAVANNAH JUAREZ NP Sep 26, 2018 14:57
--- NOTE | 2018-09-26 18:00 | NUR ---
NURSE NOTE: No acute changes. Pt is AXOX4. No signs of distress. Denies any pain. Pt ambulates around her room. Sitting on the chair and eating dinner. She states she will wait for her daughter. All needs were met. Will continue to monitor.
[2018-09-26 20:00] VITALS: BP 143/79; PULSE 72; RESP 19
[2018-09-26] MEDS: INSULIN GLARGINE [LANTus] (100 UNITS/ML) SYG SC SCH (20:31)
[2018-09-26] MEDS: ATORVASTATIN 40 MG TAB PO SCH (21:15)
[2018-09-26] MEDS: traZODone 50 MG TAB PO SCH (21:15)
[2018-09-27 02:00] VITALS: BP 103/58; PULSE 74; RESP 18
[2018-09-27] MEDS: LEVOTHYROXINE 50 MCG TAB PO SCH (06:25)
[2018-09-27] MEDS: PANTOPRAZOLE (EC) 40 MG TAB PO SCH (06:25)
[2018-09-27] MEDS: INSULIN ASPART [NOVOLOG] 3 ML PEN SC SCH ×7 (07:30→21:00)
[2018-09-27] MEDS: SUCRALFATE (100 MG/ML) 10ML CUP PO SCH ×4 (08:39→21:55)
[2018-09-27] MEDS: ENOXAPARIN 30 MG/0.3 ML SYG SC SCH (08:41)
[2018-09-27 08:42] VITALS: BP 112/56; PULSE 73; RESP 18
[2018-09-27] MEDS: ASPIRIN (EC) 81 MG TAB PO SCH (08:42)
[2018-09-27] MEDS: LORATADINE 10 MG TAB PO SCH (08:42)
[2018-09-27] MEDS: POLYETHYLENE GLYCOL 17 GM PACKET PO SCH ×2 (08:42→21:00)
[2018-09-27] MEDS: FLUOXETINE 20 MG CAP PO SCH (08:42)
[2018-09-27] MEDS: LOSARTAN 25 MG TAB PO SCH (08:42)
[2018-09-27] MEDS: ERTAPENEM SODIUM 1 GM in SOD CHLORIDE 0.9% 100 ML IVPB SCH (12:36)
--- NOTE | 2018-09-27 12:39 | CONS ---
Date/Time of Note Date/Time of Note DATE: 09/27/18 TIME: 12:37 Assessment/Plan Assessment/Plan Result Diagram: 09/27/18 0525 09/27/18 0525 Results 24hrs Laboratory Tests Test 09/26/18 17:32 09/26/18 20:27 09/27/18 05:25 09/27/18 08:04 Bedside Glucose 131 123 139 White Blood Count 10.1 Red Blood Count 3.55 L Hemoglobin 9.5 L Hematocrit 29.5 L Mean Corpuscular 83.1 Volume Mean Corpuscular 26.8 L Hemoglobin Mean Corpuscular 32.2 Hemoglobin Concent Red Cell 13.3 Distribution Width Platelet Count 487 H Mean Platelet Volume 10.1 Immature 1.600 H Granulocytes % Neutrophils % Segmented 44 Neutrophils % (Manual) Lymphocytes % Lymphocytes % 41 (Manual) Reactive Lymphocytes 6 H % (Manual) Monocytes % Monocytes % (Manual) 9 Eosinophils % Basophils % Nucleated Red Blood 0.0 Cells % Immature 0.160 H Granulocytes # Neutrophils # Lymphocytes (Manual) 4.1 H Lymphocytes # Reactive Lymphocytes 0.6 H # Monocytes # Monocytes # (Manual) 0.9 Eosinophils # Basophils # Nucleated Red Blood Cells # Platelet Estimate NORMAL Polychromasia 1+ Poikilocytosis 1+ Anisocytosis 1+ Sodium Level 139 Potassium Level 4.4 Chloride Level 106 Carbon Dioxide Level 26 Anion Gap 7 Blood Urea Nitrogen 17 Creatinine 1.04 H Est Glomerular 57 L Filtrat Rate mL/min Glucose Level 109 Calcium Level 8.8 Test 09/27/18 12:19 Bedside Glucose 227 H Consultation Date/Type/Reason Admit Date/Time Sep 19, 2018 at 12:18 Initial Consult Date SUBJECTIVE: Pt is awake, alert, resting in bed. No acute events overnight. VS: stable. T: 98.9 LABS: reviewed. WBC- 10.1 Microbiology: Blood and urine cultures since admission grew E. coli ESBL, repeat blood cultures negative Antimicrobials: Invanz Physical examination: GEN: This is a morbidly obese well-developed middle-aged woman who is alert in no distress. HENT: Head atraumatic normocephalic, sclera nonicteric, neck is supple PULM: chest rise symmetrical, breath sounds clear Heart S1-S2 Abdomen soft bowel sounds present Extremities without cyanosis. Assessment: 1. Sepsis, resolving 2. E. coli ESBL bacteremia secondary to UTI 3. Morbid obesity 4. Diabetes 5. History of psoriasis Plan: Pt remains stable. Continue current abx for 4 more days. Requesting Provider: ALISHA ABARCA TRANSFORMER MECHANIC Exam/Review of Systems Vital Signs Vitals Vital Signs Date Temp Pulse Resp B/P (MAP) Pulse Ox O2 O2 Flow FiO2 Time Delivery Rate 09/27/18 98.9 73 18 112/56 94 Room Air 08:42 (74) Intake and Output 09/26/18 09/26/18 09/27/18 1515:00 23:00 07:00 IntakeIntake Total 680 ml 240 ml BalanceBalance 680 ml 240 ml Medications Medications Current Medications IV Flush (NS 3 ml) 3 ml PER PROTOCOL IV ; Start 09/19/18 at 16:30 Ondansetron HCl (Zofran Inj) 4 mg Q6H PRN IV NAUSEA AND/OR VOMITING Last administered on 09/20/18 05:43; Admin Dose 4 MG; Start 09/19/18 at 16:30 Acetaminophen (Tylenol Tab) 650 mg Q6H PRN PO PAIN LEVEL 1-3 OR FEVER Last administered on 09/22/18at 18:03; Admin Dose 650 MG; Start 09/19/18 at 16:30 Pantoprazole (Protonix Tab) 40 mg DAILY@06 PO Last administered on 09/27/18 06:25; Admin Dose 40 MG; Start 09/20/18 at 06:00 Aspirin (Halfprin) 81 mg DAILY PO Last administered on 09/27/18 08:42; Admin Dose 81 MG; Start 09/20/18 at 09:00 Atorvastatin Calcium (Lipitor) 40 mg HS PO Last administered on 09/26/18 21:15; Admin Dose 40 MG; Start 09/19/18 at 21:00 Fluoxetine HCl (Prozac) 20 mg DAILY PO Last administered on 09/27/18 08:42; Admin Dose 20 MG; Start 09/20/18 at 09:00 Levothyroxine Sodium (Synthroid) 50 mcg BEFORE BREAKFAST PO Last administered on 09/27/18 06:25; Admin Dose 50 MCG; Start 09/20/18 at 07:00 Loratadine (Claritin) 10 mg DAILY PO Last administered on 09/27/18 08:42; Admin Dose 10 MG; Start 09/20/18 at 09:00 Losartan Potassium (Cozaar) 25 mg DAILY PO Last administered on 09/27/18at 08:42; Admin Dose 25 MG; Start 09/20/18 at 09:00 Trazodone HCl (Desyrel) 50 mg HS PO Last administered on 09/26/18at 21:15; Admin Dose 50 MG; Start 09/19/18 at 21:00 Miscellaneous Information 1 ea NOTE XX ; Start 09/19/18 at 16:30 Glucose (Glutose) 15 gm Q15M PRN PO DECREASED GLUCOSE; Start 09/19/18 at 16:30 Glucose (Glutose) 22.5 gm Q15M PRN PO DECREASED GLUCOSE; Start 09/19/18 at 16:30 Dextrose (D50w Syringe) 25 ml Q15M PRN IV DECREASED GLUCOSE; Start 09/19/18 at 16:30 Dextrose (D50w Syringe) 50 ml Q15M PRN IV DECREASED GLUCOSE; Start 09/19/18 at 16:30 Glucagon (Glucagen) 1 mg Q15M PRN IM DECREASED GLUCOSE; Start 09/19/18 at 16:30 Glucose (Glutose) 15 gm Q15M PRN BUCCAL DECREASED GLUCOSE; Start 09/19/18 at 16:30 Hydralazine HCl (Apresoline) 10 mg Q6H PRN IV SBP>160 Last administered on 09/23/18at 18:02; Admin Dose 10 MG; Start 09/19/18 at 16:30 Polyethylene Glycol (Miralax) 17 gm BID PO Last administered on 09/23/18at 20:16; Admin Dose 17 GM; Start 09/19/18 at 21:00 Bisacodyl (Dulcolax) 10 mg DAILY PRN PO CONSTIPATION; Start 09/19/18 at 16:30 Enoxaparin Sodium (Lovenox) 30 mg DAILY SC Last administered on 09/27/18at 08:41; Admin Dose 30 MG; Start 09/21/18 at 09:00 Tramadol HCl (Ultram) 50 mg Q6H PRN PO MODERATE PAIN LEVEL 4-6 Last administered on 09/24/18at 21:27; Admin Dose 50 MG; Start 09/20/18 at 22:00 Insulin Aspart (Novolog Insulin Pen) 10 unit WITH MEALS SC Last administered on 09/27/18at 08:41; Admin Dose 10 UNIT; Start 09/21/18 at 17:47 Insulin Glargine (Lantus) 28 units DAILY@2000 SC Last administered on 09/26/18at 20:31; Admin Dose 28 UNITS; Start 09/21/18 at 20:00 Sucralfate (Carafate Susp) 1 gm QID PO Last administered on 09/27/18 08:39; Admin Dose 1 GM; Start 09/21/18 at 17:00 Carvedilol (Coreg) 6.25 mg BID PO Last administered on 09/27/18at 08:43; Admin Dose 6.25 MG; Start 09/22/18 at 21:00 Ertapenem 1 gm/ Sodium Chloride 100 ml @ 200 mls/hr Q24H IVPB Last admi nistered on 09/26/18at 13:22; Admin Dose 200 MLS/HR; Start 09/22/18 at 13:00 Morphine Sulfate (morphine) 3 mg Q4H PRN PO SEVERE PAIN LEVEL 7-10; Start 09/23/18 at 17:30 Insulin Aspart (Novolog Insulin Pen) (Adult SC Insulin - Moder... AC MEALS AND BEDTIME SC Last administered on 09/26/18at 12:06; Admin Dose 4 UNIT; Start 09/23/18 at 21:00 SUSANNAH GARDNER Sep 27, 2018 12:39
[2018-09-27 14:00] VITALS: BP 143/66; PULSE 71; RESP 18
--- NOTE | 2018-09-27 16:20 | PN ---
Date/Time of Note Date/Time of Note DATE: 09/27/18 TIME: 16:18 Assessment/Plan VTE [place]axis [place] [facility] [place]: 2 [place] [facility] [place] SCD contraindicated: low risk/ambulating Pharmacological prophylaxis: heparin Lines/Catheters [facility] Saline Lock Urinary Cath still in place: No Assessment/Plan Problems: (1) UTI due to extended-spectrum beta lactamase (ESBL) producing Escherichia coli Status: Acute Comment: On IV antibiotics with a specific end date. Due to logistical issues about coverage for the medication and with this bacteria is resistant to she is an inpatient (2) Diabetes mellitus Status: Chronic Comment: Adequate glycemic control on the current regimen Qualifiers: Diabetes mellitus type: type 2 Diabetes mellitus residential insulin use: with watermelon inspector use Diabetes mellitus complication status: with unspecified complications Qualified Codes: E11.8 - Type 2 diabetes mellitus with unspecified complications; Z79.4 - long-term (current) use of insulin (3) Hypothyroidism Status: Chronic Comment: Stable on replacement therapy Qualifiers: Hypothyroidism type: acquired Qualified Codes: E03.9 - Hypothyroidism, unspecified (4) Coronary arteriosclerosis after percutaneous transluminal coronary angioplasty (PTCA) Status: Chronic Comment: Fortunately quiescent (5) Hypertension Status: Chronic Comment: Adequate Qualifiers: Hypertension type: essential hypertension Qualified Codes: I10 - Essential (primary) hypertension (6) Psoriasis Status: Chronic Comment: Noted. (7) Congestive heart failure with cardiomyopathy Status: Chronic Comment: Well compensated at the present time with medication regimen Result Diagram: 09/27/18 0525 09/27/18 0525 Results 24hrs Laboratory Tests Test 09/26/18 17:32 09/26/18 20:27 09/27/18 05:25 09/27/18 08:04 Bedside Glucose 131 123 139 White Blood Count 10.1 Red Blood Count 3.55 L Hemoglobin 9.5 L Hematocrit 29.5 L Mean Corpuscular 83.1 Volume Mean Corpuscular 26.8 L Hemoglobin Mean Corpuscular 32.2 Hemoglobin Concent Red Cell 13.3 Distribution Width Platelet Count 487 H Mean Platelet Volume 10.1 Immature 1.600 H Granulocytes % Neutrophils % Segmented 44 Neutrophils % (Manual) Lymphocytes % Lymphocytes % 41 (Manual) Reactive Lymphocytes 6 H % (Manual) Monocytes % Monocytes % (Manual) 9 Eosinophils % Basophils % Nucleated Red Blood 0.0 Cells % Immature 0.160 H Granulocytes # Neutrophils # Lymphocytes (Manual) 4.1 H Lymphocytes # Reactive Lymphocytes 0.6 H # Monocytes # Monocytes # (Manual) 0.9 Eosinophils # Basophils # Nucleated Red Blood Cells # Platelet Estimate NORMAL Polychromasia 1+ Poikilocytosis 1+ Anisocytosis 1+ Sodium Level 139 Potassium Level 4.4 Chloride Level 106 Carbon Dioxide Level 26 Anion Gap 7 Blood Urea Nitrogen 17 Creatinine 1.04 H Est Glomerular 57 L Filtrat Rate mL/min Glucose Level 109 Calcium Level 8.8 Test 09/27/18 12:19 Bedside Glucose 227 H Subjective 24 Hr Interval Summary Free Text/Dictation Patient resting in bed talking on cell phone with her family Constitutional: no complaints Respiratory: no complaints Cardiovascular: no complaints Gastrointestinal: no complaints Genitourinary: no complaints Exam/Review of Systems Vital Signs Vitals Vital Signs Date Temp Pulse Resp B/P (MAP) Pulse Ox O2 O2 Flow FiO2 Time Delivery Rate 09/27/18 97.7 71 18 143/66 99 Room Air 14:00 (91) Intake and Output 09/26/18 09/26/18 09/27/18 1515:00 23:00 07:00 IntakeIntake Total 680 ml 240 ml BalanceBalance 680 ml 240 ml Exam Constitutional: alert, oriented Respiratory: clear to auscultation, normal air movement Cardiovascular: regular rate and rhythm, nl pulses Gastrointestinal: soft, nl liver, spleen, non-tender Medications Medications Current Medications IV Flush (NS 3 ml) 3 ml PER PROTOCOL IV ; Start 09/19/18 at 16:30 Ondansetron HCl (Zofran Inj) 4 mg Q6H PRN IV NAUSEA AND/OR VOMITING Last administered on 09/20/18at 05:43; Admin Dose 4 MG; Start 09/19/18 at 16:30 Acetaminophen (Tylenol Tab) 650 mg Q6H PRN PO PAIN LEVEL 1-3 OR FEVER Last administered on 09/22/18at 18:03; Admin Dose 650 MG; Start 09/19/18 at 16:30 Pantoprazole (Protonix Tab) 40 mg DAILY@06 PO Last administered on 09/27/18at 06:25; Admin Dose 40 MG; Start 09/20/18 at 06:00 Aspirin (Halfprin) 81 mg DAILY PO Last administered on 09/27/18 08:42; Admin Dose 81 MG; Start 09/20/18 at 09:00 Atorvastatin Calcium (Lipitor) 40 mg HS PO Last administered on 09/26/18 21:15; Admin Dose 40 MG; Start 09/19/18 at 21:00 Fluoxetine HCl (Prozac) 20 mg DAILY PO Last administered on 09/27/18 08:42; Admin Dose 20 MG; Start 09/20/18 at 09:00 Levothyroxine Sodium (Synthroid) 50 mcg BEFORE BREAKFAST PO Last administered on 09/27/18 06:25; Admin Dose 50 MCG; Start 09/20/18 at 07:00 Loratadine (Claritin) 10 mg DAILY PO Last administered on 09/27/18 08:42; Admin Dose 10 MG; Start 09/20/18 at 09:00 Losartan Potassium (Cozaar) 25 mg DAILY PO Last administered on 09/27/18 08:42; Admin Dose 25 MG; Start 09/20/18 at 09:00 Trazodone HCl (Desyrel) 50 mg HS PO Last administered on 09/26/18 21:15; Admin Dose 50 MG; Start 09/19/18 at 21:00 Miscellaneous Information 1 ea NOTE XX ; Start 09/19/18 at 16:30 Glucose (Glutose) 15 gm Q15M PRN PO DECREASED GLUCOSE; Start 09/19/18 at 16:30 Glucose (Glutose) 22.5 gm Q15M PRN PO DECREASED GLUCOSE; Start 09/19/18 at 16:30 Dextrose (D50w Syringe) 25 ml Q15M PRN IV DECREASED GLUCOSE; Start 09/19/18 at 16:30 Dextrose (D50w Syringe) 50 ml Q15M PRN IV DECREASED GLUCOSE; Start 09/19/18 at 16:30 Glucagon (Glucagen) 1 mg Q15M PRN IM DECREASED GLUCOSE; Start 09/19/18 at 16:30 Glucose (Glutose) 15 gm Q15M PRN BUCCAL DECREASED GLUCOSE; Start 09/19/18 at 16:30 Hydralazine HCl (Apresoline) 10 mg Q6H PRN IV SBP>160 Last administered on 09/23/18 18:02; Admin Dose 10 MG; Start 09/19/18 at 16:30 Polyethylene Glycol (Miralax) 17 gm BID PO Last administered on 09/23/18 20:16; Admin Dose 17 GM; Start 09/19/18 at 21:00 Bisacodyl (Dulcolax) 10 mg DAILY PRN PO CONSTIPATION; Start 09/19/18 at 16:30 Enoxaparin Sodium (Lovenox) 30 mg DAILY SC Last administered on 09/27/18 08:41; Admin Dose 30 MG; Start 09/21/18 at 09:00 Tramadol HCl (Ultram) 50 mg Q6H PRN PO MODERATE PAIN LEVEL 4-6 Last adm inistered on 09/24/18 21:27; Admin Dose 50 MG; Start 09/20/18 at 22:00 Insulin Aspart (Novolog Insulin Pen) 10 unit WITH MEALS SC Last administered on 09/27/18 12:34; Admin Dose 10 UNIT; Start 09/21/18 at 17:47 Insulin Glargine (Lantus) 28 units DAILY@2000 SC Last administered on 09/26/18 20:31; Admin Dose 28 UNITS; Start 09/21/18 at 20:00 Sucralfate (Carafate Susp) 1 gm QID PO Last administered on 09/27/18 12:32; Admin Dose 1 GM; Start 09/21/18 at 17:00 Carvedilol (Coreg) 6.25 mg BID PO Last administered on 09/27/18 08:43; Admin Dose 6.25 MG; Start 09/22/18 at 21:00 Ertapenem 1 gm/ Sodium Chloride 100 ml @ 200 mls/hr Q24H IVPB Last administered on 09/27/18 12:36; Admin Dose 200 MLS/HR; Start 09/22/18 at 13:00; Stop 10/01/18 at 20:00 Morphine Sulfate (morphine) 3 mg Q4H PRN PO SEVERE PAIN LEVEL 7-10; Start 09/23/18 at 17:30 Insulin Aspart (Novolog Insulin Pen) (Adult SC Insulin - Moder... AC MEALS AND BEDTIME SC Last administered on 09/27/18 12:35; Admin Dose 6 UNIT; Start 09/23/18 at 21:00 CHAITANYA ALEMAN MD Sep 27, 2018 16:20
[2018-09-27] MEDS: traMADol 50 MG TAB PO PRN (17:40)
--- NOTE | 2018-09-27 18:00 | NUR ---
rn notes patient is awake, alert and oriented X4, verbally responsive, able to make needs known, complains of pain and medicated as ordered. all due medicine given and all needs attended to. blood sugar checked as scheduled and covered accordingly. call light placed within reach and fall precautions observed well. remains afebrile and will continue to monitor.
[2018-09-27 20:00] VITALS: BP 156/81; PULSE 70; RESP 17
[2018-09-27] MEDS: INSULIN GLARGINE [LANTus] (100 UNITS/ML) SYG SC SCH (21:55)
[2018-09-27] MEDS: ATORVASTATIN 40 MG TAB PO SCH (21:58)
[2018-09-27] MEDS: traZODone 50 MG TAB PO SCH (21:58)
[2018-09-28] MEDS: traMADol 50 MG TAB PO PRN (00:54)
[2018-09-28 02:00] VITALS: BP 110/59; PULSE 71; RESP 18
[2018-09-28] MEDS: LEVOTHYROXINE 50 MCG TAB PO SCH (06:01)
[2018-09-28] MEDS: PANTOPRAZOLE (EC) 40 MG TAB PO SCH (06:01)
[2018-09-28] MEDS: INSULIN ASPART [NOVOLOG] 3 ML PEN SC SCH ×7 (07:30→21:00)
[2018-09-28 07:47] VITALS: BP 119/64; PULSE 70; RESP 18
[2018-09-28] MEDS: ENOXAPARIN 30 MG/0.3 ML SYG SC SCH (08:21)
[2018-09-28] MEDS: ASPIRIN (EC) 81 MG TAB PO SCH (08:22)
[2018-09-28] MEDS: SUCRALFATE (100 MG/ML) 10ML CUP PO SCH ×4 (08:22→20:43)
[2018-09-28] MEDS: FLUOXETINE 20 MG CAP PO SCH (08:22)
[2018-09-28] MEDS: LORATADINE 10 MG TAB PO SCH (08:22)
[2018-09-28] MEDS: LOSARTAN 25 MG TAB PO SCH (08:23)
[2018-09-28] MEDS: POLYETHYLENE GLYCOL 17 GM PACKET PO SCH ×2 (08:24→21:00)
[2018-09-28] MEDS: ERTAPENEM SODIUM 1 GM in SOD CHLORIDE 0.9% 100 ML IVPB SCH (12:14)
--- NOTE | 2018-09-28 12:39 | PN ---
Date/Time of Note Date/Time of Note DATE: 09/28/18 TIME: 12:36 Assessment/Plan VTE Prophylaxis Risk score (from [facility])>0 risk: 2 SCD applied (from [facility]): No SCD contraindicated: low risk/ambulating Pharmacological prophylaxis: heparin Lines/Catheters IV C[facility] Saline Lock Urinary Cath still in place: No Assessment/Plan Problems: (1) UTI due to extended-spectrum beta lactamase (ESBL) producing Escherichia coli Status: Acute Comment: His note this was formal sepsis due to the positive blood cultures and her symptoms at presentation. She is significantly better but we need to complete the course of antibiotic therapy. Due to logistics and this only being amenable to IV antibiotic therapy and the nature of her insurance her insurance will not cover this medication as an outpatient so for the patient's safety we have to finish it here. Outpatient urological evaluation (2) Diabetes mellitus Status: Chronic Comment: Good sugar control Qualifiers: Diabetes mellitus type: type 2 Diabetes mellitus terminal press operator insulin use: with longterm use Diabetes mellitus complication status: with unspecified complications Qualified Codes: E11.8 - Type 2 diabetes mellitus with unspecified complications; Z79.4 - senior care (current) use of insulin (3) Hypothyroidism Status: Chronic Comment: Adequate replace Qualifiers: Hypothyroidism type: acquired Qualified Codes: E03.9 - Hypothyroidism, unspecified (4) Coronary arteriosclerosis after percutaneous transluminal coronary angioplasty (PTCA) Status: Chronic Comment: Quiescent, fortunately (5) Congestive heart failure with cardiomyopathy Status: Chronic Comment: Compensated with medications Result Diagram: 09/27/18 0525 09/27/18 0525 Results 24hrs Laboratory Tests Test 09/27/18 17:02 09/27/18 20:06 09/27/18 21:53 09/28/18 07:47 Bedside Glucose 111 113 122 110 Test 09/28/18 12:06 Bedside Glucose 156 Subjective 24 Hr Interval Summary Free Text/Dictation Patient is inquiring as to why this problem happens to her once a year. She does have a known history of renal stones and has seen her urologist in [place] previously Constitutional: no complaints Respiratory: no complaints Cardiovascular: no complaints Gastrointestinal: no complaints Exam/Review of Systems Vital Signs Vitals Vital Signs Date Temp Pulse Resp B/P (MAP) Pulse Ox O2 O2 Flow FiO2 Time Delivery Rate 09/28/18 98.5 70 18 119/64 95 Room Air 07:47 (82) Intake and Output 09/27/18 09/27/18 09/28/18 1515:00 23:00 07:00 IntakeIntake Total 720 ml 600 ml 1300 ml BalanceBalance 720 ml 600 ml 1300 ml Exam Constitutional: alert, oriented Neck: supple, non-tender Respiratory: clear to auscultation, normal air movement Cardiovascular: regular rate and rhythm, nl pulses Medications Medications Current Medications IV Flush (NS 3 ml) 3 ml PER PROTOCOL IV ; Start 09/19/18 at 16:30 Ondansetron HCl (Zofran Inj) 4 mg Q6H PRN IV NAUSEA AND/OR VOMITING Last administered on 09/20/18 05:43; Admin Dose 4 MG; Start 09/19/18 at 16:30 Acetaminophen (Tylenol Tab) 650 mg Q6H PRN PO PAIN LEVEL 1-3 OR FEVER Last administered on 09/22/18at 18:03; Admin Dose 650 MG; Start 09/19/18 at 16:30 Pantoprazole (Protonix Tab) 40 mg DAILY@06 PO Last administered on 09/28/18 06:01; Admin Dose 40 MG; Start 09/20/18 at 06:00 Aspirin (Halfprin) 81 mg DAILY PO Last administered on 09/28/18 08:22; Admin Dose 81 MG; Start 09/20/18 at 09:00 Atorvastatin Calcium (Lipitor) 40 mg HS PO Last administered on 09/27/18at 21:58; Admin Dose 40 MG; Start 09/19/18 at 21:00 Fluoxetine HCl (Prozac) 20 mg DAILY PO Last administered on 09/28/18 08:22; Admin Dose 20 MG; Start 09/20/18 at 09:00 Levothyroxine Sodium (Synthroid) 50 mcg BEFORE BREAKFAST PO Last administered on 09/28/18 06:01; Admin Dose 50 MCG; Start 09/20/18 at 07:00 Loratadine (Claritin) 10 mg DAILY PO Last administered on 09/28/18 08:22; Admin Dose 10 MG; Start 09/20/18 at 09:00 Losartan Potassium (Cozaar) 25 mg DAILY PO Last administered on 09/28/18 08:23; Admin Dose 25 MG; Start 09/20/18 at 09:00 Trazodone HCl (Desyrel) 50 mg HS PO Last administered on 09/27/18at 21:58; Admin Dose 50 MG; Start 09/19/18 at 21:00 Miscellaneous Information 1 ea NOTE XX ; Start 09/19/18 at 16:30 Glucose (Glutose) 15 gm Q15M PRN PO DECREASED GLUCOSE; Start 09/19/18 at 16:30 Glucose (Glutose) 22.5 gm Q15M PRN PO DECREASED GLUCOSE; Start 09/19/18 at 16:30 Dextrose (D50w Syringe) 25 ml Q15M PRN IV DECREASED GLUCOSE; Start 09/19/18 at 16:30 Dextrose (D50w Syringe) 50 ml Q15M PRN IV DECREASED GLUCOSE; Start 09/19/18 at 16:30 Glucagon (Glucagen) 1 mg Q15M PRN IM DECREASED GLUCOSE; Start 09/19/18 at 16:30 Glucose (Glutose) 15 gm Q15M PRN BUCCAL DECREASED GLUCOSE; Start 09/19/18 at 16:30 Hydralazine HCl (Apresoline) 10 mg Q6H PRN IV SBP>160 Last administered on 09/23/18at 18:02; Admin Dose 10 MG; Start 09/19/18 at 16:30 Polyethylene Glycol (Miralax) 17 gm BID PO Last administered on 09/23/18at 20:16; Admin Dose 17 GM; Start 09/19/18 at 21:00 Bisacodyl (Dulcolax) 10 mg DAILY PRN PO CONSTIPATION; Start 09/19/18 at 16:30 Enoxaparin Sodium (Lovenox) 30 mg DAILY SC Last administered on 09/28/18at 08:21; Admin Dose 30 MG; Start 09/21/18 at 09:00 Tramadol HCl (Ultram) 50 mg Q6H PRN PO MODERATE PAIN LEVEL 4-6 Last administered on 09/28/18at 00:54; Admin Dose 50 MG; Start 09/20/18 at 22:00 Insulin Aspart (Novolog Insulin Pen) 10 unit WITH MEALS SC Last administered on 09/28/18at 12:15; Admin Dose 10 UNIT; Start 09/21/18 at 17:47 Insulin Glargine (Lantus) 28 units DAILY@2000 SC Last administered on 09/27/18at 21:55; Admin Dose 28 UNITS; Start 09/21/18 at 20:00 Sucralfate (Carafate Susp) 1 gm QID PO Last administered on 09/28/18 12:16; Admin Dose 1 GM; Start 09/21/18 at 17:00 Carvedilol (Coreg) 6.25 mg BID PO Last administered on 09/28/18 08:23; Admin Dose 6.25 MG; Start 09/22/18 at 21:00 Ertapenem 1 gm/ Sodium Chloride 100 ml @ 200 mls/hr Q24H IVPB Last ad ministered on 09/28/18 12:14; Admin Dose 200 MLS/HR; Start 09/22/18 at 13:00; Stop 10/01/18 at 20:00 Morphine Sulfate (morphine) 3 mg Q4H PRN PO SEVERE PAIN LEVEL 7-10; Start 09/23/18 at 17:30 Insulin Aspart (Novolog Insulin Pen) (Adult SC Insulin - Moder... AC MEALS AND BEDTIME SC Last administered on 09/28/18 12:16; Admin Dose 2 UNIT; Start 09/23/18 at 21:00 CHAITANYA ALEMAN MD Sep 28, 2018 12:39
[2018-09-28 14:25] VITALS: BP 120/59; PULSE 73; RESP 18
--- NOTE | 2018-09-28 14:35 | NUR ---
Discharge planning; Due to Patient's limited insurance; home health IV antibiotics cannot be arrange until insurance changes made. Case has been referred to [facility] Financial Counselor. Will await to verify status change of Patient's insurance and once it is done can referral be sent to home agencies.
--- NOTE | 2018-09-28 18:07 | NUR ---
rn notes patient is awake, alert and oriented X4, verbally responsive, able to make needs known, denies pain. all due medicine given and all needs attended to. blood sugar checked as scheduled and covered accordingly. continue IV antibiotics. call light placed within reach and fall precautions observed well. remains afebrile and will continue to monitor.
--- NOTE | 2018-09-28 18:53 | CONS ---
Date/Time of Note Date/Time of Note DATE: 09/28/18 TIME: 18:47 Assessment/Plan Assessment/Plan Hospital Course ID PROGRESS NOTE CURRENT ABX: DAY # 7=> ERTAPENEM 09/27/18 0525 09/27/18 0525 24H INTERVAL SUMMARY * No fevers, VSS, NAD, no new issues, patient is resting comfortably without distress, no complaints offered MICRO * Microbiology: Blood and urine cultures since admission grew E. coli ESBL, repeat blood cultures negative PHYSICAL EXAMINATION: GENERAL: Afebrile, VSS, morbid obese HEENT: AT, NC, anicteric NECK: Supple, trach CHEST: Equal chest rise bilaterally, without dyspnea on observation HEART: Pulse RRR ABDOMEN: Soft / NT EXTREMITIES: Warm, dry SKIN: No rash, no diaphoresis ID ASSESSMENT 48 yo F admit with: 1. Sepsis on admission 2/2 #2 => RESOLVED 2. E. coli ESBL bacteremia secondary to UTI 3. Morbid obesity 4. Diabetes 5. History of psoriasis (-)MRSA Nares ABX ALLERGIES: KNDA INVASIVES: PIV CURRENT ABX: DAY # 7=> ERTAPENEM ID RECOMMENDATIONS/PLAN: Continue current ABX -- Per ID colleague last day ABX /SAT this week . Result Diagram: 09/27/18 0525 09/27/18 0525 Results 24hrs Laboratory Tests Test 09/27/18 20:06 09/27/18 21:53 09/28/18 07:47 09/28/18 12:06 Bedside Glucose 113 122 110 156 Test 09/28/18 17:00 Bedside Glucose 109 Consultation Date/Type/Reason Admit Date/Time Sep 19, 2018 at 12:18 Initial Consult Date 09/22/18 Requesting Provider: LAISHA ABARCA [employer]PL[employer] BUILDER Exam/Review of Systems Vital Signs Vitals Vital Signs Date Temp Pulse Resp B/P (MAP) Pulse Ox O2 O2 Flow FiO2 Time Delivery Rate 09/28/18 98.0 73 18 120/59 95 Room Air 14:25 (79) Intake and Output 09/27/18 09/27/18 09/28/18 1515:00 23:00 07:00 IntakeIntake Total 720 ml 600 ml 1300 ml BalanceBalance 720 ml 600 ml 1300 ml Medications Medications Current Medications IV Flush (NS 3 ml) 3 ml PER PROTOCOL IV ; Start 09/19/18 at 16:30 Ondansetron HCl (Zofran Inj) 4 mg Q6H PRN IV NAUSEA AND/OR VOMITING Last administered on 09/20/18at 05:43; Admin Dose 4 MG; Start 09/19/18 at 16:30 Acetaminophen (Tylenol Tab) 650 mg Q6H PRN PO PAIN LEVEL 1-3 OR FEVER Last administered on 09/22/18at 18:03; Admin Dose 650 MG; Start 09/19/18 at 16:30 Pantoprazole (Protonix Tab) 40 mg DAILY@06 PO Last administered on 09/28/18at 06:01; Admin Dose 40 MG; Start 09/20/18 at 06:00 Aspirin (Halfprin) 81 mg DAILY PO Last administered on 09/28/18 08:22; Admin Dose 81 MG; Start 09/20/18 at 09:00 Atorvastatin Calcium (Lipitor) 40 mg HS PO Last administered on 09/27/18at 2 1:58; Admin Dose 40 MG; Start 09/19/18 at 21:00 Fluoxetine HCl (Prozac) 20 mg DAILY PO Last administered on 09/28/18at 08:22; Admin Dose 20 MG; Start 09/20/18 at 09:00 Levothyroxine Sodium (Synthroid) 50 mcg BEFORE BREAKFAST PO Last administered on 09/28/18 06:01; Admin Dose 50 MCG; Start 09/20/18 at 07:00 Loratadine (Claritin) 10 mg DAILY PO Last administered on 09/28/18 08:22; Admin Dose 10 MG; Start 09/20/18 at 09:00 Losartan Potassium (Cozaar) 25 mg DAILY PO Last administered on 09/28/18 08:23; Admin Dose 25 MG; Start 09/20/18 at 09:00 Trazodone HCl (Desyrel) 50 mg HS PO Last administered on 09/27/18at 21:58; Admin Dose 50 MG; Start 09/19/18 at 21:00 Miscellaneous Information 1 ea NOTE XX ; Start 09/19/18 at 16:30 Glucose (Glutose) 15 gm Q15M PRN PO DECREASED GLUCOSE; Start 09/19/18 at 16:30 Glucose (Glutose) 22.5 gm Q15M PRN PO DECREASED GLUCOSE; Start 09/19/18 at 16:30 Dextrose (D50w Syringe) 25 ml Q15M PRN IV DECREASED GLUCOSE; Start 09/19/18 at 16:30 Dextrose (D50w Syringe) 50 ml Q15M PRN IV DECREASED GLUCOSE; Start 09/19/18 at 16:30 Glucagon (Glucagen) 1 mg Q15M PRN IM DECREASED GLUCOSE; Start 09/19/18 at 16:30 Glucose (Glutose) 15 gm Q15M PRN BUCCAL DECREASED GLUCOSE; Start 09/19/18 at 16:30 Hydralazine HCl (Apresoline) 10 mg Q6H PRN IV SBP>160 Last administered on 09/23/18at 18:02; Admin Dose 10 MG; Start 09/19/18 at 16:30 Polyethylene Glycol (Miralax) 17 gm BID PO Last administered on 09/23/18at 20:16; Admin Dose 17 GM; Start 09/19/18 at 21:00 Bisacodyl (Dulcolax) 10 mg DAILY PRN PO CONSTIPATION; Start 09/19/18 at 16:30 Enoxaparin Sodium (Lovenox) 30 mg DAILY SC Last administered on 09/28/18at 08:21; Admin Dose 30 MG; Start 09/21/18 at 09:00 Tramadol HCl (Ultram) 50 mg Q6H PRN PO MODERATE PAIN LEVEL 4-6 Last administered on 09/28/18at 00:54; Admin Dose 50 MG; Start 09/20/18 at 22:00 Insulin Aspart (Novolog Insulin Pen) 10 unit WITH MEALS SC Last administered on 09/28/18at 17:28; Admin Dose 10 UNIT; Start 09/21/18 at 17:47 Insulin Glargine (Lantus) 28 units DAILY@2000 SC Last administered on 09/27/18at 21:55; Admin Dose 28 UNITS; Start 09/21/18 at 20:00 Sucralfate (Carafate Susp) 1 gm QID PO Last administered on 09/28/18at 17:24; Admin Dose 1 GM; Start 09/21/18 at 17:00 Carvedilol (Coreg) 6.25 mg BID PO Last administered on 09/28/18at 08:23; Admin Dose 6.25 MG; Start 09/22/18 at 21:00 Ertapenem 1 gm/ Sodium Chloride 100 ml @ 200 mls/hr Q24H IVPB Last administered on 09/28/18at 12:14; Admin Dose 200 MLS/HR; Start 09/22/18 at 13:00; Stop 10/01/18 at 20:00 Morphine Sulfate (morphine) 3 mg Q4H PRN PO SEVERE PAIN LEVEL 7-10; Start 09/23/18 at 17:30 Insulin Aspart (Novolog Insulin Pen) (Adult SC Insulin - Moder... AC MEALS AND BEDTIME SC Last administered on 09/28/18at 12:16; Admin Dose 2 UNIT; Start 09/23/18 at 21:00 YOUSIF PRO NP Sep 28, 2018 18:53
[2018-09-28 19:35] VITALS: BP 124/71; PULSE 70; RESP 17
[2018-09-28] MEDS: INSULIN GLARGINE [LANTus] (100 UNITS/ML) SYG SC SCH (20:32)
[2018-09-28] MEDS: traZODone 50 MG TAB PO SCH (20:43)
[2018-09-28] MEDS: ATORVASTATIN 40 MG TAB PO SCH (21:02)
[2018-09-29] MEDS: traMADol 50 MG TAB PO PRN (01:25)
[2018-09-29 01:55] VITALS: BP 100/53; PULSE 73; RESP 17
[2018-09-29] MEDS: PANTOPRAZOLE (EC) 40 MG TAB PO SCH (06:12)
[2018-09-29] MEDS: LEVOTHYROXINE 50 MCG TAB PO SCH (06:12)
--- NOTE | 2018-09-29 06:53 | NUR ---
RN Notes Patient had no change in condition overnight. Complained x 1 of pain, which was adequately relieved with PRN Tramadol. Patient's blood glucose for HS within normal limits and no additional insulin administered. Hourly rounding provided. Safety/contact precautions maintained. Will endorse to oncoming RN for continuity of care.
[2018-09-29] MEDS: INSULIN ASPART [NOVOLOG] 3 ML PEN SC SCH ×7 (07:30→20:37)
[2018-09-29 08:00] VITALS: BP 103/58; PULSE 76; RESP 18
[2018-09-29] MEDS: SUCRALFATE (100 MG/ML) 10ML CUP PO SCH ×4 (08:06→20:36)
[2018-09-29] MEDS: LORATADINE 10 MG TAB PO SCH (08:06)
[2018-09-29] MEDS: FLUOXETINE 20 MG CAP PO SCH (08:06)
[2018-09-29] MEDS: ASPIRIN (EC) 81 MG TAB PO SCH (08:06)
[2018-09-29] MEDS: ENOXAPARIN 30 MG/0.3 ML SYG SC SCH (08:16)
[2018-09-29] MEDS: POLYETHYLENE GLYCOL 17 GM PACKET PO SCH ×2 (08:17→21:00)
[2018-09-29 09:52] VITALS: BP 127/73; PULSE 69
[2018-09-29] MEDS: LOSARTAN 25 MG TAB PO SCH (09:52)
[2018-09-29] MEDS: ERTAPENEM SODIUM 1 GM in SOD CHLORIDE 0.9% 100 ML IVPB SCH (12:15)
[2018-09-29 14:09] VITALS: BP 120/58; PULSE 69; RESP 18
--- NOTE | 2018-09-29 15:33 | CONS ---
Date/Time of Note Date/Time of Note DATE: 09/29/18 TIME: 15:30 Assessment/Plan Assessment/Plan Hospital Course ID PROGRESS NOTE CURRENT ABX: DAY # 8=> ERTAPENEM 24H INTERVAL SUMMARY * Clinically status quo -- OOB-> Chair w/daughter and grandchildren visiting -- Tmax 99.0 --No fevers, VSS, NAD, no new issues, patient is resting comfortably without distress, no complaints offered MICRO * Microbiology: Blood and urine cultures since admission grew E. coli ESBL, repeat blood cultures negative PHYSICAL EXAMINATION: GENERAL: Afebrile, VSS, morbid obese HEENT: AT, NC, anicteric NECK: Supple, trach CHEST: Equal chest rise bilaterally, without dyspnea on observation HEART: Pulse RRR ABDOMEN: Soft / NT EXTREMITIES: Warm, dry SKIN: No rash, no diaphoresis ID ASSESSMENT 48 yo F admit with: 1. Sepsis on admission 2/ #2 => RESOLVED 2. E. coli ESBL bacteremia secondary to UTI 3. Morbid obesity 4. Diabetes 5. History of psoriasis (-)MRSA Nares ABX ALLERGIES: KNDA INVASIVES: PIV CURRENT ABX: DAY # 8=> ERTAPENEM ID RECOMMENDATIONS/PLAN: Continue current ABX -- Per ID colleague last day ABX /SAT this week . Result Diagram: 09/27/18 0525 09/27/18 0525 Results 24hrs Laboratory Tests Test 09/28/18 17:00 09/28/18 20:29 09/29/18 08:03 09/29/18 12:07 Bedside Glucose 109 98 136 138 Consultation Date/Type/Reason Admit Date/Time Sep 19, 2018 at 12:18 Initial Consult Date 09/22/18 Requesting Provider: ALISHA ABARCA GARNETT MACHINE OPERATOR Exam/Review of Systems Vital Signs Vitals Vital Signs Date Temp Pulse Resp B/P (MAP) Pulse Ox O2 O2 Flow FiO2 Time Delivery Rate 09/29/18 97.9 69 18 120/58 97 Room Air 14:09 (78) Intake and Output 09/28/18 09/28/18 09/29/18 1515:00 23:00 07:00 IntakeIntake Total 980 ml OutputOutput Total 400 ml BalanceBalance 580 ml Medications Medications Current Medications IV Flush (NS 3 ml) 3 ml PER PROTOCOL IV ; Start 09/19/18 at 16:30 Ondansetron HCl (Zofran Inj) 4 mg Q6H PRN IV NAUSEA AND/OR VOMITING Last administered on 09/20/18 05:43; Admin Dose 4 MG; Start 09/19/18 at 16:30 Acetaminophen (Tylenol Tab) 650 mg Q6H PRN PO PAIN LEVEL 1-3 OR FEVER Last administered on 09/22/18 18:03; Admin Dose 650 MG; Start 09/19/18 at 16:30 Pantoprazole (Protonix Tab) 40 mg DAILY@06 PO Last administered on 09/29/18 06:12; Admin Dose 40 MG; Start 09/20/18 at 06:00 Aspirin (Halfprin) 81 mg DAILY PO Last administered on 09/29/18 08:06; Admin Dose 81 MG; Start 09/20/18 at 09:00 Atorvastatin Calcium (Lipitor) 40 mg HS PO Last administered on 09/28/18 21:02; Admin Dose 40 MG; Start 09/19/18 at 21:00 Fluoxetine HCl (Prozac) 20 mg DAILY PO Last administered on 09/29/18 08:06; Admin Dose 20 MG; Start 09/20/18 at 09:00 Levothyroxine Sodium (Synthroid) 50 mcg BEFORE BREAKFAST PO Last administered on 09/29/18 06:12; Admin Dose 50 MCG; Start 09/20/18 at 07:00 Loratadine (Claritin) 10 mg DAILY PO Last administered on 09/29/18 08:06; Admin Dose 10 MG; Start 09/20/18 at 09:00 Losartan Potassium (Cozaar) 25 mg DAILY PO Last administered on 09/29/18at 09:52; Admin Dose 25 MG; Start 09/20/18 at 09:00 Trazodone HCl (Desyrel) 50 mg HS PO Last administered on 09/28/18 20:43; Admin Dose 50 MG; Start 09/19/18 at 21:00 Miscellaneous Information 1 ea NOTE XX ; Start 09/19/18 at 16:30 Glucose (Glutose) 15 gm Q15M PRN PO DECREASED GLUCOSE; Start 09/19/18 at 16:30 Glucose (Glutose) 22.5 gm Q15M PRN PO DECREASED GLUCOSE; Start 09/19/18 at 16:30 Dextrose (D50w Syringe) 25 ml Q15M PRN IV DECREASED GLUCOSE; Start 09/19/18 at 16:30 Dextrose (D50w Syringe) 50 ml Q15M PRN IV DECREASED GLUCOSE; Start 09/19/18 at 16:30 Glucagon (Glucagen) 1 mg Q15M PRN IM DECREASED GLUCOSE; Start 09/19/18 at 16:30 Glucose (Glutose) 15 gm Q15M PRN BUCCAL DECREASED GLUCOSE; Start 09/19/18 at 16:30 Hydralazine HCl (Apresoline) 10 mg Q6H PRN IV SBP>160 Last administered on 09/23/18 18:02; Admin Dose 10 MG; Start 09/19/18 at 16:30 Polyethylene Glycol (Miralax) 17 gm BID PO Last administered on 09/23/18at 20:16; Admin Dose 17 GM; Start 09/19/18 at 21:00 Bisacodyl (Dulcolax) 10 mg DAILY PRN PO CONSTIPATION; Start 09/19/18 at 16:30 Enoxaparin Sodium (Lovenox) 30 mg DAILY SC Last administered on 09/29/18at 08:16; Admin Dose 30 MG; Start 09/21/18 at 09:00 Tramadol HCl (Ultram) 50 mg Q6H PRN PO MODERATE PAIN LEVEL 4-6 Last adminis tered on 09/29/18at 01:25; Admin Dose 50 MG; Start 09/20/18 at 22:00 Insulin Aspart (Novolog Insulin Pen) 10 unit WITH MEALS SC Last administered on 09/29/18at 12:14; Admin Dose 10 UNIT; Start 09/21/18 at 17:47 Insulin Glargine (Lantus) 28 units DAILY@2000 SC Last administered on 09/28/18at 20:32; Admin Dose 28 UNITS; Start 09/21/18 at 20:00 Sucralfate (Carafate Susp) 1 gm QID PO Last administered on 09/29/18at 12:15; Admin Dose 1 GM; Start 09/21/18 at 17:00 Carvedilol (Coreg) 6.25 mg BID PO Last administered on 09/29/18at 09:52; Admin Dose 6.25 MG; Start 09/22/18 at 21:00 Ertapenem 1 gm/ Sodium Chloride 100 ml @ 200 mls/hr Q24H IVPB Last administered on 09/29/18at 12:15; Admin Dose 200 MLS/HR; Start 09/22/18 at 13:00; Stop 10/01/18 at 20:00 Morphine Sulfate (morphine) 3 mg Q4H PRN PO SEVERE PAIN LEVEL 7-10; Start 09/23/18 at 17:30 Insulin Aspart (Novolog Insulin Pen) (Adult SC Insulin - Moder... AC MEALS AND BEDTIME SC Last administered on 09/28/18at 12:16; Admin Dose 2 UNIT; Start 09/23/18 at 21:00 YOUSIF PRO NP Sep 29, 2018 15:32
--- NOTE | 2018-09-29 17:23 | PN ---
Date/Time of Note Date/Time of Note DATE: 09/29/18 TIME: 17:22 Assessment/Plan VTE Prophylaxis Risk score (from Ns)>0 risk: 2 SCD applied (from Ns): No SCD contraindicated: other Pharmacological prophylaxis: LMWH Lines/Catheters IV Catheter Type (from [facility] Saline Lock Urinary Cath still in place: No Assessment/Plan Hospital Course SUBJECTIVE: Denies any abdominal pain. Denies any nausea or vomiting. OBJECTIVE: Physical Exam General: Morbidly obese 48 year-old female lying in bed in no apparent distress. HEENT: Normocephalic, atraumatic. Eyes: Anicteric sclerae, conjunctivae clear. ENT: Nasal septum midline, oral mucosa moist. Neck supple. Respiratory: Bilaterally diminished breath sounds. No use of accessory muscles of respiration. Minimal right basilar rales. Cardiovascular: S1, S2 heard. Regular rate and rhythm. Abdomen: Soft, nontender, and nondistended. Bowel sounds positive in all 4 quadrants. Genitourinary: Deferred. Extremities: No cyanosis, no clubbing, no edema. Peripheral pulses palpable. Neurologic: Cranial nerves II through XII grossly intact. The patient is awake, alert, and oriented. Skin: Normal skin turgor. No skin rashes. Labs & Vitals per chart ASSESSMENT & PLAN 48-year-old female with comorbidities including diabetes mellitus type 2, essential hypertension, pulmonary hypertension, dyslipidemia, gastritis, hypothyroidism,CAD status post coronary artery stenting, and obesity who came to the emergency room with chief complaint of left lower quadrant abdominal pain that has been going on for the past 4 days. The patient was found to have evidence of sepsis with leukocytosis, lactic acidosis, and tachycardia, secondary to underlying complicated urinary tract infection and was admitted to inpatient setting for further treatment and evaluation. 1. S/P sepsis with underlying leukocytosis, lactic acidosis, and tachycardia, present on admission secondary to underlying complicated urinary tract infection and E.coli ESBL bacteremia. -Urine culture showing E.coli ESBL with colony count greater than 100,000 CFU per mL. -Continue antimicrobials as per ID. 2. Bilateral prominence of renal collecting systems with distended urinary bladder. -Status post Waller decompression of urinary bladder that did not suggest any urinary outlet obstruction. -S/P Urology evaluation. 3. Diabetes mellitus type 2. Uncontrolled. -Continue sliding scale insulin along with pre-meal insulin and basal insulin. -Hemoglobin A1c 13.3. 4. Hypertension. -Continue antihypertensives. 5. CAD status post stent to mid LAD. -Continue aspirin. Discontinued Plavix (confirmed with the nutritionist who did the procedure). -Continue statins. 6. Gastric ulcer. -Continue PPI and Carafate. 7. Acute nonoliguric kidney injury. -Most probably secondary to underlying sepsis. -Use nephrotoxic drugs with caution. -Judicious use of IV fluids. -Resolved. 8. Normocytic anemia. -Status post esophagogastroduodenoscopy on 09/23/2018 that showed gastric ulcer. 9. Hypothyroidism. -Continue Synthroid. 10. Dyslipidemia. -Continue statins. 11. Obesity. BMI 45 kg/m. -Advised weight reduction. 12. Pulmonary hypertension. -PA systolic pressure 46 mmHg. 13. Fluids, electrolytes, and nutrition. -Carbohydrate controlled diet. 14. DVT prophylaxis. -SQ Lovenox (Renal dose). 15. Plan. -Continue antimicrobials as per ID. -Plan is to discharge the patient home once antibiotic therapy is completed possibly in 24 hours as it was difficult to arrange outpatient IV antibiotic therapy. The plan of care was explained to the patient's family, who was at the bedside. The patient was seen in collaboration with Dr. Patel. Result Diagram: 09/27/1825 09/27/18524 Results 24hrs Laboratory Tests Test 09/28/18 20:29 09/29/18 08:03 09/29/18 12:07 Bedside Glucose 98 136 138 Exam/Review of Systems Vital Signs Vitals Vital Signs Date Temp Pulse Resp B/P (MAP) Pulse Ox O2 O2 Flow FiO2 Time Delivery Rate 09/29/18 97.9 69 18 120/58 97 Room Air 14:09 (78) Intake and Output 09/28/18 09/28/18 09/29/18 1515:00 23:00 07:00 IntakeIntake Total 980 ml OutputOutput Total 400 ml BalanceBalance 580 ml Medications Medications Current Medications IV Flush (NS 3 ml) 3 ml PER PROTOCOL IV ; Start 09/19/18 at 16:30 Ondansetron HCl (Zofran Inj) 4 mg Q6H PRN IV NAUSEA AND/OR VOMITING Last administered on 09/20/18at 05:43; Admin Dose 4 MG; Start 09/19/18 at 16:30 Acetaminophen (Tylenol Tab) 650 mg Q6H PRN PO PAIN LEVEL 1-3 OR FEVER Last administered on 09/22/18at 18:03; Admin Dose 650 MG; Start 09/19/18 at 16:30 Pantoprazole (Protonix Tab) 40 mg DAILY@06 PO Last administered on 09/29/18at 06:12; Admin Dose 40 MG; Start 09/20/18 at 06:00 Aspirin (Halfprin) 81 mg DAILY PO Last administered on 09/29/18at 08:06; Admin Dose 81 MG; Start 09/20/18 at 09:00 Atorvastatin Calcium (Lipitor) 40 mg HS PO Last administered on 09/28/18at 21:02; Admin Dose 40 MG; Start 09/19/18 at 21:00 Fluoxetine HCl (Prozac) 20 mg DAILY PO Last administered on 09/29/18at 08:06; A dmin Dose 20 MG; Start 09/20/18 at 09:00 Levothyroxine Sodium (Synthroid) 50 mcg BEFORE BREAKFAST PO Last administered on 09/29/18at 06:12; Admin Dose 50 MCG; Start 09/20/18 at 07:00 Loratadine (Claritin) 10 mg DAILY PO Last administered on 09/29/18 08:06; Admin Dose 10 MG; Start 09/20/18 at 09:00 Losartan Potassium (Cozaar) 25 mg DAILY PO Last administered on 09/29/18at 09:52; Admin Dose 25 MG; Start 09/20/18 at 09:00 Trazodone HCl (Desyrel) 50 mg HS PO Last administered on 09/28/18at 20:43; Admin Dose 50 MG; Start 09/19/18 at 21:00 Miscellaneous Information 1 ea NOTE XX ; Start 09/19/18 at 16:30 Glucose (Glutose) 15 gm Q15M PRN PO DECREASED GLUCOSE; Start 09/19/18 at 16:30 Glucose (Glutose) 22.5 gm Q15M PRN PO DECREASED GLUCOSE; Start 09/19/18 at 16:30 Dextrose (D50w Syringe) 25 ml Q15M PRN IV DECREASED GLUCOSE; Start 09/19/18 at 16:30 Dextrose (D50w Syringe) 50 ml Q15M PRN IV DECREASED GLUCOSE; Start 09/19/18 at 16:30 Glucagon (Glucagen) 1 mg Q15M PRN IM DECREASED GLUCOSE; Start 09/19/18 at 16:30 Glucose (Glutose) 15 gm Q15M PRN BUCCAL DECREASED GLUCOSE; Start 09/19/18 at 16:30 Hydralazine HCl (Apresoline) 10 mg Q6H PRN IV SBP>160 Last administered on 09/23/18 18:02; Admin Dose 10 MG; Start 09/19/18 at 16:30 Polyethylene Glycol (Miralax) 17 gm BID PO Last administered on 09/23/18 20:16; Admin Dose 17 GM; Start 09/19/18 at 21:00 Bisacodyl (Dulcolax) 10 mg DAILY PRN PO CONSTIPATION; Start 09/19/18 at 16:30 Enoxaparin Sodium (Lovenox) 30 mg DAILY SC Last administered on 09/29/18 08:16; Admin Dose 30 MG; Start 09/21/18 at 09:00 Tramadol HCl (Ultram) 50 mg Q6H PRN PO MODERATE PAIN LEVEL 4-6 Last administered on 09/29/18 01:25; Admin Dose 50 MG; Start 09/20/18 at 22:00 Insulin Aspart (Novolog Insulin Pen) 10 unit WITH MEALS SC Last administered on 09/29/18 12:14; Admin Dose 10 UNIT; Start 09/21/18 at 17:47 Insulin Glargine (Lantus) 28 units DAILY@2000 SC Last administered on 09/28/18 20:32; Admin Dose 28 UNITS; Start 09/21/18 at 20:00 Sucralfate (Carafate Susp) 1 gm QID PO Last administered on 09/29/18at 12:15; Admin Dose 1 GM; Start 09/21/18 at 17:00 Carvedilol (Coreg) 6.25 mg BID PO Last administered on 09/29/18 09:52; Admin Dose 6.25 MG; Start 09/22/18 at 21:00 Ertapenem 1 gm/ Sodium Chloride 100 ml @ 200 mls/hr Q24H IVPB Last admini stered on 09/29/18at 12:15; Admin Dose 200 MLS/HR; Start 09/22/18 at 13:00; Stop 10/01/18 at 20:00 Morphine Sulfate (morphine) 3 mg Q4H PRN PO SEVERE PAIN LEVEL 7-10; Start 09/23/18 at 17:30 Insulin Aspart (Novolog Insulin Pen) (Adult SC Insulin - Moder... AC MEALS AND BEDTIME SC Last administered on 09/28/18at 12:16; Admin Dose 2 UNIT; Start 09/23/18 at 21:00 ALISHA ABARCA NP Sep 29, 2018 17:22
--- NOTE | 2018-09-29 17:45 | NUR ---
NURSE NOTES: patient alert and oriented x 4, No SOB or distress. Afebrile, vital signs WNL. Performed blood sugar checks as scheduled. No s/sx of hypoglycemia. All due medications were given, tolerated well. insulin was administered as per sliding scale order. Antibiotics were given. Contact isolation observed. Safety precautions observed, hourly rounding done, bed alarm and bed brakes on for safety. Will continue to monitor. Will endorse accordingly to next shift for continuity of care.
[2018-09-29 20:19] VITALS: BP 108/55; PULSE 70; RESP 20
[2018-09-29] MEDS: INSULIN GLARGINE [LANTus] (100 UNITS/ML) SYG SC SCH (20:35)
[2018-09-29] MEDS: ATORVASTATIN 40 MG TAB PO SCH (20:36)
[2018-09-29 21:26] VITALS: BP 121/67; PULSE 72
[2018-09-29] MEDS: traZODone 50 MG TAB PO SCH (21:28)
[2018-09-30 02:16] VITALS: BP 100/58; PULSE 70
[2018-09-30] MEDS: PANTOPRAZOLE (EC) 40 MG TAB PO SCH (05:57)
[2018-09-30] MEDS: LEVOTHYROXINE 50 MCG TAB PO SCH (05:57)
[2018-09-30] MEDS: INSULIN ASPART [NOVOLOG] 3 ML PEN SC SCH ×6 (07:30→17:33)
[2018-09-30 08:00] VITALS: BP 122/74; PULSE 80; RESP 18
[2018-09-30] MEDS: ENOXAPARIN 30 MG/0.3 ML SYG SC SCH (08:22)
[2018-09-30] MEDS: LORATADINE 10 MG TAB PO SCH (08:23)
[2018-09-30] MEDS: SUCRALFATE (100 MG/ML) 10ML CUP PO SCH ×3 (08:23→17:10)
[2018-09-30] MEDS: ASPIRIN (EC) 81 MG TAB PO SCH (08:24)
[2018-09-30] MEDS: FLUOXETINE 20 MG CAP PO SCH (08:24)
[2018-09-30] MEDS: LOSARTAN 25 MG TAB PO SCH (08:24)
[2018-09-30] MEDS: POLYETHYLENE GLYCOL 17 GM PACKET PO SCH (08:24)
[2018-09-30] MEDS: ERTAPENEM SODIUM 1 GM in SOD CHLORIDE 0.9% 100 ML IVPB SCH (12:33)
--- NOTE | 2018-09-30 13:59 | PN ---
Date/Time of Note Date/Time of Note DATE: 09/30/18 TIME: 13:58 Assessment/Plan VTE Prophylaxis Risk score (from Ns)>0 risk: 2 SCD applied (from Nsg): Yes Pharmacological prophylaxis: LMWH Lines/Catheters IV Catheter Type (from Nrs): Saline Lock Urinary Cath still in place: No Assessment/Plan Hospital Course SUBJECTIVE: Denies any abdominal pain. Denies any nausea or vomiting. OBJECTIVE: Physical Exam General: Morbidly obese 48 year-old female lying in bed in no apparent distress. HEENT: Normocephalic, atraumatic. Eyes: Anicteric sclerae, conjunctivae clear. ENT: Nasal septum midline, oral mucosa moist. Neck supple. Respiratory: Bilaterally diminished breath sounds. No use of accessory muscles of respiration. Minimal right basilar rales. Cardiovascular: S1, S2 heard. Regular rate and rhythm. Abdomen: Soft, nontender, and nondistended. Bowel sounds positive in all 4 quadrants. Genitourinary: Deferred. Extremities: No cyanosis, no clubbing, no edema. Peripheral pulses palpable. Neurologic: Cranial nerves II through XII grossly intact. The patient is awake, alert, and oriented. Skin: Normal skin turgor. No skin rashes. Labs & Vitals per chart ASSESSMENT & PLAN 48-year-old female with comorbidities including diabetes mellitus type 2, essential hypertension, pulmonary hypertension, dyslipidemia, gastritis, hypothyroidism,CAD status post coronary artery stenting, and obesity who came to the emergency room with chief complaint of left lower quadrant abdominal pain that has been going on for the past 4 days. The patient was found to have evidence of sepsis with leukocytosis, lactic acidosis, and tachycardia, s econdary to underlying complicated urinary tract infection and was admitted to inpatient setting for further treatment and evaluation. 1. S/P sepsis with underlying leukocytosis, lactic acidosis, and tachycardia, present on admission secondary to underlying complicated urinary tract infection and E.coli ESBL bacteremia. -Urine culture showing E.coli ESBL with colony count greater than 100,000 CFU per mL. -Continue antimicrobials as per ID. 2. Bilateral prominence of renal collecting systems with distended urinary bladder. -Status post Waller decompression of urinary bladder that did not suggest any urinary outlet obstruction. -S/P Urology evaluation. 3. Diabetes mellitus type 2. Uncontrolled. -Continue sliding scale insulin along with pre-meal insulin and basal insulin. -Hemoglobin A1c 13.3. 4. Hypertension. -Continue antihypertensives. 5. CAD status post stent to mid LAD. -Continue aspirin. Discontinued Plavix (confirmed with the ems educator who did the procedure). -Continue statins. 6. Gastric ulcer. -Continue PPI and Carafate. 7. Acute nonoliguric kidney injury. -Most probably secondary to underlying sepsis. -Use nephrotoxic drugs with caution. -Judicious use of IV fluids. -Resolved. 8. Normocytic anemia. -Status post esophagogastroduodenoscopy on 09/23/2018 that showed gastric ulcer. 9. Hypothyroidism. -Continue Synthroid. 10. Dyslipidemia. -Continue statins. 11. Obesity. BMI 45 kg/m. -Advised weight reduction. 12. Pulmonary hypertension. -PA systolic pressure 46 mmHg. 13. Fluids, electrolytes, and nutrition. -Carbohydrate controlled diet. 14. DVT prophylaxis. -SQ Lovenox (Renal dose). 15. Plan. -Continue antimicrobials as per ID. -Plan is to discharge the patient home once antibiotic therapy is completed in 24 hours as it was difficult to arrange outpatient IV antibiotic therapy. The plan of care was explained to the patient's family, who was at the bedside. The patient was seen in collaboration with Dr. Patel. Result Diagram: 09/27/1825 09/27/18 0525 Results 24hrs Laboratory Tests Test 09/29/18 17:29 09/29/18 20:33 09/30/18 07:52 09/30/18 12:04 Bedside Glucose 179 100 115 132 Exam/Review of Systems Vital Signs Vitals Vital Signs Date Temp Pulse Resp B/P (MAP) Pulse Ox O2 O2 Flow FiO2 Time Delivery Rate 09/30/18 98.6 80 18 122/74 96 08:00 (90) 09/29/18 Room Air 20:19 Intake and Output 09/29/18 09/29/18 09/30/18 1515:00 23:00 07:00 IntakeIntake Total 340 ml 900 ml 850 ml BalanceBalance 340 ml 900 ml 850 ml Medications Medications Current Medications IV Flush (NS 3 ml) 3 ml PER PROTOCOL IV ; Start 09/19/18 at 16:30 Ondansetron HCl (Zofran Inj) 4 mg Q6H PRN IV NAUSEA AND/OR VOMITING Last administered on 09/20/18at 05:43; Admin Dose 4 MG; Start 09/19/18 at 16:30 Acetaminophen (Tylenol Tab) 650 mg Q6H PRN PO PAIN LEVEL 1-3 OR FEVER Last administered on 09/22/18 18:03; Admin Dose 650 MG; Start 09/19/18 at 16:30 Pantoprazole (Protonix Tab) 40 mg DAILY@06 PO Last administered on 09/30/18 05:57; Admin Dose 40 MG; Start 09/20/18 at 06:00 Aspirin (Halfprin) 81 mg DAILY PO Last administered on 09/30/18 08:24; Admin Dose 81 MG; Start 09/20/18 at 09:00 Atorvastatin Calcium (Lipitor) 40 mg HS PO Last administered on 09/29/18 20:36; Admin Dose 40 MG; Start 09/19/18 at 21:00 Fluoxetine HCl (Prozac) 20 mg DAILY PO Last administered on 09/30/18 08:24; Admin Dose 20 MG; Start 09/20/18 at 09:00 Levothyroxine Sodium (Synthroid) 50 mcg BEFORE BREAKFAST PO Last administered on 09/30/18 05:57; Admin Dose 50 MCG; Start 09/20/18 at 07:00 Loratadine (Claritin) 10 mg DAILY PO Last administered on 09/30/18 08:23; Admin Dose 10 MG; Start 09/20/18 at 09:00 Losartan Potassium (Cozaar) 25 mg DAILY PO Last administered on 09/30/18 08:24; Admin Dose 25 MG; Start 09/20/18 at 09:00 Trazodone HCl (Desyrel) 50 mg HS PO Last administered on 09/29/18 21:28; Admin Dose 50 MG; Start 09/19/18 at 21:00 Miscellaneous Information 1 ea NOTE XX ; Start 09/19/18 at 16:30 Glucose (Glutose) 15 gm Q15M PRN PO DECREASED GLUCOSE; Start 09/19/18 at 16:30 Glucose (Glutose) 22.5 gm Q15M PRN PO DECREASED GLUCOSE; Start 09/19/18 at 16:30 Dextrose (D50w Syringe) 25 ml Q15M PRN IV DECREASED GLUCOSE; Start 09/19/18 at 16:30 Dextrose (D50w Syringe) 50 ml Q15M PRN IV DECREASED GLUCOSE; Start 09/19/18 at 16:30 Glucagon (Glucagen) 1 mg Q15M PRN IM DECREASED GLUCOSE; Start 09/19/18 at 16:30 Glucose (Glutose) 15 gm Q15M PRN BUCCAL DECREASED GLUCOSE; Start 09/19/18 at 16:30 Hydralazine HCl (Apresoline) 10 mg Q6H PRN IV SBP>160 Last administered on 09/23/18 18:02; Admin Dose 10 MG; Start 09/19/18 at 16:30 Polyethylene Glycol (Miralax) 17 gm BID PO Last administered on 09/23/18 20:16; Admin Dose 17 GM; Start 09/19/18 at 21:00 Bisacodyl (Dulcolax) 10 mg DAILY PRN PO CONSTIPATION; Start 09/19/18 at 16:30 Enoxaparin Sodium (Lovenox) 30 mg DAILY SC Last administered on 09/30/18 08:22; Admin Dose 30 MG; Start 09/21/18 at 09:00 Tramadol HCl (Ultram) 50 mg Q6H PRN PO MODERATE PAIN LEVEL 4-6 Last administered on 09/29/18 01:25; Admin Dose 50 MG; Start 09/20/18 at 22:00 Insulin Aspart (Novolog Insulin Pen) 10 unit WITH MEALS SC Last administered on 09/30/18 12:07; Admin Dose 10 UNIT; Start 09/21/18 at 17:47 Insulin Glargine (Lantus) 28 units DAILY@2000 SC Last administered on 09/29/18at 20:35; Admin Dose 28 UNITS; Start 09/21/18 at 20:00 Sucralfate (Carafate Susp) 1 gm QID PO Last administered on 09/30/18 12:11; Admin Dose 1 GM; Start 09/21/18 at 17:00 Carvedilol (Coreg) 6.25 mg BID PO Last administered on 09/30/18 08:23; Admin Dose 6.25 MG; Start 09/22/18 at 21:00 Ertapenem 1 gm/ Sodium Chloride 100 ml @ 200 mls/hr Q24H IVPB Last administered on 09/30/18at 12:33; Admin Dose 200 MLS/HR; Start 09/22/18 at 13:00; Stop 10/01/18 at 20:00 Morphine Sulfate (morphine) 3 mg Q4H PRN PO SEVERE PAIN LEVEL 7-10; Start 09/23/18 at 17:30 Insulin Aspart (Novolog Insulin Pen) (Adult SC Insulin - Moder... AC MEALS AND BEDTIME SC Last administered on 09/29/18at 17:32; Admin Dose 2 UNIT; Start 09/23/18 at 21:00 ALISHA ABARCA NP Sep 30, 2018 13:59
[2018-09-30 14:00] VITALS: BP 128/72; PULSE 84; RESP 20
--- NOTE | 2018-09-30 14:59 | CONS ---
Assessment/Plan Assessment/Plan Hospital Course No acute events overnight. Alert, feels good, no fevers Microbiology: Blood and urine cultures since admission grew E. coli ESBL, repeat blood cultures negative Antimicrobials: Invanz Physical examination: This is a morbidly obese well-developed middle-aged woman who is alert in no distress. Head atraumatic normocephalic sclera nonicteric neck is supple chest rise symmetrical breath sounds clear heart S1-S2 abdomen soft bowel sounds present extremities without cyanosis. Assessment: 1. Sepsis, resolving 2. E. coli ESBL bacteremia secondary to UTI 3. Morbid obesity 4. Diabetes 5. History of psoriasis Plan: Remains stable, ok dc home off abx Result Diagram: 09/27/18 0509/27/18 05 Results 24hrs Laboratory Tests Test 09/29/18 17:29 09/29/18 20:33 09/30/18 07:52 09/30/18 12:04 Bedside Glucose 179 100 115 132 Consultation Date/Type/Reason Admit Date/Time Sep 19, 2018 at 12:18 Initial Consult Date 09/19/18 Type of Consult id Requesting Provider: ALISHA ABARCA EXTRACTOR MACHINE OPERATOR Exam/Review of Systems Vital Signs Vitals Vital Signs Date Temp Pulse Resp B/P (MAP) Pulse Ox O2 O2 Flow FiO2 Time Delivery Rate 09/30/18 98.6 80 18 122/74 96 08:00 (90) 09/29/18 Room Air 20:19 Intake and Output 09/29/18 09/29/18 09/30/18 1515:00 23:00 07:00 IntakeIntake Total 340 ml 900 ml 850 ml BalanceBalance 340 ml 900 ml 850 ml Medications Medications Current Medications IV Flush (NS 3 ml) 3 ml PER PROTOCOL IV ; Start 09/19/18 at 16:30 Ondansetron HCl (Zofran Inj) 4 mg Q6H PRN IV NAUSEA AND/OR VOMITING Last administered on 09/20/18at 05:43; Admin Dose 4 MG; Start 09/19/18 at 16:30 Acetaminophen (Tylenol Tab) 650 mg Q6H PRN PO PAIN LEVEL 1-3 OR FEVER Last administered on 09/22/18at 18:03; Admin Dose 650 MG; Start 09/19/18 at 16:30 Pantoprazole (Protonix Tab) 40 mg DAILY@06 PO Last administered on 09/30/18 05:57; Admin Dose 40 MG; Start 09/20/18 at 06:00 Aspirin (Halfprin) 81 mg DAILY PO Last administered on 09/30/18at 08:24; Admin Dose 81 MG; Start 09/20/18 at 09:00 Atorvastatin Calcium (Lipitor) 40 mg HS PO Last administered on 09/29/18at 20:36; Admin Dose 40 MG; Start 09/19/18 at 21:00 Fluoxetine HCl (Prozac) 20 mg DAILY PO Last administered on 09/30/18at 08:24; Admin Dose 20 MG; Start 09/20/18 at 09:00 Levothyroxine Sodium (Synthroid) 50 mcg BEFORE BREAKFAST PO Last administered on 09/30/18 05:57; Admin Dose 50 MCG; Start 09/20/18 at 07:00 Loratadine (Claritin) 10 mg DAILY PO Last administered on 09/30/18 08:23; Admin Dose 10 MG; Start 09/20/18 at 09:00 Losartan Potassium (Cozaar) 25 mg DAILY PO Last administered on 09/30/18at 08:24; Admin Dose 25 MG; Start 09/20/18 at 09:00 Trazodone HCl (Desyrel) 50 mg HS PO Last administered on 09/29/18at 21:28; Admin Dose 50 MG; Start 09/19/18 at 21:00 Miscellaneous Information 1 ea NOTE XX ; Start 09/19/18 at 16:30 Glucose (Glutose) 15 gm Q15M PRN PO DECREASED GLUCOSE; Start 09/19/18 at 16:30 Glucose (Glutose) 22.5 gm Q15M PRN PO DECREASED GLUCOSE; Start 09/19/18 at 16:30 Dextrose (D50w Syringe) 25 ml Q15M PRN IV DECREASED GLUCOSE; Start 09/19/18 at 16:30 Dextrose (D50w Syringe) 50 ml Q15M PRN IV DECREASED GLUCOSE; Start 09/19/18 at 16:30 Glucagon (Glucagen) 1 mg Q15M PRN IM DECREASED GLUCOSE; Start 09/19/18 at 16:30 Glucose (Glutose) 15 gm Q15M PRN BUCCAL DECREASED GLUCOSE; Start 09/19/18 at 16:30 Hydralazine HCl (Apresoline) 10 mg Q6H PRN IV SBP>160 Last administered on 09/23/18 18:02; Admin Dose 10 MG; Start 09/19/18 at 16:30 Polyethylene Glycol (Miralax) 17 gm BID PO Last administered on 09/23/18 20:16; Admin Dose 17 GM; Start 09/19/18 at 21:00 Bisacodyl (Dulcolax) 10 mg DAILY PRN PO CONSTIPATION; Start 09/19/18 at 16:30 Enoxaparin Sodium (Lovenox) 30 mg DAILY SC Last administered on 09/30/18 08:22; Admin Dose 30 MG; Start 09/21/18 at 09:00 Tramadol HCl (Ultram) 50 mg Q6H PRN PO MODERATE PAIN LEVEL 4-6 Last administered on 09/29/18 01:25; Admin Dose 50 MG; Start 09/20/18 at 22:00 Insulin Aspart (Novolog Insulin Pen) 10 unit WITH MEALS SC Last administered on 09/30/18 12:07; Admin Dose 10 UNIT; Start 09/21/18 at 17:47 Insulin Glargine (Lantus) 28 units DAILY@2000 SC Last administered on 09/29/18 20:35; Admin Dose 28 UNITS; Start 09/21/18 at 20:00 Sucralfate (Carafate Susp) 1 gm QID PO Last administered on 09/30/18 12:11; Admin Dose 1 GM; Start 09/21/18 at 17:00 Carvedilol (Coreg) 6.25 mg BID PO Last administered on 09/30/18 08:23; Admin Dose 6.25 MG; Start 09/22/18 at 21:00 Ertapenem 1 gm/ Sodium Chloride 100 ml @ 200 mls/hr Q24H IVPB Last administer ed on 09/30/18 12:33; Admin Dose 200 MLS/HR; Start 09/22/18 at 13:00; Stop 10/01/18 at 20:00 Morphine Sulfate (morphine) 3 mg Q4H PRN PO SEVERE PAIN LEVEL 7-10; Start 09/23/18 at 17:30 Insulin Aspart (Novolog Insulin Pen) (Adult SC Insulin - Moder... AC MEALS AND BEDTIME SC Last administered on 09/29/18 17:32; Admin Dose 2 UNIT; Start 09/23/18 at 21:00 Date/Time of Note Date/Time of Note DATE: 09/30/18 TIME: 14:56 SAVANNAH JUAREZ NP Sep 30, 2018 14:59
[2018-09-30] MEDS ORDERED: CARV6.2579 PO (15:07)
--- NOTE | 2018-09-30 15:09 | PDOCDIS ---
Discharge Instructions DIAGNOSIS Discharge Diagnosis 1. ESBL UTI, 2. E. coli ESBL bacteremia secondary to UTI 3. Sepsis, resolved 4. Anemia, EGD/colonoscopy 09/23/2018, gastric ulcer, protonix/carafate, follow up with GI 5. CAD status post stent to mid LAD, stable 6. Hyperkalemia, renal failure related, resolved 7. Acute nonoliguric kidney injury, sepsis related, resolved 8. Hypothyroidism. 9. Dyslipidemia. 10. Obesity. BMI 45 kg/m. 11. Ischemic cardiomyopathy: EF previously ~45-50%. Now closer to normal at 50%. 12. Diabetes mellitus type 2. CONDITION [id number] Patient Condition: [id number] Stable HOME CARE INSTRUCTIONS: [id number] Special Diet: [id number] CARB CONTROLLED FOLLOW UP/APPOINTMENTS Follow-up Plan Liana Lilly MD Specialty: Gastroenterology Office Address [address] [place] [address]. [address] [address] Office OTHER ORDERS: Other Orders: 1. Resume home medications including aspirin (enteric coated). Stop taking metoprolol, start taking carvedilol instead. 2. Continue taking Protonix and Carafate for your gastric (stomach) ulcer. 3. Follow a low-cholesterol, low carbohydrate diet. 4. Follow-up with your primary care physician in 1 week. Have your primary care physician arrange for outpatient gastroenterology follow-up in 1 month for repeat esophagogastroduodenoscopy (endoscopy) to confirm healing of your ulcer. 5. Resume activities as tolerated. 6. Please go to the nearest emergency room if you have any unusual symptoms including persistent fevers, urinary frequency/urgency, chest pain, etc. ALISHA ABARCA NP Sep 30, 2018 15:09
--- NOTE | 2018-09-30 15:23 | DS ---
Date/Time of Note Date/Time of Note DATE: 09/30/18 TIME: 15:20 Discharge Summary Admission/Discharge Info Admit Date/Time Sep 19, 2018 at 12:18 Discharge Date/Time Discharge Diagnosis 1. E. coli ESBL UTI 2. E. coli ESBL bacteremia secondary to UTI 3. Sepsis, resolved 4. Anemia, EGD/colonoscopy 09/23/2018, gastric ulcer 5. CAD status post stent to mid LAD, stable 6. Hyperkalemia, renal failure related, resolved 7. Acute nonoliguric kidney injury, sepsis related, resolved 8. Hypothyroidism. 9. Dyslipidemia. 10. Obesity. BMI 45 kg/m. 11. Ischemic cardiomyopathy: EF previously ~45-50%. Now closer to normal at 50%. 12. Diabetes mellitus type 2. Hemoglobin A1C 13.3. Patient Condition: Stable Consults 1. Matt Turner MD, Infectious Diseases. 2. Liana Lilly MD, Gastroenterology. 3. Jared Alexander MD, Urology. 4. Donell Maxwell MD, Cardiology. Procedures 2D Echocardiogram Conclusions Lower limits of normal systolic function. Normal left ventricular cavity size. Mild concentric left ventricular hypertrophy. Ejection fraction is visually estimated at 50 %. Tissue Doppler/Mitral Doppler indices are consistent with impaired relaxation (Stage I diastolic dysfunction). Mild to moderate tricuspid regurgitation. Estimated peak PA systolic pressure 46 mmHg based on RA pressure of 8 mmHg. Esophagogastroduodenoscopy on 09/23/2018 Impression: Gastric ulcer present, may be the source of anemia. Colonoscopy on 09/23/2018 Impression: Normal colonoscopy. CT Abdomen and Pelvis IMPRESSION: 1. No evidence of bowel obstruction. Several fluid-filled loops of small bowel suggestive of gastroenteritis and mild ileus. Small hiatal hernia. 2. Nonspecific bilateral perinephric fat stranding and mild pounds of the renal collecting system. No gross renal/ureteric calculi. The bladder is distended. Findings may be secondary to underlying bladder outlet obstruction or neurogenic bladder. Recommend decompression of the bladder. 3. Diffuse atherosclerotic disease of the aorta. 4. No evidence of free fluid or free air. No gross focal fluid collections 5. Fat-containing umbilical hernia. 6. Distended gallbladder. Hx of Present Illness Reason for admission: Abdominal pain times 4 days with nausea and vomiting. This is a 48-year-old female with comorbidities including diabetes mellitus type 2, essential hypertension, pulmonary hypertension, dyslipidemia, gastritis, hypothyroidism,CAD status post coronary artery stenting, and obesity who came to the emergency room with chief complaint of left lower quadrant abdominal pain that has been going on for the past 4 days. The patient tried taking Protonix with minimal improvement. The patient had multiple episodes of nonbloody, nonbilious vomiting. The patient denied any diarrhea. The patient denied any fevers although she verbalized shaking chills. She has been unable to tolerate adequate oral intake because of emesis. In the emergency room, the patient was noticed to be septic with a WBC of 19, along with lactic acidosis, and tachycardia. She was treated with IV Zosyn and Rocephin in the emergency room. The patient was also noticed to be hyperglycemic with a glucose of 507 and hyperkalemic with a potassium of 5.2. The patient was treated with glucose, calcium chloride, and sodium bicarbonate in the emergency room. The patient's urinalysis was showing positive leukocyte esterase 3+ with urine microscopic WBC more than 182. The patient underwent a CT scan of the abdomen and pelvis that was showing bilateral perinephric fat stranding and prominence of bilateral renal collecting systems with no gross renal/ureteral calculi along with a distended urinary bladder. Hospital Course The patient was admitted to inpatient setting. The patient was started on broad-spectrum antimicrobial therapy. As she had evidence of sepsis with leukocytosis, lactic acidosis, and tachycardia present on admission. The patient had evidence of complicated urinary tract infection with urine culture showing E. coli ESBL and evidence of bilateral hydronephrosis. The patient's blood culture also showed E. coli ESBL, most probably secondary to underlying urinary tract infection. Infectious diseases consult was obtained and the patient was maintained on antimicrobials as per ID. The patient did not have any evidence of any septic shock The patient had bilateral prominence of renal collecting systems with distended urinary bladder. Therefore, urology consult was obtained. The patient had a Waller decompression of urinary bladder by a urologist which did not suggest any urinary outlet obstruction. The patient was also noticed to have uncontrolled diabetes mellitus type 2. The patient was maintained on sliding scale insulin along with pre-meal insulin and basal insulin. The patient's insulin dosing was optimized to obtain optimal blood Sugar control. The patient's hemoglobin A1c was found to be 13.3 indicating poor blood glucose control the past 3 months. The patient was noticed to be anemic. The patient was evaluated by gastroenterology. The patient underwent an esophagogastroduodenoscopy and colonoscopy on 09/23/2018. The patient's esophagogastroduodenoscopy revealed gastric ulcer, the probable source of the patient's underlying anemia. The jewels mckeon was also on aspirin and Plavix because of a stent placement to her mid LAD in 2016. The patient's Plavix was discontinued upon admission to the hospital after confirming this with the patient's mail forwarding system markup clerk. The patient was maintained on enteric coated aspirin. The patient's mail forwarding system markup clerk saw and evaluated the patient during this hospitalization and adjusted her medications. The patient has a prior history of ischemic cardiomyopathy with ejection fraction of 45%. However, the current echocardiogram was showing ejection fraction of 50%. The patient was maintained on beta-blockers and ARB's. Patient has underlying dyslipidemia. She was maintained on statins for the same. The patient has underlying hypothyroidism. The patient was maintained on Synthroid for the same. Patient was also noticed to have evidence of pulmonary hypertension with a PA systolic pressure of 46 mmHg. This could be most probably secondary to left-sided heart disease. The patient had a acute kidney injury and hyperkalemia secondary to acute kidney injury at one point of time. The patient's MARIBEL could-most probably secondary to her underlying sepsis. The patient's MARIBEL resolved. The initial plan was to discharge patient home on IV antimicrobial therapy to complete a course of IV antimicrobial therapy for E. coli ESBL UTI. However, because of insurance reasons the patient could not have home IV antibiotic therapy by home health. Therefore, the patient's discharge was delayed until 09/30/2018 before the patient could be safely discharged home after completion of antibiotic therapy. The patient had a stable hospital course. The patient is stable to be discharged home, to be followed up with outpatient welding systems and equipment repairer, marking room supervisor, and mail forwarding system markup clerk. Discharge Instructions 1. Resume home medications including aspirin (enteric coated). Stop taking metoprolol, start taking carvedilol instead. 2. Continue taking Protonix and Carafate for your gastric (stomach) ulcer. 3. Follow a low-cholesterol, low carbohydrate diet. 4. Follow-up with your primary care physician in 1 week. Have your primary care physician arrange for outpatient gastroenterology follow-up in 1 month for repeat esophagogastroduodenoscopy (endoscopy) to confirm healing of your ulcer. 5. Resume activities as tolerated. 6. Please go to the nearest emergency room if you have any unusual symptoms including persistent fevers, urinary frequency/urgency, chest pain, etc. The patient verbalized understanding of her discharge instructions. At this time I would like to thank all the consultants for seeing the patient, doing the necessary procedures, and providing clinical recommendations. The patient was seen in collaboration with Dr. Patel. Home Meds Active Scripts Carvedilol* (Carvedilol*) 6.25 Mg Tablet, 6.25 MG PO BID, #60 TAB Prov:ALISHA ABARCA NP 09/30/18 Ferrous Sulfate* (Ferrous Sulfate*) 325 Mg Tabec, 325 MG PO BID for 30 Days, TAB Prov:ROB HOLCOMB MD 09/24/18 Sucralfate* (Carafate*) 1 Gm/10 Ml Susp, 1 GM PO QID for 30 Days Prov:ROB HOLCOMB MD 09/24/18 Pantoprazole* (Pantoprazole*) 40 Mg Tablet., 40 MG PO BID for 30 Days Prov:ROB HOLCOMB MD 09/24/18 Hydrocodone/Acetaminophen ([place] 5-325 Tablet) 1 Each Tablet, 1 TAB PO Q12 PRN for PAIN, #10 TAB Prov:LEEANNE RIVERA MD 02/28/18 Trazodone Hcl* (Desyrel*) 50 Mg Tab, 50 MG PO HS for 30 Days, #30 TAB Prov:CYNDIE CORBIN MD 12/20/17 Atorvastatin* (Atorvastatin*) 40 Mg Tablet, 40 MG PO HS for 30 Days, #30 TAB Prov:CYNDIE CORBIN MD 12/20/17 Insulin Glargine* (Lantus*) 100 Unit/Ml Soln, 20 UNIT SC BID for 30 Days, #1 VIAL Prov:CYNDIE CORBIN MD 12/20/17 Reported Medications Aspirin (Low Dose Aspirin) 81 Mg Tablet.dr, 81 MG PO DAILY, #30 TAB 12/16/17 Loratadine* (Loratadine*) 10 Mg Tablet, 10 MG PO DAILY, #30 TAB 12/16/17 Fluoxetine Hcl* (Prozac*) 20 Mg Capsule, 20 MG PO DAILY, CAP 12/16/17 Losartan Potassium* (Losartan Potassium*) 25 Mg Tablet, 25 MG PO DAILY, TAB 12/16/17 Levothyroxine Sodium* (Levothyroxine Sodium*) 50 Mcg Tablet, 50 MCG PO BEFORE BREAKFAST, #30 TAB 04/07/17 Metformin Hcl* (Metformin Hcl*) 1,000 Mg Tablet, 1000 MG PO WITH BREAKFAST DINNE, #60 TAB 12/19/16 Discontinued Reported Medications Ondansetron Hcl* (Zofran*) 8 Mg Tab, 8 MG PO Q6H PRN for NAUSEA AND OR VOMITING, TAB 12/16/17 Discontinued Scripts Metoprolol Tartrate* (Lopressor*) 50 Mg Tab, 50 MG PO BID for 30 Days, #30 TAB Prov:CYNDIE CORBIN MD 12/20/17 Follow-up Plan Liana Lilly MD Specialty: Gastroenterology Office Address [address] [place] [address] [address] Office Primary Care Provider Cyndie Corbin MD Time spent on discharge: > 30 minutes Pending Labs RUN DATE: 09/21/18 [facility] PAGE 1 RUN TIME: [phone] [id number] [place] [address] Rakan Story M.D. Wastewater Supervisor Prateek Nj M.D. Co-Wastewater Supervisor MARINA#: [id number] Name: LEXIE TONY Age/Sex: 48/F Attend Dr: YESIKA PATEL MD Acct: [id number] MR# : [id number] : 1970 Location: TEL 510-B Admit: 09/19/18 Specimen: [id number] Status: Complete Felipe: 09/19/18 Rcvd: 09/19/18 Source: SIMEON MCLEAN Sp Descrip: Procedure Result Microbiology URINE CULTURE Final Organism 1 ESCHERICHIA COLI (ESBL) COLONY COUNT 50,000 - 60,000 CFU/ml . MULTI DRUG RESISTANT ORGANISM ESCHERICHIA COLI ESBL: MEROPENEM SHERRY 0.016 SUSCEPTIBLE PHONED TO JAYANT BOOTH, TEL AT 7332 09/21/18 BY JV. NOTIFIED KATIE DELACRUZ AND DELMIS RUIZ AT 4906 09/21/18 BY JVane. ECOLI ESBL M.I.C. RX --------- --- AMPICILLIN >=32 R CEFAZOLIN R CEFEPIME 2 S CEFOTAXIME R CIPROFLOXACIN 0.5 S GENTAMICIN <=1 S LEVOFLOXACIN 1 S NITROFURANTOIN <=16 S TOBRAMYCIN <=1 S TRIMETHOPRIM/SULFAMETHOXAZOLE >=320 R PIPERACILLIN/TAZOBACTAM <=4 S ............................................................................................ Flags: Critical Hi = *H Critical Lo = *L Microbiology Abnormal = * Abnormal Hi = H Abnormal Lo = L Blood Bank Abnormal = * Susceptability Flags: S = Sensitive R = Resistant I = Intermediate END OF REPORT RUN DATE: 09/22/18 [facility] PAGE 1 RUN TIME: [id number] [place] [address] Rakan Story M.D. Wastewater Supervisor Prateek Nj M.D. Co-Wastewater Supervisor MARINA#: [id number] Name: LEXIE OTNY Age/Sex: 48/F Attend Dr: ROB HOLCOMB MD Acct: [id number] MR# : [id number] : 1970 Location: PP2 2255-A Admit: 09/19/18 Specimen: [id number] Status: Complete Felipe: 09/19/18-999 Rcvd: 09/19/18-1021 Source: BLOOD Sp Descrip: Procedure Result Microbiology BLOOD CULTURE Final BCULT GRAM BOTTLE 1 Gram negative rods . seen on gram stain of the broth Organism 1 ESCHERICHIA COLI (ESBL) . MULTI DRUG RESISTANT ORGANISM CRITICAL TEST VALUE BTL 1 . PHONED TO & READ BACK BY BENJAMIN ANGELES@0259 09/20/18 BY MONE MEROPENEM: SHERRY 0.016 SUSCEPTIBLE. PHONED TO JAYANT BOOTH,TEL AND A COPY TO IC AT 8563 09/21/2018 BY JV. NOTIFIED KATIE DELACRUZ AT 2689 09/21/2018 BY JV. ECOLI ESBL M.I.C. RX --------- --- AMPICILLIN >=32 R CEFAZOLIN R CEFOTAXIME R CEFTRIAXONE >=64 R CIPROFLOXACIN 0.5 S GENTAMICIN <=1 S LEVOFLOXACIN 1 S TOBRAMYCIN <=1 S TRIMETHOPRIM/SULFAMETHOXAZOLE <=20 S PIPERACILLIN/TAZOBACTAM <=4 S ....................................................................... ..................... Flags: Critical Hi = *H Critical Lo = *L Microbiology Abnormal = * Abnormal Hi = H Abnormal Lo = L Blood Bank Abnormal = * Susceptability Flags: S = Sensitive R = Resistant I = Intermediate END OF REPORT Laboratory Tests Test 09/29/18 17:29 09/29/18 20:33 09/30/18 07:52 09/30/18 12:04 Bedside 179 100 115 132 Glucose mg/dL (70-220) mg/dL (70-220) mg/dL (70-220) mg/dL (70-220) ALISHA ABARCA NP Sep 30, 2018 15:23
--- NOTE | 2018-09-30 17:57 | NUR ---
Educated patient on importance of air mattress due to right sided weakness, current bed rest, and risk for skin breakdown. Patient alert and oriented, states she does not want to have low air loss mattress because its too soft. She agrees to be repositioned every 2 hours. Addendum: 09/30/18 at 1802 by LOREN KONG RN noted was entered on wrong patient
--- NOTE | 2018-09-30 18:13 | NUR ---
RN NOTE Patient with discharge orders. IV access removed. Tolerated well. No bleeding noted. Discharge instructions, discharge med recon, prescription and information explained, given and provided. Phone translation used. Patient verbalized understanding. No complaints of pain, no SOB or acute distress noted. Patient verbalized no concerns at this time. Discharged. binding nicker made aware.
== END 2018-09-30 18:33 | disposition home or self-care (01) | DRG 872 ==
LOC: E/R 07:59 → TEL 12:18 → EDBEDREQSVC 12:29 → PP2 09-21 17:45
PROVIDERS: ADMIT Internal Medicine; ATTEND Family Medicine
PROC: 0DJ08ZZ Inspection of Upper Intestinal Tract, Via Natural or Artificial Opening Endoscopic (ICD-10-PCS; principal; 2018-09-23 17:00)
PROC: 0DJD8ZZ Inspection of Lower Intestinal Tract, Via Natural or Artificial Opening Endoscopic (ICD-10-PCS; 2018-09-23 17:00)
DX: A41.9 Sepsis, unspecified organism (principal); N39.0 Urinary tract infection, site not specified; N17.9 Acute kidney failure, unspecified; Z68.42 Body mass index [BMI] 45.0-49.9, adult; N13.30 Unspecified hydronephrosis; B96.20 Unspecified Escherichia coli [E. coli] as the cause of diseases classified elsewhere; Z16.23 Resistance to quinolones and fluoroquinolones; Z95.5 Presence of coronary angioplasty implant and graft; E87.5 Hyperkalemia; E03.9 Hypothyroidism, unspecified; E78.5 Hyperlipidemia, unspecified; I25.5 Ischemic cardiomyopathy; D64.9 Anemia, unspecified; I07.1 Rheumatic tricuspid insufficiency; K25.9 Gastric ulcer, unspecified as acute or chronic, without hemorrhage or perforation; K44.9 Diaphragmatic hernia without obstruction or gangrene; K52.9 Noninfective gastroenteritis and colitis, unspecified; E11.65 Type 2 diabetes mellitus with hyperglycemia; Z79.02 Long term (current) use of antithrombotics/antiplatelets; Z79.82 Long term (current) use of aspirin; E66.01 Morbid (severe) obesity due to excess calories; R11.2 Nausea with vomiting, unspecified; I11.0 Hypertensive heart disease with heart failure; I50.9 Heart failure, unspecified
CPT/HCPCS: 36415; 70450; 74176; 80048; 80053; 80061; 81001; 82150; 82270; 82962; 83036; 83605; 83690; 83735; 83880; 84100; 84439; 84443; 84484; 84703; 85025; 85610; 85730; 87040; 87086; 93005; 93306; 96361; 96365; 96372; 96375; 96376; J0360; J0696; J1335; J1650; J1815; J1940; J2185; J2270; J2274; J2405; J2765; J3010; J3370; J7030; J7042; Q9967

== ENCOUNTER 2019-01-21 19:39 | Emergency (ER) | payer MEDICAID ==
[~2019-01-21] VITALS: Wt 82.7 kg
[~2019-01-21 19:39] MED LIST changes: -AMOX1TAB10 PO; -BENZ-6 PO; +CARAS PO; +CARV6.2579 PO; -CLOP75TA19 PO; +FER325 PO; -FURO-109 PO; -FURO40TA4 PO; -LEVO750T25 PO; -LISI-313 PO; -METO-429 PO; -TRIA15CR55 TOP; -ZOF8 PO
[2019-01-21] MEDS ORDERED: BENZ200C68 PO (21:41)
[2019-01-21 21:54] VITALS: BP 136/77; PULSE 87; RESP 17
--- NOTE | 2019-01-22 00:58 | ERD ---
ER Documentation Chief Complaint Chief Complaint ST, COUGH, AMARAL X'S 3 DAYS HPI 48-year-old female with past medical history of pneumonia, hypertension, and depression presenting to the emergency department with complaints of intermittent dry cough for the past 3 days. Symptoms are worse at night. Symptoms moderate in severity. Associated symptoms include body aches. Patient denies any fevers, chills, or other symptoms at this time. ROS All systems reviewed and are negative except as per history of present illness. Medications Home Meds Active Scripts Benzonatate* (Benzonatate*) 200 Mg Capsule, 200 MG PO TID PRN for COUGH, #15 CAP Prov:VIVI NICHOLSON PA-C 01/21/19 Carvedilol* (Carvedilol*) 6.25 Mg Tablet, 6.25 MG PO BID, #60 TAB Prov:ALISHA ABARCA NP 09/30/18 Ferrous Sulfate* (Ferrous Sulfate*) 325 Mg Tabec, 325 MG PO BID for 30 Days, TAB Prov:ROB HOLCOMB MD 09/24/18 Sucralfate* (Carafate*) 1 Gm/10 Ml Susp, 1 GM PO QID for 30 Days Prov:ROB HOLCOMB MD 09/24/18 Pantoprazole* (Pantoprazole*) 40 Mg Tablet.dr, 40 MG PO BID for 30 Days Prov:ROB HOLCOMB MD 09/24/18 Hydrocodone/Acetaminophen ([place] 5-325 Tablet) 1 Each Tablet, 1 TAB PO Q12 PRN for PAIN, #10 TAB Prov:LEEANNE RIVERA MD 02/28/18 Trazodone Hcl* (Desyrel*) 50 Mg Tab, 50 MG PO HS for 30 Days, #30 TAB Prov:PETER CORBIN MD 12/20/17 Atorvastatin* (Atorvastatin*) 40 Mg Tablet, 40 MG PO HS for 30 Days, #30 TAB Prov:PETER CORBIN MD 12/20/17 Insulin Glargine* (Lantus*) 100 Unit/Ml Soln, 20 UNIT SC BID for 30 Days, #1 VIAL Prov:PETER CORBIN MD 12/20/17 Reported Medications Aspirin (Low Dose Aspirin) 81 Mg Tablet.dr, 81 MG PO DAILY, #30 TAB 12/16/17 Loratadine* (Loratadine*) 10 Mg Tablet, 10 MG PO DAILY, #30 TAB 12/16/17 Fluoxetine Hcl* (Prozac*) 20 Mg Capsule, 20 MG PO DAILY, CAP 12/16/17 Losartan Potassium* (Losartan Potassium*) 25 Mg Tablet, 25 MG PO DAILY, TAB 12/16/17 Levothyroxine Sodium* (Levothyroxine Sodium*) 50 Mcg Tablet, 50 MCG PO BEFORE BREAKFAST, #30 TAB 04/07/17 Metformin Hcl* (Metformin Hcl*) 1,000 Mg Tablet, 1000 MG PO WITH BREAKFAST DINNE, #60 TAB 12/19/16 Allergies Allergies: Coded Allergies: acetaminophen (Verified Allergy, Intermediate, 09/19/18) hydrocodone (Verified Allergy, Intermediate, 09/19/18) PMhx/Soc History of Surgery: No Anesthesia Reaction: No Hx Neurological Disorder: No Hx Respiratory Disorders: No Hx Cardiac Disorders: Yes (HTN) Hx Psychiatric Problems: Yes (depression ) Hx Miscellaneous Medical Probl: No Hx Alcohol Use: No Hx Substance Use: No Hx Tobacco Use: No Smoking Status: Never smoker FmHx Family History: No diabetes Physical Exam Vitals Vital Signs Date Temp Pulse Resp B/P (MAP) Pulse Ox O2 O2 Flow FiO2 Time Delivery Rate 01/21/19 98.7 87 17 136/77 97 Room Air 21:54 (96) 01/21/19 98.9 84 18 160/90 98 19:52 (113) Physical Exam Const: No acute distress Head: Atraumatic Eyes: Normal Conjunctiva ENT: Normal External Ears, Nose and Mouth. Neck: Full range of motion. No meningismus. Resp: Clear to auscultation bilaterally Cardio: Regular rate and rhythm, no murmurs Skin: No petechiae or rashes Ext: No cyanosis, or edema Neur: Awake and alert Psych: Normal Mood and Affect Results 24 hrs [place] [address] Radiology Main Line: [phone] DIAGNOSTIC IMAGING REPORT Patient: LEXIE TONY : 1970 Age: 48 Sex: F MR #: [id number] DOS: 01/21/19 0000 Ordering MD: VIVI NICHOLSON PA-C Location: [facility] Room/Bed: PROCEDURE: XR Chest. CLINICAL INDICATION: Cough TECHNIQUE: Single frontal chest x-ray. COMPARISON: CHEST 01/08/2018; ROSALBA CHEST 05/09/2017; ROSALBA CHEST 03/26/2016; ROSALBA CHEST 03/25/2016; ROS[facility] CHEST 03/22/2016 FINDINGS: The lungs are clear. No focal opacification is seen. The cardiomediastinal silhouette is unremarkable. The osseous structures are remarkable for degenerative spinal enthesopathy. IMPRESSION: 1. No acute cardiopulmonary process. 2. Degenerative spinal enthesopathy. RPTAT: PP .Marco Antonio Hanna MD, Date Time Electronically viewed and signed by .Marco Antonio Hanna MD, MD on 01/21/2019 20:58 .B/ CC: VIVI NICHOLSON PA-C [phone] Procedures/MDM 48-year-old female presenting to the emergency department complains of dry cough. Chest x-ray is negative for any acute abnormalities. The full report interpreted by the radiologist may be viewed above. The patient's clinical presentation is very consistent with an acute viral syndrome. The patient does not exhibit any clinical signs or symptoms concerning for serious bacterial infection or systemic illness. Based on history and clinical exam findings the patient does not appear to have evidence of pneumonia, strep pharyngitis, urinary tract infection, bacteremia, sepsis, or meningitis. For these reasons I do not believe it is necessary to obtain laboratory testing. I believe it would be appropriate for symptom control, and close outpatient primary care follow-up. Based on patient's history of present illness and physical examination the decision was made to discharge. There is no evidence of life threatening injuries or illnesses at this time. On re-examination, patient resting in no distress, stable vital signs, reports feeling better and safe for discharge with outpatient follow up with PMD in 1-2 days. Patient given return precautions. Departure Diagnosis: Primary Impression: Cough Condition: Stable Patient Instructions: Preventing Common Respiratory Infections Additional Instructions: Call your primary care doctor TOMORROW for an appointment during the next 1-2 days.See the doctor sooner or return here if your condition worsens before your appointment time. VIVI NICHOLSON PA-C January 22, 2019 00:58
== END 2019-01-21 21:54 | disposition home or self-care (01) ==
LOC: FTE 19:39
DX: R05 Cough (principal); I10 Essential (primary) hypertension; Z79.4 Long term (current) use of insulin; Z79.82 Long term (current) use of aspirin
CPT/HCPCS: 71045; Z7502

== ENCOUNTER 2019-01-30 08:25 | Emergency (ER) | payer MEDICAID ==
[~2019-01-30] VITALS: Ht 162.6 cm; Wt 72.0 kg
[~2019-01-30 08:25] MED LIST changes: +BENZ200C68 PO
[2019-01-30 08:30] VITALS: BP 157/79; PULSE 94; RESP 18; Ht 162.6 cm; Wt 72.0 kg
[2019-01-30] MEDS ORDERED: AZIT250T PO (08:45)
[2019-01-30] MEDS ORDERED: D-ME473S2 PO (08:45)
--- NOTE | 2019-01-30 08:48 | ERD ---
ER Documentation Chief Complaint Chief Complaint pt bib family with c/o cough for 2 wks, not getting better HPI This is a 48-year-old female history of hypertension and diabetes mellitus and depression who presents ED with complaints of cough x2 weeks. Patient admits to sputum production, sore throat, ear pain, body aches and headache. Denies runny nose, fever, chills, shortness breath, trouble breathing, chest pain and all other symptoms. No known drug allergies. Seen here 2 weeks ago for same symptoms and had a chest x-ray performed which was unremarkable and was given Tessalon Perles. ROS All systems reviewed and are negative except as per history of present illness. Medications Home Meds Active Scripts Dextromethorphan Hb-Promethazine Hcl* (Promethazine DM* Syrup) 473 Ml Syrup, 5 ML PO Q6 PRN for COUGH for 5 Days, ML Prov:NIHARIKA AGUILA PA-C 01/30/19 Azithromycin* (Zithromax*) 250 Mg Tablet, 250 MG PO .EddiePACK DIRECTED, #6 TAB TAKE 500 MG (2 TABS) THE FIRST DAY THEN 250 MG (1 TAB) DAYS 2-5 Prov:NIHARIKA AGUILA PA-C 01/30/19 Benzonatate* (Benzonatate*) 200 Mg Capsule, 200 MG PO TID PRN for COUGH, #15 CAP Prov:VIVI NICHOLSON PA-C 01/21/19 Carvedilol* (Carvedilol*) 6.25 Mg Tablet, 6.25 MG PO BID, #60 TAB Prov:ALISHA ABARCA NP 09/30/18 Ferrous Sulfate* (Ferrous Sulfate*) 325 Mg Tabec, 325 MG PO BID for 30 Days, TAB Prov:ROB HOLCOMB MD 09/24/18 Sucralfate* (Carafate*) 1 Gm/10 Ml Susp, 1 GM PO QID for 30 Days Prov:ROB HOLCOMB MD 09/24/18 Pantoprazole* (Pantoprazole*) 40 Mg Tablet.dr, 40 MG PO BID for 30 Days Prov:ROB HOLCOMB MD 09/24/18 Hydrocodone/Acetaminophen ([place] 5-325 Tablet) 1 Each Tablet, 1 TAB PO Q12 PRN for PAIN, #10 TAB Prov:LEEANNE RIVERA MD 02/28/18 Trazodone Hcl* (Desyrel*) 50 Mg Tab, 50 MG PO HS for 30 Days, #30 TAB Prov:PETER CORBIN MD 12/20/17 Atorvastatin* (Atorvastatin*) 40 Mg Tablet, 40 MG PO HS for 30 Days, #30 TAB Prov:PETER CORBIN MD 12/20/17 Insulin Glargine* (Lantus*) 100 Unit/Ml Soln, 20 UNIT SC BID for 30 Days, #1 VIAL Prov:PETER CORBIN MD 12/20/17 Reported Medications Aspirin (Low Dose Aspirin) 81 Mg Tablet.dr, 81 MG PO DAILY, #30 TAB 12/16/17 Loratadine* (Loratadine*) 10 Mg Tablet, 10 MG PO DAILY, #30 TAB 12/16/17 Fluoxetine Hcl* (Prozac*) 20 Mg Capsule, 20 MG PO DAILY, CAP 12/16/17 Losartan Potassium* (Losartan Potassium*) 25 Mg Tablet, 25 MG PO DAILY, TAB 12/16/17 Levothyroxine Sodium* (Levothyroxine Sodium*) 50 Mcg Tablet, 50 MCG PO BEFORE BREAKFAST, #30 TAB 04/07/17 Metformin Hcl* (Metformin Hcl*) 1,000 Mg Tablet, 1000 MG PO WITH BREAKFAST DINNE, #60 TAB 12/19/16 Allergies Allergies: Coded Allergies: acetaminophen (Verified Allergy, Intermediate, 09/19/18) hydrocodone (Verified Allergy, Intermediate, 09/19/18) PMhx/Soc History of Surgery: No Anesthesia Reaction: No Hx Neurological Disorder: No Hx Respiratory Disorders: No Hx Cardiac Disorders: Yes (HTN) Hx Psychiatric Problems: Yes (depression ) Hx Miscellaneous Medical Probl: No Hx Alcohol Use: No Hx Substance Use: No Hx Tobacco Use: No FmHx Family History: No diabetes Physical Exam Vitals Vital Signs Date Temp Pulse Resp B/P (MAP) Pulse Ox O2 O2 Flow FiO2 Time Delivery Rate 01/30/19 98.6 94 18 157/79 100 08:30 (105) Physical Exam Physical Exam Vitals signs: Reviewed by me. General: Well developed, well nourished, in no acute distress. Patient is awake and alert. Head: Normocephalic, atraumatic. Eyes: Normal conjunctiva, Pupils PERRLA, EOM intact grossly ENT: Pharynx is clear, Moist mucous membranes, external ears, nose and mouth normal, mild tonsillar adenopathy, no tonsillar erythema, exudate, no kissing tonsils, no uvula deviation, normal nasal mucosa, tympanic membrane visualized bilaterally no bulging, erythema, purulent air-fluid line seen Neck: Supple, no masses, lymphadenopathy or JVD Respiratory: Clear to auscultation bilaterally with no wheezing, rhonchi, rales, no distress Cardiovascular: RRR, no murmurs, rubs, or gallops MSK: No edema, no unilateral swelling, 5/5 strength Back: No midline tenderness. Neurologic: Alert and oriented, moving all extremities, normal speech, no focal weakness, no cerebellar signs. Normal mentation Skin: warm and dry, No rash Psych: Normal mood Procedures/MDM ER COURSE: The patient was stable throughout ED course. I kept the patient and/or family informed of laboratory and diagnostic imaging results throughout the emergency room course. The patient was promptly evaluated and a treatment plan was devised based on H&P and other data. This plan was discussed with the patient who agreed and had no further questions or concerns prior to discharge. MEDICAL DECISION MAKIN-year-old female presents ED with cough x2 weeks. Symptoms are most likely consistent with acute bronchitis. Low suspicion for pneumonia, as lung sounds are clear at this time. Oxygen saturation is normal and patient does not have any respiratory distress. Advanced imaging is not indicated at this time. Low suspicion for other cardiopulmonary emergency such as pulmonary embolism, pneumothorax, tension pneumothorax, pleural effusion, pneumothorax, CHF, aortic aneurysm or other cardiopulmonary emergencies. No evidence of sepsis. Patient's vitals are stable he can be managed with close outpatient follow-up. Advised patient to follow-up with primary care in the next 48 hours. Return to ED with any worsening symptoms DISPOSITION PLAN: We discussed follow up with the patient's primary care doctor within 24 to 48 hours. Patient counseled regarding my diagnostic impression and care plan. Prior to discharge all questions answered. Pt agrees with treatment plan and understands strict return precautions. Precautionary instructions provided including instructions to return to the ER if not improving or for any worsening or changing symptoms or concerns. SPECIALIST FOLLOW UP RECOMMENDED: None Patient has been advised to follow up with primary care in 1-2 days. Disclaimer: Inadvertent spelling and grammatical errors are likely due to EHR/dictation software use and do not reflect on the overall quality of patient care. Also, please note that the electronic time recorded on this note does not necessarily reflect the actual time of the patient encounter. Departure Diagnosis: Primary Impression: Cough Condition: Stable Patient Instructions: Acute Bronchitis Referrals: CORBIN,PETER A MD (PCP) [facility] Usted se ibrahim hecho un examen mdico de control que le indica que no est en tan condicin que requiera tratamiento urgente en el Departamento de Emergencia. Un estudio ms profundo y el tratamiento de hargrove condicin pueden esperar sin ningn riesgo hasta que usted sea atendida/o en el consultorio de hargrove mdico o tan clnica. Es responsabilidad suya arreglar tan marcia para el seguimiento del denzel. MANEJO DE CONDICIONES NO URGENTES EN EL FUTURO 1) Si usted tiene un mdico de atencin primaria: Usted debera llamar a hargrove mdico de atencin primaria antes de venir al departamento de emergencia. Despus de las horas de consultorio, hargrove doctor o hargrove asociado/a est disponible por telfono. El mdico o enfermero de robi en el servicio telefnico puede asesorarle por lisha medio para atender el problema, o denzel contrario se puede programar tan marcia. 2) Si usted no tiene un mdico de atencin primaria: Llame al mdico o clnica de referencia que aparece abajo rona las horas de consultorio para hacer tan marcia para que le vean. CLINICAS: [facility] [phone] [facility] [phone] [facility] [phone] [facility] [phone] [facility] [phone] [facility] [phone] [address] Additional Instructions: Paciente aconseja volver a Departamento de urgencias inmediatamente para sntomas nuevos o que empeoran . Paciente aconseja posteriores con el PCP en 1-2 miranda . Paciente verbaliza la comprehensin y est de acuerdo con el tratamiento y el curso de accin. Si el paciente no tiene ninguna de atencin primaria pueden seguir con [facility] [address] [place] [address] o [facility] + [address] [address] NIHARIKA AGUILA PA-C January 30, 2019 08:48
== END 2019-01-30 08:59 | disposition home or self-care (01) ==
LOC: FTE 08:25
DX: R05 Cough (principal); I10 Essential (primary) hypertension; E11.9 Type 2 diabetes mellitus without complications; Z79.4 Long term (current) use of insulin; Z79.82 Long term (current) use of aspirin
CPT/HCPCS: 99283

== ENCOUNTER 2019-02-07 18:28 | Emergency (ER) | payer MEDICAID ==
[~2019-02-07] VITALS: Ht 134.6 cm; Wt 78.3 kg
[~2019-02-07 18:28] MED LIST changes: +AZIT250T PO; +D-ME473S2 PO
[2019-02-07 18:30] VITALS: Ht 134.6 cm; Wt 78.3 kg
[2019-02-07] MEDS ORDERED: ALBUTEROL 0.083% (NEB) 2.5 MG/3 ML AMP HHN STA (20:42)
[2019-02-07] MEDS ORDERED: KETOROLAC 30 MG INJ IV STA (20:42)
[2019-02-07] MEDS ORDERED: SOD CHLORIDE 0.9% 1,000 ML IV STA (20:42)
[2019-02-07] MEDS ORDERED: DEXAMETHASONE 10 MG/ML 1 ML INJ IV ONE (21:00)
[2019-02-07] MEDS ORDERED: SOD CHLORIDE 0.9% 1,000 ML IV ONE (21:54)
[2019-02-07] MEDS ORDERED: ACCU-CHEK XX ONE (22:00)
[2019-02-07] MEDS ORDERED: INSULIN LISPRO 100 UNIT/ML VIAL SC ONE (22:00)
[2019-02-07] MEDS ORDERED: PROM5SYR2 PO (22:30)
[2019-02-07] MEDS ORDERED: AZIT250T PO (22:30)
[2019-02-07] MEDS ORDERED: IBUP-1561 PO (22:30)
--- NOTE | 2019-02-07 22:36 | ERD ---
ER Documentation Chief Complaint Chief Complaint cough x 1 month, also c/o sore throat HPI 48-year-old female presents with painful cough for the last month. She was treated with unspecified antibiotics by her primary doctor 2 weeks ago. She denies fevers, chest pain, vomiting, abdominal pain patient has history of asthma. ROS All systems reviewed and are negative except as per history of present illness. Medications Home Meds Active Scripts Doxycycline Hyclate* (Doxycycline Hyclate*) 100 Mg Tablet.dr, 100 MG PO BID for 7 Days, TAB Prov:ARPIT LAM MD 02/07/19 Ibuprofen* (Motrin*) 400 Mg Tab, 400 MG PO Q6, #15 TAB Prov:ARPIT LAM MD 02/07/19 Promethazine HCl/Codeine (Prometh-Codein 6.25-10 mg/5 ml) 5 Ml Syrup, 5 ML PO QID for 5 Days 6 oz Prov:ARPIT LAM MD 02/07/19 Dextromethorphan Hb-Promethazine Hcl* (Promethazine DM* Syrup) 473 Ml Syrup, 5 ML PO Q6 PRN for COUGH for 5 Days, ML Prov:NIHARIKA AGUILA PA-C 01/30/19 Azithromycin* (Zithromax*) 250 Mg Tablet, 250 MG PO .EddiePACK DIRECTED, #6 TAB TAKE 500 MG (2 TABS) THE FIRST DAY THEN 250 MG (1 TAB) DAYS 2-5 Prov:NIHARIKA AGUILA PA-C 01/30/19 Benzonatate* (Benzonatate*) 200 Mg Capsule, 200 MG PO TID PRN for COUGH, #15 CAP Prov:VIVI NICHOLSONC 01/21/19 Carvedilol* (Carvedilol*) 6.25 Mg Tablet, 6.25 MG PO BID, #60 TAB Prov:ALISHA ABARCA NP 09/30/18 Ferrous Sulfate* (Ferrous Sulfate*) 325 Mg Tabec, 325 MG PO BID for 30 Days, TAB Prov:ROB HOLCOMB MD 09/24/18 Sucralfate* (Carafate*) 1 Gm/10 Ml Susp, 1 GM PO QID for 30 Days Prov:ROB HOLCOMB MD 09/24/18 Pantoprazole* (Pantoprazole*) 40 Mg Tablet.dr, 40 MG PO BID for 30 Days Prov:ROB HOLCOMB MD 09/24/18 Hydrocodone/Acetaminophen ([place] 5-325 Tablet) 1 Each Tablet, 1 TAB PO Q12 PRN for PAIN, #10 TAB Prov:LEEANNE RIVERA MD 02/28/18 Trazodone Hcl* (Desyrel*) 50 Mg Tab, 50 MG PO HS for 30 Days, #30 TAB Prov:PETER CORBIN MD 12/20/17 Atorvastatin* (Atorvastatin*) 40 Mg Tablet, 40 MG PO HS for 30 Days, #30 TAB Prov:PETER CORBIN MD 12/20/17 Insulin Glargine* (Lantus*) 100 Unit/Ml Soln, 20 UNIT SC BID for 30 Days, #1 VIAL Prov:PETER CORBIN MD 12/20/17 Reported Medications Aspirin (Low Dose Aspirin) 81 Mg Tablet.dr, 81 MG PO DAILY, #30 TAB 12/16/17 Loratadine* (Loratadine*) 10 Mg Tablet, 10 MG PO DAILY, #30 TAB 12/16/17 Fluoxetine Hcl* (Prozac*) 20 Mg Capsule, 20 MG PO DAILY, CAP 12/16/17 Losartan Potassium* (Losartan Potassium*) 25 Mg Tablet, 25 MG PO DAILY, TAB 12/16/17 Levothyroxine Sodium* (Levothyroxine Sodium*) 50 Mcg Tablet, 50 MCG PO BEFORE BREAKFAST, #30 TAB 04/07/17 Metformin Hcl* (Metformin Hcl*) 1,000 Mg Tablet, 1000 MG PO WITH BREAKFAST DINNE, #60 TAB 12/19/16 Discontinued Scripts Azithromycin* (Zithromax*) 250 Mg Tablet, 250 MG PO .ZPACK DIRECTED, #6 TAB TAKE 500 MG (2 TABS) THE FIRST DAY THEN 250 MG (1 TAB) DAYS 2-5 Prov:ARPIT LAM MD 02/07/19 Allergies Allergies: Coded Allergies: acetaminophen (Verified Allergy, Intermediate, 09/19/18) hydrocodone (Verified Allergy, Intermediate, 09/19/18) PMhx/Soc Medical and Surgical Hx: pt denies Surgical Hx History of Surgery: No Anesthesia Reaction: No Hx Neurological Disorder: No Hx Respiratory Disorders: No Hx Cardiac Disorders: Yes (HTN) Hx Psychiatric Problems: Yes (depression ) Hx Miscellaneous Medical Probl: No Hx Alcohol Use: No Hx Substance Use: No Hx Tobacco Use: No FmHx Family History: No diabetes, No coronary disease, No other Physical Exam Vitals Vital Signs Date Temp Pulse Resp B/P (MAP) Pulse Ox O2 O2 Flow FiO2 Time Delivery Rate 02/07/19 95 18 99 21 20:49 02/07/19 98.2 86 18 180/90 98 18:30 (120) Physical Exam Const: No acute distress Head: Atraumatic Eyes: Normal Conjunctiva ENT: Normal External Ears, Nose and Mouth. TMs normal. Oropharynx normal. Neck: Full range of motion. No meningismus. Resp: Clear to auscultation bilaterally. Dry cough with minimal forced wheeze. No rales or retractions. Cardio: Regular rate and rhythm, no murmurs Abd: Soft, non tender, non distended. Normal bowel sounds Skin: No petechiae or rashes Back: No midline or flank tenderness Ext: No cyanosis, or edema Neur: Awake and alert Psych: Normal Mood and Affect Result Diagram: 02/07/19204902/07/192049 Results 24 hrs Laboratory Tests Test 02/07/19 20:50 02/07/19 22:06 White Blood Count 10.0 10^3/ul Red Blood Count 4.60 10^6/ul Hemoglobin 12.4 g/dl Hematocrit 37.8 % Mean Corpuscular Volume 82.2 fl Mean Corpuscular Hemoglobin 27.0 pg Mean Corpuscular Hemoglobin Concent 32.8 g/dl Red Cell Distribution Width 13.4 % Platelet Count 433 10^3/UL Mean Platelet Volume 10.0 fl Immature Granulocytes % 0.400 % Neutrophils % 47.7 % Lymphocytes % 43.7 % Monocytes % 6.5 % Eosinophils % 1.4 % Basophils % 0.3 % Nucleated Red Blood Cells % 0.0 /100WBC Immature Granulocytes # 0.040 10^3/ul Neutrophils # 4.8 10^3/ul Lymphocytes # 4.4 10^3/ul Monocytes # 0.7 10^3/ul Eosinophils # 0.1 10^3/ul Basophils # 0.0 10^3/ul Nucleated Red Blood Cells # 0.0 10^3/ul Sodium Level 135 mmol/L Potassium Level 5.4 mmol/L Chloride Level 104 mmol/L Carbon Dioxide Level 22 mmol/L Anion Gap 9 Blood Urea Nitrogen 25 mg/dl Creatinine 1.06 mg/dl Est Glomerular Filtrat Rate mL/min 56 mL/min Glucose Level 492 mg/dl Calcium Level 9.2 mg/dl Bedside Glucose 447 mg/dL Current Medications Medications Dose Sig/Charley Start Time Status Last (Trade) Ordered Route PRN Stop Time Admin Dose Reason Admin Sodium 1,000 ml @ Q1H STAT 02/07/19 DC 02/07/19 Chloride 1,000 mls/hr IV 20:42 02/07/19 20:59 21:41 Ketorolac 30 mg ONCE STAT 02/07/19 DC 02/07/19 Tromethamine IV 20:42 02/07/19 21:05 (Toradol) 20:44 8 mg ONCE ONCE 02/07/19 DC 02/07/19 Dexamethasone IV 21:00 02/07/19 20:59 (Decadron) 21:01 Albuterol 5 mg ONCE STAT 02/07/19 DC 02/07/19 (Proventil HHN 20:42 02/07/19 20:49 0.083% (Neb)) 20:44 Insulin 10 unit ONCE ONCE 02/07/19 DC 02/07/19 Human SC 22:00 02/07/19 22:10 Lispro 22:01 (Humalog) Diagnostic 1 ea 2 HRS AFTER 02/07/19 DC 02/07/19 Test (Pha) HUMALOG ONCE 22:00 02/07/19 22:10 (Accu-Chek) XX 22:01 Sodium 1,000 ml @ Q0M ONCE 02/07/19 DC 02/07/19 Chloride 0 mls/hr IV 21:54 02/07/19 22:08 22:01 Procedures/MDM Patient presents with cough for last month. She has no signs of hypoxemia, respiratory distress. She was given 8 mg Decadron IV. She had elevated blood sugar. She was given 10 units Humalog subcutaneously and 2 L normal saline and observed till blood sugar improved. CBC shows normal white blood cell count. Patient has minimally high hyperkalemia and minimal prerenal insufficiency.. Patient had clear lungs on serial exam. She was given albuterol treatment as well and felt improvement in cough and is requesting an inhaler.. Patient has no signs of pneumonia, hypoxemia, rest or distress. Doubt PE. She will be treated for possible pertussis empirically with doxycycline, promethazine codeine, recommendations for primary care follow-up and return precautions. History suggest patient was treated previously with Zithromax which would cover for pertussis. The patient was stable with no new complaints during the ER course. Clinically, there is no current evidence to suggest meningitis, sepsis, acute abdomen, pneumonia, stroke, acute coronary syndrome, pulmonary embolism, aortic dissection or any other emergent condition appearing to require further evaluation or hospitalization. Patient counseled regarding my diagnostic impression and care plan. Prior to discharge all questions answered. Pt agrees with treatment plan and understands strict return precautions. Pt is instructed to follow up with primary care provider within 24-48 hours. Precautionary instructions provided including instructions to return to the ER if not improving or for any worsening or changing symptoms or concerns. Disclaimer: Inadvertent spelling and grammatical errors are likely due to EHR/dictation software use and do not reflect on the overall quality of patient care. Also, please note that the electronic time recorded on this note does not necessarily reflect the actual time of the patient encounter. Chest X-ray 1V Interpreted by me: Soft Tissue: No acute abnormalities Bones: No acute abnormalities Mediastinum/Cardiac Silhouette/Lungs: No acute abnormalities. Impression- normal 1 view chest x-ray Departure Diagnosis: Primary Impression: Cough Additional Impression: Hypertension Hypertension type: unspecified Qualified Codes: I10 - Essential (primary) hypertension Patient Instructions: Cough, Chronic, Uncertain Cause, (Adult), Hypertension, Established Referrals: PETER CORBIN MD (PCP) Additional Instructions: vamos a tratar para infeccion. azucar es jeannine cadence otro examines normal hoy. Cheque otro vez con hargrove doctor primario en el proximo [place] or regresa para mas o nueva simptomas. ARPIT LAM MD Feb 07, 2019 22:36
[2019-02-07] MEDS ORDERED: DOXY100T20 PO (22:39)
[2019-02-07] MEDS ORDERED: ALBU18HF INHALATION (22:41)
[2019-02-07 23:03] VITALS: BP 148/69; PULSE 80; RESP 18
== END 2019-02-07 22:42 | disposition home or self-care (01) ==
LOC: FTE 18:28
DX: I10 Essential (primary) hypertension (principal); Z79.4 Long term (current) use of insulin; Z79.82 Long term (current) use of aspirin
CPT/HCPCS: 71045; 80048; 82962; 85025; 94664; 96372; 96374; 96375; J1100; J1815; J1885; J7030; Z7502; Z7610

== ENCOUNTER 2019-04-09 17:21 | Emergency (ER) | payer MEDICAID ==
[~2019-04-09] VITALS: Ht 162.6 cm; Wt 80.0 kg
[~2019-04-09 17:21] MED LIST changes: +ALBU18HF INHALATION; +CIPR500T21 PO; +DOXY100T20 PO; +IBUP-1561 PO; +PROM5SYR2 PO
[2019-04-09 17:27] VITALS: Ht 162.6 cm; Wt 80.0 kg
[2019-04-09] MEDS ORDERED: SOD CHLORIDE 0.9% 1,000 ML IV STA (21:09)
[2019-04-09] MEDS ORDERED: ONDANSETRON 4 MG INJ IV STA (21:09)
[2019-04-09] MEDS ORDERED: morphine 4 MG/ML VIAL IV STA (21:09)
--- NOTE | 2019-04-09 22:51 | ERD ---
ER Documentation Chief Complaint Chief Complaint left flank pain HPI 48-year-old diabetic presenting with left flank pain and dysuria. States she was recently diagnosed with a UTI. No nausea or vomiting. Afebrile. No diarrhea or constipation. Vaginal discharge or vaginal bleeding. ROS All systems reviewed and are negative except as per history of present illness. Medications Home Meds Active Scripts Albuterol Sulfate* (Ventolin HFA*) 18 Gm Hfa.aer.ad, 2 PUFF INHALATION Q4H, #1 INHALER Prov:ARPIT LAM MD 02/07/19 Doxycycline Hyclate* (Doxycycline Hyclate*) 100 Mg Tablet.dr, 100 MG PO BID for 7 Days, TAB Prov:ARPIT LAM MD 02/07/19 Ibuprofen* (Motrin*) 400 Mg Tab, 400 MG PO Q6, #15 TAB Prov:ARPIT LAM MD 02/07/19 Promethazine HCl/Codeine (Prometh-Codein 6.25-10 mg/5 ml) 5 Ml Syrup, 5 ML PO QID for 5 Days 6 oz Prov:ARPIT LAM MD 02/07/19 Dextromethorphan Hb-Promethazine Hcl* (Promethazine DM* Syrup) 473 Ml Syrup, 5 ML PO Q6 PRN for COUGH for 5 Days, ML Prov:NIHARIKA AGUILA PA-C 01/30/19 Azithromycin* (Zithromax*) 250 Mg Tablet, 250 MG PO .ZPACK DIRECTED, #6 TAB TAKE 500 MG (2 TABS) THE FIRST DAY THEN 250 MG (1 TAB) DAYS 2-5 Prov:NIHARIKA AGUILA PA-C 01/30/19 Benzonatate* (Benzonatate*) 200 Mg Capsule, 200 MG PO TID PRN for COUGH, #15 CAP Prov:VIVI NICHOLSON PA-C 01/21/19 Carvedilol* (Carvedilol*) 6.25 Mg Tablet, 6.25 MG PO BID, #60 TAB Prov:ALISHA ABARCA NP 09/30/18 Ferrous Sulfate* (Ferrous Sulfate*) 325 Mg Tabec, 325 MG PO BID for 30 Days, TAB Prov:ROB HOLCOMB MD 09/24/18 Sucralfate* (Carafate*) 1 Gm/10 Ml Susp, 1 GM PO QID for 30 Days Prov:ROB HOLCOMB MD 09/24/18 Pantoprazole* (Pantoprazole*) 40 Mg Tablet.dr, 40 MG PO BID for 30 Days Prov:ROB HOLCOMB MD 09/24/18 Hydrocodone/Acetaminophen ([place] 5-325 Tablet) 1 Each Tablet, 1 TAB PO Q12 PRN for PAIN, #10 TAB Prov:LEEANNE RIVERA MD 02/28/18 Trazodone Hcl* (Desyrel*) 50 Mg Tab, 50 MG PO HS for 30 Days, #30 TAB Prov:PETER CORBIN MD 12/20/17 Atorvastatin* (Atorvastatin*) 40 Mg Tablet, 40 MG PO HS for 30 Days, #30 TAB Prov:PETER CORBIN MD 12/20/17 Insulin Glargine* (Lantus*) 100 Unit/Ml Soln, 20 UNIT SC BID for 30 Days, #1 VIAL Prov:PETER CORBIN MD 12/20/17 Reported Medications Aspirin (Low Dose Aspirin) 81 Mg Tablet.dr, 81 MG PO DAILY, #30 TAB 12/16/17 Loratadine* (Loratadine*) 10 Mg Tablet, 10 MG PO DAILY, #30 TAB 12/16/17 Fluoxetine Hcl* (Prozac*) 20 Mg Capsule, 20 MG PO DAILY, CAP 12/16/17 Losartan Potassium* (Losartan Potassium*) 25 Mg Tablet, 25 MG PO DAILY, TAB 12/16/17 Levothyroxine Sodium* (Levothyroxine Sodium*) 50 Mcg Tablet, 50 MCG PO BEFORE BREAKFAST, #30 TAB 04/07/17 Metformin Hcl* (Metformin Hcl*) 1,000 Mg Tablet, 1000 MG PO WITH BREAKFAST DINNE, #60 TAB 12/19/16 Allergies Allergies: Coded Allergies: acetaminophen (Verified Allergy, Intermediate, 09/19/18) hydrocodone (Verified Allergy, Intermediate, 09/19/18) PMhx/Soc History of Surgery: No Anesthesia Reaction: No Hx Neurological Disorder: No Hx Respiratory Disorders: No Hx Cardiac Disorders: Yes (HTN) Hx Psychiatric Problems: Yes (depression ) Hx Miscellaneous Medical Probl: No Hx Alcohol Use: No Hx Substance Use: No Hx Tobacco Use: No Smoking Status: Never smoker Physical Exam Vitals Vital Signs Date Temp Pulse Resp B/P (MAP) Pulse Ox O2 O2 Flow FiO2 Time Delivery Rate 04/09/19 78 14 145/85 98 Room Air 20:31 (105) 04/09/19 98.2 87 18 156/78 99 17:27 (104) Physical Exam Const: No acute distress Head: Atraumatic Eyes: Normal Conjunctiva ENT: Normal External Ears, Nose and Mouth. Neck: Full range of motion. No meningismus. Resp: Clear to auscultation bilaterally Cardio: Regular rate and rhythm, no murmurs Abd: Suprapubic tenderness and left flank tenderness no rebound or guarding Skin: No petechiae or rashes Back: No midline or flank tenderness Ext: No cyanosis, or edema Neur: Awake and alert Psych: Normal Mood and Affect Result Diagram: 04/09/19204904/09/192049 Results 24 hrs Laboratory Tests Test 04/09/19 20:50 White Blood Count 17.6 10^3/ul Red Blood Count 4.71 10^6/ul Hemoglobin 12.9 g/dl Hematocrit 38.7 % Mean Corpuscular Volume 82.2 fl Mean Corpuscular Hemoglobin 27.4 pg Mean Corpuscular Hemoglobin Concent 33.3 g/dl Red Cell Distribution Width 12.7 % Platelet Count 373 10^3/UL Mean Platelet Volume 10.7 fl Immature Granulocytes % 0.400 % Neutrophils % 81.6 % Lymphocytes % 10.2 % Monocytes % 7.3 % Eosinophils % 0.2 % Basophils % 0.3 % Nucleated Red Blood Cells % 0.0 /100WBC Immature Granulocytes # 0.070 10^3/ul Neutrophils # 14.4 10^3/ul Lymphocytes # 1.8 10^3/ul Monocytes # 1.3 10^3/ul Eosinophils # 0.0 10^3/ul Basophils # 0.1 10^3/ul Nucleated Red Blood Cells # 0.0 10^3/ul Urine Color STRAW Urine Clarity SLIGHTLY CLOUDY Urine pH 6.0 Urine Specific [place] 1.018 Urine Ketones NEGATIVE mg/dL Urine Nitrite NEGATIVE mg/dL Urine Bilirubin NEGATIVE mg/dL Urine Urobilinogen NEGATIVE mg/dL Urine Leukocyte Esterase 1+ Lucía/ul Urine Microscopic RBC > 182 /HPF Urine Microscopic WBC 115 /HPF Urine Squamous Epithelial Cells FEW /HPF Urine Bacteria FEW /HPF Urine Hemoglobin 3+ mg/dL Urine Glucose 3+ mg/dL Urine Total Protein 3+ mg/dl Urine Test NEGATIVE Sodium Level 135 mmol/L Potassium Level 4.2 mmol/L Chloride Level 99 mmol/L Carbon Dioxide Level 23 mmol/L Anion Gap 13 Blood Urea Nitrogen 21 mg/dl Creatinine 1.19 mg/dl Est Glomerular Filtrat Rate mL/min 49 mL/min Glucose Level 426 mg/dl Calcium Level 9.4 mg/dl Total Bilirubin 0.5 mg/dl Direct Bilirubin 0.00 mg/dl Indirect Bilirubin 0.5 mg/dl Aspartate Amino Transf (AST/SGOT) 23 IU/L Alanine Aminotransferase (ALT/SGPT) 18 IU/L Alkaline Phosphatase 109 IU/L Total Protein 7.4 g/dl Albumin 4.1 g/dl Globulin 3.30 g/dl Albumin/Globulin Ratio 1.24 Lipase 158 U/L Current Medications Medications Dose Sig/Charley Start Time Status Last (Trade) Ordered Route PRN Stop Time Admin Dose Reason Admin Sodium 1,000 ml @ Q1H STAT 04/09/19 DC 04/09/19 Chloride 1,000 mls/hr IV 21:09 04/09/19 21:17 22:08 Morphine 4 mg ONCE STAT 04/09/19 DC 04/09/19 Sulfate IV 21:09 04/09/19 21:17 (morphine) 21:10 Ondansetron 4 mg ONCE STAT 04/09/19 DC 04/09/19 HCl (Zofran IV 21:09 04/09/19 21:16 Inj) 21:10 Procedures/MDM Patient presenting with flank pain and fever. Differential included UTI, pyelonephritis, diverticulitis, nephrolithiasis, appendicitis. Also considered but less likely given history and physical exam included constipation, bowel perforation, gastritis, pancreatitis, mesenteric ischemia. White blood count was 17. Urinalysis was obtained showing signs of infection i. CT with evidence of pyelonephritis. Patient provided pain control. Patient is hemodynamic stable afebrile not tachycardic will give IV ceftriaxone and fluids and discharged with antibiotics. She also hyperglycemic with no evidence of DKA will give IV fluids. Patient is to return to the emergency department if having worsening pain, uncontrolled fevers, vomiting, inability to tolerate PO, inability to stool/urinate. Departure Diagnosis: Primary Impression: Pyelonephritis Condition: Stable NEFTALY FREDERICK MD Apr 09, 2019 22:51
[2019-04-09] MEDS ORDERED: CEFTRIAXONE 1 GM/50 ML (PMX) 50 ML IVPB ONE (23:00)
[2019-04-09] MEDS ORDERED: SOD CHLORIDE 0.9% 1,000 ML IV ONE (23:00)
[2019-04-09 23:39] VITALS: BP 157/94; PULSE 95; RESP 16
== END 2019-04-09 23:55 | disposition home or self-care (01) ==
LOC: E/R 17:21
DX: N12 Tubulo-interstitial nephritis, not specified as acute or chronic (principal); I10 Essential (primary) hypertension; E11.9 Type 2 diabetes mellitus without complications; Z79.4 Long term (current) use of insulin; Z79.82 Long term (current) use of aspirin
CPT/HCPCS: 36415; 74176; 80053; 81001; 83690; 84703; 85025; 96374; 96375; J0696; J2270; J2405; J7030; Z7502

== ENCOUNTER 2019-04-30 08:38 | Emergency (ER) | payer MEDICAID ==
[~2019-04-30] VITALS: Wt 78.0 kg
[~2019-04-30 08:38] MED LIST changes: -ALBU18HF INHALATION; -BENZ200C68 PO; -D-ME473S2 PO; -DOXY100T20 PO
[2019-04-30 08:48] VITALS: BP 123/84; PULSE 83; RESP 18
[2019-04-30] MEDS ORDERED: IBUPROFEN 200 MG TAB PO ONE (09:30)
== END 2019-04-30 09:57 | disposition home or self-care (01) ==
LOC: FTE 08:38
DX: H66.002 Acute suppurative otitis media without spontaneous rupture of ear drum, left ear (principal); I10 Essential (primary) hypertension; E11.9 Type 2 diabetes mellitus without complications; Z79.4 Long term (current) use of insulin; Z79.82 Long term (current) use of aspirin; Z86.73 Personal history of transient ischemic attack (TIA), and cerebral infarction without residual deficits
CPT/HCPCS: Z7502; Z7610; 99283